=== PATIENT | female | born 1945 | race African-American/Black ===

== ENCOUNTER 2016-10-24 19:51 | Emergency (ER) | payer MEDICARE, OTHER ==
[~2016-10-24] VITALS: Ht 162.6 cm; Wt 79.8 kg
[~2016-10-24 19:51] MED LIST: ACET325T9 PO; ASCO500T2 PO; ASPI-482 PO; CELE200C PO; CHOL100016 PO; CLOP75TA57 PO; DICL100G18 TP; DIVA250T PO; DOCU240C30 PO; DONE10TA7 PO; DULO30CA2 PO; HYDR-2758 PO; INSU100I17 SQ; IPRA3AMP IH; LOSA100T6 PO; MAGN400O7 PO; MAGN400T3 PO; MULT-470 PO; MULT1TAB52 PO; NYST15PO9 TP; OMEP20CA9 PO; ONDA4TAB10 PO; OXYC-328 PO; OXYC10TA PO; OXYC5CAP PO; POLY17PO29 PO; POTA20PA21 PO; SENN1TAB7 PO; SENN8.6T6 PO; SIMV20TA3 PO; TRAZ50TA15 PO
--- NOTE | 2016-10-24 20:43 | PHYS DOC ---
Past Medical History Past Medical History: Anxiety, Asthma, Constipation, CVA, Dementia, Depression , Diabetes-Type II, GERD, High Cholesterol, Stroke, Other Additional Past Medical Histor: ALZHEIMERS, PVD, INSOMNIA, GASTROPARESIS, DYSPHAGIA, hemiplegia, MOOD D/O Past Surgical History: Hysterectomy Alcohol Use: None Drug Use: None Adult General Chief Complaint Chief Complaint: MECHANICAL FALL HPI HPI Patient is a 71 year old female who presents by EMS from nursing facility for sliding out of her wheelchair and then appearing that she was in pain. She is mostly nonverbal at baseline due to advanced dementia; she answers yes and no questions while here. Her son states she appears at her mental baseline at this time. Patient states she is in pain, but does not say specifically where it is. Patient does only say yes to pain when left elbow is palpated. She denies headache, vision changes, dizziness, chest pain, back pain, dyspnea, abdominal pain. Review of Systems Review of Systems Constitutional: Denies fever or chills [] Eyes: Denies change in visual acuity, redness, or eye pain [] HENT: Denies nasal congestion or sore throat [] Respiratory: Denies cough or shortness of breath [] Cardiovascular: No additional information not addressed in HPI [] GI: Denies abdominal pain, nausea, vomiting, bloody stools or diarrhea [] : Denies dysuria or hematuria [] Musculoskeletal: Denies back pain [] Integument: Denies rash or skin lesions [] Neurologic: Denies headache, focal weakness or sensory changes [] Endocrine: Denies polyuria or polydipsia [] Allergies Allergies Allergies Coded Allergies Type Severity Reaction Last Updated Verified Penicillins Allergy Intermediate 02/12/14 Yes Physical Exam Physical Exam Constitutional: Well developed, well nourished, no acute distress, non-toxic appearance. [] HENT: Normocephalic, atraumatic, bilateral external ears normal, oropharynx moist, no oral exudates, nose normal. [] Eyes: PERRLA, EOMI, conjunctiva normal, no discharge. [] Neck: Normal range of motion, no tenderness, supple. [] Cardiovascular:Heart rate regular rhythm [] Lungs & Thorax: Bilateral breath sounds clear to auscultation [] Abdomen: Bowel sounds normal, soft, no tenderness. [] Skin: Warm, dry, no erythema, no rash. [] Back: No tenderness, no CVA tenderness. [] Extremities: No tenderness and no obvious deformity to RUE, RLE, or LLE. LUE with no obvious deformity or discoloration; Has mild tenderness of olecranon with no visual or palpable abnormality; otherwise nontender; Full ROM with shoulder/elbow/wrist/hand; Can pronate/supinate; Can make fist/thumb up/ finger spread; Can flex/ex wrist; Good radial pulse and brisk cap refill equal bilaterally; sensation intact to light touch m/u/r/ax nerves [] Neurologic: Alert, minimally verbal, chronic right hemiplegia. [] Psychologic: Affect normal, mood normal. [] Current Patient Data Vital Signs Vital Signs Date Time Temp Pulse Resp B/P (MAP) Pulse Ox O2 Delivery O2 Flow Rate FiO2 10/24/16 20:00 98.0 89 18 155/94 (114) 97 Room Air 98.0 Course & Med Decision Making Course & Med Decision Making Pertinent Labs and Imaging studies reviewed. (See chart for details) Laboratory evaluation is unremarkable. Discussed with family that imaging does not appear indicated at this time based upon exam. They feel comfortable returning to the nursing facility. Return precautions given. Family understands and agrees with plan. Dragon Disclaimer Dragon Disclaimer This electronic medical record was generated, in whole or in part, using a voice recognition dictation system. Departure Departure Impression: Primary Impression: Left elbow pain Disposition: 01 HOME, SELF-CARE Condition: STABLE Referrals: TEENA DAHL MD (PCP) Patient Instructions: Musculoskeletal Pain Additional Instructions: Follow-up with your primary care doctor. Return for any concerns. Polo GEE MD October 24, 2016 20:43
[2016-10-24 20:44] LABS: POTASSIUM ISTAT 3.7 mmol/L (3.5-5.0)
[2016-10-24 21:20] VITALS: BP 180/80
== END 2016-10-24 22:03 | disposition home or self-care (01) ==
LOC: ER 20:39
DX: M25.522 Pain in left elbow (principal); G81.91 Hemiplegia, unspecified affecting right dominant side; F41.9 Anxiety disorder, unspecified; F32.9 Major depressive disorder, single episode, unspecified; E11.43 Type 2 diabetes mellitus with diabetic autonomic (poly)neuropathy; K31.84 Gastroparesis; K21.9 Gastro-esophageal reflux disease without esophagitis; E78.00 Pure hypercholesterolemia, unspecified; I73.9 Peripheral vascular disease, unspecified; G47.00 Insomnia, unspecified; J45.909 Unspecified asthma, uncomplicated; G30.9 Alzheimer's disease, unspecified; F02.80 Dementia in other diseases classified elsewhere, unspecified severity, without behavioral disturbance, psychotic disturbance, mood disturbance, and anxiety; Z88.0 Allergy status to penicillin; Z86.73 Personal history of transient ischemic attack (TIA), and cerebral infarction without residual deficits
CPT/HCPCS: 36415; 80047; 99284

== ENCOUNTER 2016-12-15 07:08 | Emergency (ER) | payer MEDICARE, OTHER ==
[~2016-12-15] VITALS: Ht 170.2 cm; Wt 79.8 kg
--- NOTE | 2016-12-15 07:48 | PHYS DOC ---
Past Medical History Past Medical History: Anxiety, Asthma, Constipation, CVA, Dementia, Depression , Diabetes-Type II, GERD, High Cholesterol, Stroke, Other Additional Past Medical Histor: ALZHEIMERS, PVD, INSOMNIA, GASTROPARESIS, DYSPHAGIA, hemiplegia, MOOD D/O Past Surgical History: Hysterectomy Alcohol Use: None Drug Use: None Adult General Chief Complaint Chief Complaint: MECHANICAL FALL HPI HPI Patient is a 71 year old female who presents with a fall from the assisted. According to her son she was put in a wheelchair and when staff returned she fell from words out of the wheelchair. Patient has a hematoma above her right eye. She has a history of dementia and believes her son is her . She does not complain of any pain at this time. Review of Systems Review of Systems Caveat: Review of systems limited by patient's dementia Constitutional: Denies fever or chills [] Eyes: Denies change in visual acuity, redness, or eye pain [] HENT: Denies nasal congestion or sore throat [] Respiratory: Denies cough or shortness of breath [] Cardiovascular: No additional information not addressed in HPI [] GI: Denies abdominal pain, nausea, vomiting, bloody stools or diarrhea [] : Denies dysuria or hematuria [] Musculoskeletal: Denies back pain or joint pain [] Integument: Denies rash or skin lesions [] Neurologic: Denies headache, focal weakness or sensory changes [] Endocrine: Denies polyuria or polydipsia [] Allergies Allergies Allergies Coded Allergies Type Severity Reaction Last Updated Verified Penicillins Allergy Intermediate 02/12/14 Yes Physical Exam Physical Exam Constitutional: Well developed, well nourished, no acute distress, non-toxic appearance. [] HENT: Normocephalic, bilateral external ears normal, oropharynx moist, no oral exudates, nose normal. 3 x 4 cm hematoma above right eye with ecchymosis above and below right eye, swelling around the orbit of the right eye. Eyes: PERRLA, EOMI, conjunctiva normal, no discharge. [] Neck: Normal range of motion, no tenderness, supple, no stridor. [] Cardiovascular:Heart rate regular rhythm, no murmur [] Lungs & Thorax: Bilateral breath sounds clear to auscultation [] Abdomen: Bowel sounds normal, soft, no tenderness, no masses, no pulsatile masses. [] Skin: Warm, dry, no erythema, no rash. [] Back: No tenderness, no CVA tenderness. [] Extremities: No tenderness, no cyanosis, no clubbing, ROM intact, no edema. [] Neurologic: Alert and pleasantly interactive, contracture of the right upper extremity foot drop noted in the right lower extremity. Psych: Affect normal, judgement normal, mood normal. [] Current Patient Data Vital Signs Vital Signs Date Time Temp Pulse Resp B/P (MAP) Pulse Ox O2 Delivery O2 Flow Rate FiO2 12/15/16 11:30 92 18 141/98 (112 98 Room Air 12/15/16 07:11 97.4 97.4 EKG EKG [] Radiology/Procedures Radiology/Procedures [facility] [address] [place], [place] [id number] IMAGING REPORT Signed PATIENT: KELSEY VARELA ACCOUNT: [id number] : 1945 LOCATION: ER AGE: 71 SEX: F EXAM STATUS: REG ER ORD. PHYSICIAN: CARI STEWART MD REASON: fall PROCEDURE: CT CERVICAL SPINE WO CONTRAST CT cervical spine without contrast 12/26/2016 at 0841 hours Indication: Fall Comparison: 05/08/2012 CT cervical spine Technique: Multiple noncontrast axial CT images of the cervical spine were acquired. Coronal and sagittal reformats are provided. Findings: There is straightening of the normal cervical lordosis. No acute fracture is identified. Mild degenerative changes are identified at the left atlantodens articulation. A small left retrocerebellar cyst is present. Otherwise, the posterior fossa is normal. Skull base is normal. Vascular calcifications are identified involving the cavernous segments of the internal carotid arteries. Sphenoid sinus is well aerated. Mastoid air cells are well aerated. Soft tissues of the neck are normal as visualized. Visualized upper lung delcid are normal. Small posterior disc ossify complexes are identified at C3-C4, C4-C5 and to lesser extent C5-C6. No significant spinal canal stenosis. No significant uncovertebral joint arthropathy. Mild to moderate facet arthropathy is noted at C4-C5, C5-C6 and C6-C7. Impression: No acute fracture or malalignment. Mild degenerative changes of the cervical spine are present. PQRS Compliance Statement: One or more of the following individualized dose reduction techniques were utilized for this examination: 1. Automated exposure control 2. Adjustment of the mA and/or kV according to patient size 3. Use of iterative reconstruction technique DICTATED and SIGNED BY: LUIS TILLMAN MD DATE: 12/15/16 0900 CC: CARI STEWART MD; TEENA DAHL MD ~ [facility] [address] [place], [place] [id number] IMAGING REPORT Signed PATIENT: KELSEY VARELA ACCOUNT: [id number] : 1945 LOCATION: ER AGE: 71 SEX: F EXAM STATUS: REG ER ORD. PHYSICIAN: CARI STEWART MD REASON: fall PROCEDURE: CT HEAD AND MAXILLOFACIAL WO CT head and maxillofacial without contrast 12/15/2016 at 0817 hours Indication: Fall and bump above right eye. Comparison: Head CT 01/11/2015 Technique: Multiple noncontrast axial CT images of the head and maxilla facial structures were performed. Findings: Ventricles, sulci and basal cisterns are mildly prominent compatible with generalized cerebral volume loss. There is low attenuation in the periventricular white matter compatible with chronic small vessel ischemic changes. Bilateral lacunar infarcts are identified in the left basal ganglia and left insula. There is hyperostosis frontalis interna. No acute intracranial hemorrhage is identified. There is a right frontal subcutaneous hematoma measuring approximately 13 mm intact and 54 mm in width. No underlying calvarial fracture is identified. Globes are intact. No evidence for lens dislocation. Optic nerves and extraocular muscles are normal in appearance. Paranasal sinuses are well aerated. Lamina papyracea is intact. Maxilla and mandible are intact. Mild degenerative changes are noted in the visualized cervical spine. Mastoid air cells are well aerated. Skull base is normal. Aerated petrous apex is present without evidence of trapped fluid. Impression: 1. Right supraorbital superficial hematoma without underlying fracture or intracranial hemorrhage. The right orbit is intact. 2. Remote ischemic changes identified in the left insula and left basal ganglia. Chronic small vessel ischemic changes are present with mild to moderate generalized cerebral atrophy.. Findings are not significantly changed dating back to 01/11/2015. PQRS Compliance Statement: One or more of the following individualized dose reduction techniques were utilized for this examination: 1. Automated exposure control 2. Adjustment of the mA and/or kV according to patient size 3. Use of iterative reconstruction technique DICTATED and SIGNED BY: LUIS TILLMAN MD DATE: 12/15/16 0907 CC: CARI STEWART MD; TEENA DAHL MD ~ Impressions: Facial contusion Course & Med Decision Making Course & Med Decision Making Pertinent Labs and Imaging studies reviewed. (See chart for details) Patient has ecchymosis and swelling above and below the right eye extraocular muscles intact, does not appear that her vision is affected, there is no redness or erythema around her sclera. She does have dementia and does not complain of any discomfort. Her son is present during the exam and states she's been falling more and more recently. She does not ambulate she is wheelchair bound and they transferred her at the nursing facility. She does have worse previous strokes and is contracture of the right upper extremity and foot drop of the right lower extremity. CT scan neck head and face does not show any fractures. She does have ecchymosis and swelling around the right eye but her right eye is intact at this time. She's being discharged back to the assisted. Return precautions given. Her sons agreeable to plan. She is in stable condition this time. Dragon Disclaimer Dragon Disclaimer This electronic medical record was generated, in whole or in part, using a voice recognition dictation system. Departure Departure Impression: Primary Impression: Facial contusion Disposition: 01 HOME, SELF-CARE Condition: STABLE Referrals: TEENA DAHL MD (PCP) Patient Instructions: Facial or Scalp Contusion Additional Instructions: The CAT scan of her head and neck did not show anything broken. She will have swelling around her eye. She's being discharged back to her assisted. They will need to watch for additional swelling, pain or other concerns. Problem Qualifiers Primary Impression: Facial contusion Encounter type: initial encounter Qualified Codes: S00.83XA - Contusion of other part of head, initial encounter CARI STEWART MD Dec 15, 2016 07:48
--- NOTE | 2016-12-15 09:09 | RAD ---
CT cervical spine without contrast 12/26/2016 at 0841 hours Indication: Fall Comparison: 05/08/2012 CT cervical spine Technique: Multiple noncontrast axial CT images of the cervical spine were acquired. Coronal and sagittal reformats are provided. Findings: There is straightening of the normal cervical lordosis. No acute fracture is identified. Mild degenerative changes are identified at the left atlantodens articulation. A small left retrocerebellar cyst is present. Otherwise, the posterior fossa is normal. Skull base is normal. Vascular calcifications are identified involving the cavernous segments of the internal carotid arteries. Sphenoid sinus is well aerated. Mastoid air cells are well aerated. Soft tissues of the neck are normal as visualized. Visualized upper lung delcid are normal. Small posterior disc ossify complexes are identified at C3-C4, C4-C5 and to lesser extent C5-C6. No significant spinal canal stenosis. No significant uncovertebral joint arthropathy. Mild to moderate facet arthropathy is noted at C4-C5, C5-C6 and C6-C7. Impression: No acute fracture or malalignment. Mild degenerative changes of the cervical spine are present. PQRS Compliance Statement: One or more of the following individualized dose reduction techniques were utilized for this examination: 1. Automated exposure control 2. Adjustment of the mA and/or kV according to patient size 3. Use of iterative reconstruction technique
--- NOTE | 2016-12-15 09:17 | RAD ---
CT head and maxillofacial without contrast 12/15/2016 at 0817 hours Indication: Fall and bump above right eye. Comparison: Head CT 01/11/2015 Technique: Multiple noncontrast axial CT images of the head and maxilla facial structures were performed. Findings: Ventricles, sulci and basal cisterns are mildly prominent compatible with generalized cerebral volume loss. There is low attenuation in the periventricular white matter compatible with chronic small vessel ischemic changes. Bilateral lacunar infarcts are identified in the left basal ganglia and left insula. There is hyperostosis frontalis interna. No acute intracranial hemorrhage is identified. There is a right frontal subcutaneous hematoma measuring approximately 13 mm intact and 54 mm in width. No underlying calvarial fracture is identified. Globes are intact. No evidence for lens dislocation. Optic nerves and extraocular muscles are normal in appearance. Paranasal sinuses are well aerated. Lamina papyracea is intact. Maxilla and mandible are intact. Mild degenerative changes are noted in the visualized cervical spine. Mastoid air cells are well aerated. Skull base is normal. Aerated petrous apex is present without evidence of trapped fluid. Impression: 1. Right supraorbital superficial hematoma without underlying fracture or intracranial hemorrhage. The right orbit is intact. 2. Remote ischemic changes identified in the left insula and left basal ganglia. Chronic small vessel ischemic changes are present with mild to moderate generalized cerebral atrophy.. Findings are not significantly changed dating back to 01/11/2015. PQRS Compliance Statement: One or more of the following individualized dose reduction techniques were utilized for this examination: 1. Automated exposure control 2. Adjustment of the mA and/or kV according to patient size 3. Use of iterative reconstruction technique
[2016-12-15 11:30] VITALS: BP 141/98
--- NOTE | 2016-12-15 13:06 | EKG ---
[facility] [address] [place] [phone] Test Date: 2016-12-15 Test Time: 07:20:36 Pat Name: KELSEY VARELA Department: Room: Gender: F Admin Assistant: : 1945 Requested By: CARI STEWART Order Number: [id number] Reading MD: Wendy Lee Measurements Intervals [place] Rate: 89 P: -11 TN: 122 QRS: -8 QRSD: 68 T: 13 QT: 358 QTc: 437 Interpretive Statements SINUS RHYTHM LEFTWARD AXIS OTHERWISE NORMAL ECG Electronically Signed On 12-19-2016 15:16:30 CDT by Wendy Lee
== END 2016-12-15 12:34 | disposition home or self-care (01) ==
LOC: ER 07:08
DX: S00.83XA Contusion of other part of head, initial encounter (principal); I73.9 Peripheral vascular disease, unspecified; F02.80 Dementia in other diseases classified elsewhere, unspecified severity, without behavioral disturbance, psychotic disturbance, mood disturbance, and anxiety; G30.9 Alzheimer's disease, unspecified; J45.909 Unspecified asthma, uncomplicated; K21.9 Gastro-esophageal reflux disease without esophagitis; E78.00 Pure hypercholesterolemia, unspecified; E11.43 Type 2 diabetes mellitus with diabetic autonomic (poly)neuropathy; K31.84 Gastroparesis; Z86.73 Personal history of transient ischemic attack (TIA), and cerebral infarction without residual deficits; F32.9 Major depressive disorder, single episode, unspecified; F41.9 Anxiety disorder, unspecified; Z90.710 Acquired absence of both cervix and uterus; Z88.0 Allergy status to penicillin; W05.0XXA Fall from non-moving wheelchair, initial encounter; Y93.89 Activity, other specified; Y99.8 Other external cause status; Y92.89 Other specified places as the place of occurrence of the external cause
CPT/HCPCS: 70450; 70486; 72125; 93005; 99284-25

== ENCOUNTER 2017-03-05 11:08 | Inpatient (IN) | payer MEDICARE, OTHER ==
[2017-03-05] VITALS (9 sets, daily range): BP systolic 96–127; BP diastolic 50–97
[~2017-03-05] VITALS: Ht 157.5 cm; Wt 79.8 kg
[~2017-03-05 11:08] MED LIST changes: +SENN-87 PO; -SENN8.6T6 PO
[2017-03-05] MEDS ORDERED: IV NORMAL SALINE 1000ML BAG 1,000 ML IV SCH (11:38)
[2017-03-05] MEDS ORDERED: 0.9 % SODIUM CHLORIDE 10 ML DISP.SYRIN. IV PRN (11:45)
--- NOTE | 2017-03-05 11:49 | PHYS DOC ---
Past Medical History Past Medical History: Anxiety, Asthma, Constipation, CVA, Dementia, Depression , Diabetes-Type II, GERD, High Cholesterol, Stroke, Other Additional Past Medical Histor: ALZHEIMERS, PVD, INSOMNIA, GASTROPARESIS, DYSPHAGIA, hemiplegia, MOOD D/O Past Surgical History: Hysterectomy Alcohol Use: None Drug Use: None Adult General Chief Complaint Chief Complaint: reported respiratory difficulty and hypoxia altered mental status HPI HPI Patient is a pleasant 72-year-old -[place] female with a history of prior CVA and significant loss of strength in the right upper and right lower extremity. She presents today coming from [facility] with a prior history of esophageal reflux disease, anxiety, hyperlipidemia, peripheral vascular disease, type 2 diabetes, hypertension, dementia, chronic kidney disease, prior CVA with significant muscle weakness, abnormal posture, dysphagia , hyperosmolality, hypernatremia, dysphagia, who presents with increasing hypoxia as reported by the nursing staff yesterday and earlier this morning. Patient has had no productive cough, no fevers or chills documented on the chart , no changes in medications, no sick contacts, no apparent change in bowel habits eating habits. Patient's only reported issue from the [facility] was increased moaning and decreased mental status. He is not able answer any questions as she is aphasic history is provided by the [facility] notes and one of the sons at the bedside. Review of Systems Review of Systems Unobtainable secondary to medical condition Current Medications Current Medications Current Medications Medications (Trade) Dose Ordered Sig/Nena Start Time Stop Time Status Last Admin Dose Admin Lorazepam (Ativan) 1 mg 1X ONCE 03/05/17 13:00 03/05/17 13:01 DC 03/05/17 13:00 1 MG Ondansetron HCl (Zofran) 4 mg PRN Q8HRS PRN 03/05/17 13:00 03/06/17 12:59 Sodium Chloride 1,000 ml @ 1,000 mls/hr 1X ONCE 03/05/17 13:00 03/05/17 13:59 DC 03/05/17 13:50 1,000 MLS/HR Sodium Chloride (Normal Saline Flush) 10 ml QSHIFT PRN 03/05/17 11:45 03/05/17 12:07 10 ML Allergies Allergies Allergies Coded Allergies Type Severity Reaction Last Updated Verified Penicillins Allergy Intermediate 02/12/14 Yes Physical Exam Physical Exam Vital signs recorded on the chart by nursing staff actually temperature is 90.8 sats 100% respiratory rate of 24 blood pressure 108/89 patient heart rate is 100. Constitutional: Patient is mildly obese with significant dry mucous membranes moving her left upper and left lower extremity spontaneously patient is well- nourished although dehydrated in appearance HENT: Normocephalic, atraumatic, bilateral external ears normal, very dry mucous membranes, nose normal. [] Eyes: PERRLA, EOMI, conjunctiva normal, no discharge. No jaundice Neck: Normal range of motion, no tenderness, supple, no stridor. No bruits noted Cardiovascular:Heart rate regular rhythm, no murmur [] Lungs & Thorax: She has decreased breath sounds left lower lung. Abdomen: Bowel sounds normal, soft, no tenderness, no masses, no pulsatile masses. No apparent guarding rebound or organomegaly Skin: Patient's skin is dry with no erythema no obvious signs of trauma. Extremities: She has significant contracture of the right upper extremity with muscle wasting and weakness. Patient has a same finding in the right right lower leg. Neurologic: Patient moans upon manipulation she moves her left upper and left lower extremity spontaneously which according to the son at bedside as her baseline. Psychologic: Not assessable. Current Patient Data Vital Signs Vital Signs Date Time Temp Pulse Resp B/P (MAP) Pulse Ox O2 Delivery O2 Flow Rate FiO2 03/05/17 11:59 100 18 115/85 (95) Room Air 03/05/17 11:08 98.0 99 98.0 Lab Values Laboratory Tests Test 03/05/17 11:40 White Blood Count 7.2 x10^3/uL (4.0-11.0) Red Blood Count 4.59 x10^6/uL (3.50-5.40) Hemoglobin 14.5 g/dL (12.0-15.5) Hematocrit 45.2 % (36.0-47.0) Mean Corpuscular Volume 99 fL (79-100) Mean Corpuscular Hemoglobin 32 pg (25-35) Mean Corpuscular Hemoglobin Concent 32 g/dL (31-37) Red Cell Distribution Width 15.8 % (11.5-14.5) H Platelet Count 121 x10^3/uL (140-400) L Neutrophils (%) (Auto) 50 % (31-73) Lymphocytes (%) (Auto) 43 % (24-48) Monocytes (%) (Auto) 5 % (0-9) Eosinophils (%) (Auto) 2 % (0-3) Basophils (%) (Auto) 0 % (0-3) Neutrophils # (Auto) 3.6 x10^3uL (1.8-7.7) Lymphocytes # (Auto) 3.1 x10^3/uL (1.0-4.8) Monocytes # (Auto) 0.4 x10^3/uL (0.0-1.1) Eosinophils # (Auto) 0.2 x10^3/uL (0.0-0.7) Basophils # (Auto) 0.0 x10^3/uL (0.0-0.2) Sodium Level 180 mmol/L (136-145) *H Potassium Level 3.9 mmol/L (3.5-5.1) Chloride Level 139 mmol/L (98-107) H Carbon Dioxide Level 31 mmol/L (21-32) Anion Gap 10 (6-14) Blood Urea Nitrogen 45 mg/dL (7-20) H Creatinine 2.3 mg/dL (0.6-1.0) H Estimated GFR (Cockcroft-Gault) 25.2 BUN/Creatinine Ratio 20 (6-20) Glucose Level 161 mg/dL (70-99) H Calcium Level 9.5 mg/dL (8.5-10.1) Magnesium Level 2.8 mg/dL (1.8-2.4) H Total Bilirubin 0.6 mg/dL (0.2-1.0) Aspartate Amino Transferase (AST) 65 U/L (15-37) H Alanine Aminotransferase (ALT) 76 U/L (14-59) H Alkaline Phosphatase 104 U/L (46-116) Ammonia 13 mcmol/L (11-34) Creatine Kinase 859 U/L (26-192) H Creatine Kinase MB (Mass) 1.8 ng/mL (0.0-3.6) Creatine Kinase MB Relative Index 0.2 % (0-4) Troponin I Quantitative < 0.017 ng/mL (0.000-0.055) HT-Hjk-M-Type Natriuretic Peptide 27 pg/mL (0-124) Total Protein 8.2 g/dL (6.4-8.2) Albumin 3.3 g/dL (3.4-5.0) L Albumin/Globulin Ratio 0.7 (1.0-1.7) L Lipase 148 U/L (73-393) Thyroid Stimulating Hormone (TSH) 1.398 uIU/mL (0.358-3.74) Laboratory Tests 03/05/17 11:40 Laboratory Tests 03/05/17 11:40 EKG EKG []Patient's EKG read by me 11:15 AM 03/05/2017 demonstrates heart rate of 103 with a pediatric QRS sinus tachycardia with left axis deviation. Patient has no ST segment or T-wave changes consistent with acute chronic ischemia. She has T- wave flattening in the lateral leads from V4 to lead 1 she has a normal [place] interval of 98, normal QRS interval of 66 QTC of 476 which is within normal limits. Radiology/Procedures Radiology/Procedures [] [address] [place] [address] IMAGING REPORT Signed PATIENT: KELSEY VARELA ACCOUNT: [id number] : 1945 LOCATION: ER AGE: 72 SEX: F EXAM STATUS: PRE ER ORD. PHYSICIAN: VIVI RATLIFF MD REASON: altered mental status PROCEDURE: PORTABLE CHEST 1V Portable AP chest. History: Altered mental status AP view was taken of the chest. Lungs are clear. Heart is normal in size without heart failure. There is no effusion. Impression: 1. No acute chest disease. DICTATED and SIGNED BY: FELICIANO LUTZ MD DATE: 03/05/171216 CC: VIVI RATLIFF MD; TI PIPER MD ~ [facility] [address] [place] [address] IMAGING REPORT Signed PATIENT: KELSEY VARELA ACCOUNT: [id number] : 1945 LOCATION: [address] [place] [address] AGE: 72 SEX: F EXAM STATUS: ADM IN ORD. PHYSICIAN: VIVI RATLIFF MD REASON: altered mental status PROCEDURE: CT HEAD WO CONTRAST CT brain without contrast. History: Altered mental status. CT scan of the brain was done without contrast. Study is limited due to motion artifact. The patient was uncooperative and unable to hold still. There is an old left white matter CVA without change compared to the study from December. There is no acute intracranial hemorrhage. Sinuses are clear. There is marked hyperostosis of the frontal bones. Impression: 1. Limited study, motion artifact. 2. No intracranial hemorrhage noted. 3. Old left CVA. One or more of the following individualized dose reduction techniques were utilized for this examination: 1. Automated exposure control 2. Adjustment of the mA and/or kV according to patient size 3. Use of iterative reconstruction technique Course & Med Decision Making Course & Med Decision Making Pertinent Labs and Imaging studies reviewed. (See chart for details) Differential diagnosis: Acute myocardial ischemia, heart failure, cardiac tamponade, bronchospasm, pulmonary embolism, pneumothorax, pulmonary infection i.e. bronchitis or pneumonia, upper airway obstruction, anaphylaxis, aspiration , psychogenic, pulmonary contusion, toxidrome, pneumomediastinum, noncardiogenic pulmonary edema or ARDS, COPD, tuberculosis, cystic fibrosis, asthma, high altitude pulmonary edema, valvular dysfunction, cardiac dysrhythmia , stroke, neuromuscular diseases like myasthenia gravis gravis, ALS, Guillain- Zepeda syndrome, metabolic acidosis to include diabetic ketoacidosis, sepsis, and obstructive disorders like massive obesity was considered upon arrival given the patient's respiratory compromise reported by the [facility]. Patient 's satting 100% on room air not apparently and he can rest her stressed but I will still look for other signs of stressors i.e. dehydration, focal infection or recurrent stroke that are causing her symptoms. [] Patient's chest x-ray from 1211 PM 03/05/2017 read by me demonstrates no acute injury, no fracture, no acute pulmonary infiltrate, or pleural effusion. Patient 's exam is not widened Patient's laboratory work as been reviewed by me although she is nonverbal she seemed to be resting more comfortably with normal vital signs. Patient's white blood cell count is normal at 7.2 H&H is 14 and 45 platelet count is 121 which is mildly low. Patient does have an elevated sodium of 180 which is likely cause of her symptoms secondary to volume depletion and insensible losses and inappropriate replacement of free water. At this point she is being given a bolus of fluids and will still repeat head CT at this time after getting some IV Ativan to treat her agitation Laboratory Tests Test 03/05/17 11:40 White Blood Count 7.2 x10^3/uL (4.0-11.0) Red Blood Count 4.59 x10^6/uL (3.50-5.40) Hemoglobin 14.5 g/dL (12.0-15.5) Hematocrit 45.2 % (36.0-47.0) Mean Corpuscular Volume 99 fL (79-100) Mean Corpuscular Hemoglobin 32 pg (25-35) Mean Corpuscular Hemoglobin Concent 32 g/dL (31-37) Red Cell Distribution Width 15.8 % (11.5-14.5) Platelet Count 121 x10^3/uL (140-400) Neutrophils (%) (Auto) 50 % (31-73) Lymphocytes (%) (Auto) 43 % (24-48) Monocytes (%) (Auto) 5 % (0-9) Eosinophils (%) (Auto) 2 % (0-3) Basophils (%) (Auto) 0 % (0-3) Neutrophils # (Auto) 3.6 x10^3uL (1.8-7.7) Lymphocytes # (Auto) 3.1 x10^3/uL (1.0-4.8) Monocytes # (Auto) 0.4 x10^3/uL (0.0-1.1) Eosinophils # (Auto) 0.2 x10^3/uL (0.0-0.7) Basophils # (Auto) 0.0 x10^3/uL (0.0-0.2) Sodium Level 180 mmol/L (136-145) Chloride Level 139 mmol/L (98-107) Carbon Dioxide Level 31 mmol/L (21-32) Anion Gap 10 (6-14) Blood Urea Nitrogen 45 mg/dL (7-20) Estimated GFR (Cockcroft-Gault) 25.2 BUN/Creatinine Ratio 20 (6-20) Glucose Level 161 mg/dL (70-99) Calcium Level 9.5 mg/dL (8.5-10.1) Total Bilirubin 0.6 mg/dL (0.2-1.0) Aspartate Amino Transf (AST/SGOT) 65 U/L (15-37) Alkaline Phosphatase 104 U/L (46-116) Ammonia 13 mcmol/L (11-34) Creatine Kinase 859 U/L (26-192) Creatine Kinase MB (Mass) 1.8 ng/mL (0.0-3.6) Creatine Kinase MB Relative Index 0.2 % (0-4) Troponin I Quantitative < 0.017 ng/mL (0.000-0.055) Total Protein 8.2 g/dL (6.4-8.2) Albumin 3.3 g/dL (3.4-5.0) Albumin/Globulin Ratio 0.7 (1.0-1.7) Lipase 148 U/L (73-393) Auto Winder note: Dr. Piper Auto Winder called at of the service 12:56 pm Consult called back at Dr. Salmeron called back to 1:05 PM Discussed the case I presented and they agreed with admission. Time of acceptance 105 PM asked me to call nephrology. Spoke at length with the family about my concern about her dehydrated state. Although she has history of chronic renal disease stage III patient has an acute change in her BUN/creatinine today. This is likely secondary to prerenal azotemia and dehydration secondary to lack of oral intake. We talked about provided hydration status now completing the CAT scan of the head although there is no obvious signs of new neurologic insult patient may benefit from a thorough evaluation to include completed urinalysis which is not done at this time. Patient's CT scan shows no occult injury, bleeding, new stroke. Patient's urinalysis is still pending when I was not holding admission at this point. Laboratory Tests Test 03/05/17 11:40 White Blood Count 7.2 x10^3/uL (4.0-11.0) Red Blood Count 4.59 x10^6/uL (3.50-5.40) Hemoglobin 14.5 g/dL (12.0-15.5) Hematocrit 45.2 % (36.0-47.0) Mean Corpuscular Volume 99 fL (79-100) Mean Corpuscular Hemoglobin 32 pg (25-35) Mean Corpuscular Hemoglobin Concent 32 g/dL (31-37) Red Cell Distribution Width 15.8 % (11.5-14.5) Platelet Count 121 x10^3/uL (140-400) Neutrophils (%) (Auto) 50 % (31-73) Lymphocytes (%) (Auto) 43 % (24-48) Monocytes (%) (Auto) 5 % (0-9) Eosinophils (%) (Auto) 2 % (0-3) Basophils (%) (Auto) 0 % (0-3) Neutrophils # (Auto) 3.6 x10^3uL (1.8-7.7) Lymphocytes # (Auto) 3.1 x10^3/uL (1.0-4.8) Monocytes # (Auto) 0.4 x10^3/uL (0.0-1.1) Eosinophils # (Auto) 0.2 x10^3/uL (0.0-0.7) Basophils # (Auto) 0.0 x10^3/uL (0.0-0.2) Sodium Level 180 mmol/L (136-145) Chloride Level 139 mmol/L (98-107) Carbon Dioxide Level 31 mmol/L (21-32) Anion Gap 10 (6-14) Blood Urea Nitrogen 45 mg/dL (7-20) Estimated GFR (Cockcroft-Gault) 25.2 BUN/Creatinine Ratio 20 (6-20) Glucose Level 161 mg/dL (70-99) Calcium Level 9.5 mg/dL (8.5-10.1) Total Bilirubin 0.6 mg/dL (0.2-1.0) Aspartate Amino Transf (AST/SGOT) 65 U/L (15-37) Alkaline Phosphatase 104 U/L (46-116) Ammonia 13 mcmol/L (11-34) Creatine Kinase 859 U/L (26-192) Creatine Kinase MB (Mass) 1.8 ng/mL (0.0-3.6) Creatine Kinase MB Relative Index 0.2 % (0-4) Troponin I Quantitative < 0.017 ng/mL (0.000-0.055) Total Protein 8.2 g/dL (6.4-8.2) Albumin 3.3 g/dL (3.4-5.0) Albumin/Globulin Ratio 0.7 (1.0-1.7) Lipase 148 U/L (73-393) Dragon Disclaimer Dragon Disclaimer This electronic medical record was generated, in whole or in part, using a voice recognition dictation system. Departure Departure Impression: Primary Impression: Altered mental status Additional Impressions: Hypertensive chronic kidney disease Hypernatremia Disposition: ADMITTED INPATIENT Admitting Physician: Ti Piper Condition: GUARDED Referrals: TI PIPER MD (PCP) Problem Qualifiers VIVI RATLIFF MD Mar 05, 2017 11:49
[2017-03-05 11:58] LABS: BASO % 0 % (0-3); EOS % 2 % (0-3); HEMATOCRIT 45.2 % (36.0-47.0); HEMOGLOBIN 14.5 g/dL (12.0-15.5); LYMPH # 3.1 x10^3/uL (1.0-4.8); LYMPH % 43 % (24-48); MEAN CORPUSCULAR HEMOGLOBIN 32 pg (25-35); MEAN CORPUSCULAR HGB CONC 32 g/dL (31-37); MEAN CORPUSCULAR VOLUME 99 fL (79-100); MONO % 5 % (0-9); NEUT % 50 % (31-73); PLATELET COUNT 121 x10^3/uL (140-400); RED BLOOD COUNT 4.59 x10^6/uL (3.50-5.40); RED CELL DISTRIBUTION WIDTH 15.8 % (11.5-14.5); WHITE BLOOD COUNT 7.2 x10^3/uL (4.0-11.0)
[2017-03-05 12:12] LABS: ALBUMIN 3.3 g/dL (3.4-5.0); ALBUMIN/GLOBULIN RATIO 0.7 (1.0-1.7); CALCIUM 9.5 mg/dL (8.5-10.1); CREATININE 2.3 mg/dL (0.6-1.0); GFR 25.2; MAGNESIUM 2.8 mg/dL (1.8-2.4); POTASSIUM 3.9 mmol/L (3.5-5.1); TOTAL BILIRUBIN 0.6 mg/dL (0.2-1.0); TOTAL PROTEIN 8.2 g/dL (6.4-8.2)
[2017-03-05 12:19] LABS: CKMB MASS 1.8 ng/mL (0.0-3.6)
--- NOTE | 2017-03-05 12:20 | RAD ---
Portable AP chest. History: Altered mental status AP view was taken of the chest. Lungs are clear. Heart is normal in size without heart failure. There is no effusion. Impression: 1. No acute chest disease.
--- NOTE | 2017-03-05 12:54 | EKG ---
[facility] [address] [place] [address] Test Date: 2017-03-05 Test Time: 11:15:33 Pat Name: KELSEY VARELA Department: Room: Gender: F Lead Person: : 1945 Requested By: VIVI RATLIFF Order Number: [id number] Reading MD: Measurements Intervals [place] Rate: 103 P: -18 [place]: 98 QRS: -5 QRSD: 66 T: 75 QT: 362 QTc: 476 Interpretive Statements SINUS TACHYCARDIA LEFTWARD AXIS R-S TRANSITION ZONE IN V LEADS DISPLACED TO THE RIGHT RI6.01 Unconfirmed report No previous ECG available for comparison
[2017-03-05] MEDS ORDERED: ONDANSETRON PF 4 MG/2 ML VIAL. IV PRN (13:00)
[2017-03-05] MEDS ORDERED: IV NORMAL SALINE 1000ML BAG 1,000 ML IV ONE (13:00)
--- NOTE | 2017-03-05 13:44 | RAD ---
CT brain without contrast. History: Altered mental status. CT scan of the brain was done without contrast. Study is limited due to motion artifact. The patient was uncooperative and unable to hold still. There is an old left white matter CVA without change compared to the study from December. There is no acute intracranial hemorrhage. Sinuses are clear. There is marked hyperostosis of the frontal bones. Impression: 1. Limited study, motion artifact. 2. No intracranial hemorrhage noted. 3. Old left CVA. One or more of the following individualized dose reduction techniques were utilized for this examination: 1. Automated exposure control 2. Adjustment of the mA and/or kV according to patient size 3. Use of iterative reconstruction technique
[2017-03-05 14:04] LABS: BILIRUBIN,URINE NEGATIVE (NEG); GLUCOSE,URINE NEGATIVE (NEG); NITRITE,URINE POSITIVE (NEG); PH,URINE 5.5; PROTEIN,URINE 30 mg/dL (NEG-TRACE); UROBILINOGEN,URINE 0.2 mg/dL (0.2 mg/dL)
[2017-03-05 14:24] LABS: BACTERIA,URINE MANY /HPF (0-FEW); RBC,URINE TNTC /HPF (0-2); SQUAMOUS EPITHELIAL CELL,UR FEW /LPF
[2017-03-05] MEDS ORDERED: FLU VACC QS2017-18 (36MOS+)/PF 0.5 ML SYRINGE. VAX IM ONE (16:15)
[2017-03-05] MEDS ORDERED: INFLUENZA VAX SCREEN BY RX. MC ONE (16:15)
[2017-03-05] MEDS ORDERED: FAMO-63 PO (18:05)
[2017-03-05] MEDS ORDERED: INSU100I17 SQ (18:47)
[2017-03-05] MEDS ORDERED: IPRA3AMP NEB (18:47)
[2017-03-05] MEDS ORDERED: STERILE WATER IV SCH (19:30)
[2017-03-05] MEDS ORDERED: SODIUM CHLORIDE IV SCH (19:30)
[2017-03-05] MEDS ORDERED: AMINO AC 3%/ELECTROLYTE/GLYCER 1,000 ML IV SCH (22:30)
[2017-03-05] MEDS: CIPROFLOXACIN 200MG PREMIX 100 ML IV SCH (23:22)
[2017-03-06] VITALS (24 sets, daily range): BP systolic 87–142; BP diastolic 49–82
[2017-03-06 06:25] LABS: CALCIUM 8.6 mg/dL (8.5-10.1); GFR 29.6; POTASSIUM 3.6 mmol/L (3.5-5.1)
[2017-03-06] MEDS: STERILE WATER IV SCH (10:01)
[2017-03-06] MEDS: SODIUM CHLORIDE IV SCH (10:01)
--- NOTE | 2017-03-06 11:37 | PDOC ---
Provider Note Provider Note P seen in ICU .H&P dictated. #[id number]. spoke with renal. KATI RIVAS MD Mar 06, 2017 11:37
[2017-03-06] MEDS ORDERED: DEXTROSE 50% 25 GM / 50ML DISP.SYRIN. IV PRN (11:45)
--- NOTE | 2017-03-06 11:47 | PDOC2 ---
CONSULT Date of Consult Date of Consult DATE: 03/06/17 TIME: 11:42 Reason for Consult Reason for Consult: RENAL FAILURE Referring Physician Referring Physician: EVELYN Identification/Chief Complaint Chief Complaint CONFUSION AND ABNORMAL LABS Problems: Source Source: Chart review History of Present Illness Reason for Visit: THIS IS A 72 YR OLD ADMITTED WITH ABNORMAL LABS AND INCREASING CONFUSION. ON ADMIT LABS SHOWED A CR OF 2.3 AND A NA OF 180. NO CKD NOTED. SHE HAS HAD SEVERAL ADMISSIONS FOR DEHYDRATION. HER UA IS POS FOR UTI ON ADMIT. SHE CANNOT GIVE ANY HX DUE TO DEMENTIA AND ACUTE ENCEPHALOPATHY Past Medical History Cardiovascular: HTN, Hyperlipidemia, Other CENTRAL NERVOUS SYSTEM: CVA, Dementia GI: Constipation, GERD, Other Psych: Anxiety, Depression, Other Musculoskeletal: Other Renal/: Chronic renal insuff, Urinary Incontinence Endocrine: Diabetes, Other Past Surgical History Past Surgical History: Hysterectomy Family History Family History: Other Social History ALCOHOL: none Lives: Care Home Domestic Violence: Neg Current Problem List Problem List Problems Medical Problems: (1) Altered mental status Status: Acute (2) Hypernatremia Status: Acute (3) Hypertensive chronic kidney disease Status: Acute Current Medications Current Medications Current Medications Sodium Chloride 1,000 ml @ 1,000 mls/hr Q1H IV Last administered on 03/05/17 12:07; Start 03/05/17 at 11:38; Stop 03/05/17 at 12:37; Status DC Sodium Chloride (Normal Saline Flush) 10 ml QSHIFT PRN IV AFTER MEDS AND BLOOD DRAWS Last administered on 03/05/17 12:07; Start 03/05/17 at 11:45 Lorazepam (Ativan) 1 mg 1X ONCE IV Last administered on 03/05/17 13:00; Start 03/05/17 at 13:00; Stop 03/05/17 at 13:01; Status DC Sodium Chloride 1,000 ml @ 1,000 mls/hr 1X ONCE IV Last administered on 13:50; Start 03/05/17 at 13:00; Stop 03/05/17 at 13:59; Status DC Ondansetron HCl (Zofran) 4 mg PRN Q8HRS PRN IV NAUSEA/VOMITING; Start 03/05/17 at 13:00; Stop 03/06/17 at 12:59 Info (Do NOT chart on this placeholder) 1X ONCE MC ; Start 03/05/17 at 16:15; Stop 03/05/17 at 16:16; Status UNV Influenza Virus Vaccine Quadrival (Fluarix Quad [id number] Syringe) 0.5 ml ONCE ONCE VAX IM ; Start 03/05/17 at 16:15; Stop 03/05/17 at 16:16; Status DC Sodium Chloride 38.75 meq/Sterile Water 1,009.6875 ml @ 75 mls/hr [id number] IV Last administered on 03/05/17 19:36; Start 03/05/17 at 19:30; Stop 03/06/17 at 08:55; Status DC Amino Acids/ Glycerin/ Electrolytes 1,000 ml @ 80 mls/hr [id number] IV ; Start at 22:30; Stop 03/05/17 at 22:30; Status DC Ciprofloxacin/ Dextrose 100 ml @ 100 mls/hr QHS IV Last administered on 23:22; Start 03/05/17 at 23:00 Sodium Chloride 38.75 meq/Sterile Water 1,009.6875 ml @ 100 mls/hr Q10H6M IV Last administered on 03/06/17 10:01; Start 03/06/17 at 09:30 Ceftriaxone Sodium 1 gm/ Sodium Chloride 50 ml @ 100 mls/hr Q24H IV ; Start at 12:00 Insulin Aspart (NovoLOG) 0-7 UNITS TIDWMEALS SQ ; Start 03/06/17 at 12:00 Dextrose (Dextrose 50%-Water Syringe) 12.5 gm PRN Q15MIN PRN IV SEE COMMENTS; Start 03/06/17 at 11:45 Heparin Sodium (Porcine) (Heparin Sq) 5,000 unit Q12HR SQ ; Start 03/06/17 at 12 :30 Active Scripts Active Reported Novolog Flexpen (Insulin Aspart) 100 Unit/1 Ml Insuln.pen 1 Unit SQ Duoneb 0.5-3(2.5) Mg/3 Ml (Albuterol/Ipratropium) 3 Ml Ampul.neb 3 Ml NEB QID Pepcid (Famotidine) 20 Mg Tablet 20 Mg PO HS Oxycodone Hcl 10 Mg Tablet 1 Tab PO Q6HRS PRN Voltaren (Diclofenac Sodium) 100 Gm Gel..gram. 1 Gm TP QID to R knee Oxycodone Hcl 5 Mg Capsule 5 Mg PO Q6HRS PRN Multivitamins (Multivitamin) 1 Each Tablet 1 Tab PO DAILY Senna-Docusate Sodium Tablet (Sennosides/Docusate Sodium) 1 Each Tablet 2 Each PO DAILY Nystatin 15 Gm Powder 1 Gaby TP BID Vitamin D3 (Cholecalciferol (Vitamin D3)) 1,000 Unit Tab.chew 1,000 Unit PO DAILY Simvastatin 20 Mg Tablet 20 Mg PO HS Plavix (Clopidogrel Bisulfate) 75 Mg Tablet 75 Mg PO DAILY Miralax (Polyethylene Glycol 3350) 17 Gm Powd.pack 17 Gm PO DAILY Donepezil Hcl 10 Mg Tablet 10 Mg PO HS Aspir 81 (Aspirin) 81 Mg Tablet.dr 81 Mg PO DAILY Tylenol (Acetaminophen) 325 Mg Tablet 650 Mg PO Q6HRS PRN Zofran Odt (Ondansetron) 4 Mg Tab.rapdis 4 Mg PO Q6HRS PRN Milk Of Magnesia (Magnesium Hydroxide) 400 Mg/5 Ml Oral.susp 30 Ml PO Q12HR PRN Magnesium Oxide 400 Mg Tablet 400 Mg PO BID Allergies Allergies: Coded Allergies: Penicillins (Verified Allergy, Intermediate, 02/12/14) ROS Review of System UNABLE TO OBTAIN Physical Exam General: Cooperative, No acute distress HEENT: Atraumatic, PERRLA, Other (DRY MUCOSA) Lungs: Clear to auscultation Heart: Regular rate Abdomen: Normal bowel sounds, Soft, No tenderness Extremities: No clubbing, No cyanosis Skin: No rashes, No significant lesion Neuro: Other (CONFUSED) Psych/Mental Status: Other (CONFUSED) MUSCULOSKELETAL: No deformity, No swelling Vitals VITALS Vital Signs Date Time Temp Pulse Resp B/P (MAP) Pulse Ox O2 Delivery O2 Flow Rate FiO2 03/06/17 08:00 98.6 100 16 118/77 (91) 100 Room Air 98.6 Labs Labs Laboratory Tests Test 03/05/17 11:40 03/05/17 13:34 03/06/17 05:40 White Blood Count 7.2 x10^3/uL (4.0-11.0) Red Blood Count 4.59 x10^6/uL (3.50-5.40) Hemoglobin 14.5 g/dL (12.0-15.5) Hematocrit 45.2 % (36.0-47.0) Mean Corpuscular Volume 99 fL (79-100) Mean Corpuscular Hemoglobin 32 pg (25-35) Mean Corpuscular Hemoglobin Concent 32 g/dL (31-37) Red Cell Distribution Width 15.8 % (11.5-14.5) Platelet Count 121 x10^3/uL (140-400) Neutrophils (%) (Auto) 50 % (31-73) Lymphocytes (%) (Auto) 43 % (24-48) Monocytes (%) (Auto) 5 % (0-9) Eosinophils (%) (Auto) 2 % (0-3) Basophils (%) (Auto) 0 % (0-3) Neutrophils # (Auto) 3.6 x10^3uL (1.8-7.7) Lymphocytes # (Auto) 3.1 x10^3/uL (1.0-4.8) Monocytes # (Auto) 0.4 x10^3/uL (0.0-1.1) Eosinophils # (Auto) 0.2 x10^3/uL (0.0-0.7) Basophils # (Auto) 0.0 x10^3/uL (0.0-0.2) Sodium Level 180 mmol/L (136-145) 177 mmol/L (136-145) Potassium Level 3.9 mmol/L (3.5-5.1) 3.6 mmol/L (3.5-5.1) Chloride Level 139 mmol/L (98-107) 141 mmol/L (98-107) Carbon Dioxide Level 31 mmol/L (21-32) 26 mmol/L (21-32) Anion Gap 10 (6-14) 10 (6-14) Blood Urea Nitrogen 45 mg/dL (7-20) 40 mg/dL (7-20) Creatinine 2.3 mg/dL (0.6-1.0) 2.0 mg/dL (0.6-1.0) Estimated GFR (Cockcroft-Gault) 25.2 29.6 BUN/Creatinine Ratio 20 (6-20) Glucose Level 161 mg/dL (70-99) 129 mg/dL (70-99) Calcium Level 9.5 mg/dL (8.5-10.1) 8.6 mg/dL (8.5-10.1) Magnesium Level 2.8 mg/dL (1.8-2.4) Total Bilirubin 0.6 mg/dL (0.2-1.0) Aspartate Amino Transf (AST/SGOT) 65 U/L (15-37) Alanine Aminotransferase (ALT/SGPT) 76 U/L (14-59) Alkaline Phosphatase 104 U/L (46-116) Ammonia 13 mcmol/L (11-34) Creatine Kinase 859 U/L (26-192) Creatine Kinase MB (Mass) 1.8 ng/mL (0.0-3.6) Creatine Kinase MB Relative Index 0.2 % (0-4) Troponin I Quantitative < 0.017 ng/mL (0.000-0.055) XD-Bbd-S-Type Natriuretic Peptide 27 pg/mL (0-124) Total Protein 8.2 g/dL (6.4-8.2) Albumin 3.3 g/dL (3.4-5.0) Albumin/Globulin Ratio 0.7 (1.0-1.7) Lipase 148 U/L (73-393) Thyroid Stimulating Hormone (TSH) 1.398 uIU/mL (0.358-3.74) Urine Collection Type Unknown Urine Color Yellow Urine Clarity Cloudy Urine pH 5.5 Urine Specific [place] 1.015 Urine Protein 30 mg/dL (NEG-TRACE) Urine Glucose (UA) Negative mg/dL (NEG) Urine Ketones (Stick) Negative mg/dL (NEG) Urine Blood Large (NEG) Urine Nitrite Positive (NEG) Urine Bilirubin Negative (NEG) Urine Urobilinogen Dipstick 0.2 mg/dL (0.2 mg/dL) Urine Leukocyte Esterase Moderate (NEG) Urine RBC Tntc /HPF (0-2) Urine WBC 11-20 /HPF (0-4) Urine Squamous Epithelial Cells Few /LPF Urine Bacteria Many /HPF (0-FEW) Urine Hyaline Casts Few /HPF Urine Mucus Slight /LPF Laboratory Tests Test 03/05/17 13:34 03/06/17 05:40 Urine Collection Type Unknown Urine Color Yellow Urine Clarity Cloudy Urine pH 5.5 Urine Specific [place] 1.015 Urine Protein 30 mg/dL (NEG-TRACE) Urine Glucose (UA) Negative mg/dL (NEG) Urine Ketones (Stick) Negative mg/dL (NEG) Urine Blood Large (NEG) Urine Nitrite Positive (NEG) Urine Bilirubin Negative (NEG) Urine Urobilinogen Dipstick 0.2 mg/dL (0.2 mg/dL) Urine Leukocyte Esterase Moderate (NEG) Urine RBC Tntc /HPF (0-2) Urine WBC 11-20 /HPF (0-4) Urine Squamous Epithelial Cells Few /LPF Urine Bacteria Many /HPF (0-FEW) Urine Hyaline Casts Few /HPF Urine Mucus Slight /LPF Sodium Level 177 mmol/L (136-145) Potassium Level 3.6 mmol/L (3.5-5.1) Chloride Level 141 mmol/L (98-107) Carbon Dioxide Level 26 mmol/L (21-32) Anion Gap 10 (6-14) Blood Urea Nitrogen 40 mg/dL (7-20) Creatinine 2.0 mg/dL (0.6-1.0) Estimated GFR (Cockcroft-Gault) 29.6 Glucose Level 129 mg/dL (70-99) Calcium Level 8.6 mg/dL (8.5-10.1) Assessment/Plan Assessment/Plan IMP CONY DEHYDRATION URINARY TRACT INFECTION HYPERNATREMIA PLAN ANTIBIOTICS HYPOTONIC SALINE PROCALAMINE CONSIDER PEG DUE TO RECURRENT EPISODES OF DEHYDRATION LABS IN AM ANDREEA MUELLER MD Mar 06, 2017 11:47
[2017-03-06] MEDS: INSULIN ASPART 300 UNITS/3 ML INSULN.PEN SQ SCH ×2 (12:00→16:01)
[2017-03-06] MEDS: AMINO AC 3%/ELECTROLYTE/GLYCER 1,000 ML IV SCH (12:15)
[2017-03-06] MEDS: HEPARIN PF for SUB-Q USE 5,000 UNIT/0.5 ML VIAL. SQ SCH ×2 (14:09→21:28)
[2017-03-06] MEDS: CIPROFLOXACIN 200MG PREMIX 100 ML IV SCH (21:28)
--- NOTE | 2017-03-06 21:53 | HP ---
ADMIT DATE: 03/05/2017 PATIENT LOCATION: [facility] ATTENDING PHYSICIAN: Dr. Ti Piper HISTORY OF PRESENT ILLNESS: The patient is a 72-year-old female patient from [facility] and she was sent to the Emergency Room because of change in mental status and sodium was high. She has a history of previous CVA with right-sided weakness. She also has history of reflux disease, anxiety, hyperlipidemia, peripheral vascular disease, diabetes, hypertension, dementia, chronic kidney disease, history of hypernatremia in the past. She also has chronic Moore catheter, history of UTIs in the past. The patient came to the Emergency Room, had a workup. CT scan showed old CVA. Chest x-ray was negative. Urine showed some nitrites positive. Sodium was high at 180. Creatinine was 2.5. The patient was admitted to the ICU, was started on broad spectrum antibiotics and seen by Renal and electrolytes were managed. PAST MEDICAL HISTORY: History of as mentioned above anxiety, CVA, dementia, depression, diabetes, hypernatremia and reflux disease. SURGICAL HISTORY: Hysterectomy. ALLERGIES: PENICILLIN, but she can take cephalosporins. FAMILY HISTORY: Not available. SOCIAL HISTORY: Lives at residential [facility]. The patient is on dysphagia diet. MEDICATIONS: At the facility, the patient is on Tylenol, aspirin 81 mg daily, Plavix 75 mg daily, MVI daily, Aricept 10 mg daily, Pepcid 20 mg at bedtime, insulin sliding scale, DuoNeb 4 times daily, magnesium liquid, nystatin powder, Zofran for nausea, MiraLax 17 grams daily, senna daily, simvastatin 20 mg daily, vitamin D3 daily, vitamin daily and oxycodone for pain 5 mg q. 6 hours. REVIEW OF SYMPTOMS: The patient is very lethargic, moans and she is sleeping most of the time, hard to awake her. PHYSICAL EXAMINATION: VITAL SIGNS: At the time of admission shows a temperature 98, pulse 100, respirations 24, blood pressure 108/89 and 99% on room air. HEENT: Head is atraumatic. Pupils reactive. Oral cavity, no teeth. NECK: Supple. CHEST: Symmetrical. CARDIOVASCULAR: S1 and S2. LUNGS: Diminished breath sounds. ABDOMEN: Soft. Scar in the right upper abdomen. Possible gallbladder surgery. Has chronic Moore catheter. RECTAL: Deferred. EXTREMITIES: No edema. NEUROLOGIC: The patient is arousable to deep pain, but moves spontaneously upper extremities. Hard to evaluate neurological status. LABORATORY DATA: White count 7, hemoglobin 14 and platelets 122. Electrolytes show sodium 180, potassium 3.9, chloride 139 and bicarb 31. BUN 45 and creatinine 2.3. Glucose 161. Magnesium 2.8. LFTs were normal, slightly elevated. TSH 1.3. Troponin was negative. CPK 859. Chest x-ray: No acute disease. CT scan of the brain without contrast shows old left CVA. FINAL IMPRESSION: 1. Hypernatremia severe Na 180. 2. Possible urinary tract infection.ch moore POA 3. Old cerebrovascular accident. 4. Diabetes, hypertension, reflux, depression and dementia. PLAN AT THIS TIME: The patient was given IV fluid bolus and one fourth normal saline. Renal was consulted. Monitor electrolytes periodically and slowly coming down. Also probably need nutrition issues resolved at this point. May need a long-term PEG tube placement. In the short term, may use Dobhoff or NG tube for nutrition. Also has UTI, urine culture, start on Cipro and Rocephin until further cultures available. KATI RIVAS MD DR: ALLIE/nai JOB#: [id number] / [id number] KATI Menjivar MD, PRATIP MD MTDD
[2017-03-07] VITALS (24 sets, daily range): BP systolic 11–136; BP diastolic 46–78
[2017-03-07] MEDS: AMINO AC 3%/ELECTROLYTE/GLYCER 1,000 ML IV SCH ×2 (00:19→12:08)
[2017-03-07] MEDS: SODIUM CHLORIDE IV SCH ×2 (00:20→18:49)
[2017-03-07] MEDS: STERILE WATER IV SCH ×2 (00:20→18:49)
[2017-03-07 06:19] LABS: CALCIUM 8.6 mg/dL (8.5-10.1); CREATININE 1.8 mg/dL (0.6-1.0); GFR 33.5; POTASSIUM 3.5 mmol/L (3.5-5.1)
[2017-03-07 06:52] LABS: BASO % 0 % (0-3); EOS % 2 % (0-3); HEMATOCRIT 37.3 % (36.0-47.0); HEMOGLOBIN 12.3 g/dL (12.0-15.5); LYMPH # 2.8 x10^3/uL (1.0-4.8); LYMPH % 43 % (24-48); MEAN CORPUSCULAR HEMOGLOBIN 32 pg (25-35); MEAN CORPUSCULAR HGB CONC 33 g/dL (31-37); MEAN CORPUSCULAR VOLUME 96 fL (79-100); MONO % 4 % (0-9); NEUT % 50 % (31-73); PLATELET COUNT 87 x10^3/uL (140-400); RED BLOOD COUNT 3.88 x10^6/uL (3.50-5.40); RED CELL DISTRIBUTION WIDTH 15.3 % (11.5-14.5); WHITE BLOOD COUNT 6.5 x10^3/uL (4.0-11.0)
[2017-03-07] MEDS: INSULIN ASPART 300 UNITS/3 ML INSULN.PEN SQ SCH ×3 (08:00→17:00)
--- NOTE | 2017-03-07 08:10 | PDOC ---
MARILEE GARCIA HOGSHEAD LINER 03/07/17 0810: IM PROGRESS NOTES- Subjective Subjective opens eyes to name, attempts to talk, Objective Objective alert no distress Vitals Vital Signs Date Time Temp Pulse Resp B/P (MAP) Pulse Ox O2 Delivery O2 Flow Rate FiO2 03/07/17 06:00 87 17 108/57 (74) 100 Room Air 03/07/17 04:11 98.7 98.7 Physical Exam Physical Exam General appearance - alert, chronically ill appearing, and in no distress Mental Status - alert, oriented to person, affect appropriate to mood Head - normal Chest - clear to auscultation, no wheezes, rales or rhonchi, symmetric air entry Heart - S1 and S2 normal Abdomen - soft, nontender, nondistended, obese, BS + Neurological - old CVA R hemiparesis with R hand contracture, R foot drop. Musculoskeletal - negative. Extremities - no pedal edema Skin - warm and dry Labs Laboratory Tests Test 03/05/17 11:40 03/05/17 13:34 03/05/17 14:30 03/06/17 05:40 White Blood Count 7.2 x10^3/uL (4.0-11.0) Red Blood Count 4.59 x10^6/uL (3.50-5.40) Hemoglobin 14.5 g/dL (12.0-15.5) Hematocrit 45.2 % (36.0-47.0) Mean Corpuscular Volume 99 fL (79-100) Mean Corpuscular Hemoglobin 32 pg (25-35) Mean Corpuscular Hemoglobin Concent 32 g/dL (31-37) Red Cell Distribution Width 15.8 % (11.5-14.5) Platelet Count 121 x10^3/uL (140-400) Neutrophils (%) (Auto) 50 % (31-73) Lymphocytes (%) (Auto) 43 % (24-48) Monocytes (%) (Auto) 5 % (0-9) Eosinophils (%) (Auto) 2 % (0-3) Basophils (%) (Auto) 0 % (0-3) Neutrophils # (Auto) 3.6 x10^3uL (1.8-7.7) Lymphocytes # (Auto) 3.1 x10^3/uL (1.0-4.8) Monocytes # (Auto) 0.4 x10^3/uL (0.0-1.1) Eosinophils # (Auto) 0.2 x10^3/uL (0.0-0.7) Basophils # (Auto) 0.0 x10^3/uL (0.0-0.2) Sodium Level 180 mmol/L (136-145) 177 mmol/L (136-145) Potassium Level 3.9 mmol/L (3.5-5.1) 3.6 mmol/L (3.5-5.1) Chloride Level 139 mmol/L (98-107) 141 mmol/L (98-107) Carbon Dioxide Level 31 mmol/L (21-32) 26 mmol/L (21-32) Anion Gap 10 (6-14) 10 (6-14) Blood Urea Nitrogen 45 mg/dL (7-20) 40 mg/dL (7-20) Creatinine 2.3 mg/dL (0.6-1.0) 2.0 mg/dL (0.6-1.0) Estimated GFR (Cockcroft-Gault) 25.2 29.6 BUN/Creatinine Ratio 20 (6-20) Glucose Level 161 mg/dL (70-99) 129 mg/dL (70-99) Calcium Level 9.5 mg/dL (8.5-10.1) 8.6 mg/dL (8.5-10.1) Magnesium Level 2.8 mg/dL (1.8-2.4) Total Bilirubin 0.6 mg/dL (0.2-1.0) Aspartate Amino Transf (AST/SGOT) 65 U/L (15-37) Alanine Aminotransferase (ALT/SGPT) 76 U/L (14-59) Alkaline Phosphatase 104 U/L (46-116) Ammonia 13 mcmol/L (11-34) Creatine Kinase 859 U/L (26-192) Creatine Kinase MB (Mass) 1.8 ng/mL (0.0-3.6) Creatine Kinase MB Relative Index 0.2 % (0-4) Troponin I Quantitative < 0.017 ng/mL (0.000-0.055) TJ-Bnu-W-Type Natriuretic Peptide 27 pg/mL (0-124) Total Protein 8.2 g/dL (6.4-8.2) Albumin 3.3 g/dL (3.4-5.0) Albumin/Globulin Ratio 0.7 (1.0-1.7) Lipase 148 U/L (73-393) Thyroid Stimulating Hormone (TSH) 1.398 uIU/mL (0.358-3.74) Urine Collection Type Unknown Urine Color Yellow Urine Clarity Cloudy Urine pH 5.5 Urine Specific [place] 1.015 Urine Protein 30 mg/dL (NEG-TRACE) Urine Glucose (UA) Negative mg/dL (NEG) Urine Ketones (Stick) Negative mg/dL (NEG) Urine Blood Large (NEG) Urine Nitrite Positive (NEG) Urine Bilirubin Negative (NEG) Urine Urobilinogen Dipstick 0.2 mg/dL (0.2 mg/dL) Urine Leukocyte Esterase Moderate (NEG) Urine RBC Tntc /HPF (0-2) Urine WBC 11-20 /HPF (0-4) Urine Squamous Epithelial Cells Few /LPF Urine Bacteria Many /HPF (0-FEW) Urine Hyaline Casts Few /HPF Urine Mucus Slight /LPF Nasal Screen MRSA (PCR) Negative (Negative) Test 03/06/17 12:03 03/06/17 16:00 03/06/17 21:31 03/07/17 05:00 Glucose (Fingerstick) 114 mg/dL (70-99) 124 mg/dL (70-99) 118 mg/dL (70-99) White Blood Count 6.5 x10^3/uL (4.0-11.0) Red Blood Count 3.88 x10^6/uL (3.50-5.40) Hemoglobin 12.3 g/dL (12.0-15.5) Hematocrit 37.3 % (36.0-47.0) Mean Corpuscular Volume 96 fL (79-100) Mean Corpuscular Hemoglobin 32 pg (25-35) Mean Corpuscular Hemoglobin Concent 33 g/dL (31-37) Red Cell Distribution Width 15.3 % (11.5-14.5) Platelet Count 87 x10^3/uL (140-400) Neutrophils (%) (Auto) 50 % (31-73) Lymphocytes (%) (Auto) 43 % (24-48) Monocytes (%) (Auto) 4 % (0-9) Eosinophils (%) (Auto) 2 % (0-3) Basophils (%) (Auto) 0 % (0-3) Neutrophils # (Auto) 3.2 x10^3uL (1.8-7.7) Lymphocytes # (Auto) 2.8 x10^3/uL (1.0-4.8) Monocytes # (Auto) 0.3 x10^3/uL (0.0-1.1) Eosinophils # (Auto) 0.1 x10^3/uL (0.0-0.7) Basophils # (Auto) 0.0 x10^3/uL (0.0-0.2) Sodium Level 167 mmol/L (136-145) Potassium Level 3.5 mmol/L (3.5-5.1) Chloride Level 132 mmol/L (98-107) Carbon Dioxide Level 25 mmol/L (21-32) Anion Gap 10 (6-14) Blood Urea Nitrogen 33 mg/dL (7-20) Creatinine 1.8 mg/dL (0.6-1.0) Estimated GFR (Cockcroft-Gault) 33.5 Glucose Level 141 mg/dL (70-99) Calcium Level 8.6 mg/dL (8.5-10.1) Laboratory Tests Test 03/06/17 12:03 03/06/17 16:00 03/06/17 21:31 03/07/17 05:00 Glucose (Fingerstick) 114 mg/dL (70-99) 124 mg/dL (70-99) 118 mg/dL (70-99) White Blood Count 6.5 x10^3/uL (4.0-11.0) Red Blood Count 3.88 x10^6/uL (3.50-5.40) Hemoglobin 12.3 g/dL (12.0-15.5) Hematocrit 37.3 % (36.0-47.0) Mean Corpuscular Volume 96 fL (79-100) Mean Corpuscular Hemoglobin 32 pg (25-35) Mean Corpuscular Hemoglobin Concent 33 g/dL (31-37) Red Cell Distribution Width 15.3 % (11.5-14.5) Platelet Count 87 x10^3/uL (140-400) Neutrophils (%) (Auto) 50 % (31-73) Lymphocytes (%) (Auto) 43 % (24-48) Monocytes (%) (Auto) 4 % (0-9) Eosinophils (%) (Auto) 2 % (0-3) Basophils (%) (Auto) 0 % (0-3) Neutrophils # (Auto) 3.2 x10^3uL (1.8-7.7) Lymphocytes # (Auto) 2.8 x10^3/uL (1.0-4.8) Monocytes # (Auto) 0.3 x10^3/uL (0.0-1.1) Eosinophils # (Auto) 0.1 x10^3/uL (0.0-0.7) Basophils # (Auto) 0.0 x10^3/uL (0.0-0.2) Sodium Level 167 mmol/L (136-145) Potassium Level 3.5 mmol/L (3.5-5.1) Chloride Level 132 mmol/L (98-107) Carbon Dioxide Level 25 mmol/L (21-32) Anion Gap 10 (6-14) Blood Urea Nitrogen 33 mg/dL (7-20) Creatinine 1.8 mg/dL (0.6-1.0) Estimated GFR (Cockcroft-Gault) 33.5 Glucose Level 141 mg/dL (70-99) Calcium Level 8.6 mg/dL (8.5-10.1) Meds Current Medications Amino Acids/ Glycerin/ Electrolytes 1,000 ml @ 80 mls/hr [id number] IV Last administered on 03/07/17 00:19; Start 03/06/17 at 12:30 Ceftriaxone Sodium 1 gm/ Sodium Chloride 50 ml @ 100 mls/hr Q24H IV Last administered on 03/06/17 12:14; Start 03/06/17 at 12:00 Dextrose (Dextrose 50%-Water Syringe) 12.5 gm PRN Q15MIN PRN IV SEE COMMENTS; Start 03/06/17 at 11:45 Heparin Sodium (Porcine) (Heparin Sq) 5,000 unit Q12HR SQ Last administered on 03/06/17 21:28; Start 03/06/17 at 12:30 Insulin Aspart (NovoLOG) 0-7 UNITS TIDWMEALS SQ ; Start 03/06/17 at 12:00 Sodium Chloride 38.75 meq/Sterile Water 1,009.6875 ml @ 60 mls/hr [id number] IV Last administered on 03/07/17t 00:20; Start 03/06/17 at 09:30 Assessment Assessment 1. hypernatremia acute secondary to dehydration 2. UTI POA no sepsis 3. ARF with CONY (dehydration) underlying CKD III baseline Cr 1.1-1.4 4. 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 vascular dementia with unspecified mood disorder/behavioral disturbance 6. anxiety/depression 7. hyperlipidemia 8. GERD w/o esophagitis 9. DM II with CKD III 10. PVD 11. chronic pain unspecified with pain management at [place] 12. chronic constipation 13. chronic moderate PCL malnutrition 14. chronic dysphagia with pureed diet, honey thickened liquids. 15. thrombocytopenia 16. chronic moore urine retention 17. HTN PLAN: 03/07/17 acute hypernatremia - Admit Na 180-- PPN, sterile water with Na 60cc/hr -- today Na 167 metabolic encephalopathy - improving ARK with CONY - Admit B/Cr 40/2.0--decreased to 33/ 1.8 - renal consulted UTI no sepsis - Rocephin since admit -- Cipro IV --Urine CS pending dysphagia -- pureed diet, honey thick liquids severe PCL malnutrition -start po, more awake HTN - resume meds thrombocytopenia ADmit 127-- today 87--stop heparin DVT/GI prophylaxis --SCD/GEOVANY, Pepcid Plan Plan For more details regarding further plans, please refer to the orders. TEENA DAHL MD 03/07/17 0917: IM PROGRESS NOTES- Assessment Assessment The patient was seen and examined by me. Chart reviewed and plan of care formulated. Discussed with, reviewed and agree with AWNING SPREADER's notes, plan of care and orders with modifications as necessary. For more details regarding further plans, please refer to the orders. MARILEE GARCIA APRN Mar 07, 2017 08:10 TEENA DAHL MD Mar 07, 2017 09:17
[2017-03-07] MEDS ORDERED: MAGNESIUM HYDROXIDE 2,400 MG/30 ML ORAL.SUSP. PO PRN (08:15)
[2017-03-07] MEDS ORDERED: ONDANSETRON ODT 4 MG TAB.RAPDIS. PO PRN (08:15)
[2017-03-07] MEDS: POLYETHYLENE GLYCOL 3350 17 GM PACKET. PO SCH (09:00)
[2017-03-07] MEDS ORDERED: POTASSIUM CHLORIDE 20MEQ 50 ML IV SCH (09:30)
[2017-03-07] MEDS: POTASSIUM CHLORIDE 10MEQ 100 ML IV SCH ×4 (10:23→12:45)
--- NOTE | 2017-03-07 10:40 | PDOC ---
Renal-Progress Notes Subjective Notes Notes CONFUSED History of Present Illness Hx of present illness STABLE Vitals Vitals Vital Signs Date Time Temp Pulse Resp B/P (MAP) Pulse Ox O2 Delivery O2 Flow Rate FiO2 03/07/17 09:00 88 16 99/77 (84) 100 Room Air 03/07/17 07:00 98.5 98.5 Weight Weight [ ] I.O. Intake and Output Intake and Output 03/08/17 07:00 Intake Total 0 ml Output Total 250 ml Balance -250 ml Intake Oral 0 ml Output Urine Total 250 ml Labs Labs Laboratory Tests Test 03/06/17 12:03 03/06/17 16:00 03/06/17 21:31 03/07/17 05:00 Glucose (Fingerstick) 114 mg/dL (70-99) 124 mg/dL (70-99) 118 mg/dL (70-99) White Blood Count 6.5 x10^3/uL (4.0-11.0) Red Blood Count 3.88 x10^6/uL (3.50-5.40) Hemoglobin 12.3 g/dL (12.0-15.5) Hematocrit 37.3 % (36.0-47.0) Mean Corpuscular Volume 96 fL (79-100) Mean Corpuscular Hemoglobin 32 pg (25-35) Mean Corpuscular Hemoglobin Concent 33 g/dL (31-37) Red Cell Distribution Width 15.3 % (11.5-14.5) Platelet Count 87 x10^3/uL (140-400) Neutrophils (%) (Auto) 50 % (31-73) Lymphocytes (%) (Auto) 43 % (24-48) Monocytes (%) (Auto) 4 % (0-9) Eosinophils (%) (Auto) 2 % (0-3) Basophils (%) (Auto) 0 % (0-3) Neutrophils # (Auto) 3.2 x10^3uL (1.8-7.7) Lymphocytes # (Auto) 2.8 x10^3/uL (1.0-4.8) Monocytes # (Auto) 0.3 x10^3/uL (0.0-1.1) Eosinophils # (Auto) 0.1 x10^3/uL (0.0-0.7) Basophils # (Auto) 0.0 x10^3/uL (0.0-0.2) Sodium Level 167 mmol/L (136-145) Potassium Level 3.5 mmol/L (3.5-5.1) Chloride Level 132 mmol/L (98-107) Carbon Dioxide Level 25 mmol/L (21-32) Anion Gap 10 (6-14) Blood Urea Nitrogen 33 mg/dL (7-20) Creatinine 1.8 mg/dL (0.6-1.0) Estimated GFR (Cockcroft-Gault) 33.5 Glucose Level 141 mg/dL (70-99) Calcium Level 8.6 mg/dL (8.5-10.1) Micro Micro Microbiology 03/05/17 Blood Culture - Preliminary, Resulted NO GROWTH AFTER 1 DAY Review of Systems Constitutional: yes: unresponsive, other (UNABLE TO OBTAIN) Physical Exam General Appearance: no apparent distress Skin: warm Respiratory: bilateral CTA Heart: S1S2, RRR Abdomen: soft, bowel sounds present Genitourinary: bladder flat Extremities: pulses present Neurology: alert, oriented Musculoskeletal: Other Assessment Assessment IMP CONY-RESOLVED HYPERNATREMIA DEMENTIA HYPOKALEMIA LEUCOCYTOSIS PLAN CONT NS CONT PPN ANDREEA MOYA MD Mar 07, 2017 10:40
[2017-03-07] MEDS: IPRATRPIUM/ALBUTEROL 0.5/2.5MG 3 ML NEBU. NEB SCH ×3 (11:38→20:15)
[2017-03-07] MEDS: NYSTATIN TOPICAL POWDER 15GM BOTTLE. TP SCH ×2 (11:40→22:02)
[2017-03-07] MEDS: SENNOSIDES/DOCUSATE 8.6/50MG TABLET. PO SCH (12:08)
[2017-03-07] MEDS: ASPIRIN ENTERIC COATED 81 MG TABLET.DR. PO SCH (12:08)
[2017-03-07] MEDS: CHOLECALCIFEROL (VITAMIN D3) 1,000 UNIT TABLET PO SCH (12:08)
[2017-03-07] MEDS: CLOPIDOGREL BISULFATE 75 MG TABLET PO SCH (12:08)
[2017-03-07] MEDS: MULTIVITAMIN with MINERAL TABLET. PO SCH (12:09)
[2017-03-07] MEDS: DICLOFENAC SODIUM 1% TOPICAL GEL 100GM TUBE. TP SCH ×4 (12:15→22:02)
[2017-03-07] MEDS: FAMOTIDINE 20 MG TABLET. PO SCH (21:00)
[2017-03-07] MEDS: SIMVASTATIN 20 MG TABLET PO SCH (21:00)
[2017-03-07] MEDS: DONEPEZIL HCL 10 MG TABLET. PO SCH (21:00)
[2017-03-07] MEDS: CIPROFLOXACIN 200MG PREMIX 100 ML IV SCH (21:59)
[2017-03-08] VITALS (25 sets, daily range): BP systolic 80–132; BP diastolic 48–98
[2017-03-08] MEDS: AMINO AC 3%/ELECTROLYTE/GLYCER 1,000 ML IV SCH ×2 (00:51→14:38)
[2017-03-08 07:00] LABS: BASO % 0 % (0-3); EOS % 1 % (0-3); HEMATOCRIT 40.8 % (36.0-47.0); HEMOGLOBIN 13.5 g/dL (12.0-15.5); LYMPH % 32 % (24-48); MEAN CORPUSCULAR HEMOGLOBIN 32 pg (25-35); MEAN CORPUSCULAR HGB CONC 33 g/dL (31-37); MEAN CORPUSCULAR VOLUME 96 fL (79-100); MONO % 4 % (0-9); NEUT % 62 % (31-73); PLATELET COUNT 87 x10^3/uL (140-400); RED BLOOD COUNT 4.25 x10^6/uL (3.50-5.40); RED CELL DISTRIBUTION WIDTH 14.7 % (11.5-14.5); WHITE BLOOD COUNT 6.3 x10^3/uL (4.0-11.0)
[2017-03-08 07:44] LABS: CALCIUM 8.9 mg/dL (8.5-10.1); CREATININE 1.6 mg/dL (0.6-1.0); GFR 38.3; MAGNESIUM 2.4 mg/dL (1.8-2.4); POTASSIUM 3.6 mmol/L (3.5-5.1)
[2017-03-08] MEDS: INSULIN ASPART 300 UNITS/3 ML INSULN.PEN SQ SCH ×3 (08:00→17:00)
--- NOTE | 2017-03-08 08:16 | PDOC ---
DEEPTHIMary JaneMARILEE WILSON FRONT OFFICE ASSISTANT 03/08/17 0816: IM PROGRESS NOTES- Subjective Subjective opens eyes to name, sleepy Objective Objective sleepy no distress Vitals Vital Signs Date Time Temp Pulse Resp B/P (MAP) Pulse Ox O2 Delivery O2 Flow Rate FiO2 03/08/17 07:00 78 16 84/98 (93) 100 Room Air 03/08/17 04:00 99.2 99.2 Physical Exam Physical Exam General appearance - sleepy, chronically ill appearing, and in no distress Mental Status - sleepy, oriented to person, affect appropriate to mood Head - normal Chest - clear to auscultation, no wheezes, rales or rhonchi, symmetric air entry Heart - S1 and S2 normal Abdomen - soft, nontender, nondistended, obese, BS + Neurological - old CVA R hemiparesis with R hand contracture, R foot drop. Musculoskeletal - negative. Extremities - no pedal edema Skin - warm and dry Labs Laboratory Tests Test 03/06/17 12:03 03/06/17 16:00 03/06/17 21:31 03/07/17 05:00 Glucose (Fingerstick) 114 mg/dL (70-99) 124 mg/dL (70-99) 118 mg/dL (70-99) White Blood Count 6.5 x10^3/uL (4.0-11.0) Red Blood Count 3.88 x10^6/uL (3.50-5.40) Hemoglobin 12.3 g/dL (12.0-15.5) Hematocrit 37.3 % (36.0-47.0) Mean Corpuscular Volume 96 fL (79-100) Mean Corpuscular Hemoglobin 32 pg (25-35) Mean Corpuscular Hemoglobin Concent 33 g/dL (31-37) Red Cell Distribution Width 15.3 % (11.5-14.5) Platelet Count 87 x10^3/uL (140-400) Neutrophils (%) (Auto) 50 % (31-73) Lymphocytes (%) (Auto) 43 % (24-48) Monocytes (%) (Auto) 4 % (0-9) Eosinophils (%) (Auto) 2 % (0-3) Basophils (%) (Auto) 0 % (0-3) Neutrophils # (Auto) 3.2 x10^3uL (1.8-7.7) Lymphocytes # (Auto) 2.8 x10^3/uL (1.0-4.8) Monocytes # (Auto) 0.3 x10^3/uL (0.0-1.1) Eosinophils # (Auto) 0.1 x10^3/uL (0.0-0.7) Basophils # (Auto) 0.0 x10^3/uL (0.0-0.2) Sodium Level 167 mmol/L (136-145) Potassium Level 3.5 mmol/L (3.5-5.1) Chloride Level 132 mmol/L (98-107) Carbon Dioxide Level 25 mmol/L (21-32) Anion Gap 10 (6-14) Blood Urea Nitrogen 33 mg/dL (7-20) Creatinine 1.8 mg/dL (0.6-1.0) Estimated GFR (Cockcroft-Gault) 33.5 Glucose Level 141 mg/dL (70-99) Calcium Level 8.6 mg/dL (8.5-10.1) Test 03/07/17 12:21 03/07/17 18:08 03/08/17 06:19 Glucose (Fingerstick) 101 mg/dL (70-99) 91 mg/dL (70-99) White Blood Count 6.3 x10^3/uL (4.0-11.0) Red Blood Count 4.25 x10^6/uL (3.50-5.40) Hemoglobin 13.5 g/dL (12.0-15.5) Hematocrit 40.8 % (36.0-47.0) Mean Corpuscular Volume 96 fL (79-100) Mean Corpuscular Hemoglobin 32 pg (25-35) Mean Corpuscular Hemoglobin Concent 33 g/dL (31-37) Red Cell Distribution Width 14.7 % (11.5-14.5) Platelet Count 87 x10^3/uL (140-400) Neutrophils (%) (Auto) 62 % (31-73) Lymphocytes (%) (Auto) 32 % (24-48) Monocytes (%) (Auto) 4 % (0-9) Eosinophils (%) (Auto) 1 % (0-3) Basophils (%) (Auto) 0 % (0-3) Neutrophils # (Auto) 3.9 x10^3uL (1.8-7.7) Lymphocytes # (Auto) 2.0 x10^3/uL (1.0-4.8) Monocytes # (Auto) 0.2 x10^3/uL (0.0-1.1) Eosinophils # (Auto) 0.1 x10^3/uL (0.0-0.7) Basophils # (Auto) 0.0 x10^3/uL (0.0-0.2) Sodium Level 156 mmol/L (136-145) Potassium Level 3.6 mmol/L (3.5-5.1) Chloride Level 122 mmol/L (98-107) Carbon Dioxide Level 24 mmol/L (21-32) Anion Gap 10 (6-14) Blood Urea Nitrogen 26 mg/dL (7-20) Creatinine 1.6 mg/dL (0.6-1.0) Estimated GFR (Cockcroft-Gault) 38.3 Glucose Level 138 mg/dL (70-99) Calcium Level 8.9 mg/dL (8.5-10.1) Magnesium Level 2.4 mg/dL (1.8-2.4) Laboratory Tests Test 03/07/17 12:21 03/07/17 18:08 03/08/17 06:19 Glucose (Fingerstick) 101 mg/dL (70-99) 91 mg/dL (70-99) White Blood Count 6.3 x10^3/uL (4.0-11.0) Red Blood Count 4.25 x10^6/uL (3.50-5.40) Hemoglobin 13.5 g/dL (12.0-15.5) Hematocrit 40.8 % (36.0-47.0) Mean Corpuscular Volume 96 fL (79-100) Mean Corpuscular Hemoglobin 32 pg (25-35) Mean Corpuscular Hemoglobin Concent 33 g/dL (31-37) Red Cell Distribution Width 14.7 % (11.5-14.5) Platelet Count 87 x10^3/uL (140-400) Neutrophils (%) (Auto) 62 % (31-73) Lymphocytes (%) (Auto) 32 % (24-48) Monocytes (%) (Auto) 4 % (0-9) Eosinophils (%) (Auto) 1 % (0-3) Basophils (%) (Auto) 0 % (0-3) Neutrophils # (Auto) 3.9 x10^3uL (1.8-7.7) Lymphocytes # (Auto) 2.0 x10^3/uL (1.0-4.8) Monocytes # (Auto) 0.2 x10^3/uL (0.0-1.1) Eosinophils # (Auto) 0.1 x10^3/uL (0.0-0.7) Basophils # (Auto) 0.0 x10^3/uL (0.0-0.2) Sodium Level 156 mmol/L (136-145) Potassium Level 3.6 mmol/L (3.5-5.1) Chloride Level 122 mmol/L (98-107) Carbon Dioxide Level 24 mmol/L (21-32) Anion Gap 10 (6-14) Blood Urea Nitrogen 26 mg/dL (7-20) Creatinine 1.6 mg/dL (0.6-1.0) Estimated GFR (Cockcroft-Gault) 38.3 Glucose Level 138 mg/dL (70-99) Calcium Level 8.9 mg/dL (8.5-10.1) Magnesium Level 2.4 mg/dL (1.8-2.4) Meds Current Medications Acetaminophen (Tylenol) 650 mg Q6HRS PRN PO MILD PAIN / TEMP; Start 03/07/17 at 08:15 Albuterol/ Ipratropium (Duoneb) 3 ml RTQID NEB Last administered on 03/07/17 20:15; Start 03/07/17 at 09:00 Aspirin (Ecotrin) 81 mg DAILYWBKFT PO Last administered on 03/07/17 12:08; Start 03/07/17 at 09:00 Clopidogrel Bisulfate (Plavix) 75 mg DAILYWBKFT PO Last administered on 12:08; Start 03/07/17 at 09:00 Diclofenac Sodium (Voltaren) 1 trisha QID TP Last administered on 03/07/17 22:02 ; Start 03/07/17 at 09:00 Donepezil HCl (Aricept) 10 mg HS PO ; Start 03/07/17 at 21:00 Famotidine (Pepcid) 20 mg HS PO ; Start 03/07/17 at 21:00 Magnesium Hydroxide (Milk Of Magnesia) 2,400 mg Q12HR PRN PO CONSTIPATION; Start 03/07/17 at 08:15 Multivitamins (Thera M Plus) 1 tab DAILY PO Last administered on 03/07/17 12: 09; Start 03/07/17 at 09:00 Nystatin (Nystop) 1 trisha BID TP Last administered on 03/07/17 22:02; Start 03/07/17 at 09:00 Ondansetron HCl (Zofran Odt) 4 mg Q6HRS PRN PO NAUSEA/VOMITING; Start 03/07/17 at 08:15 Polyethylene Glycol (miraLAX PACKET) 17 gm DAILY PO ; Start 03/07/17 at 09:00 Potassium Chloride 50 ml @ 50 mls/hr Q1H IV ; Start 03/07/17 at 09:30; Stop 03/07/17 at 11:29; Status UNV Potassium Chloride 100 ml @ 100 mls/hr Q1H IV Last administered on 03/07/17 12:19; Start 03/07/17 at 09:45; Stop 03/07/17 at 13:44; Status DC Senna/Docusate Sodium (Senna Plus) 2 tab DAILY PO Last administered on 12:08; Start 03/07/17 at 09:00 Simvastatin (Zocor) 20 mg HS PO ; Start 03/07/17 at 21:00 Vitamin D (Vitamin D3) 1,000 unit DAILY PO Last administered on 03/07/17 12:08 ; Start 03/07/17 at 09:00 Assessment Assessment 1. hypernatremia acute secondary to dehydration 2. UTI POA no sepsis 3. ARF with CONY (dehydration) underlying CKD III baseline Cr 1.1-1.4 4. 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 vascular dementia with unspecified mood disorder/behavioral disturbance 6. anxiety/depression 7. hyperlipidemia 8. GERD w/o esophagitis 9. DM II with CKD III 10. PVD 11. chronic pain unspecified with pain management at [place] 12. chronic constipation 13. chronic moderate PCL malnutrition 14. chronic dysphagia with pureed diet, honey thickened liquids. 15. thrombocytopenia 16. chronic moore urine retention 17. HTN PLAN: 03/08/17 hypernatremia - Na 156 improving -D/w son at bedside -would like to visit PEG insertion for fluids -GI consulted met [facility] - sleepy this morning ARF with CONY - BUN 26 Cr 1.6 improving 06/09 NS 60cc/hr UTI -culture negative, stop antibiotics malnutrition, dysphagia - restart diet, continue PPN, If peg insert- supplement HTN -meds not stopped - low BP - bolus 06/09 NS 160cc/hr x 5 hr thrombocytopenia - platelet 87 03/07/17 acute hypernatremia - Admit Na 180-- PPN, sterile water with Na 60cc/hr -- today Na 167 metabolic encephalopathy - improving ARF with CONY - Admit B/Cr 40/2.0--decreased to 33/ 1.8 - renal consulted UTI no sepsis - Rocephin since admit -- Cipro IV --Urine CS pending dysphagia -- pureed diet, honey thick liquids severe PCL malnutrition -start po, more awake HTN - resume meds thrombocytopenia ADmit 127-- today 87--stop heparin DVT/GI prophylaxis --SCD/GEOVANY, Pepcid For more details regarding further plans, please refer to the orders. Plan Plan For more details regarding further plans, please refer to the orders. TEENA DAHL MD 03/08/17 0935: IM PROGRESS NOTES- Assessment Assessment D/w son extensively - condition,Rx,options.He wants to proceed with PEG tube placement. D/w .Platelets 87k.Also on ASA,Plavix- will hold both for few days. The patient was seen and examined by me. Chart reviewed and plan of care formulated. Discussed with, reviewed and agree with [facility]'s notes, plan of care and orders with modifications as necessary. For more details regarding further plans, please refer to the orders. Hypotension- IV bolus. D/w . Keep in ICU. MARILEE GARCIA APRN Mar 08, 2017 08:16 TEENA DAHL MD Mar 08, 2017 09:35
[2017-03-08] MEDS: CLOPIDOGREL BISULFATE 75 MG TABLET PO SCH (08:50)
[2017-03-08] MEDS: MULTIVITAMIN with MINERAL TABLET. PO SCH (08:50)
[2017-03-08] MEDS: CHOLECALCIFEROL (VITAMIN D3) 1,000 UNIT TABLET PO SCH (08:50)
[2017-03-08] MEDS: ASPIRIN ENTERIC COATED 81 MG TABLET.DR. PO SCH (08:50)
[2017-03-08] MEDS: POLYETHYLENE GLYCOL 3350 17 GM PACKET. PO SCH (08:50)
[2017-03-08] MEDS: NYSTATIN TOPICAL POWDER 15GM BOTTLE. TP SCH ×2 (08:51→20:57)
[2017-03-08] MEDS: SENNOSIDES/DOCUSATE 8.6/50MG TABLET. PO SCH (08:51)
[2017-03-08] MEDS: DICLOFENAC SODIUM 1% TOPICAL GEL 100GM TUBE. TP SCH ×4 (08:51→20:57)
[2017-03-08] MEDS: IPRATRPIUM/ALBUTEROL 0.5/2.5MG 3 ML NEBU. NEB SCH ×4 (09:44→19:19)
--- NOTE | 2017-03-08 10:03 | PDOC2 ---
GI CONSULT Reason For Consult: PEG HPI: HPI: 72 y/o female admitted w/ AMS and recurrent hypernatremia. H/o CVAs (on ASA and Plavix), dysphagia, and dementia. Per son, dysphagia more problematic after dental extractions for dentures. Requires help w/ eating and drinking ( pureed diet) at care facility. Family has discussed PEG tube placement for nourishment/hydration and would like to proceed. Did have previous EGD in 2013 w/ Dr. Piper which showed reflux esophagitis, hiatal hernia, and antral erosions. PMH: PMH: HTN, HLD, PVD, CVA w/ right hemiparesis/contracture, dementia, constipation, GERD, dysphagia, anxiety/depression/mood disorder, chronic pain, CKD, urinary incontinence, DM, vit D deficiency, hysterectomy FH: Family History: No pertinent hx Social History: Smoke: No ALCOHOL: none Drugs: None ROS: Unable to obtain. Vitals: Vitals: Vital Signs Date Time Temp Pulse Resp B/P (MAP) Pulse Ox O2 Delivery O2 Flow Rate FiO2 03/08/17 09:00 96 17 80/51 (61) 100 Room Air 03/08/17 08:00 98.4 98.4 Labs: Labs: Laboratory Tests Test 03/07/17 12:21 03/07/17 18:08 03/08/17 06:19 03/08/17 08:52 Glucose (Fingerstick) 101 mg/dL (70-99) 91 mg/dL (70-99) 144 mg/dL (70-99) White Blood Count 6.3 x10^3/uL (4.0-11.0) Red Blood Count 4.25 x10^6/uL (3.50-5.40) Hemoglobin 13.5 g/dL (12.0-15.5) Hematocrit 40.8 % (36.0-47.0) Mean Corpuscular Volume 96 fL (79-100) Mean Corpuscular Hemoglobin 32 pg (25-35) Mean Corpuscular Hemoglobin Concent 33 g/dL (31-37) Red Cell Distribution Width 14.7 % (11.5-14.5) Platelet Count 87 x10^3/uL (140-400) Neutrophils (%) (Auto) 62 % (31-73) Lymphocytes (%) (Auto) 32 % (24-48) Monocytes (%) (Auto) 4 % (0-9) Eosinophils (%) (Auto) 1 % (0-3) Basophils (%) (Auto) 0 % (0-3) Neutrophils # (Auto) 3.9 x10^3uL (1.8-7.7) Lymphocytes # (Auto) 2.0 x10^3/uL (1.0-4.8) Monocytes # (Auto) 0.2 x10^3/uL (0.0-1.1) Eosinophils # (Auto) 0.1 x10^3/uL (0.0-0.7) Basophils # (Auto) 0.0 x10^3/uL (0.0-0.2) Sodium Level 156 mmol/L (136-145) Potassium Level 3.6 mmol/L (3.5-5.1) Chloride Level 122 mmol/L (98-107) Carbon Dioxide Level 24 mmol/L (21-32) Anion Gap 10 (6-14) Blood Urea Nitrogen 26 mg/dL (7-20) Creatinine 1.6 mg/dL (0.6-1.0) Estimated GFR (Cockcroft-Gault) 38.3 Glucose Level 138 mg/dL (70-99) Calcium Level 8.9 mg/dL (8.5-10.1) Magnesium Level 2.4 mg/dL (1.8-2.4) Allergies: Coded Allergies: Penicillins (Verified Allergy, Intermediate, 02/12/14) Medications: Please see EMR. Imaging: Imaging: Head CT Impression: 1. Limited study, motion artifact. 2. No intracranial hemorrhage noted. 3. Old left CVA. CXR Impression: 1. No acute chest disease. PE: GEN: NAD HEENT: Atraumatic, PERRL LUNGS: clear anteriorly HEART: tachycardic ABD: NABS, S/ND/NT EXTREMITY: No edema, RUE contracture SKIN: No rashes, no jaundice NEURO/PSYCH: awake/alert, confused A/P: A/P: Dysphagia -history of this on pureed diet ---> h/o CVAs on Plavix and ASA -NPO on PPN Hypernatremia, CONY/CKD Thrombocytopenia -- Discussed PEG procedure/risks w/ son. Other per Dr. Hook. KAMI HASTINGS Mar 08, 2017 10:03
--- NOTE | 2017-03-08 11:53 | PDOC ---
Renal-Progress Notes Subjective Notes Notes NO COMPLAINTS History of Present Illness Hx of present illness STABLE Vitals Vitals Vital Signs Date Time Temp Pulse Resp B/P (MAP) Pulse Ox O2 Delivery O2 Flow Rate FiO2 03/08/17 11:00 92 18 92/52 (65) 100 Room Air 03/08/17 08:00 98.4 98.4 Weight Weight [ ] I.O. Intake and Output Intake and Output 03/09/17 07:00 Intake Total 40 ml Output Total 375 ml Balance -335 ml Intake Oral 40 ml Output Urine Total 375 ml Labs Labs Laboratory Tests Test 03/07/17 12:21 03/07/17 18:08 03/08/17 06:19 03/08/17 08:52 Glucose (Fingerstick) 101 mg/dL (70-99) 91 mg/dL (70-99) 144 mg/dL (70-99) White Blood Count 6.3 x10^3/uL (4.0-11.0) Red Blood Count 4.25 x10^6/uL (3.50-5.40) Hemoglobin 13.5 g/dL (12.0-15.5) Hematocrit 40.8 % (36.0-47.0) Mean Corpuscular Volume 96 fL (79-100) Mean Corpuscular Hemoglobin 32 pg (25-35) Mean Corpuscular Hemoglobin Concent 33 g/dL (31-37) Red Cell Distribution Width 14.7 % (11.5-14.5) Platelet Count 87 x10^3/uL (140-400) Neutrophils (%) (Auto) 62 % (31-73) Lymphocytes (%) (Auto) 32 % (24-48) Monocytes (%) (Auto) 4 % (0-9) Eosinophils (%) (Auto) 1 % (0-3) Basophils (%) (Auto) 0 % (0-3) Neutrophils # (Auto) 3.9 x10^3uL (1.8-7.7) Lymphocytes # (Auto) 2.0 x10^3/uL (1.0-4.8) Monocytes # (Auto) 0.2 x10^3/uL (0.0-1.1) Eosinophils # (Auto) 0.1 x10^3/uL (0.0-0.7) Basophils # (Auto) 0.0 x10^3/uL (0.0-0.2) Sodium Level 156 mmol/L (136-145) Potassium Level 3.6 mmol/L (3.5-5.1) Chloride Level 122 mmol/L (98-107) Carbon Dioxide Level 24 mmol/L (21-32) Anion Gap 10 (6-14) Blood Urea Nitrogen 26 mg/dL (7-20) Creatinine 1.6 mg/dL (0.6-1.0) Estimated GFR (Cockcroft-Gault) 38.3 Glucose Level 138 mg/dL (70-99) Calcium Level 8.9 mg/dL (8.5-10.1) Magnesium Level 2.4 mg/dL (1.8-2.4) Micro Micro Microbiology 03/05/17 Blood Culture - Preliminary, Resulted NO GROWTH AFTER 2 DAYS 03/05/17 Urine Culture - Final, Complete 03/05/17 Urine Culture Result 1 (LINDSAY) - Final, Complete Review of Systems Constitutional: yes: unresponsive, other (UNABLE TO OBTAIN) Physical Exam General Appearance: no apparent distress Skin: warm Respiratory: bilateral CTA Heart: S1S2, RRR Abdomen: soft, bowel sounds present Genitourinary: bladder flat Extremities: pulses present Neurology: alert, oriented Musculoskeletal: Other Assessment Assessment IMP CONY-CR 1.6 NOW HYPERNATREMIA DEMENTIA HYPOKALEMIA-BETTER LEUCOCYTOSIS HYPOTENSION - BETTER AFTER BOLUS PLAN CONT NS CONT PPN REPLACE K NEEDED PEG PENDING ANDREEA MUELLER MD Mar 08, 2017 11:53
[2017-03-08] MEDS: SODIUM CHLORIDE IV SCH (12:15)
[2017-03-08] MEDS: STERILE WATER IV SCH (12:15)
[2017-03-08] MEDS ORDERED: IV NORMAL SALINE 500ML BAG 500 ML IV ONE (19:45)
[2017-03-08] MEDS: DONEPEZIL HCL 10 MG TABLET. PO SCH (20:56)
[2017-03-08] MEDS: FAMOTIDINE 20 MG TABLET. PO SCH (20:56)
[2017-03-08] MEDS: SIMVASTATIN 20 MG TABLET PO SCH (20:56)
[2017-03-09] VITALS (21 sets, daily range): BP systolic 84–125; BP diastolic 44–77
[2017-03-09] MEDS: STERILE WATER IV SCH (00:58)
[2017-03-09] MEDS: SODIUM CHLORIDE IV SCH (00:58)
--- NOTE | 2017-03-09 05:14 | PDOC ---
MARILEE GARCIA ASPHALT MACHINE OPERATOR 03/09/17 0514: IM PROGRESS NOTES- Subjective Subjective awake, smiling Objective Objective alert no distress Vitals Vital Signs Date Time Temp Pulse Resp B/P (MAP) Pulse Ox O2 Delivery O2 Flow Rate FiO2 03/09/17 04:00 Nasal Cannula 03/09/17 03:00 24 91/51 (64) 100 03/08/17 23:59 100.2 100.2 03/08/17 23:59 2.0 03/08/17 18:00 94 Physical Exam Physical Exam General appearance - awake, chronically ill appearing, and in no distress Mental Status - alert, oriented to person, affect appropriate to mood Head - normal Chest - clear to auscultation, no wheezes, rales or rhonchi, symmetric air entry Heart - S1 and S2 normal Abdomen - soft, nontender, nondistended, obese, BS + Neurological - old CVA R hemiparesis with R hand contracture, R foot drop. Musculoskeletal - negative. Extremities - no pedal edema Skin - warm and dry Labs Laboratory Tests Test 03/07/17 05:00 03/07/17 12:21 03/07/17 18:08 03/08/17 06:19 White Blood Count 6.5 x10^3/uL (4.0-11.0) 6.3 x10^3/uL (4.0-11.0) Red Blood Count 3.88 x10^6/uL (3.50-5.40) 4.25 x10^6/uL (3.50-5.40) Hemoglobin 12.3 g/dL (12.0-15.5) 13.5 g/dL (12.0-15.5) Hematocrit 37.3 % (36.0-47.0) 40.8 % (36.0-47.0) Mean Corpuscular Volume 96 fL (79-100) 96 fL (79-100) Mean Corpuscular Hemoglobin 32 pg (25-35) 32 pg (25-35) Mean Corpuscular Hemoglobin Concent 33 g/dL (31-37) 33 g/dL (31-37) Red Cell Distribution Width 15.3 % (11.5-14.5) 14.7 % (11.5-14.5) Platelet Count 87 x10^3/uL (140-400) 87 x10^3/uL (140-400) Neutrophils (%) (Auto) 50 % (31-73) 62 % (31-73) Lymphocytes (%) (Auto) 43 % (24-48) 32 % (24-48) Monocytes (%) (Auto) 4 % (0-9) 4 % (0-9) Eosinophils (%) (Auto) 2 % (0-3) 1 % (0-3) Basophils (%) (Auto) 0 % (0-3) 0 % (0-3) Neutrophils # (Auto) 3.2 x10^3uL (1.8-7.7) 3.9 x10^3uL (1.8-7.7) Lymphocytes # (Auto) 2.8 x10^3/uL (1.0-4.8) 2.0 x10^3/uL (1.0-4.8) Monocytes # (Auto) 0.3 x10^3/uL (0.0-1.1) 0.2 x10^3/uL (0.0-1.1) Eosinophils # (Auto) 0.1 x10^3/uL (0.0-0.7) 0.1 x10^3/uL (0.0-0.7) Basophils # (Auto) 0.0 x10^3/uL (0.0-0.2) 0.0 x10^3/uL (0.0-0.2) Sodium Level 167 mmol/L (136-145) 156 mmol/L (136-145) Potassium Level 3.5 mmol/L (3.5-5.1) 3.6 mmol/L (3.5-5.1) Chloride Level 132 mmol/L (98-107) 122 mmol/L (98-107) Carbon Dioxide Level 25 mmol/L (21-32) 24 mmol/L (21-32) Anion Gap 10 (6-14) 10 (6-14) Blood Urea Nitrogen 33 mg/dL (7-20) 26 mg/dL (7-20) Creatinine 1.8 mg/dL (0.6-1.0) 1.6 mg/dL (0.6-1.0) Estimated GFR (Cockcroft-Gault) 33.5 38.3 Glucose Level 141 mg/dL (70-99) 138 mg/dL (70-99) Calcium Level 8.6 mg/dL (8.5-10.1) 8.9 mg/dL (8.5-10.1) Glucose (Fingerstick) 101 mg/dL (70-99) 91 mg/dL (70-99) Magnesium Level 2.4 mg/dL (1.8-2.4) Test 03/08/17 08:52 03/08/17 12:14 03/08/17 17:29 03/08/17 22:15 Glucose (Fingerstick) 144 mg/dL (70-99) 170 mg/dL (70-99) 108 mg/dL (70-99) 153 mg/dL (70-99) Laboratory Tests Test 03/08/17 06:19 03/08/17 08:52 03/08/17 12:14 03/08/17 17:29 White Blood Count 6.3 x10^3/uL (4.0-11.0) Red Blood Count 4.25 x10^6/uL (3.50-5.40) Hemoglobin 13.5 g/dL (12.0-15.5) Hematocrit 40.8 % (36.0-47.0) Mean Corpuscular Volume 96 fL (79-100) Mean Corpuscular Hemoglobin 32 pg (25-35) Mean Corpuscular Hemoglobin Concent 33 g/dL (31-37) Red Cell Distribution Width 14.7 % (11.5-14.5) Platelet Count 87 x10^3/uL (140-400) Neutrophils (%) (Auto) 62 % (31-73) Lymphocytes (%) (Auto) 32 % (24-48) Monocytes (%) (Auto) 4 % (0-9) Eosinophils (%) (Auto) 1 % (0-3) Basophils (%) (Auto) 0 % (0-3) Neutrophils # (Auto) 3.9 x10^3uL (1.8-7.7) Lymphocytes # (Auto) 2.0 x10^3/uL (1.0-4.8) Monocytes # (Auto) 0.2 x10^3/uL (0.0-1.1) Eosinophils # (Auto) 0.1 x10^3/uL (0.0-0.7) Basophils # (Auto) 0.0 x10^3/uL (0.0-0.2) Sodium Level 156 mmol/L (136-145) Potassium Level 3.6 mmol/L (3.5-5.1) Chloride Level 122 mmol/L (98-107) Carbon Dioxide Level 24 mmol/L (21-32) Anion Gap 10 (6-14) Blood Urea Nitrogen 26 mg/dL (7-20) Creatinine 1.6 mg/dL (0.6-1.0) Estimated GFR (Cockcroft-Gault) 38.3 Glucose Level 138 mg/dL (70-99) Calcium Level 8.9 mg/dL (8.5-10.1) Magnesium Level 2.4 mg/dL (1.8-2.4) Glucose (Fingerstick) 144 mg/dL (70-99) 170 mg/dL (70-99) 108 mg/dL (70-99) Test 03/08/17 22:15 Glucose (Fingerstick) 153 mg/dL (70-99) Meds Current Medications Sodium Chloride 500 ml @ 500 mls/hr 1X ONCE IV Last administered on t 09:00; Start 03/08/17 at 19:45; Stop 03/08/17 at 20:44; Status DC Assessment Assessment Assessment 1. hypernatremia acute secondary to dehydration 2. UTI POA no sepsis 3. ARF with CONY (dehydration) underlying CKD III baseline Cr 1.1-1.4 4. 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 vascular dementia with unspecified mood disorder/behavioral disturbance 6. anxiety/depression 7. hyperlipidemia 8. GERD w/o esophagitis 9. DM II with CKD III 10. PVD 11. chronic pain unspecified with pain management at [place] 12. chronic constipation 13. chronic moderate PCL malnutrition 14. chronic dysphagia with pureed diet, honey thickened liquids. 15. thrombocytopenia 16. chronic moore urine retention 17. HTN PLAN: 03/09/17 fever -started 8pm = T00F -- 2300 =100.2F -- 0400 100.2F-- BC x2, UA and reflex C/S, CXR, ID consult -Rocephin cipro stopped 03/08-urine c/s negative. hypernatremia - IVF 1/4NS 60cc/hr improving ARF with CONY -improving malnutrition - staff reports trouble swallowing, will order speech BS swallow eval -GI consult for PEG placement HTN - BP responded to bolus, 120-130 systolic, trending down again, bolus 160cc/ hr 1/4 NS - for 5 hrs then resume 60cc/hr thrombocytopenia -- Lab pending 05:00 03/08/17 hypernatremia - Na 156 improving -D/w son at bedside -would like to visit PEG insertion for fluids -GI consulted met [facility] - sleepy this morning ARF with CONY - BUN 26 Cr 1.6 improving 1/4 NS 60cc/hr UTI -culture negative, stop antibiotics malnutrition, dysphagia - restart diet, continue PPN, If peg insert- supplement HTN -meds not stopped - low BP - bolus 1/4 NS 160cc/hr x 5 hr thrombocytopenia - platelet 87 03/07/17 acute hypernatremia - Admit Na 180-- PPN, sterile water with Na 60cc/hr -- today Na 167 metabolic encephalopathy - improving ARF with CONY - Admit B/Cr 40/2.0--decreased to 33/ 1.8 - renal consulted UTI no sepsis - Rocephin since admit -- Cipro IV --Urine CS pending dysphagia -- pureed diet, honey thick liquids severe PCL malnutrition -start po, more awake HTN - resume meds thrombocytopenia ADmit 127-- today 87--stop heparin DVT/GI prophylaxis --SCD/GEOVANY, Pepcid For more details regarding further plans, please refer to the orders. Plan Plan For more details regarding further plans, please refer to the orders. TEENA DAHL MD 03/09/17 1007: IM PROGRESS NOTES- Assessment Assessment Hypotension- Give IV N saline bolus.Prognosis is poor. The patient was seen and examined by me. Chart reviewed and plan of care formulated. Discussed with, reviewed and agree with TELEPHONE LINEWORKER's notes, plan of care and orders with modifications as necessary. For more details regarding further plans, please refer to the orders. MARILEE GARCIA APRN Mar 09, 2017 05:14 TEENA DAHL MD Mar 09, 2017 10:07
[2017-03-09] MEDS: AMINO AC 3%/ELECTROLYTE/GLYCER 1,000 ML IV SCH ×2 (05:29→19:55)
[2017-03-09] MEDS ORDERED: SODIUM CHLORIDE IV SCH ×2 (05:30→10:30)
[2017-03-09] MEDS ORDERED: STERILE WATER IV SCH ×2 (05:30→10:30)
[2017-03-09 06:05] LABS: BASO % 0 % (0-3); EOS % 1 % (0-3); HEMATOCRIT 35.8 % (36.0-47.0); HEMOGLOBIN 12.1 g/dL (12.0-15.5); LYMPH # 1.6 x10^3/uL (1.0-4.8); LYMPH % 22 % (24-48); MEAN CORPUSCULAR HEMOGLOBIN 32 pg (25-35); MEAN CORPUSCULAR HGB CONC 34 g/dL (31-37); MEAN CORPUSCULAR VOLUME 95 fL (79-100); MONO % 5 % (0-9); NEUT % 72 % (31-73); PLATELET COUNT 88 x10^3/uL (140-400); RED BLOOD COUNT 3.79 x10^6/uL (3.50-5.40); RED CELL DISTRIBUTION WIDTH 15.3 % (11.5-14.5); WHITE BLOOD COUNT 7.1 x10^3/uL (4.0-11.0)
[2017-03-09 06:15] LABS: CALCIUM 8.5 mg/dL (8.5-10.1); CREATININE 1.6 mg/dL (0.6-1.0); GFR 38.3; POTASSIUM 3.8 mmol/L (3.5-5.1)
--- NOTE | 2017-03-09 07:32 | PDOC ---
Infectious Disease Note Vital Sign Vital Signs Vital Signs Date Time Temp Pulse Resp B/P (MAP) Pulse Ox O2 Delivery O2 Flow Rate FiO2 03/09/17 06:00 110 26 98/44 (62) 100 Room Air 03/09/17 04:00 100.2 100.2 03/08/17 23:59 2.0 Labs Lab Laboratory Tests Test 03/08/17 08:52 03/08/17 12:14 03/08/17 17:29 03/08/17 22:15 Glucose (Fingerstick) 144 mg/dL (70-99) 170 mg/dL (70-99) 108 mg/dL (70-99) 153 mg/dL (70-99) Test 03/09/17 05:10 03/09/17 05:40 Sodium Level 149 mmol/L (136-145) Potassium Level 3.8 mmol/L (3.5-5.1) Chloride Level 116 mmol/L (98-107) Carbon Dioxide Level 24 mmol/L (21-32) Anion Gap 9 (6-14) Blood Urea Nitrogen 26 mg/dL (7-20) Creatinine 1.6 mg/dL (0.6-1.0) Estimated GFR (Cockcroft-Gault) 38.3 Glucose Level 163 mg/dL (70-99) Calcium Level 8.5 mg/dL (8.5-10.1) White Blood Count 7.1 x10^3/uL (4.0-11.0) Red Blood Count 3.79 x10^6/uL (3.50-5.40) Hemoglobin 12.1 g/dL (12.0-15.5) Hematocrit 35.8 % (36.0-47.0) Mean Corpuscular Volume 95 fL (79-100) Mean Corpuscular Hemoglobin 32 pg (25-35) Mean Corpuscular Hemoglobin Concent 34 g/dL (31-37) Red Cell Distribution Width 15.3 % (11.5-14.5) Platelet Count 88 x10^3/uL (140-400) Neutrophils (%) (Auto) 72 % (31-73) Lymphocytes (%) (Auto) 22 % (24-48) Monocytes (%) (Auto) 5 % (0-9) Eosinophils (%) (Auto) 1 % (0-3) Basophils (%) (Auto) 0 % (0-3) Neutrophils # (Auto) 5.1 x10^3uL (1.8-7.7) Lymphocytes # (Auto) 1.6 x10^3/uL (1.0-4.8) Monocytes # (Auto) 0.4 x10^3/uL (0.0-1.1) Eosinophils # (Auto) 0.1 x10^3/uL (0.0-0.7) Basophils # (Auto) 0.0 x10^3/uL (0.0-0.2) Objective Assessment ? sepsis - fever/hypotension Fever PCN allergy - tolerated Rocephin CONY - dehydration - improving H/o Proteus UTI - Res to Quinolones Thrombocytopenia ? med ? Pepcid -stable Plan Plan of Care Add Procalcitonin/Lactic acid/LFTs F/u labs/cults Add Zyvox (avoid Vanc with renal issues)/Cefepime q 8/Flagyl Chart reviewed 35 mins Thank you # [id number] SHOAIB CORDERO MD Mar 09, 2017 07:32
[2017-03-09 08:03] LABS: ALBUMIN 2.7 g/dL (3.4-5.0); DIRECT BILIRUBIN 0.2 mg/dL (0.0-0.2); TOTAL BILIRUBIN 0.8 mg/dL (0.2-1.0); TOTAL PROTEIN 6.5 g/dL (6.4-8.2)
[2017-03-09] MEDS: CEFEPIME HCL 1 GM in IV NORMAL SALINE 50ML 50 ML IV SCH ×3 (08:18→20:39)
[2017-03-09] MEDS: POLYETHYLENE GLYCOL 3350 17 GM PACKET. PO SCH (09:00)
--- NOTE | 2017-03-09 09:00 | RAD ---
Portable chest, 03/09/2017: History: Fever Comparison is made to a study from 03/05/2017. The patient positioning is kyphotic and rotated. The heart appears to be within normal limits in size. There is minimal linear atelectasis in the lung bases. No consolidating infiltrate is seen. There is no evidence of pleural fluid. IMPRESSION: Minimal basilar linear atelectasis.
[2017-03-09] MEDS: IPRATRPIUM/ALBUTEROL 0.5/2.5MG 3 ML NEBU. NEB SCH ×4 (09:12→19:33)
--- NOTE | 2017-03-09 09:26 | PDOC ---
Objective: Objective: Fever and some hypotension overnight - back on antibiotics. Vital Signs: Vital Signs Date Time Temp Pulse Resp B/P (MAP) Pulse Ox O2 Delivery O2 Flow Rate FiO2 03/09/17 09:13 99 Room Air 03/09/17 06:00 110 26 98/44 (62) 03/09/17 04:00 100.2 100.2 03/08/17 23:59 2.0 Labs: Laboratory Tests Test 03/08/17 12:14 03/08/17 17:29 03/08/17 22:15 03/09/17 05:10 Glucose (Fingerstick) 170 mg/dL 108 mg/dL 153 mg/dL Sodium Level 149 mmol/L Potassium Level 3.8 mmol/L Chloride Level 116 mmol/L Carbon Dioxide Level 24 mmol/L Anion Gap 9 Blood Urea Nitrogen 26 mg/dL Creatinine 1.6 mg/dL Estimated GFR (Cockcroft-Gault) 38.3 Glucose Level 163 mg/dL Calcium Level 8.5 mg/dL Total Bilirubin 0.8 mg/dL Direct Bilirubin 0.2 mg/dL Aspartate Amino Transf (AST/SGOT) 96 U/L Alanine Aminotransferase (ALT/SGPT) 74 U/L Alkaline Phosphatase 95 U/L Total Protein 6.5 g/dL Albumin 2.7 g/dL Procalcitonin 1.06 ng/mL Test 03/09/17 05:40 03/09/17 07:45 White Blood Count 7.1 x10^3/uL Red Blood Count 3.79 x10^6/uL Hemoglobin 12.1 g/dL Hematocrit 35.8 % Mean Corpuscular Volume 95 fL Mean Corpuscular Hemoglobin 32 pg Mean Corpuscular Hemoglobin Concent 34 g/dL Red Cell Distribution Width 15.3 % Platelet Count 88 x10^3/uL Neutrophils (%) (Auto) 72 % Lymphocytes (%) (Auto) 22 % Monocytes (%) (Auto) 5 % Eosinophils (%) (Auto) 1 % Basophils (%) (Auto) 0 % Neutrophils # (Auto) 5.1 x10^3uL Lymphocytes # (Auto) 1.6 x10^3/uL Monocytes # (Auto) 0.4 x10^3/uL Eosinophils # (Auto) 0.1 x10^3/uL Basophils # (Auto) 0.0 x10^3/uL Platelet Estimate Pending Lactic Acid Level 1.1 mmol/L PE: GEN: NAD LUNGS: clear HEART: tachycardic ABD: S/ND/NT NEURO/PSYCH: awake A/P: Dysphagia Thrombocytopenia -now off Plavix and ASA -- PEG on hold w/ thrombocytopenia. KAMI HASTINGS Mar 09, 2017 09:26
--- NOTE | 2017-03-09 09:35 | CONS ---
DATE OF CONSULTATION: 03/09/2017 PATIENT'S ROOM: ICU 6. REQUESTING PHYSICIAN: Dr. Fatemeh Piper. REASON FOR CONSULTATION: Fever. 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 She also has dementia as well as dysphagia. She has a history of previous hypernatremia and urinary tract infections in the past. She was brought to [facility] on the 03/05 secondary to change in mental status. On arrival, she had a white blood cell count of 7.2, platelets were 121. However, her sodium was elevated at 180, and her creatinine was 2.3. There was concern for potential urinary tract infection where she received ciprofloxacin and Rocephin. Cultures from her urine and blood were negative. Antibiotics were subsequently discontinued on 03/08. However, last evening, she began to have a consistent temperature of 100 degrees, it did peak at 100.2. Additionally, her blood pressure dropped down to 86/44 range. Hence, I have been consulted. This patient is arousable, but she is unable to provide any past medical history, history of present illness or review of systems. 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 Also hypertension, hyperlipidemia, peripheral vascular disease, CVA, dementia, constipation, gastroesophageal reflux disease, dysphagia, anxiety, depression, chronic pain, chronic kidney disease stage 3, urinary incontinence and diabetes. PAST SURGICAL HISTORY: Questionable type of abdominal surgery, she does have a scar. History of hysterectomy in the past. REVIEW OF SYSTEMS: Unobtainable. ALLERGIES: LISTED PENICILLIN, but she has tolerated Rocephin. SOCIAL HISTORY: She is a senior care resident. Recent tobacco. FAMILY HISTORY: Noncontributory to her situation. CURRENT MEDICATIONS: Again, she did receive Rocephin and ciprofloxacin, they were discontinued. She is on aspirin, Plavix, Aricept, Pepcid, nystatin, Zocor. PHYSICAL EXAMINATION: VITAL SIGNS: Current temperature 100.2, pulse 100, respirations 26, blood pressure 98/44, satting 100% on room air. CONSTITUTIONAL: She is alert. She looks weak, but she tries to attempt some words. HEENT: Pupils are equal and reactive. Normal conjunctivae. Oral cavity, pharynx is dry. NECK: Without JVD and no tenderness. LUNGS: Clear to auscultation, decreased in the bases. HEART: S1, S2. ABDOMEN: Obese, soft, nontender, nondistended with decreased but positive bowel sounds, no guarding, no rebound. She has a Bell in place. EXTREMITIES: Without clubbing or cyanosis. No gross edema. SKIN: Warm to touch without generalized rash. NEUROLOGIC: Again, she was somewhat alert, but again she does have a history of dementia and CVA. PSYCHIATRIC: Affect was flat. LABORATORY DATA: Today, white count 7.1, hemoglobin 12.1, platelets of 88, neutrophils 72, lymphs were 22. Sodium today 149, creatinine 1.6, glucose 163, AST 65, ALT 76 on arrival. Lipase 148. Urinalysis from this morning is pending. MRSA screens were negative. Chest x-ray this morning, by my eye, poor inspiratory effort, but no gross findings. IMPRESSION: 1. Questionable sepsis with fever, hypotension. 2. Fever. 3. Penicillin allergy, has tolerated Rocephin. 4. Acute kidney injury, dehydration, improving. 5. History of Proteus urinary tract infection resistant to quinolones in the past. 6. Thrombocytopenia, questionable mag, questionable Pepcid, now it is stable. RECOMMENDATIONS: We will add procalcitonin, lactic acid, LFTs. Labs obtained this morning. Follow up labs and cultures. We will add Zyvox, avoiding vancomycin with her renal issues. We will add cefepime q.8 hours to cover potential Pseudomonas and also add Flagyl. Chart was reviewed. Thirty-five minutes critical care time. Thank you for allowing me to participate in the patient's care. If you have any questions, please do not hesitate to contact me. SHOAIB CORDERO MD DR: VENTURA/nai JOB#: [id number] / [id number]
[2017-03-09] MEDS: INSULIN ASPART 300 UNITS/3 ML INSULN.PEN SQ SCH ×3 (09:48→17:00)
[2017-03-09] MEDS: MULTIVITAMIN with MINERAL TABLET. PO SCH (09:49)
[2017-03-09] MEDS: DICLOFENAC SODIUM 1% TOPICAL GEL 100GM TUBE. TP SCH ×4 (09:49→23:05)
[2017-03-09] MEDS: CHOLECALCIFEROL (VITAMIN D3) 1,000 UNIT TABLET PO SCH (09:49)
[2017-03-09] MEDS: SENNOSIDES/DOCUSATE 8.6/50MG TABLET. PO SCH (09:49)
[2017-03-09] MEDS: NYSTATIN TOPICAL POWDER 15GM BOTTLE. TP SCH ×2 (09:49→23:05)
[2017-03-09 10:11] LABS: PLT ESTIMATE DECREASED (ADEQUATE)
[2017-03-09 10:12] LABS: ANISOCYTOSIS PRESENT
[2017-03-09 11:21] LABS: BILIRUBIN,URINE NEGATIVE (NEG); GLUCOSE,URINE NEGATIVE (NEG); NITRITE,URINE NEGATIVE (NEG); PH,URINE 5.5; PROTEIN,URINE NEGATIVE (NEG-TRACE); UROBILINOGEN,URINE 0.2 mg/dL (0.2 mg/dL)
[2017-03-09 11:34] LABS: BACTERIA,URINE 0 /HPF (0-FEW); RBC,URINE 0 /HPF (0-2); SQUAMOUS EPITHELIAL CELL,UR FEW /LPF; YEAST,URINE PRESENT /HPF
--- NOTE | 2017-03-09 11:46 | PDOC ---
Renal-Progress Notes Subjective Notes Notes NONE History of Present Illness Hx of present illness STABLE Vitals Vitals Vital Signs Date Time Temp Pulse Resp B/P (MAP) Pulse Ox O2 Delivery O2 Flow Rate FiO2 03/09/17 09:13 99 Room Air 03/09/17 06:00 110 26 98/44 (62) 03/09/17 04:00 100.2 100.2 03/08/17 23:59 2.0 Weight Weight [ ] Labs Labs Laboratory Tests Test 03/08/17 12:14 03/08/17 17:29 03/08/17 22:15 03/09/17 05:10 Glucose (Fingerstick) 170 mg/dL (70-99) 108 mg/dL (70-99) 153 mg/dL (70-99) Sodium Level 149 mmol/L (136-145) Potassium Level 3.8 mmol/L (3.5-5.1) Chloride Level 116 mmol/L (98-107) Carbon Dioxide Level 24 mmol/L (21-32) Anion Gap 9 (6-14) Blood Urea Nitrogen 26 mg/dL (7-20) Creatinine 1.6 mg/dL (0.6-1.0) Estimated GFR (Cockcroft-Gault) 38.3 Glucose Level 163 mg/dL (70-99) Calcium Level 8.5 mg/dL (8.5-10.1) Total Bilirubin 0.8 mg/dL (0.2-1.0) Direct Bilirubin 0.2 mg/dL (0.0-0.2) Aspartate Amino Transf (AST/SGOT) 96 U/L (15-37) Alanine Aminotransferase (ALT/SGPT) 74 U/L (14-59) Alkaline Phosphatase 95 U/L (46-116) Total Protein 6.5 g/dL (6.4-8.2) Albumin 2.7 g/dL (3.4-5.0) Procalcitonin 1.06 ng/mL (0.00-0.10) Test 03/09/17 05:40 03/09/17 07:45 03/09/17 09:35 White Blood Count 7.1 x10^3/uL (4.0-11.0) Red Blood Count 3.79 x10^6/uL (3.50-5.40) Hemoglobin 12.1 g/dL (12.0-15.5) Hematocrit 35.8 % (36.0-47.0) Mean Corpuscular Volume 95 fL (79-100) Mean Corpuscular Hemoglobin 32 pg (25-35) Mean Corpuscular Hemoglobin Concent 34 g/dL (31-37) Red Cell Distribution Width 15.3 % (11.5-14.5) Platelet Count 88 x10^3/uL (140-400) Neutrophils (%) (Auto) 72 % (31-73) Lymphocytes (%) (Auto) 22 % (24-48) Monocytes (%) (Auto) 5 % (0-9) Eosinophils (%) (Auto) 1 % (0-3) Basophils (%) (Auto) 0 % (0-3) Neutrophils # (Auto) 5.1 x10^3uL (1.8-7.7) Lymphocytes # (Auto) 1.6 x10^3/uL (1.0-4.8) Monocytes # (Auto) 0.4 x10^3/uL (0.0-1.1) Eosinophils # (Auto) 0.1 x10^3/uL (0.0-0.7) Basophils # (Auto) 0.0 x10^3/uL (0.0-0.2) Platelet Estimate Decreased (ADEQUATE) Large Platelets Occ Anisocytosis Present Lactic Acid Level 1.1 mmol/L (0.4-2.0) Urine Collection Type U cath Urine Color Yellow Urine Clarity Clear Urine pH 5.5 Urine Specific [place] 1.010 Urine Protein Negative mg/dL (NEG-TRACE) Urine Glucose (UA) Negative mg/dL (NEG) Urine Ketones (Stick) Negative mg/dL (NEG) Urine Blood Small (NEG) Urine Nitrite Negative (NEG) Urine Bilirubin Negative (NEG) Urine Urobilinogen Dipstick 0.2 mg/dL (0.2 mg/dL) Urine Leukocyte Esterase Small (NEG) Urine RBC 0 /HPF (0-2) Urine WBC 5-10 /HPF (0-4) Urine Squamous Epithelial Cells Few /LPF Urine Bacteria 0 /HPF (0-FEW) Urine Yeast Present /HPF Micro Micro Microbiology 03/05/17 Blood Culture - Preliminary, Resulted NO GROWTH AFTER 3 DAYS 03/05/17 Urine Culture - Final, Complete 03/05/17 Urine Culture Result 1 (LINDSAY) - Final, Complete Review of Systems Constitutional: yes: unresponsive, other (UNABLE TO OBTAIN) Physical Exam General Appearance: no apparent distress Skin: warm Respiratory: bilateral CTA Heart: S1S2, RRR Abdomen: soft, bowel sounds present Genitourinary: bladder flat Extremities: pulses present Neurology: alert, oriented Musculoskeletal: Other Assessment Assessment IMP CONY-CR 1.6 NOW HYPERNATREMIA-BETTER DEMENTIA HYPOKALEMIA-BETTER LEUCOCYTOSIS HYPOTENSION - BETTER AFTER BOLUS PLAN CONT PPN REPLACE K NEEDED PEG PENDING ANDREEA MUELLER MD Mar 09, 2017 11:46
[2017-03-09] MEDS ORDERED: BARIUM SULFATE 40% (APPLE) 148 GM PWD. PO ONE (12:30)
--- NOTE | 2017-03-09 15:28 | RAD ---
Mediastinal study Indication: Dysphagia Technique: Video swallow study. 0.9 minutes of fluoroscopy time. The study was performed by speech pathologist with radiologist present Comparison: None Findings: Delayed transit time. Otherwise, no aspiration or penetration. Impression: As above. Please see notes by speech pathology in patient's chart for detailed information.
[2017-03-09] MEDS: FAMOTIDINE 20 MG TABLET. PO SCH (21:00)
[2017-03-09] MEDS: DONEPEZIL HCL 10 MG TABLET. PO SCH (21:00)
[2017-03-09] MEDS: SIMVASTATIN 20 MG TABLET PO SCH (21:00)
[2017-03-10] VITALS (20 sets, daily range): BP systolic 74–140; BP diastolic 39–80
[2017-03-10 05:11] LABS: BASO % 0 % (0-3); EOS % 2 % (0-3); HEMATOCRIT 32.2 % (36.0-47.0); HEMOGLOBIN 10.6 g/dL (12.0-15.5); LYMPH # 2.1 x10^3/uL (1.0-4.8); LYMPH % 30 % (24-48); MEAN CORPUSCULAR HEMOGLOBIN 32 pg (25-35); MEAN CORPUSCULAR HGB CONC 33 g/dL (31-37); MEAN CORPUSCULAR VOLUME 96 fL (79-100); MONO % 5 % (0-9); NEUT % 63 % (31-73); PLATELET COUNT 74 x10^3/uL (140-400); RED BLOOD COUNT 3.34 x10^6/uL (3.50-5.40); WHITE BLOOD COUNT 6.8 x10^3/uL (4.0-11.0)
[2017-03-10] MEDS: CEFEPIME HCL 1 GM in IV NORMAL SALINE 50ML 50 ML IV SCH ×3 (05:30→22:26)
[2017-03-10 05:42] LABS: CALCIUM 8.2 mg/dL (8.5-10.1); CREATININE 1.6 mg/dL (0.6-1.0); GFR 38.3; POTASSIUM 3.6 mmol/L (3.5-5.1)
--- NOTE | 2017-03-10 07:23 | PDOC ---
Infectious Disease Note Subjective Subjective More alert today ROS ROS Unobtainable Vital Sign Vital Signs Vital Signs Date Time Temp Pulse Resp B/P (MAP) Pulse Ox O2 Delivery O2 Flow Rate FiO2 03/10/17 06:00 96 16 96/49 (65) 100 Room Air 03/10/17 04:00 98.6 98.6 Physical Exam PHYSICAL EXAM GENERAL: NAD, Alert, Looks comfortable HEENT: PERRL, OC/OP- dry NECK: Supple, no JVD, no LN LUNGS: Clear HEART: S1S2, no gallop, no murmur ABD: Soft, NT, Obese, no rebound Bell EXT: No edema, no cyanosis, contracture [employer]ER: Alert, SKIN: No rash IV: ok Labs Lab Laboratory Tests Test 03/09/17 07:45 03/09/17 09:35 03/09/17 16:00 03/10/17 04:40 Lactic Acid Level 1.1 mmol/L (0.4-2.0) Urine Collection Type U cath Urine Color Yellow Urine Clarity Clear Urine pH 5.5 Urine Specific [place] 1.010 Urine Protein Negative mg/dL (NEG-TRACE) Urine Glucose (UA) Negative mg/dL (NEG) Urine Ketones (Stick) Negative mg/dL (NEG) Urine Blood Small (NEG) Urine Nitrite Negative (NEG) Urine Bilirubin Negative (NEG) Urine Urobilinogen Dipstick 0.2 mg/dL (0.2 mg/dL) Urine Leukocyte Esterase Small (NEG) Urine RBC 0 /HPF (0-2) Urine WBC 5-10 /HPF (0-4) Urine Squamous Epithelial Cells Few /LPF Urine Bacteria 0 /HPF (0-FEW) Urine Yeast Present /HPF Glucose (Fingerstick) 154 mg/dL (70-99) White Blood Count 6.8 x10^3/uL (4.0-11.0) Red Blood Count 3.34 x10^6/uL (3.50-5.40) Hemoglobin 10.6 g/dL (12.0-15.5) Hematocrit 32.2 % (36.0-47.0) Mean Corpuscular Volume 96 fL (79-100) Mean Corpuscular Hemoglobin 32 pg (25-35) Mean Corpuscular Hemoglobin Concent 33 g/dL (31-37) Red Cell Distribution Width 15.0 % (11.5-14.5) Platelet Count 74 x10^3/uL (140-400) Neutrophils (%) (Auto) 63 % (31-73) Lymphocytes (%) (Auto) 30 % (24-48) Monocytes (%) (Auto) 5 % (0-9) Eosinophils (%) (Auto) 2 % (0-3) Basophils (%) (Auto) 0 % (0-3) Neutrophils # (Auto) 4.3 x10^3uL (1.8-7.7) Lymphocytes # (Auto) 2.1 x10^3/uL (1.0-4.8) Monocytes # (Auto) 0.4 x10^3/uL (0.0-1.1) Eosinophils # (Auto) 0.1 x10^3/uL (0.0-0.7) Basophils # (Auto) 0.0 x10^3/uL (0.0-0.2) Sodium Level 150 mmol/L (136-145) Potassium Level 3.6 mmol/L (3.5-5.1) Chloride Level 118 mmol/L (98-107) Carbon Dioxide Level 23 mmol/L (21-32) Anion Gap 9 (6-14) Blood Urea Nitrogen 22 mg/dL (7-20) Creatinine 1.6 mg/dL (0.6-1.0) Estimated GFR (Cockcroft-Gault) 38.3 Glucose Level 129 mg/dL (70-99) Calcium Level 8.2 mg/dL (8.5-10.1) Objective Assessment ? sepsis - fever/hypotension. CXR clear/Urine clear. Abd non tender. No BM for several days but initially had a lot of stool. Swallow without a lot of aspiration Fever -some better Mild transaminitis mild increase yesterday PCN allergy - tolerated Rocephin CONY - dehydration - improving H/o Proteus UTI - Res to Quinolones Thrombocytopenia ? med ? Pepcid - dropping Plan Plan of Care Add LFTs/lipase today if still elevated - consider abd U/S F/u labs/cults Cont Zyvox (avoid Vanc with renal issues)/Cefepime q 8/Flagyl SHOAIB CORDERO MD Mar 10, 2017 07:23
[2017-03-10 07:45] LABS: ALBUMIN 2.3 g/dL (3.4-5.0); DIRECT BILIRUBIN 0.1 mg/dL (0.0-0.2); TOTAL BILIRUBIN 0.5 mg/dL (0.2-1.0); TOTAL PROTEIN 6.4 g/dL (6.4-8.2)
[2017-03-10] MEDS: IPRATRPIUM/ALBUTEROL 0.5/2.5MG 3 ML NEBU. NEB SCH ×4 (07:49→19:26)
--- NOTE | 2017-03-10 07:53 | PDOC ---
MARILEE GARCIA DEHYDRATOR TENDER 03/10/17 0753: IM PROGRESS NOTES- Subjective Subjective awake, smiling Objective Objective alert no distress Vitals Vital Signs Date Time Temp Pulse Resp B/P (MAP) Pulse Ox O2 Delivery O2 Flow Rate FiO2 03/10/17 06:00 96 16 96/49 (65) 100 Room Air 03/10/17 04:00 98.6 98.6 Physical Exam Physical Exam General appearance - awake, chronically ill appearing, and in no distress Mental Status - alert, oriented to person, affect appropriate to mood Head - normal Chest - clear to auscultation, no wheezes, rales or rhonchi, symmetric air entry Heart - S1 and S2 normal Abdomen - soft, nontender, nondistended, obese, BS + Neurological - old CVA R hemiparesis with R hand contracture, R foot drop. Musculoskeletal - negative. Extremities - no pedal edema Skin - warm and dry Labs Laboratory Tests Test 03/08/17 08:52 03/08/17 12:14 03/08/17 17:29 03/08/17 22:15 Glucose (Fingerstick) 144 mg/dL (70-99) 170 mg/dL (70-99) 108 mg/dL (70-99) 153 mg/dL (70-99) Test 03/09/17 05:10 03/09/17 05:40 03/09/17 07:45 03/09/17 09:35 Sodium Level 149 mmol/L (136-145) Potassium Level 3.8 mmol/L (3.5-5.1) Chloride Level 116 mmol/L (98-107) Carbon Dioxide Level 24 mmol/L (21-32) Anion Gap 9 (6-14) Blood Urea Nitrogen 26 mg/dL (7-20) Creatinine 1.6 mg/dL (0.6-1.0) Estimated GFR (Cockcroft-Gault) 38.3 Glucose Level 163 mg/dL (70-99) Calcium Level 8.5 mg/dL (8.5-10.1) Total Bilirubin 0.8 mg/dL (0.2-1.0) Direct Bilirubin 0.2 mg/dL (0.0-0.2) Aspartate Amino Transf (AST/SGOT) 96 U/L (15-37) Alanine Aminotransferase (ALT/SGPT) 74 U/L (14-59) Alkaline Phosphatase 95 U/L (46-116) Total Protein 6.5 g/dL (6.4-8.2) Albumin 2.7 g/dL (3.4-5.0) Procalcitonin 1.06 ng/mL (0.00-0.10) White Blood Count 7.1 x10^3/uL (4.0-11.0) Red Blood Count 3.79 x10^6/uL (3.50-5.40) Hemoglobin 12.1 g/dL (12.0-15.5) Hematocrit 35.8 % (36.0-47.0) Mean Corpuscular Volume 95 fL (79-100) Mean Corpuscular Hemoglobin 32 pg (25-35) Mean Corpuscular Hemoglobin Concent 34 g/dL (31-37) Red Cell Distribution Width 15.3 % (11.5-14.5) Platelet Count 88 x10^3/uL (140-400) Neutrophils (%) (Auto) 72 % (31-73) Lymphocytes (%) (Auto) 22 % (24-48) Monocytes (%) (Auto) 5 % (0-9) Eosinophils (%) (Auto) 1 % (0-3) Basophils (%) (Auto) 0 % (0-3) Neutrophils # (Auto) 5.1 x10^3uL (1.8-7.7) Lymphocytes # (Auto) 1.6 x10^3/uL (1.0-4.8) Monocytes # (Auto) 0.4 x10^3/uL (0.0-1.1) Eosinophils # (Auto) 0.1 x10^3/uL (0.0-0.7) Basophils # (Auto) 0.0 x10^3/uL (0.0-0.2) Platelet Estimate Decreased (ADEQUATE) Large Platelets Occ Anisocytosis Present Lactic Acid Level 1.1 mmol/L (0.4-2.0) Urine Collection Type U cath Urine Color Yellow Urine Clarity Clear Urine pH 5.5 Urine Specific [place] 1.010 Urine Protein Negative mg/dL (NEG-TRACE) Urine Glucose (UA) Negative mg/dL (NEG) Urine Ketones (Stick) Negative mg/dL (NEG) Urine Blood Small (NEG) Urine Nitrite Negative (NEG) Urine Bilirubin Negative (NEG) Urine Urobilinogen Dipstick 0.2 mg/dL (0.2 mg/dL) Urine Leukocyte Esterase Small (NEG) Urine RBC 0 /HPF (0-2) Urine WBC 5-10 /HPF (0-4) Urine Squamous Epithelial Cells Few /LPF Urine Bacteria 0 /HPF (0-FEW) Urine Yeast Present /HPF Test 03/09/17 16:00 03/10/17 04:40 Glucose (Fingerstick) 154 mg/dL (70-99) White Blood Count 6.8 x10^3/uL (4.0-11.0) Red Blood Count 3.34 x10^6/uL (3.50-5.40) Hemoglobin 10.6 g/dL (12.0-15.5) Hematocrit 32.2 % (36.0-47.0) Mean Corpuscular Volume 96 fL (79-100) Mean Corpuscular Hemoglobin 32 pg (25-35) Mean Corpuscular Hemoglobin Concent 33 g/dL (31-37) Red Cell Distribution Width 15.0 % (11.5-14.5) Platelet Count 74 x10^3/uL (140-400) Neutrophils (%) (Auto) 63 % (31-73) Lymphocytes (%) (Auto) 30 % (24-48) Monocytes (%) (Auto) 5 % (0-9) Eosinophils (%) (Auto) 2 % (0-3) Basophils (%) (Auto) 0 % (0-3) Neutrophils # (Auto) 4.3 x10^3uL (1.8-7.7) Lymphocytes # (Auto) 2.1 x10^3/uL (1.0-4.8) Monocytes # (Auto) 0.4 x10^3/uL (0.0-1.1) Eosinophils # (Auto) 0.1 x10^3/uL (0.0-0.7) Basophils # (Auto) 0.0 x10^3/uL (0.0-0.2) Sodium Level 150 mmol/L (136-145) Potassium Level 3.6 mmol/L (3.5-5.1) Chloride Level 118 mmol/L (98-107) Carbon Dioxide Level 23 mmol/L (21-32) Anion Gap 9 (6-14) Blood Urea Nitrogen 22 mg/dL (7-20) Creatinine 1.6 mg/dL (0.6-1.0) Estimated GFR (Cockcroft-Gault) 38.3 Glucose Level 129 mg/dL (70-99) Calcium Level 8.2 mg/dL (8.5-10.1) Laboratory Tests Test 03/09/17 07:45 03/09/17 09:35 03/09/17 16:00 03/10/17 04:40 Lactic Acid Level 1.1 mmol/L (0.4-2.0) Urine Collection Type U cath Urine Color Yellow Urine Clarity Clear Urine pH 5.5 Urine Specific [place] 1.010 Urine Protein Negative mg/dL (NEG-TRACE) Urine Glucose (UA) Negative mg/dL (NEG) Urine Ketones (Stick) Negative mg/dL (NEG) Urine Blood Small (NEG) Urine Nitrite Negative (NEG) Urine Bilirubin Negative (NEG) Urine Urobilinogen Dipstick 0.2 mg/dL (0.2 mg/dL) Urine Leukocyte Esterase Small (NEG) Urine RBC 0 /HPF (0-2) Urine WBC 5-10 /HPF (0-4) Urine Squamous Epithelial Cells Few /LPF Urine Bacteria 0 /HPF (0-FEW) Urine Yeast Present /HPF Glucose (Fingerstick) 154 mg/dL (70-99) White Blood Count 6.8 x10^3/uL (4.0-11.0) Red Blood Count 3.34 x10^6/uL (3.50-5.40) Hemoglobin 10.6 g/dL (12.0-15.5) Hematocrit 32.2 % (36.0-47.0) Mean Corpuscular Volume 96 fL (79-100) Mean Corpuscular Hemoglobin 32 pg (25-35) Mean Corpuscular Hemoglobin Concent 33 g/dL (31-37) Red Cell Distribution Width 15.0 % (11.5-14.5) Platelet Count 74 x10^3/uL (140-400) Neutrophils (%) (Auto) 63 % (31-73) Lymphocytes (%) (Auto) 30 % (24-48) Monocytes (%) (Auto) 5 % (0-9) Eosinophils (%) (Auto) 2 % (0-3) Basophils (%) (Auto) 0 % (0-3) Neutrophils # (Auto) 4.3 x10^3uL (1.8-7.7) Lymphocytes # (Auto) 2.1 x10^3/uL (1.0-4.8) Monocytes # (Auto) 0.4 x10^3/uL (0.0-1.1) Eosinophils # (Auto) 0.1 x10^3/uL (0.0-0.7) Basophils # (Auto) 0.0 x10^3/uL (0.0-0.2) Sodium Level 150 mmol/L (136-145) Potassium Level 3.6 mmol/L (3.5-5.1) Chloride Level 118 mmol/L (98-107) Carbon Dioxide Level 23 mmol/L (21-32) Anion Gap 9 (6-14) Blood Urea Nitrogen 22 mg/dL (7-20) Creatinine 1.6 mg/dL (0.6-1.0) Estimated GFR (Cockcroft-Gault) 38.3 Glucose Level 129 mg/dL (70-99) Calcium Level 8.2 mg/dL (8.5-10.1) Meds Current Medications Barium Sulfate (Varibar Thin Liquid Apple) 148 gm 1X ONCE PO Last administered on 03/09/17 14:45; Start 03/09/17 at 12:30; Stop 03/09/17 at 12:31 ; Status DC Linezolid 300 ml @ 300 mls/hr Q12HR IV Last administered on 03/09/17 22:08; Start 03/09/17 at 09:00 Metronidazole 100 ml @ 100 mls/hr Q8HRS IV Last administered on 03/10/17 06: 06; Start 03/09/17 at 08:00 Sodium Chloride 38.75 meq/Sterile Water 1,009.6875 ml @ 60 mls/hr [id number] IV ; Start 03/09/17 at 10:30; Stop 03/09/17 at 16:38; Status DC Assessment Assessment 1. hypernatremia acute secondary to dehydration 2. sepsis source undetermined 3. ARF with CONY (dehydration) underlying CKD III baseline Cr 1.1-1.4 4. 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 vascular dementia with unspecified mood disorder/behavioral disturbance 6. anxiety/depression 7. hyperlipidemia 8. GERD w/o esophagitis 9. DM II with CKD III 10. PVD 11. chronic pain unspecified with pain management at [facility] 12. chronic constipation 13. chronic moderate PCL malnutrition 14. chronic dysphagia with pureed diet, honey thickened liquids. 15. thrombocytopenia 16. chronic moore urine retention 17. HTN 18. UTI POA no sepsis PLAN: 03/10 sepsis - fever improved -resolved -- Hypotension improved -- ID Cefepime and Zyvox 03/09/17 BC prelim neg. CXR neg. UA neg. ARF --improving BUN 22 Cr 1.6 hypernatremia - improving Na 150 improved. IVF 06/09NS continues malnutrition - PEG planned for Tuesday -- swallow eval = continue pureed/honey thick liquids thrombocytopenia -- platelets 74 -- monitor. transaminitis POA - Admit AST 65 -- today 96 Admit -- ALT 76 Today 74 -- Ammonia 03/05 13 --Admit lipase 148 -- Lipase pending and LFTs ordered for tomorrow Review of lab CPK 856 on admission 03/09/17 fever -started 8pm = T00F -- 2300 =100.2F -- 0400 100.2F-- BC x2, UA and reflex C/S, CXR, ID consult -Rocephin cipro stopped 03/08-urine c/s negative. hypernatremia - IVF 06/09NS 60cc/hr improving ARF with CONY -improving malnutrition - staff reports trouble swallowing, will order speech BS swallow eval -GI consult for PEG placement HTN - BP responded to bolus, 120-130 systolic, trending down again, bolus 160cc/ hr 1/4 NS - for 5 hrs then resume 60cc/hr thrombocytopenia -- Lab pending 05:00 03/08/17 hypernatremia - Na 156 improving -D/w son at bedside -would like to visit PEG insertion for fluids -GI consulted met enceph - sleepy this morning ARF with CONY - BUN 26 Cr 1.6 improving 1/4 NS 60cc/hr UTI -culture negative, stop antibiotics malnutrition, dysphagia - restart diet, continue PPN, If peg insert- supplement HTN -meds not stopped - low BP - bolus 1/4 NS 160cc/hr x 5 hr thrombocytopenia - platelet 87 03/07/17 acute hypernatremia - Admit Na 180-- PPN, sterile water with Na 60cc/hr -- today Na 167 metabolic encephalopathy - improving ARF with CONY - Admit B/Cr 40/2.0--decreased to 33/ 1.8 - renal consulted UTI no sepsis - Rocephin since admit -- Cipro IV --Urine CS pending dysphagia -- pureed diet, honey thick liquids severe PCL malnutrition -start po, more awake HTN - resume meds thrombocytopenia ADmit 127-- today 87--stop heparin DVT/GI prophylaxis --SCD/GEOVANY, Pepcid For more details regarding further plans, please refer to the orders. Plan Plan For more details regarding further plans, please refer to the orders. TEENA DAHL MD 03/10/17 0937: IM PROGRESS NOTES- Assessment Assessment Slowly improving.Much more alert. Hypotension better. The patient was seen and examined by me. Chart reviewed and plan of care formulated. Discussed with, reviewed and agree with PAN DUMPER's notes, plan of care and orders with modifications as necessary. For more details regarding further plans, please refer to the orders. MARILEE GARCIA APRN Mar 10, 2017 07:53 TEENA DAHL MD Mar 10, 2017 09:37
[2017-03-10] MEDS: INSULIN ASPART 300 UNITS/3 ML INSULN.PEN SQ SCH ×3 (08:00→17:00)
[2017-03-10] MEDS: CHOLECALCIFEROL (VITAMIN D3) 1,000 UNIT TABLET PO SCH (09:00)
[2017-03-10] MEDS: AMINO AC 3%/ELECTROLYTE/GLYCER 1,000 ML IV SCH ×2 (09:00→19:23)
[2017-03-10] MEDS: MULTIVITAMIN with MINERAL TABLET. PO SCH (09:01)
[2017-03-10] MEDS: POLYETHYLENE GLYCOL 3350 17 GM PACKET. PO SCH ×2 (09:01→09:10)
[2017-03-10] MEDS: NYSTATIN TOPICAL POWDER 15GM BOTTLE. TP SCH ×2 (09:02→21:17)
[2017-03-10] MEDS: DICLOFENAC SODIUM 1% TOPICAL GEL 100GM TUBE. TP SCH ×4 (09:04→21:17)
[2017-03-10] MEDS: SENNOSIDES/DOCUSATE 8.6/50MG TABLET. PO SCH ×2 (09:09→09:10)
--- NOTE | 2017-03-10 10:22 | PDOC ---
Objective: Objective: Reviewed other notes. Vital Signs: Vital Signs Date Time Temp Pulse Resp B/P (MAP) Pulse Ox O2 Delivery O2 Flow Rate FiO2 03/10/17 07:50 100 Room Air 03/10/17 06:00 96 16 96/49 (65) 03/10/17 04:00 98.6 98.6 Labs: Laboratory Tests Test 03/09/17 16:00 03/10/17 04:40 03/10/17 09:13 Glucose (Fingerstick) 154 mg/dL 128 mg/dL White Blood Count 6.8 x10^3/uL Red Blood Count 3.34 x10^6/uL Hemoglobin 10.6 g/dL Hematocrit 32.2 % Mean Corpuscular Volume 96 fL Mean Corpuscular Hemoglobin 32 pg Mean Corpuscular Hemoglobin Concent 33 g/dL Red Cell Distribution Width 15.0 % Platelet Count 74 x10^3/uL Neutrophils (%) (Auto) 63 % Lymphocytes (%) (Auto) 30 % Monocytes (%) (Auto) 5 % Eosinophils (%) (Auto) 2 % Basophils (%) (Auto) 0 % Neutrophils # (Auto) 4.3 x10^3uL Lymphocytes # (Auto) 2.1 x10^3/uL Monocytes # (Auto) 0.4 x10^3/uL Eosinophils # (Auto) 0.1 x10^3/uL Basophils # (Auto) 0.0 x10^3/uL Sodium Level 150 mmol/L Potassium Level 3.6 mmol/L Chloride Level 118 mmol/L Carbon Dioxide Level 23 mmol/L Anion Gap 9 Blood Urea Nitrogen 22 mg/dL Creatinine 1.6 mg/dL Estimated GFR (Cockcroft-Gault) 38.3 Glucose Level 129 mg/dL Calcium Level 8.2 mg/dL Total Bilirubin 0.5 mg/dL Direct Bilirubin 0.1 mg/dL Aspartate Amino Transf (AST/SGOT) 72 U/L Alanine Aminotransferase (ALT/SGPT) 67 U/L Alkaline Phosphatase 73 U/L Total Protein 6.4 g/dL Albumin 2.3 g/dL Lipase 185 U/L Imaging: [facility] Bedside Swallow Eval Bedside swallow eval completed. Pt w/limited ability to participate in eval measures. Subtle wet breathing and low intensity, wet throat clearing noted inconsistently p.puree and honey thick via cup. Limited trials completed d/t subtle s/s and lmtd pt participation. IMPRESSIONS: Observations suspicious for aspiration. Pt on lowest level diet at this time--puree w/honey thick. Given limited pt ability to participate, would consider videoswallow to more fully outline swallow function. RECOMMENDATIONS: NPO; Videoswallow rec'd d/t pt inability to fully participate w/eval measures. SURYA Adams to contact MD for orders and enter when obtained. Videoswallow Findings: Delayed transit time. Otherwise, no aspiration or penetration. PE: GEN: NAD LUNGS: clear HEART: RRR ABD: S/ND/NT NEURO/PSYCH: awake, confused A/P: Dysphagia Thrombocytopenia - worse -- PEG on hold w/ thrombocytopenia. KAMI HASTINGS Mar 10, 2017 10:22
--- NOTE | 2017-03-10 11:36 | PDOC ---
Renal-Progress Notes Subjective Notes Notes NO NEW COMPLAINTS History of Present Illness Hx of present illness STABLE Vitals Vitals Vital Signs Date Time Temp Pulse Resp B/P (MAP) Pulse Ox O2 Delivery O2 Flow Rate FiO2 03/10/17 11:27 100 Room Air 03/10/17 10:00 94 17 137/75 (95) 03/10/17 04:00 98.6 98.6 Weight Weight [ ] I.O. Intake and Output Intake and Output 03/11/17 07:00 Intake Total 240 ml Output Total 400 ml Balance -160 ml Intake Oral 240 ml Output Urine Total 400 ml Labs Labs Laboratory Tests Test 03/09/17 16:00 03/10/17 04:40 03/10/17 09:13 Glucose (Fingerstick) 154 mg/dL (70-99) 128 mg/dL (70-99) White Blood Count 6.8 x10^3/uL (4.0-11.0) Red Blood Count 3.34 x10^6/uL (3.50-5.40) Hemoglobin 10.6 g/dL (12.0-15.5) Hematocrit 32.2 % (36.0-47.0) Mean Corpuscular Volume 96 fL (79-100) Mean Corpuscular Hemoglobin 32 pg (25-35) Mean Corpuscular Hemoglobin Concent 33 g/dL (31-37) Red Cell Distribution Width 15.0 % (11.5-14.5) Platelet Count 74 x10^3/uL (140-400) Neutrophils (%) (Auto) 63 % (31-73) Lymphocytes (%) (Auto) 30 % (24-48) Monocytes (%) (Auto) 5 % (0-9) Eosinophils (%) (Auto) 2 % (0-3) Basophils (%) (Auto) 0 % (0-3) Neutrophils # (Auto) 4.3 x10^3uL (1.8-7.7) Lymphocytes # (Auto) 2.1 x10^3/uL (1.0-4.8) Monocytes # (Auto) 0.4 x10^3/uL (0.0-1.1) Eosinophils # (Auto) 0.1 x10^3/uL (0.0-0.7) Basophils # (Auto) 0.0 x10^3/uL (0.0-0.2) Sodium Level 150 mmol/L (136-145) Potassium Level 3.6 mmol/L (3.5-5.1) Chloride Level 118 mmol/L (98-107) Carbon Dioxide Level 23 mmol/L (21-32) Anion Gap 9 (6-14) Blood Urea Nitrogen 22 mg/dL (7-20) Creatinine 1.6 mg/dL (0.6-1.0) Estimated GFR (Cockcroft-Gault) 38.3 Glucose Level 129 mg/dL (70-99) Calcium Level 8.2 mg/dL (8.5-10.1) Total Bilirubin 0.5 mg/dL (0.2-1.0) Direct Bilirubin 0.1 mg/dL (0.0-0.2) Aspartate Amino Transf (AST/SGOT) 72 U/L (15-37) Alanine Aminotransferase (ALT/SGPT) 67 U/L (14-59) Alkaline Phosphatase 73 U/L (46-116) Total Protein 6.4 g/dL (6.4-8.2) Albumin 2.3 g/dL (3.4-5.0) Lipase 185 U/L (73-393) Micro Micro Microbiology 03/09/17 Blood Culture - Preliminary, Resulted NO GROWTH AFTER 1 DAY 03/05/17 Urine Culture - Final, Complete 03/05/17 Urine Culture Result 1 (LINDSAY) - Final, Complete Review of Systems Constitutional: yes: unresponsive, other (UNABLE TO OBTAIN) Physical Exam General Appearance: no apparent distress Skin: warm Respiratory: bilateral CTA Heart: S1S2, RRR Abdomen: soft, bowel sounds present Genitourinary: bladder flat Extremities: pulses present Neurology: alert, oriented Musculoskeletal: Other Assessment Assessment IMP CONY-CR 1.6 NOW HYPERNATREMIA DEMENTIA HYPOKALEMIA-BETTER LEUCOCYTOSIS HYPOTENSION - BETTER AFTER BOLUS PLAN CONT PPN REPLACE K NEEDED PEG PENDING ANDREEA MUELLER MD Mar 10, 2017 11:36
[2017-03-10] MEDS: DONEPEZIL HCL 10 MG TABLET. PO SCH (21:17)
[2017-03-10] MEDS: SIMVASTATIN 20 MG TABLET PO SCH (21:17)
[2017-03-10] MEDS: FAMOTIDINE 20 MG TABLET. PO SCH (21:17)
[2017-03-11] MEDS: AMINO AC 3%/ELECTROLYTE/GLYCER 1,000 ML IV SCH ×2 (05:13→14:12)
[2017-03-11 05:50] LABS: BASO % 0 % (0-3); EOS % 2 % (0-3); HEMATOCRIT 29.6 % (36.0-47.0); LYMPH % 34 % (24-48); MEAN CORPUSCULAR HEMOGLOBIN 32 pg (25-35); MEAN CORPUSCULAR HGB CONC 34 g/dL (31-37); MEAN CORPUSCULAR VOLUME 95 fL (79-100); MONO % 7 % (0-9); NEUT % 56 % (31-73); RED BLOOD COUNT 3.12 x10^6/uL (3.50-5.40); RED CELL DISTRIBUTION WIDTH 14.3 % (11.5-14.5); WHITE BLOOD COUNT 5.9 x10^3/uL (4.0-11.0)
[2017-03-11] MEDS: CEFEPIME HCL 1 GM in IV NORMAL SALINE 50ML 50 ML IV SCH ×3 (06:10→22:57)
[2017-03-11 06:13] LABS: PHOSPHORUS 2.2 mg/dL (2.6-4.7)
[2017-03-11 06:15] LABS: CREATININE 1.3 mg/dL (0.6-1.0); GFR 48.7; POTASSIUM 3.9 mmol/L (3.5-5.1)
--- NOTE | 2017-03-11 06:59 | PDOC ---
Infectious Disease Note Subjective Subjective Alert and looks well ROS ROS Unobtainable sec to previous CVA Vital Sign Vital Signs Vital Signs Date Time Temp Pulse Resp B/P (MAP) Pulse Ox O2 Delivery O2 Flow Rate FiO2 03/10/17 19:56 Room Air 03/10/17 19:00 99.4 99 17 102/55 (71) 100 99.4 Physical Exam PHYSICAL EXAM GENERAL: NAD, Alert, Looks comfortable HEENT: PERRL, OC/OP- dry NECK: Supple, no JVD, no LN LUNGS: Clear HEART: S1S2, no gallop, no murmur ABD: Soft, NT, Obese, no rebound Bell EXT: No edema, no cyanosis, contracture CUSTOM VAN CONVERTER: Alert, SKIN: No rash IV: ok Labs Lab Laboratory Tests Test 03/10/17 09:13 03/10/17 14:22 03/10/17 17:34 03/10/17 21:27 Glucose (Fingerstick) 128 mg/dL (70-99) 146 mg/dL (70-99) 120 mg/dL (70-99) 133 mg/dL (70-99) Test 03/11/17 05:00 Sodium Level 146 mmol/L (136-145) Potassium Level 3.9 mmol/L (3.5-5.1) Chloride Level 114 mmol/L (98-107) Carbon Dioxide Level 23 mmol/L (21-32) Anion Gap 9 (6-14) Blood Urea Nitrogen 18 mg/dL (7-20) Creatinine 1.3 mg/dL (0.6-1.0) Estimated GFR (Cockcroft-Gault) 48.7 Glucose Level 129 mg/dL (70-99) Calcium Level 8.0 mg/dL (8.5-10.1) Phosphorus Level 2.2 mg/dL (2.6-4.7) Magnesium Level 2.0 mg/dL (1.8-2.4) Objective Assessment ? sepsis - fever/hypotension. CXR clear/Urine clear. Abd non tender. No BM for several days but initially had a lot of stool. Swallow without a lot of aspiration. Flu vaccine 03/05 Fever -better/WBC normal Mild transaminitis mild increase yesterday - better PCN allergy - tolerated Rocephin CONY - dehydration - improving H/o Proteus UTI - Res to Quinolones Thrombocytopenia ? med - better Plan Plan of Care F/u labs/cults Discont Zyvox Cont Cefepime q 8/Flagyl for today - wean soon SHOAIB CORDERO MD Mar 11, 2017 06:59
[2017-03-11 07:26] LABS: PLT ESTIMATE ADEQUATE (ADEQUATE)
[2017-03-11 07:27] LABS: PLATELET COUNT 85 x10^3/uL (140-400)
[2017-03-11 08:00] VITALS: BP 125/61
[2017-03-11] MEDS: INSULIN ASPART 300 UNITS/3 ML INSULN.PEN SQ SCH ×3 (08:00→16:47)
[2017-03-11] MEDS: IPRATRPIUM/ALBUTEROL 0.5/2.5MG 3 ML NEBU. NEB SCH ×4 (08:02→19:33)
--- NOTE | 2017-03-11 08:22 | PDOC ---
MARILEE GARCIA [employer] 03/11/17 0822: IM PROGRESS NOTES- Subjective Subjective awake Objective Objective alert no distress Vitals Vital Signs Date Time Temp Pulse Resp B/P (MAP) Pulse Ox O2 Delivery O2 Flow Rate FiO2 03/11/17 08:04 97 Room Air 03/10/17 19:00 99.4 99 17 102/55 (71) 99.4 Physical Exam Physical Exam General appearance - awake, chronically ill appearing, and in no distress Mental Status - alert, oriented to person, affect appropriate to mood Head - normal Chest - clear to auscultation, no wheezes, rales or rhonchi, symmetric air entry Heart - S1 and S2 normal Abdomen - soft, nontender, nondistended, obese, BS + Neurological - old CVA R hemiparesis with R hand contracture, R foot drop. Musculoskeletal - negative. Extremities - no pedal edema Skin - warm and dry Labs Laboratory Tests Test 03/09/17 09:35 03/09/17 16:00 03/10/17 04:40 03/10/17 09:13 Urine Collection Type U cath Urine Color Yellow Urine Clarity Clear Urine pH 5.5 Urine Specific [place] 1.010 Urine Protein Negative mg/dL (NEG-TRACE) Urine Glucose (UA) Negative mg/dL (NEG) Urine Ketones (Stick) Negative mg/dL (NEG) Urine Blood Small (NEG) Urine Nitrite Negative (NEG) Urine Bilirubin Negative (NEG) Urine Urobilinogen Dipstick 0.2 mg/dL (0.2 mg/dL) Urine Leukocyte Esterase Small (NEG) Urine RBC 0 /HPF (0-2) Urine WBC 5-10 /HPF (0-4) Urine Squamous Epithelial Cells Few /LPF Urine Bacteria 0 /HPF (0-FEW) Urine Yeast Present /HPF Glucose (Fingerstick) 154 mg/dL (70-99) 128 mg/dL (70-99) White Blood Count 6.8 x10^3/uL (4.0-11.0) Red Blood Count 3.34 x10^6/uL (3.50-5.40) Hemoglobin 10.6 g/dL (12.0-15.5) Hematocrit 32.2 % (36.0-47.0) Mean Corpuscular Volume 96 fL (79-100) Mean Corpuscular Hemoglobin 32 pg (25-35) Mean Corpuscular Hemoglobin Concent 33 g/dL (31-37) Red Cell Distribution Width 15.0 % (11.5-14.5) Platelet Count 74 x10^3/uL (140-400) Neutrophils (%) (Auto) 63 % (31-73) Lymphocytes (%) (Auto) 30 % (24-48) Monocytes (%) (Auto) 5 % (0-9) Eosinophils (%) (Auto) 2 % (0-3) Basophils (%) (Auto) 0 % (0-3) Neutrophils # (Auto) 4.3 x10^3uL (1.8-7.7) Lymphocytes # (Auto) 2.1 x10^3/uL (1.0-4.8) Monocytes # (Auto) 0.4 x10^3/uL (0.0-1.1) Eosinophils # (Auto) 0.1 x10^3/uL (0.0-0.7) Basophils # (Auto) 0.0 x10^3/uL (0.0-0.2) Sodium Level 150 mmol/L (136-145) Potassium Level 3.6 mmol/L (3.5-5.1) Chloride Level 118 mmol/L (98-107) Carbon Dioxide Level 23 mmol/L (21-32) Anion Gap 9 (6-14) Blood Urea Nitrogen 22 mg/dL (7-20) Creatinine 1.6 mg/dL (0.6-1.0) Estimated GFR (Cockcroft-Gault) 38.3 Glucose Level 129 mg/dL (70-99) Calcium Level 8.2 mg/dL (8.5-10.1) Total Bilirubin 0.5 mg/dL (0.2-1.0) Direct Bilirubin 0.1 mg/dL (0.0-0.2) Aspartate Amino Transf (AST/SGOT) 72 U/L (15-37) Alanine Aminotransferase (ALT/SGPT) 67 U/L (14-59) Alkaline Phosphatase 73 U/L (46-116) Total Protein 6.4 g/dL (6.4-8.2) Albumin 2.3 g/dL (3.4-5.0) Lipase 185 U/L (73-393) Test 10/5/17 14:22 03/10/17 17:34 03/10/17 21:27 03/11/17 05:00 Glucose (Fingerstick) 146 mg/dL (70-99) 120 mg/dL (70-99) 133 mg/dL (70-99) White Blood Count 5.9 x10^3/uL (4.0-11.0) Red Blood Count 3.12 x10^6/uL (3.50-5.40) Hemoglobin 10.0 g/dL (12.0-15.5) Hematocrit 29.6 % (36.0-47.0) Mean Corpuscular Volume 95 fL (79-100) Mean Corpuscular Hemoglobin 32 pg (25-35) Mean Corpuscular Hemoglobin Concent 34 g/dL (31-37) Red Cell Distribution Width 14.3 % (11.5-14.5) Platelet Count 85 x10^3/uL (140-400) Neutrophils (%) (Auto) 56 % (31-73) Lymphocytes (%) (Auto) 34 % (24-48) Monocytes (%) (Auto) 7 % (0-9) Eosinophils (%) (Auto) 2 % (0-3) Basophils (%) (Auto) 0 % (0-3) Neutrophils # (Auto) 3.3 x10^3uL (1.8-7.7) Lymphocytes # (Auto) 2.0 x10^3/uL (1.0-4.8) Monocytes # (Auto) 0.4 x10^3/uL (0.0-1.1) Eosinophils # (Auto) 0.1 x10^3/uL (0.0-0.7) Basophils # (Auto) 0.0 x10^3/uL (0.0-0.2) Platelet Estimate Adequate (ADEQUATE) Large Platelets Present Giant Platelets Present Sodium Level 146 mmol/L (136-145) Potassium Level 3.9 mmol/L (3.5-5.1) Chloride Level 114 mmol/L (98-107) Carbon Dioxide Level 23 mmol/L (21-32) Anion Gap 9 (6-14) Blood Urea Nitrogen 18 mg/dL (7-20) Creatinine 1.3 mg/dL (0.6-1.0) Estimated GFR (Cockcroft-Gault) 48.7 Glucose Level 129 mg/dL (70-99) Calcium Level 8.0 mg/dL (8.5-10.1) Phosphorus Level 2.2 mg/dL (2.6-4.7) Magnesium Level 2.0 mg/dL (1.8-2.4) Laboratory Tests Test 03/10/17 09:13 03/10/17 14:22 03/10/17 17:34 03/10/17 21:27 Glucose (Fingerstick) 128 mg/dL (70-99) 146 mg/dL (70-99) 120 mg/dL (70-99) 133 mg/dL (70-99) Test 03/11/17 05:00 White Blood Count 5.9 x10^3/uL (4.0-11.0) Red Blood Count 3.12 x10^6/uL (3.50-5.40) Hemoglobin 10.0 g/dL (12.0-15.5) Hematocrit 29.6 % (36.0-47.0) Mean Corpuscular Volume 95 fL (79-100) Mean Corpuscular Hemoglobin 32 pg (25-35) Mean Corpuscular Hemoglobin Concent 34 g/dL (31-37) Red Cell Distribution Width 14.3 % (11.5-14.5) Platelet Count 85 x10^3/uL (140-400) Neutrophils (%) (Auto) 56 % (31-73) Lymphocytes (%) (Auto) 34 % (24-48) Monocytes (%) (Auto) 7 % (0-9) Eosinophils (%) (Auto) 2 % (0-3) Basophils (%) (Auto) 0 % (0-3) Neutrophils # (Auto) 3.3 x10^3uL (1.8-7.7) Lymphocytes # (Auto) 2.0 x10^3/uL (1.0-4.8) Monocytes # (Auto) 0.4 x10^3/uL (0.0-1.1) Eosinophils # (Auto) 0.1 x10^3/uL (0.0-0.7) Basophils # (Auto) 0.0 x10^3/uL (0.0-0.2) Platelet Estimate Adequate (ADEQUATE) Large Platelets Present Giant Platelets Present Sodium Level 146 mmol/L (136-145) Potassium Level 3.9 mmol/L (3.5-5.1) Chloride Level 114 mmol/L (98-107) Carbon Dioxide Level 23 mmol/L (21-32) Anion Gap 9 (6-14) Blood Urea Nitrogen 18 mg/dL (7-20) Creatinine 1.3 mg/dL (0.6-1.0) Estimated GFR (Cockcroft-Gault) 48.7 Glucose Level 129 mg/dL (70-99) Calcium Level 8.0 mg/dL (8.5-10.1) Phosphorus Level 2.2 mg/dL (2.6-4.7) Magnesium Level 2.0 mg/dL (1.8-2.4) Assessment Assessment Assessment 1. hypernatremia acute secondary to dehydration 2. sepsis source undetermined 3. ARF with CONY (dehydration) underlying CKD III baseline Cr 1.1-1.4 4. 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 vascular dementia with unspecified mood disorder/behavioral disturbance 6. anxiety/depression 7. hyperlipidemia 8. GERD w/o esophagitis 9. DM II with CKD III 10. PVD 11. chronic pain unspecified with pain management at [facility] 12. chronic constipation 13. chronic moderate PCL malnutrition 14. chronic dysphagia with pureed diet, honey thickened liquids. 15. thrombocytopenia 16. chronic moore urine retention 17. HTN 18. UTI POA no sepsis PLAN: 03/11 sepsis -improving. Zyvox DC continue flagyl, cefepime. leukocytosis resolved - fever resolved - hypotension improved. CKD III ARF resolved - BUN 18 Cr 1.3 Mg 2.0 Po4 2.0-treatment per renal hypernatremia - NA 146 resolved thrombocytopenia - medication/sepsis source -Platelets 85 increasing severe malnutrition -VS recommender per speech - NPO -meds adjusted to IV where applicable - PPN 100cc/hr continue --PEG on hold transaminitis - AST 72 ALT 67 Lipase 185 03/10 sepsis - fever improved -resolved -- Hypotension improved -- ID Cefepime and Zyvox 03/09/17 BC prelim neg. CXR neg. UA neg. ARF --improving BUN 22 Cr 1.6 hypernatremia - improving Na 150 improved. IVF 1/4NS continues malnutrition - PEG planned for Tuesday -- swallow eval = continue pureed/honey thick liquids thrombocytopenia -- platelets 74 -- monitor. transaminitis POA - Admit AST 65 -- today 96 Admit -- ALT 76 Today 74 -- Ammonia 03/05 13 --Admit lipase 148 -- Lipase pending and LFTs ordered for tomorrow Review of lab CPK 856 on admission ? LTAC ? Dobhoff until peg placed 03/09/17 fever -started 8pm = T00F -- 2300 =100.2F -- 0400 100.2F-- BC x2, UA and reflex C/S, CXR, ID consult -Rocephin cipro stopped 03/08-urine c/s negative. hypernatremia - IVF 1/4NS 60cc/hr improving ARF with CONY -improving malnutrition - staff reports trouble swallowing, will order speech BS swallow eval -GI consult for PEG placement HTN - BP responded to bolus, 120-130 systolic, trending down again, bolus 160cc/ hr 1/4 NS - for 5 hrs then resume 60cc/hr thrombocytopenia -- Lab pending 05:00 03/08/17 hypernatremia - Na 156 improving -D/w son at bedside -would like to visit PEG insertion for fluids -GI consulted met enceph - sleepy this morning ARF with CONY - BUN 26 Cr 1.6 improving 1/4 NS 60cc/hr UTI -culture negative, stop antibiotics malnutrition, dysphagia - restart diet, continue PPN, If peg insert- supplement HTN -meds not stopped - low BP - bolus 1/4 NS 160cc/hr x 5 hr thrombocytopenia - platelet 87 03/07/17 acute hypernatremia - Admit Na 180-- PPN, sterile water with Na 60cc/hr -- today Na 167 metabolic encephalopathy - improving ARF with CONY - Admit B/Cr 40/2.0--decreased to 33/ 1.8 - renal consulted UTI no sepsis - Rocephin since admit -- Cipro IV --Urine CS pending dysphagia -- pureed diet, honey thick liquids severe PCL malnutrition -start po, more awake HTN - resume meds thrombocytopenia ADmit 127-- today 87--stop heparin DVT/GI prophylaxis --SCD/GEOVANY, Pepcid For more details regarding further plans, please refer to the orders. Plan Plan For more details regarding further plans, please refer to the orders. TEENA DAHL MD 03/11/17 0927: IM PROGRESS NOTES- Assessment Assessment The patient was seen and examined by me. Chart reviewed and plan of care formulated. Discussed with, reviewed and agree with HOME HEALTH SCHEDULER's notes, plan of care and orders with modifications as necessary. For more details regarding further plans, please refer to the orders. MARILEE GARCIA APRN Mar 11, 2017 08:22 TEENA DAHL MD Mar 11, 2017 09:27
[2017-03-11] MEDS ORDERED: BISACODYL 10 MG SUPP.RECT. PR PRN (08:30)
[2017-03-11] MEDS ORDERED: ONDANSETRON PF 4 MG/2 ML VIAL. IV PRN (08:30)
[2017-03-11] MEDS ORDERED: SODIUM PHOSPHATES 19/7GM 133 ML ENEMA. PR PRN (08:30)
[2017-03-11] MEDS ORDERED: ACETAMINOPHEN 650 MG SUPP.RECT. PR PRN (08:30)
[2017-03-11] MEDS: CHOLECALCIFEROL (VITAMIN D3) 1,000 UNIT TABLET PO SCH (08:42)
[2017-03-11] MEDS: NYSTATIN TOPICAL POWDER 15GM BOTTLE. TP SCH (08:42)
[2017-03-11] MEDS: MULTIVITAMIN with MINERAL TABLET. PO SCH (08:42)
--- NOTE | 2017-03-11 11:43 | PDOC ---
Renal-Progress Notes Subjective Notes Notes CONFUSED History of Present Illness Hx of present illness STABLE Vitals Vitals Vital Signs Date Time Temp Pulse Resp B/P (MAP) Pulse Ox O2 Delivery O2 Flow Rate FiO2 03/11/17 08:04 97 Room Air 03/11/17 08:00 2.0 03/11/17 08:00 98.6 83 13 125/61 (82) 98.6 Weight Weight [ ] I.O. Intake and Output Intake and Output 03/12/17 07:00 Intake Total 0 ml Output Total 575 ml Balance -575 ml Intake Oral 0 ml Output Urine Total 575 ml Labs Labs Laboratory Tests Test 03/10/17 14:22 03/10/17 17:34 03/10/17 21:27 03/11/17 05:00 Glucose (Fingerstick) 146 mg/dL (70-99) 120 mg/dL (70-99) 133 mg/dL (70-99) White Blood Count 5.9 x10^3/uL (4.0-11.0) Red Blood Count 3.12 x10^6/uL (3.50-5.40) Hemoglobin 10.0 g/dL (12.0-15.5) Hematocrit 29.6 % (36.0-47.0) Mean Corpuscular Volume 95 fL (79-100) Mean Corpuscular Hemoglobin 32 pg (25-35) Mean Corpuscular Hemoglobin Concent 34 g/dL (31-37) Red Cell Distribution Width 14.3 % (11.5-14.5) Platelet Count 85 x10^3/uL (140-400) Neutrophils (%) (Auto) 56 % (31-73) Lymphocytes (%) (Auto) 34 % (24-48) Monocytes (%) (Auto) 7 % (0-9) Eosinophils (%) (Auto) 2 % (0-3) Basophils (%) (Auto) 0 % (0-3) Neutrophils # (Auto) 3.3 x10^3uL (1.8-7.7) Lymphocytes # (Auto) 2.0 x10^3/uL (1.0-4.8) Monocytes # (Auto) 0.4 x10^3/uL (0.0-1.1) Eosinophils # (Auto) 0.1 x10^3/uL (0.0-0.7) Basophils # (Auto) 0.0 x10^3/uL (0.0-0.2) Platelet Estimate Adequate (ADEQUATE) Large Platelets Present Giant Platelets Present Sodium Level 146 mmol/L (136-145) Potassium Level 3.9 mmol/L (3.5-5.1) Chloride Level 114 mmol/L (98-107) Carbon Dioxide Level 23 mmol/L (21-32) Anion Gap 9 (6-14) Blood Urea Nitrogen 18 mg/dL (7-20) Creatinine 1.3 mg/dL (0.6-1.0) Estimated GFR (Cockcroft-Gault) 48.7 Glucose Level 129 mg/dL (70-99) Calcium Level 8.0 mg/dL (8.5-10.1) Phosphorus Level 2.2 mg/dL (2.6-4.7) Magnesium Level 2.0 mg/dL (1.8-2.4) Test 03/11/17 08:40 03/11/17 11:21 Glucose (Fingerstick) 122 mg/dL (70-99) 127 mg/dL (70-99) Micro Micro Microbiology 03/09/17 Blood Culture - Preliminary, Resulted NO GROWTH AFTER 2 DAYS 03/05/17 Urine Culture - Final, Complete 03/05/17 Urine Culture Result 1 (LINDSAY) - Final, Complete Review of Systems Constitutional: yes: unresponsive, other (UNABLE TO OBTAIN) Physical Exam General Appearance: no apparent distress Skin: warm Respiratory: bilateral CTA Heart: S1S2, RRR Abdomen: soft, bowel sounds present Genitourinary: bladder flat Extremities: pulses present Neurology: alert, oriented Musculoskeletal: Other Assessment Assessment IMP CONY-CR 1.3 NOW - PROB BASELINE HYPERNATREMIA DEMENTIA HYPOKALEMIA-BETTER LEUCOCYTOSIS HYPOTENSION - BETTER AFTER BOLUS PLAN CONT PPN REPLACE K NEEDED PEG PENDING UPDATED DAUGHTER ANDREEA MUELLER MD Mar 11, 2017 11:43
--- NOTE | 2017-03-11 13:33 | PDOC ---
Objective: Objective: 2 stools charted. RN called earlier - wondered if PEG was on for today. Vital Signs: Vital Signs Date Time Temp Pulse Resp B/P (MAP) Pulse Ox O2 Delivery O2 Flow Rate FiO2 03/11/17 11:56 97 Room Air 03/11/17 08:00 2.0 03/11/17 08:00 98.6 83 13 125/61 (82) 98.6 Labs: Laboratory Tests Test 03/10/17 14:22 03/10/17 17:34 03/10/17 21:27 03/11/17 05:00 Glucose (Fingerstick) 146 mg/dL 120 mg/dL 133 mg/dL White Blood Count 5.9 x10^3/uL Red Blood Count 3.12 x10^6/uL Hemoglobin 10.0 g/dL Hematocrit 29.6 % Mean Corpuscular Volume 95 fL Mean Corpuscular Hemoglobin 32 pg Mean Corpuscular Hemoglobin Concent 34 g/dL Red Cell Distribution Width 14.3 % Platelet Count 85 x10^3/uL Neutrophils (%) (Auto) 56 % Lymphocytes (%) (Auto) 34 % Monocytes (%) (Auto) 7 % Eosinophils (%) (Auto) 2 % Basophils (%) (Auto) 0 % Neutrophils # (Auto) 3.3 x10^3uL Lymphocytes # (Auto) 2.0 x10^3/uL Monocytes # (Auto) 0.4 x10^3/uL Eosinophils # (Auto) 0.1 x10^3/uL Basophils # (Auto) 0.0 x10^3/uL Platelet Estimate Adequate Large Platelets Present Giant Platelets Present Sodium Level 146 mmol/L Potassium Level 3.9 mmol/L Chloride Level 114 mmol/L Carbon Dioxide Level 23 mmol/L Anion Gap 9 Blood Urea Nitrogen 18 mg/dL Creatinine 1.3 mg/dL Estimated GFR (Cockcroft-Gault) 48.7 Glucose Level 129 mg/dL Calcium Level 8.0 mg/dL Phosphorus Level 2.2 mg/dL Magnesium Level 2.0 mg/dL Test 03/11/17 08:40 03/11/17 11:21 Glucose (Fingerstick) 122 mg/dL 127 mg/dL PE: GEN: NAD, family helping to eat LUNGS: clear HEART: tachycardic ABD: S/ND/NT NEURO/PSYCH: awake/alert A/P: Hypernatremia Dysphagia - tolerates PO w/ help and also has PPN, family desires PEG placement Thrombocytopenia - off ASA and Plavix since 03/08 Mild transaminitis - improved Anemia - no overt bleeding, on IV H2 julieta CONY/CKD -- Plt count improved from yesterday, still low. PEG on hold. KAMI HASTINGS Mar 11, 2017 13:33
[2017-03-11 20:31] VITALS: BP_SYST 114; BP_SYST 214; BP_DIAS 71; BP_DIAS 88
[2017-03-11] MEDS: FAMOTIDINE 20 MG/2 ML VIAL IVP SCH (22:58)
[2017-03-11] MEDS: SIMVASTATIN 20 MG TABLET PO SCH (22:58)
[2017-03-11] MEDS: DONEPEZIL HCL 10 MG TABLET. PO SCH (22:58)
[2017-03-11 23:29] VITALS: BP 118/66
[2017-03-12] MEDS: NYSTATIN TOPICAL POWDER 15GM BOTTLE. TP SCH ×3 (01:30→20:47)
[2017-03-12] MEDS: AMINO AC 3%/ELECTROLYTE/GLYCER 1,000 ML IV SCH ×3 (01:39→16:59)
[2017-03-12 03:35] VITALS: BP 125/67
[2017-03-12] MEDS: CEFEPIME HCL 1 GM in IV NORMAL SALINE 50ML 50 ML IV SCH ×3 (06:24→20:46)
[2017-03-12 07:15] VITALS: BP 113/55
[2017-03-12] MEDS: IPRATRPIUM/ALBUTEROL 0.5/2.5MG 3 ML NEBU. NEB SCH ×4 (07:31→20:04)
[2017-03-12] MEDS: INSULIN ASPART 300 UNITS/3 ML INSULN.PEN SQ SCH ×3 (08:00→16:59)
[2017-03-12 08:24] LABS: BASO % 0 % (0-3); EOS % 2 % (0-3); HEMATOCRIT 31.4 % (36.0-47.0); HEMOGLOBIN 10.7 g/dL (12.0-15.5); LYMPH # 1.7 x10^3/uL (1.0-4.8); LYMPH % 27 % (24-48); MEAN CORPUSCULAR HEMOGLOBIN 32 pg (25-35); MEAN CORPUSCULAR HGB CONC 34 g/dL (31-37); MEAN CORPUSCULAR VOLUME 94 fL (79-100); MONO % 7 % (0-9); NEUT % 63 % (31-73); PLATELET COUNT 109 x10^3/uL (140-400); RED BLOOD COUNT 3.33 x10^6/uL (3.50-5.40); RED CELL DISTRIBUTION WIDTH 14.6 % (11.5-14.5); WHITE BLOOD COUNT 6.2 x10^3/uL (4.0-11.0)
[2017-03-12] MEDS: CHOLECALCIFEROL (VITAMIN D3) 1,000 UNIT TABLET PO SCH (08:33)
[2017-03-12] MEDS: MULTIVITAMIN with MINERAL TABLET. PO SCH (08:33)
[2017-03-12] MEDS: SENNOSIDES/DOCUSATE 8.6/50MG TABLET. PO SCH (08:35)
[2017-03-12] MEDS: POLYETHYLENE GLYCOL 3350 17 GM PACKET. PO SCH (08:35)
[2017-03-12 08:36] LABS: INR 1.2 (0.8-1.1)
[2017-03-12 08:48] LABS: ALBUMIN 2.3 g/dL (3.4-5.0); ALBUMIN/GLOBULIN RATIO 0.6 (1.0-1.7); CALCIUM 8.6 mg/dL (8.5-10.1); CREATININE 1.2 mg/dL (0.6-1.0); GFR 53.4; POTASSIUM 4.2 mmol/L (3.5-5.1); TOTAL BILIRUBIN 0.2 mg/dL (0.2-1.0); TOTAL PROTEIN 6.3 g/dL (6.4-8.2)
--- NOTE | 2017-03-12 10:47 | PDOC ---
Infectious Disease Note Subjective Subjective Nonverbal No fever last 48 hours BM x 2 last 24 hours Vital Sign Vital Signs Vital Signs Date Time Temp Pulse Resp B/P (MAP) Pulse Ox O2 Delivery O2 Flow Rate FiO2 03/12/17 08:00 Room Air 03/12/17 07:31 98 03/12/17 07:15 97.1 99 18 113/55 (74) 97.1 03/11/17 08:00 2.0 Physical Exam PHYSICAL EXAM GENERAL: Propped up in bed, NAD LUNGS: Clear HEART: S1 and S2 ABD: Soft, NT : Bell EXT: No edema, no cyanosis GRINDER AND PLATER: Alert, no follow commands SKIN: No rash Labs Lab Laboratory Tests Test 03/11/17 11:21 03/11/17 16:40 03/11/17 21:11 03/12/17 07:23 Glucose (Fingerstick) 127 mg/dL (70-99) 105 mg/dL (70-99) 137 mg/dL (70-99) White Blood Count 6.2 x10^3/uL (4.0-11.0) Red Blood Count 3.33 x10^6/uL (3.50-5.40) Hemoglobin 10.7 g/dL (12.0-15.5) Hematocrit 31.4 % (36.0-47.0) Mean Corpuscular Volume 94 fL (79-100) Mean Corpuscular Hemoglobin 32 pg (25-35) Mean Corpuscular Hemoglobin Concent 34 g/dL (31-37) Red Cell Distribution Width 14.6 % (11.5-14.5) Platelet Count 109 x10^3/uL (140-400) Neutrophils (%) (Auto) 63 % (31-73) Lymphocytes (%) (Auto) 27 % (24-48) Monocytes (%) (Auto) 7 % (0-9) Eosinophils (%) (Auto) 2 % (0-3) Basophils (%) (Auto) 0 % (0-3) Neutrophils # (Auto) 3.9 x10^3uL (1.8-7.7) Lymphocytes # (Auto) 1.7 x10^3/uL (1.0-4.8) Monocytes # (Auto) 0.4 x10^3/uL (0.0-1.1) Eosinophils # (Auto) 0.1 x10^3/uL (0.0-0.7) Basophils # (Auto) 0.0 x10^3/uL (0.0-0.2) Prothrombin Time 14.0 SEC (11.7-14.0) Prothromb Time International Ratio 1.2 (0.8-1.1) Sodium Level 145 mmol/L (136-145) Potassium Level 4.2 mmol/L (3.5-5.1) Chloride Level 113 mmol/L (98-107) Carbon Dioxide Level 23 mmol/L (21-32) Anion Gap 9 (6-14) Blood Urea Nitrogen 22 mg/dL (7-20) Creatinine 1.2 mg/dL (0.6-1.0) Estimated GFR (Cockcroft-Gault) 53.4 BUN/Creatinine Ratio 18 (6-20) Glucose Level 158 mg/dL (70-99) Calcium Level 8.6 mg/dL (8.5-10.1) Total Bilirubin 0.2 mg/dL (0.2-1.0) Aspartate Amino Transf (AST/SGOT) 39 U/L (15-37) Alanine Aminotransferase (ALT/SGPT) 48 U/L (14-59) Alkaline Phosphatase 74 U/L (46-116) Total Protein 6.3 g/dL (6.4-8.2) Albumin 2.3 g/dL (3.4-5.0) Albumin/Globulin Ratio 0.6 (1.0-1.7) Test 03/12/17 07:43 Glucose (Fingerstick) 145 mg/dL (70-99) Micro BLOOD CULTURE Preliminary NO GROWTH AFTER 3 DAYS Objective Assessment ? sepsis - fever/hypotension. CXR clear/Urine clear. Abd non tender. No BM for several days but initially had a lot of stool. Swallow without a lot of aspiration. Flu vaccine 03/05 Fever -better/WBC normal Mild transaminitis mild increase yesterday - better PCN allergy - tolerated Rocephin CONY - dehydration - improving H/o Proteus UTI - Res to Quinolones Thrombocytopenia ? med - better CALB in urine, 03/09 Plan Plan of Care Cefepime and Flagyl wean soon Change Bell, if not already done PEG on Tuesday Attending Co-Sign The patient was seen and interviewed as well as examined at the bedside. The chart was reviewed. The case was discussed. Agree with the plan of care. KELLY JOYNER APRN Mar 12, 2017 10:47 OLEG SILVA MD Mar 12, 2017 13:02
[2017-03-12 11:23] VITALS: BP 122/74
--- NOTE | 2017-03-12 11:51 | PDOC ---
IM PROGRESS NOTES- Subjective Subjective sleeping Objective Objective alert no distress Vitals Vital Signs Date Time Temp Pulse Resp B/P (MAP) Pulse Ox O2 Delivery O2 Flow Rate FiO2 03/12/17 11:26 99 Room Air 03/12/17 11:23 98.8 98 18 122/74 (90) 98.8 03/11/17 08:00 2.0 Input & Output Intake and Output 03/13/17 06:59 Intake Total 120 ml Output Total 1350 ml Balance -1230 ml Intake Oral 120 ml Output Urine Total 1350 ml Physical Exam Physical Exam General appearance - sleeping, chronically ill appearing, and in no distress Mental Status - alert, oriented to person, affect appropriate to mood Head - normal Chest - decreased air entry Heart - S1 and S2 normal Abdomen - soft, nontender, nondistended, obese, BS + Neurological - old CVA R hemiparesis with R hand contracture, R foot drop. Musculoskeletal - negative. Extremities - trace pedal edema Skin - warm and dry Labs Laboratory Tests Test 03/10/17 14:22 03/10/17 17:34 03/10/17 21:27 03/11/17 05:00 Glucose (Fingerstick) 146 mg/dL (70-99) 120 mg/dL (70-99) 133 mg/dL (70-99) White Blood Count 5.9 x10^3/uL (4.0-11.0) Red Blood Count 3.12 x10^6/uL (3.50-5.40) Hemoglobin 10.0 g/dL (12.0-15.5) Hematocrit 29.6 % (36.0-47.0) Mean Corpuscular Volume 95 fL (79-100) Mean Corpuscular Hemoglobin 32 pg (25-35) Mean Corpuscular Hemoglobin Concent 34 g/dL (31-37) Red Cell Distribution Width 14.3 % (11.5-14.5) Platelet Count 85 x10^3/uL (140-400) Neutrophils (%) (Auto) 56 % (31-73) Lymphocytes (%) (Auto) 34 % (24-48) Monocytes (%) (Auto) 7 % (0-9) Eosinophils (%) (Auto) 2 % (0-3) Basophils (%) (Auto) 0 % (0-3) Neutrophils # (Auto) 3.3 x10^3uL (1.8-7.7) Lymphocytes # (Auto) 2.0 x10^3/uL (1.0-4.8) Monocytes # (Auto) 0.4 x10^3/uL (0.0-1.1) Eosinophils # (Auto) 0.1 x10^3/uL (0.0-0.7) Basophils # (Auto) 0.0 x10^3/uL (0.0-0.2) Platelet Estimate Adequate (ADEQUATE) Large Platelets Present Giant Platelets Present Sodium Level 146 mmol/L (136-145) Potassium Level 3.9 mmol/L (3.5-5.1) Chloride Level 114 mmol/L (98-107) Carbon Dioxide Level 23 mmol/L (21-32) Anion Gap 9 (6-14) Blood Urea Nitrogen 18 mg/dL (7-20) Creatinine 1.3 mg/dL (0.6-1.0) Estimated GFR (Cockcroft-Gault) 48.7 Glucose Level 129 mg/dL (70-99) Calcium Level 8.0 mg/dL (8.5-10.1) Phosphorus Level 2.2 mg/dL (2.6-4.7) Magnesium Level 2.0 mg/dL (1.8-2.4) Test 03/11/17 08:40 03/11/17 11:21 03/11/17 16:40 03/11/17 21:11 Glucose (Fingerstick) 122 mg/dL (70-99) 127 mg/dL (70-99) 105 mg/dL (70-99) 137 mg/dL (70-99) Test 03/12/17 07:23 03/12/17 07:43 White Blood Count 6.2 x10^3/uL (4.0-11.0) Red Blood Count 3.33 x10^6/uL (3.50-5.40) Hemoglobin 10.7 g/dL (12.0-15.5) Hematocrit 31.4 % (36.0-47.0) Mean Corpuscular Volume 94 fL (79-100) Mean Corpuscular Hemoglobin 32 pg (25-35) Mean Corpuscular Hemoglobin Concent 34 g/dL (31-37) Red Cell Distribution Width 14.6 % (11.5-14.5) Platelet Count 109 x10^3/uL (140-400) Neutrophils (%) (Auto) 63 % (31-73) Lymphocytes (%) (Auto) 27 % (24-48) Monocytes (%) (Auto) 7 % (0-9) Eosinophils (%) (Auto) 2 % (0-3) Basophils (%) (Auto) 0 % (0-3) Neutrophils # (Auto) 3.9 x10^3uL (1.8-7.7) Lymphocytes # (Auto) 1.7 x10^3/uL (1.0-4.8) Monocytes # (Auto) 0.4 x10^3/uL (0.0-1.1) Eosinophils # (Auto) 0.1 x10^3/uL (0.0-0.7) Basophils # (Auto) 0.0 x10^3/uL (0.0-0.2) Prothrombin Time 14.0 SEC (11.7-14.0) Prothromb Time International Ratio 1.2 (0.8-1.1) Sodium Level 145 mmol/L (136-145) Potassium Level 4.2 mmol/L (3.5-5.1) Chloride Level 113 mmol/L (98-107) Carbon Dioxide Level 23 mmol/L (21-32) Anion Gap 9 (6-14) Blood Urea Nitrogen 22 mg/dL (7-20) Creatinine 1.2 mg/dL (0.6-1.0) Estimated GFR (Cockcroft-Gault) 53.4 BUN/Creatinine Ratio 18 (6-20) Glucose Level 158 mg/dL (70-99) Calcium Level 8.6 mg/dL (8.5-10.1) Total Bilirubin 0.2 mg/dL (0.2-1.0) Aspartate Amino Transf (AST/SGOT) 39 U/L (15-37) Alanine Aminotransferase (ALT/SGPT) 48 U/L (14-59) Alkaline Phosphatase 74 U/L (46-116) Total Protein 6.3 g/dL (6.4-8.2) Albumin 2.3 g/dL (3.4-5.0) Albumin/Globulin Ratio 0.6 (1.0-1.7) Glucose (Fingerstick) 145 mg/dL (70-99) Laboratory Tests Test 03/11/17 16:40 03/11/17 21:11 03/12/17 07:23 03/12/17 07:43 Glucose (Fingerstick) 105 mg/dL (70-99) 137 mg/dL (70-99) 145 mg/dL (70-99) White Blood Count 6.2 x10^3/uL (4.0-11.0) Red Blood Count 3.33 x10^6/uL (3.50-5.40) Hemoglobin 10.7 g/dL (12.0-15.5) Hematocrit 31.4 % (36.0-47.0) Mean Corpuscular Volume 94 fL (79-100) Mean Corpuscular Hemoglobin 32 pg (25-35) Mean Corpuscular Hemoglobin Concent 34 g/dL (31-37) Red Cell Distribution Width 14.6 % (11.5-14.5) Platelet Count 109 x10^3/uL (140-400) Neutrophils (%) (Auto) 63 % (31-73) Lymphocytes (%) (Auto) 27 % (24-48) Monocytes (%) (Auto) 7 % (0-9) Eosinophils (%) (Auto) 2 % (0-3) Basophils (%) (Auto) 0 % (0-3) Neutrophils # (Auto) 3.9 x10^3uL (1.8-7.7) Lymphocytes # (Auto) 1.7 x10^3/uL (1.0-4.8) Monocytes # (Auto) 0.4 x10^3/uL (0.0-1.1) Eosinophils # (Auto) 0.1 x10^3/uL (0.0-0.7) Basophils # (Auto) 0.0 x10^3/uL (0.0-0.2) Prothrombin Time 14.0 SEC (11.7-14.0) Prothromb Time International Ratio 1.2 (0.8-1.1) Sodium Level 145 mmol/L (136-145) Potassium Level 4.2 mmol/L (3.5-5.1) Chloride Level 113 mmol/L (98-107) Carbon Dioxide Level 23 mmol/L (21-32) Anion Gap 9 (6-14) Blood Urea Nitrogen 22 mg/dL (7-20) Creatinine 1.2 mg/dL (0.6-1.0) Estimated GFR (Cockcroft-Gault) 53.4 BUN/Creatinine Ratio 18 (6-20) Glucose Level 158 mg/dL (70-99) Calcium Level 8.6 mg/dL (8.5-10.1) Total Bilirubin 0.2 mg/dL (0.2-1.0) Aspartate Amino Transf (AST/SGOT) 39 U/L (15-37) Alanine Aminotransferase (ALT/SGPT) 48 U/L (14-59) Alkaline Phosphatase 74 U/L (46-116) Total Protein 6.3 g/dL (6.4-8.2) Albumin 2.3 g/dL (3.4-5.0) Albumin/Globulin Ratio 0.6 (1.0-1.7) Meds Current Medications Famotidine (Pepcid) 20 mg QHS IVP Last administered on 03/11/17t 22:58; Start 03/11/17 at 21:00 Assessment Assessment 1. hypernatremia acute secondary to dehydration 2. sepsis source undetermined 3. ARF with CONY (dehydration) underlying CKD III baseline Cr 1.1-1.4 4. 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 vascular dementia with unspecified mood disorder/behavioral disturbance 6. anxiety/depression 7. hyperlipidemia 8. GERD w/o esophagitis 9. DM II with CKD III 10. PVD 11. chronic pain unspecified with pain management at SD 12. chronic constipation 13. chronic moderate PCL malnutrition 14. chronic dysphagia with pureed diet, honey thickened liquids. 15. thrombocytopenia 16. chronic moore urine retention 17. HTN 18. UTI POA no sepsis PLAN: 03/12 Na 145.Slowly improving. PEG Tuesday. continue Cefepime,Flagyl.Change Moore. 03/11 sepsis -improving. Zyvox DC continue flagyl, cefepime. leukocytosis resolved - fever resolved - hypotension improved. CKD III ARF resolved - BUN 18 Cr 1.3 Mg 2.0 Po4 2.0-treatment per renal hypernatremia - NA 146 resolved thrombocytopenia - medication/sepsis source -Platelets 85 increasing severe malnutrition -VS recommender per speech - NPO -meds adjusted to IV where applicable - PPN 100cc/hr continue --PEG on hold transaminitis - AST 72 ALT 67 Lipase 185 03/10 sepsis - fever improved -resolved -- Hypotension improved -- ID Cefepime and Zyvox 03/09/17 BC prelim neg. CXR neg. UA neg. ARF --improving BUN 22 Cr 1.6 hypernatremia - improving Na 150 improved. IVF 1NS continues malnutrition - PEG planned for Tuesday -- swallow eval = continue pureed/honey thick liquids thrombocytopenia -- platelets 74 -- monitor. transaminitis POA - Admit AST 65 -- today 96 Admit -- ALT 76 Today 74 -- Ammonia 03/05 13 --Admit lipase 148 -- Lipase pending and LFTs ordered for tomorrow Review of lab CPK [id number] on admission ? LTAC ? Dobhoff until peg placed 03/09/17 fever -started 8pm = T00F -- 2300 =100.2F -- 0400 100.2F-- BC x2, UA and reflex C/S, CXR, ID consult -Rocephin cipro stopped 03/08-urine c/s negative. hypernatremia - IVF 06/09NS 60cc/hr improving ARF with CONY -improving malnutrition - staff reports trouble swallowing, will order speech BS swallow eval -GI consult for PEG placement HTN - BP responded to bolus, 120-130 systolic, trending down again, bolus 160cc/ hr 1/4 NS - for 5 hrs then resume 60cc/hr thrombocytopenia -- Lab pending 05:00 03/08/17 hypernatremia - Na 156 improving -D/w son at bedside -would like to visit PEG insertion for fluids -GI consulted met carson - margie this morning ARF with CONY - BUN 26 Cr 1.6 improving 1/4 NS 60cc/hr UTI -culture negative, stop antibiotics malnutrition, dysphagia - restart diet, continue PPN, If peg insert- supplement HTN -meds not stopped - low BP - bolus 1/4 NS 160cc/hr x 5 hr thrombocytopenia - platelet 87 03/07/17 acute hypernatremia - Admit Na 180-- PPN, sterile water with Na 60cc/hr -- today Na 167 metabolic encephalopathy - improving ARF with CONY - Admit B/Cr 40/2.0--decreased to 33/ 1.8 - renal consulted UTI no sepsis - Rocephin since admit -- Cipro IV --Urine CS pending dysphagia -- pureed diet, honey thick liquids severe PCL malnutrition -start po, more awake HTN - resume meds thrombocytopenia Admit 127-- today 87--stop heparin DVT/GI prophylaxis --SCD/GEOVANY, Pepcid For more details regarding further plans, please refer to the orders. Plan Plan For more details regarding further plans, please refer to the orders. Plan Plan For more details regarding further plans, please refer to the orders. TEENA DAHL MD Mar 12, 2017 11:51
--- NOTE | 2017-03-12 13:19 | PDOC ---
PROGRESS NOTES Subjective Subjective Doin OK Objective Objective Vital Signs Date Time Temp Pulse Resp B/P (MAP) Pulse Ox O2 Delivery O2 Flow Rate FiO2 03/12/17 11:26 99 Room Air 03/12/17 11:23 98.8 98 18 122/74 (90) 98.8 03/11/17 08:00 2.0 Intake and Output 03/13/17 06:59 Intake Total 120 ml Output Total 1350 ml Balance -1230 ml Intake Oral 120 ml Output Urine Total 1350 ml Physical Exam Physical Exam General Appearance: no apparent distress Skin: warm Respiratory: bilateral CTA Heart: S1S2, RRR Abdomen: soft, bowel sounds present Genitourinary: bladder flat Extremities: pulses present Neurology: alert, oriented Musculoskeletal: Other Assessment Assessment IMP ? CKDIII - ? BASELINE HYPERNATREMIA - resolved DEMENTIA HYPOKALEMIA-BETTER Nutrition - ct PPN until PEG placed Will be avaiable prn Assessment Assessment Problems Medical Problems: (1) Altered mental status Status: Acute (2) Hypernatremia Status: Acute (3) Hypertensive chronic kidney disease Status: Acute Comment Review of Relevant I have reviewed the following items linda (where applicable) has been applied. Labs Laboratory Tests Test 03/10/17 14:22 03/10/17 17:34 03/10/17 21:27 03/11/17 05:00 Glucose (Fingerstick) 146 mg/dL (70-99) 120 mg/dL (70-99) 133 mg/dL (70-99) White Blood Count 5.9 x10^3/uL (4.0-11.0) Red Blood Count 3.12 x10^6/uL (3.50-5.40) Hemoglobin 10.0 g/dL (12.0-15.5) Hematocrit 29.6 % (36.0-47.0) Mean Corpuscular Volume 95 fL (79-100) Mean Corpuscular Hemoglobin 32 pg (25-35) Mean Corpuscular Hemoglobin Concent 34 g/dL (31-37) Red Cell Distribution Width 14.3 % (11.5-14.5) Platelet Count 85 x10^3/uL (140-400) Neutrophils (%) (Auto) 56 % (31-73) Lymphocytes (%) (Auto) 34 % (24-48) Monocytes (%) (Auto) 7 % (0-9) Eosinophils (%) (Auto) 2 % (0-3) Basophils (%) (Auto) 0 % (0-3) Neutrophils # (Auto) 3.3 x10^3uL (1.8-7.7) Lymphocytes # (Auto) 2.0 x10^3/uL (1.0-4.8) Monocytes # (Auto) 0.4 x10^3/uL (0.0-1.1) Eosinophils # (Auto) 0.1 x10^3/uL (0.0-0.7) Basophils # (Auto) 0.0 x10^3/uL (0.0-0.2) Platelet Estimate Adequate (ADEQUATE) Large Platelets Present Giant Platelets Present Sodium Level 146 mmol/L (136-145) Potassium Level 3.9 mmol/L (3.5-5.1) Chloride Level 114 mmol/L (98-107) Carbon Dioxide Level 23 mmol/L (21-32) Anion Gap 9 (6-14) Blood Urea Nitrogen 18 mg/dL (7-20) Creatinine 1.3 mg/dL (0.6-1.0) Estimated GFR (Cockcroft-Gault) 48.7 Glucose Level 129 mg/dL (70-99) Calcium Level 8.0 mg/dL (8.5-10.1) Phosphorus Level 2.2 mg/dL (2.6-4.7) Magnesium Level 2.0 mg/dL (1.8-2.4) Test 03/11/17 08:40 03/11/17 11:21 03/11/17 16:40 03/11/17 21:11 Glucose (Fingerstick) 122 mg/dL (70-99) 127 mg/dL (70-99) 105 mg/dL (70-99) 137 mg/dL (70-99) Test 03/12/17 07:23 03/12/17 07:43 03/12/17 11:44 White Blood Count 6.2 x10^3/uL (4.0-11.0) Red Blood Count 3.33 x10^6/uL (3.50-5.40) Hemoglobin 10.7 g/dL (12.0-15.5) Hematocrit 31.4 % (36.0-47.0) Mean Corpuscular Volume 94 fL (79-100) Mean Corpuscular Hemoglobin 32 pg (25-35) Mean Corpuscular Hemoglobin Concent 34 g/dL (31-37) Red Cell Distribution Width 14.6 % (11.5-14.5) Platelet Count 109 x10^3/uL (140-400) Neutrophils (%) (Auto) 63 % (31-73) Lymphocytes (%) (Auto) 27 % (24-48) Monocytes (%) (Auto) 7 % (0-9) Eosinophils (%) (Auto) 2 % (0-3) Basophils (%) (Auto) 0 % (0-3) Neutrophils # (Auto) 3.9 x10^3uL (1.8-7.7) Lymphocytes # (Auto) 1.7 x10^3/uL (1.0-4.8) Monocytes # (Auto) 0.4 x10^3/uL (0.0-1.1) Eosinophils # (Auto) 0.1 x10^3/uL (0.0-0.7) Basophils # (Auto) 0.0 x10^3/uL (0.0-0.2) Prothrombin Time 14.0 SEC (11.7-14.0) Prothromb Time International Ratio 1.2 (0.8-1.1) Sodium Level 145 mmol/L (136-145) Potassium Level 4.2 mmol/L (3.5-5.1) Chloride Level 113 mmol/L (98-107) Carbon Dioxide Level 23 mmol/L (21-32) Anion Gap 9 (6-14) Blood Urea Nitrogen 22 mg/dL (7-20) Creatinine 1.2 mg/dL (0.6-1.0) Estimated GFR (Cockcroft-Gault) 53.4 BUN/Creatinine Ratio 18 (6-20) Glucose Level 158 mg/dL (70-99) Calcium Level 8.6 mg/dL (8.5-10.1) Total Bilirubin 0.2 mg/dL (0.2-1.0) Aspartate Amino Transf (AST/SGOT) 39 U/L (15-37) Alanine Aminotransferase (ALT/SGPT) 48 U/L (14-59) Alkaline Phosphatase 74 U/L (46-116) Total Protein 6.3 g/dL (6.4-8.2) Albumin 2.3 g/dL (3.4-5.0) Albumin/Globulin Ratio 0.6 (1.0-1.7) Glucose (Fingerstick) 145 mg/dL (70-99) 119 mg/dL (70-99) Laboratory Tests Test 03/11/17 16:40 03/11/17 21:11 03/12/17 07:23 03/12/17 07:43 Glucose (Fingerstick) 105 mg/dL (70-99) 137 mg/dL (70-99) 145 mg/dL (70-99) White Blood Count 6.2 x10^3/uL (4.0-11.0) Red Blood Count 3.33 x10^6/uL (3.50-5.40) Hemoglobin 10.7 g/dL (12.0-15.5) Hematocrit 31.4 % (36.0-47.0) Mean Corpuscular Volume 94 fL (79-100) Mean Corpuscular Hemoglobin 32 pg (25-35) Mean Corpuscular Hemoglobin Concent 34 g/dL (31-37) Red Cell Distribution Width 14.6 % (11.5-14.5) Platelet Count 109 x10^3/uL (140-400) Neutrophils (%) (Auto) 63 % (31-73) Lymphocytes (%) (Auto) 27 % (24-48) Monocytes (%) (Auto) 7 % (0-9) Eosinophils (%) (Auto) 2 % (0-3) Basophils (%) (Auto) 0 % (0-3) Neutrophils # (Auto) 3.9 x10^3uL (1.8-7.7) Lymphocytes # (Auto) 1.7 x10^3/uL (1.0-4.8) Monocytes # (Auto) 0.4 x10^3/uL (0.0-1.1) Eosinophils # (Auto) 0.1 x10^3/uL (0.0-0.7) Basophils # (Auto) 0.0 x10^3/uL (0.0-0.2) Prothrombin Time 14.0 SEC (11.7-14.0) Prothromb Time International Ratio 1.2 (0.8-1.1) Sodium Level 145 mmol/L (136-145) Potassium Level 4.2 mmol/L (3.5-5.1) Chloride Level 113 mmol/L (98-107) Carbon Dioxide Level 23 mmol/L (21-32) Anion Gap 9 (6-14) Blood Urea Nitrogen 22 mg/dL (7-20) Creatinine 1.2 mg/dL (0.6-1.0) Estimated GFR (Cockcroft-Gault) 53.4 BUN/Creatinine Ratio 18 (6-20) Glucose Level 158 mg/dL (70-99) Calcium Level 8.6 mg/dL (8.5-10.1) Total Bilirubin 0.2 mg/dL (0.2-1.0) Aspartate Amino Transf (AST/SGOT) 39 U/L (15-37) Alanine Aminotransferase (ALT/SGPT) 48 U/L (14-59) Alkaline Phosphatase 74 U/L (46-116) Total Protein 6.3 g/dL (6.4-8.2) Albumin 2.3 g/dL (3.4-5.0) Albumin/Globulin Ratio 0.6 (1.0-1.7) Test 03/12/17 11:44 Glucose (Fingerstick) 119 mg/dL (70-99) Microbiology 03/09/17 Blood Culture - Preliminary, Resulted NO GROWTH AFTER 3 DAYS 03/09/17 Urine Culture - Final, Complete 03/09/17 Urine Culture Result 1 (LINDSAY) - Final, Complete Medications Current Medications Sodium Chloride 1,000 ml @ 1,000 mls/hr Q1H IV Last administered on 03/05/17 12:07; Start 03/05/17 at 11:38; Stop 03/05/17 at 12:37; Status DC Sodium Chloride (Normal Saline Flush) 10 ml QSHIFT PRN IV AFTER MEDS AND BLOOD DRAWS Last administered on 03/05/17 12:07; Start 03/05/17 at 11:45 Lorazepam (Ativan) 1 mg 1X ONCE IV Last administered on 03/05/17 13:00; Start 03/05/17 at 13:00; Stop 03/05/17 at 13:01; Status DC Sodium Chloride 1,000 ml @ 1,000 mls/hr 1X ONCE IV Last administered on 13:50; Start 03/05/17 at 13:00; Stop 03/05/17 at 13:59; Status DC Ondansetron HCl (Zofran) 4 mg PRN Q8HRS PRN IV NAUSEA/VOMITING; Start 03/05/17 at 13:00; Stop 03/06/17 at 12:59; Status DC Info (Do NOT chart on this placeholder) 1X ONCE MC ; Start 03/05/17 at 16:15; Stop 03/05/17 at 16:16; Status UNV Influenza Virus Vaccine Quadrival (Fluarix Quad [id number] Syringe) 0.5 ml ONCE ONCE VAX IM Last administered on 03/06/17 14:02; Start 03/05/17 at 16:15; Stop 03/05/17 at 16:16; Status DC Sodium Chloride 38.75 meq/Sterile Water 1,009.6875 ml @ 75 mls/hr [id number] IV Last administered on 03/05/17 19:36; Start 03/05/17 at 19:30; Stop 03/06/17 at 08:55; Status DC Amino Acids/ Glycerin/ Electrolytes 1,000 ml @ 80 mls/hr [id number] IV ; Start at 22:30; Stop 03/05/17 at 22:30; Status DC Ciprofloxacin/ Dextrose 100 ml @ 100 mls/hr QHS IV Last administered on 21:59; Start 03/05/17 at 23:00; Stop 03/08/17 at 08:08; Status DC Sodium Chloride 38.75 meq/Sterile Water 1,009.6875 ml @ 60 mls/hr [id number] IV Last administered on 03/09/17 00:58; Start 03/06/17 at 09:30; Stop 03/09/17 at 05:12; Status DC Ceftriaxone Sodium 1 gm/ Sodium Chloride 50 ml @ 100 mls/hr Q24H IV Last administered on 03/07/17 11:26; Start 03/06/17 at 12:00; Stop 03/08/17 at 08:08 ; Status DC Insulin Aspart (NovoLOG) 0-7 UNITS TIDWMEALS SQ Last administered on 03/09/17 09:48; Start 03/06/17 at 12:00 Dextrose (Dextrose 50%-Water Syringe) 12.5 gm PRN Q15MIN PRN IV SEE COMMENTS; Start 03/06/17 at 11:45 Heparin Sodium (Porcine) (Heparin Sq) 5,000 unit Q12HR SQ Last administered on 03/06/17 21:28; Start 03/06/17 at 12:30; Stop 03/07/17 at 08:17; Status DC Amino Acids/ Glycerin/ Electrolytes 1,000 ml @ 100 mls/hr Q10H IV Last administered on 03/12/17 08:34; Start 03/06/17 at 12:30 Albuterol/ Ipratropium (Duoneb) 3 ml RTQID NEB Last administered on 03/12/17 11:25; Start 03/07/17 at 09:00 Acetaminophen (Tylenol) 650 mg Q6HRS PRN PO MILD PAIN / TEMP; Start 03/07/17 at 08:15 Aspirin (Ecotrin) 81 mg [id number] PO Last administered on 03/08/17 08:50; Start 03/07/17 at 09:00; Stop 03/08/17 at 09:31; Status DC Clopidogrel Bisulfate (Plavix) 75 mg DAILYWBKFT PO Last administered on 08:50; Start 03/07/17 at 09:00; Stop 03/08/17 at 09:31; Status DC Diclofenac Sodium (Voltaren) 1 gaby QID TP Last administered on 03/10/17 21:17 ; Start 03/07/17 at 09:00; Stop 03/11/17 at 08:13; Status DC Donepezil HCl (Aricept) 10 mg HS PO Last administered on 03/11/17 22:58; Start 03/07/17 at 21:00 Famotidine (Pepcid) 20 mg HS PO Last administered on 03/10/17 21:17; Start at 21:00; Stop 03/11/17 at 08:25; Status DC Magnesium Hydroxide (Milk Of Magnesia) 2,400 mg Q12HR PRN PO CONSTIPATION Last administered on 03/10/17 09:09; Start 03/07/17 at 08:15 Nystatin (Nystop) 1 gaby BID TP Last administered on 03/12/17 08:34; Start 03/07/17 at 09:00 Ondansetron HCl (Zofran Odt) 4 mg Q6HRS PRN PO NAUSEA/VOMITING; Start 03/07/17 at 08:15; Stop 03/11/17 at 08:25; Status DC Polyethylene Glycol (miraLAX PACKET) 17 gm DAILY PO Last administered on 09:10; Start 03/07/17 at 09:00 Senna/Docusate Sodium (Senna Plus) 2 tab DAILY PO Last administered on 09:10; Start 03/07/17 at 09:00 Simvastatin (Zocor) 20 mg HS PO Last administered on 03/11/17 22:58; Start at 21:00 Vitamin D (Vitamin D3) 1,000 unit DAILY PO Last administered on 03/12/17 08:33 ; Start 03/07/17 at 09:00 Multivitamins (Thera M Plus) 1 tab DAILY PO Last administered on 03/12/17 08: 33; Start 03/07/17 at 09:00 Potassium Chloride 50 ml @ 50 mls/hr Q1H IV ; Start 03/07/17 at 09:30; Stop 03/07/17 at 11:29; Status UNV Potassium Chloride 100 ml @ 100 mls/hr Q1H IV Last administered on 03/07/17 12:19; Start 03/07/17 at 09:45; Stop 03/07/17 at 13:44; Status DC Sodium Chloride 500 ml @ 500 mls/hr 1X ONCE IV Last administered on 09:00; Start 03/08/17 at 19:45; Stop 03/08/17 at 20:44; Status DC Sodium Chloride 38.75 meq/Sterile Water 1,009.6875 ml @ 60 mls/hr [id number] IV ; Start 03/09/17 at 10:30; Stop 03/09/17 at 16:38; Status DC Sodium Chloride 38.75 meq/Sterile Water 1,009.6875 ml @ 160 mls/hr Q6H19M IV Last administered on 03/09/17 05:30; Start 03/09/17 at 05:30; Stop 03/09/17 at 10:30; Status DC Cefepime HCl 1 gm/ Sodium Chloride 50 ml @ 100 mls/hr Q8HRS IV Last administered on 03/12/17 06:24; Start 03/09/17 at 07:30 Linezolid 300 ml @ 300 mls/hr Q12HR IV Last administered on 03/10/17 21:15; Start 03/09/17 at 09:00; Stop 03/11/17 at 06:58; Status DC Metronidazole 100 ml @ 100 mls/hr Q8HRS IV Last administered on 03/12/17 13: 05; Start 03/09/17 at 08:00 Barium Sulfate (Varibar Thin Liquid Apple) 148 gm 1X ONCE PO Last administered on 03/09/17 14:45; Start 03/09/17 at 12:30; Stop 03/09/17 at 12:31 ; Status DC Acetaminophen (Acetaminophen Supp) 650 mg PRN Q4HRS PRN IA MILD PAIN / TEMP; Start 03/11/17 at 08:30 Famotidine (Pepcid) 20 mg QHS IVP Last administered on 03/11/17 22:58; Start 03/11/17 at 21:00 Ondansetron HCl (Zofran) 4 mg PRN Q6HRS PRN IV NAUSEA/VOMITING; Start 03/11/17 at 08:30 Sodium Monofluorophosphate (Fleet Adult) 133 ml DAILY PRN [place] CONSTIPATION; Start 03/11/17 at 08:30 Bisacodyl (Dulcolax Supp) 10 mg PRN DAILY PRN [place] CONSTIPATION; Start 03/11/17 at 08:30 Active Scripts Active Reported Novolog Flexpen (Insulin Aspart) 100 Unit/1 Ml Insuln.pen 1 Unit SQ Duoneb 0.5-3(2.5) Mg/3 Ml (Albuterol/Ipratropium) 3 Ml Ampul.neb 3 Ml NEB QID Pepcid (Famotidine) 20 Mg Tablet 20 Mg PO HS Oxycodone Hcl 10 Mg Tablet 1 Tab PO Q6HRS PRN Voltaren (Diclofenac Sodium) 100 Gm Gel..gram. 1 Gm TP QID to R knee Oxycodone Hcl 5 Mg Capsule 5 Mg PO Q6HRS PRN Multivitamins (Multivitamin) 1 Each Tablet 1 Tab PO DAILY Senna-Docusate Sodium Tablet (Sennosides/Docusate Sodium) 1 Each Tablet 2 Each PO DAILY Nystatin 15 Gm Powder 1 Gaby TP BID Vitamin D3 (Cholecalciferol (Vitamin D3)) 1,000 Unit Tab.chew 1,000 Unit PO DAILY Simvastatin 20 Mg Tablet 20 Mg PO HS Plavix (Clopidogrel Bisulfate) 75 Mg Tablet 75 Mg PO DAILY Miralax (Polyethylene Glycol 3350) 17 Gm Powd.pack 17 Gm PO DAILY Donepezil Hcl 10 Mg Tablet 10 Mg PO HS Aspir 81 (Aspirin) 81 Mg Tablet.dr 81 Mg PO DAILY Tylenol (Acetaminophen) 325 Mg Tablet 650 Mg PO Q6HRS PRN Zofran Odt (Ondansetron) 4 Mg Tab.rapdis 4 Mg PO Q6HRS PRN Milk Of Magnesia (Magnesium Hydroxide) 400 Mg/5 Ml Oral.susp 30 Ml PO Q12HR PRN Magnesium Oxide 400 Mg Tablet 400 Mg PO BID Vitals/I & O Vital Sign - Last 24 Hours 03/11/17 03/11/17 03/11/17 03/11/17 15:40 19:20 20:00 20:31 Temp 99.4 99.4 Pulse 107 Resp 18 B/P (MAP) 114/71 (85) Pulse Ox 100 100 99 O2 Delivery Room Air Room Air Room Air Room Air 03/11/17 03/12/17 03/12/17 03/12/17 23:29 03:35 07:15 07:31 Temp 98.7 98.5 97.1 98.7 98.5 97.1 Pulse 104 100 99 Resp 18 18 18 B/P (MAP) 118/66 (83) 125/67 (86) 113/55 (74) Pulse Ox 97 97 96 98 O2 Delivery Room Air Room Air Room Air Room Air 03/12/17 03/12/17 03/12/17 08:00 11:23 11:26 Temp 98.8 98.8 Pulse 98 Resp 18 B/P (MAP) 122/74 (90) Pulse Ox 95 99 O2 Delivery Room Air Room Air Room Air Intake and Output 03/12/17 03/12/17 03/13/17 14:59 22:59 06:59 Intake Total 120 ml Output Total 1350 ml Balance -1230 ml TY SILVA MD Mar 12, 2017 13:19
[2017-03-12 15:18] VITALS: BP 105/58
[2017-03-12] MEDS: FAMOTIDINE 20 MG/2 ML VIAL IVP SCH (20:46)
[2017-03-12] MEDS: SIMVASTATIN 20 MG TABLET PO SCH (20:47)
[2017-03-12] MEDS: DONEPEZIL HCL 10 MG TABLET. PO SCH (20:47)
[2017-03-12] MEDS: ACETAMINOPHEN 325 MG TABLET. PO PRN (22:32)
[2017-03-12 23:00] VITALS: BP 140/82
[2017-03-13] MEDS: AMINO AC 3%/ELECTROLYTE/GLYCER 1,000 ML IV SCH ×2 (01:39→13:49)
[2017-03-13 03:00] VITALS: BP 143/75
[2017-03-13] MEDS: CEFEPIME HCL 1 GM in IV NORMAL SALINE 50ML 50 ML IV SCH ×3 (05:17→20:18)
[2017-03-13 06:13] LABS: BASO % 1 % (0-3); EOS % 2 % (0-3); HEMATOCRIT 31.2 % (36.0-47.0); HEMOGLOBIN 10.7 g/dL (12.0-15.5); LYMPH # 1.9 x10^3/uL (1.0-4.8); LYMPH % 34 % (24-48); MEAN CORPUSCULAR HEMOGLOBIN 33 pg (25-35); MEAN CORPUSCULAR HGB CONC 34 g/dL (31-37); MEAN CORPUSCULAR VOLUME 95 fL (79-100); MONO % 6 % (0-9); NEUT % 57 % (31-73); PLATELET COUNT 124 x10^3/uL (140-400); RED BLOOD COUNT 3.29 x10^6/uL (3.50-5.40); RED CELL DISTRIBUTION WIDTH 14.4 % (11.5-14.5); WHITE BLOOD COUNT 5.6 x10^3/uL (4.0-11.0)
[2017-03-13 06:50] LABS: ALBUMIN 2.2 g/dL (3.4-5.0); ALBUMIN/GLOBULIN RATIO 0.6 (1.0-1.7); CALCIUM 8.4 mg/dL (8.5-10.1); CREATININE 1.2 mg/dL (0.6-1.0); GFR 53.4; POTASSIUM 3.8 mmol/L (3.5-5.1); TOTAL BILIRUBIN 0.4 mg/dL (0.2-1.0); TOTAL PROTEIN 6.2 g/dL (6.4-8.2)
[2017-03-13 07:20] VITALS: BP 130/59
[2017-03-13] MEDS: INSULIN ASPART 300 UNITS/3 ML INSULN.PEN SQ SCH ×3 (08:00→17:00)
[2017-03-13] MEDS: POLYETHYLENE GLYCOL 3350 17 GM PACKET. PO SCH (08:13)
[2017-03-13] MEDS: MULTIVITAMIN with MINERAL TABLET. PO SCH (08:14)
[2017-03-13] MEDS: NYSTATIN TOPICAL POWDER 15GM BOTTLE. TP SCH ×2 (08:14→20:16)
[2017-03-13] MEDS: CHOLECALCIFEROL (VITAMIN D3) 1,000 UNIT TABLET PO SCH (08:14)
[2017-03-13] MEDS: SENNOSIDES/DOCUSATE 8.6/50MG TABLET. PO SCH (08:14)
[2017-03-13] MEDS: IPRATRPIUM/ALBUTEROL 0.5/2.5MG 3 ML NEBU. NEB SCH ×4 (08:17→19:30)
--- NOTE | 2017-03-13 09:17 | PDOC ---
Infectious Disease Note Subjective Subjective Sleeping, appears comfortable, did not awaken No fever PPN Vital Sign Vital Signs Vital Signs Date Time Temp Pulse Resp B/P (MAP) Pulse Ox O2 Delivery O2 Flow Rate FiO2 03/13/17 08:17 98 Room Air 03/13/17 07:20 98.4 66 20 130/59 (82) 98.4 Physical Exam PHYSICAL EXAM GENERAL: Resting, appears comfortable LUNGS: Clear HEART: S1 and S2 ABD: Soft : Bell EXT: No edema, no cyanosis SKIN: No rash IV: ok Labs Lab Laboratory Tests Test 03/12/17 11:44 03/12/17 16:45 03/13/17 05:41 03/13/17 07:38 Glucose (Fingerstick) 119 mg/dL (70-99) 107 mg/dL (70-99) 105 mg/dL (70-99) White Blood Count 5.6 x10^3/uL (4.0-11.0) Red Blood Count 3.29 x10^6/uL (3.50-5.40) Hemoglobin 10.7 g/dL (12.0-15.5) Hematocrit 31.2 % (36.0-47.0) Mean Corpuscular Volume 95 fL (79-100) Mean Corpuscular Hemoglobin 33 pg (25-35) Mean Corpuscular Hemoglobin Concent 34 g/dL (31-37) Red Cell Distribution Width 14.4 % (11.5-14.5) Platelet Count 124 x10^3/uL (140-400) Neutrophils (%) (Auto) 57 % (31-73) Lymphocytes (%) (Auto) 34 % (24-48) Monocytes (%) (Auto) 6 % (0-9) Eosinophils (%) (Auto) 2 % (0-3) Basophils (%) (Auto) 1 % (0-3) Neutrophils # (Auto) 3.2 x10^3uL (1.8-7.7) Lymphocytes # (Auto) 1.9 x10^3/uL (1.0-4.8) Monocytes # (Auto) 0.4 x10^3/uL (0.0-1.1) Eosinophils # (Auto) 0.1 x10^3/uL (0.0-0.7) Basophils # (Auto) 0.0 x10^3/uL (0.0-0.2) Sodium Level 144 mmol/L (136-145) Potassium Level 3.8 mmol/L (3.5-5.1) Chloride Level 113 mmol/L (98-107) Carbon Dioxide Level 23 mmol/L (21-32) Anion Gap 8 (6-14) Blood Urea Nitrogen 20 mg/dL (7-20) Creatinine 1.2 mg/dL (0.6-1.0) Estimated GFR (Cockcroft-Gault) 53.4 BUN/Creatinine Ratio 17 (6-20) Glucose Level 125 mg/dL (70-99) Calcium Level 8.4 mg/dL (8.5-10.1) Total Bilirubin 0.4 mg/dL (0.2-1.0) Aspartate Amino Transf (AST/SGOT) 61 U/L (15-37) Alanine Aminotransferase (ALT/SGPT) 54 U/L (14-59) Alkaline Phosphatase 65 U/L (46-116) Total Protein 6.2 g/dL (6.4-8.2) Albumin 2.2 g/dL (3.4-5.0) Albumin/Globulin Ratio 0.6 (1.0-1.7) Micro BLOOD CULTURE Preliminary NO GROWTH AFTER 4 DAYS Objective Assessment ? sepsis - fever/hypotension. CXR clear/Urine clear. Abd non tender. Swallow without a lot of aspiration. Flu vaccine 03/05 Fever -better/WBC normal Mild transaminitis mild increase yesterday - better PCN allergy - tolerated Rocephin CONY - dehydration - improving H/o Proteus UTI - Res to Quinolones Thrombocytopenia ? med - better CALB in urine, 03/09 Plan Plan of Care Cefepime and Flagyl wean soon Change megan Bell/w RN PEG on Tuesday Attending Co-Sign The patient was seen and interviewed as well as examined at the bedside. The chart was reviewed. The case was discussed. Agree with the plan of care. KELLY JOYNER APRN Mar 13, 2017 09:17 OLEG SILVA MD Mar 13, 2017 13:08
--- NOTE | 2017-03-13 11:03 | PDOC ---
IM PROGRESS NOTES- Subjective Subjective sleeping Objective Objective alert no distress Vitals Vital Signs Date Time Temp Pulse Resp B/P (MAP) Pulse Ox O2 Delivery O2 Flow Rate FiO2 03/13/17 08:17 98 Room Air 03/13/17 07:20 98.4 66 20 130/59 (82) 98.4 Input & Output Intake and Output 03/14/17 07:00 Intake Total 120 ml Balance 120 ml Intake Oral 120 ml Physical Exam Physical Exam General appearance - sleeping, chronically ill appearing, and in no distress Mental Status - alert, oriented to person, affect appropriate to mood Head - normal Chest - decreased air entry Heart - S1 and S2 normal Abdomen - soft, nontender, nondistended, obese, BS + Neurological - old CVA R hemiparesis with R hand contracture, R foot drop. Musculoskeletal - negative. Extremities - trace pedal edema Skin - warm and dry Labs Laboratory Tests Test 03/11/17 11:21 03/11/17 16:40 03/11/17 21:11 03/12/17 07:23 Glucose (Fingerstick) 127 mg/dL (70-99) 105 mg/dL (70-99) 137 mg/dL (70-99) White Blood Count 6.2 x10^3/uL (4.0-11.0) Red Blood Count 3.33 x10^6/uL (3.50-5.40) Hemoglobin 10.7 g/dL (12.0-15.5) Hematocrit 31.4 % (36.0-47.0) Mean Corpuscular Volume 94 fL (79-100) Mean Corpuscular Hemoglobin 32 pg (25-35) Mean Corpuscular Hemoglobin Concent 34 g/dL (31-37) Red Cell Distribution Width 14.6 % (11.5-14.5) Platelet Count 109 x10^3/uL (140-400) Neutrophils (%) (Auto) 63 % (31-73) Lymphocytes (%) (Auto) 27 % (24-48) Monocytes (%) (Auto) 7 % (0-9) Eosinophils (%) (Auto) 2 % (0-3) Basophils (%) (Auto) 0 % (0-3) Neutrophils # (Auto) 3.9 x10^3uL (1.8-7.7) Lymphocytes # (Auto) 1.7 x10^3/uL (1.0-4.8) Monocytes # (Auto) 0.4 x10^3/uL (0.0-1.1) Eosinophils # (Auto) 0.1 x10^3/uL (0.0-0.7) Basophils # (Auto) 0.0 x10^3/uL (0.0-0.2) Prothrombin Time 14.0 SEC (11.7-14.0) Prothromb Time International Ratio 1.2 (0.8-1.1) Sodium Level 145 mmol/L (136-145) Potassium Level 4.2 mmol/L (3.5-5.1) Chloride Level 113 mmol/L (98-107) Carbon Dioxide Level 23 mmol/L (21-32) Anion Gap 9 (6-14) Blood Urea Nitrogen 22 mg/dL (7-20) Creatinine 1.2 mg/dL (0.6-1.0) Estimated GFR (Cockcroft-Gault) 53.4 BUN/Creatinine Ratio 18 (6-20) Glucose Level 158 mg/dL (70-99) Calcium Level 8.6 mg/dL (8.5-10.1) Total Bilirubin 0.2 mg/dL (0.2-1.0) Aspartate Amino Transf (AST/SGOT) 39 U/L (15-37) Alanine Aminotransferase (ALT/SGPT) 48 U/L (14-59) Alkaline Phosphatase 74 U/L (46-116) Total Protein 6.3 g/dL (6.4-8.2) Albumin 2.3 g/dL (3.4-5.0) Albumin/Globulin Ratio 0.6 (1.0-1.7) Test 03/12/17 07:43 03/12/17 11:44 03/12/17 16:45 03/13/17 05:41 Glucose (Fingerstick) 145 mg/dL (70-99) 119 mg/dL (70-99) 107 mg/dL (70-99) White Blood Count 5.6 x10^3/uL (4.0-11.0) Red Blood Count 3.29 x10^6/uL (3.50-5.40) Hemoglobin 10.7 g/dL (12.0-15.5) Hematocrit 31.2 % (36.0-47.0) Mean Corpuscular Volume 95 fL (79-100) Mean Corpuscular Hemoglobin 33 pg (25-35) Mean Corpuscular Hemoglobin Concent 34 g/dL (31-37) Red Cell Distribution Width 14.4 % (11.5-14.5) Platelet Count 124 x10^3/uL (140-400) Neutrophils (%) (Auto) 57 % (31-73) Lymphocytes (%) (Auto) 34 % (24-48) Monocytes (%) (Auto) 6 % (0-9) Eosinophils (%) (Auto) 2 % (0-3) Basophils (%) (Auto) 1 % (0-3) Neutrophils # (Auto) 3.2 x10^3uL (1.8-7.7) Lymphocytes # (Auto) 1.9 x10^3/uL (1.0-4.8) Monocytes # (Auto) 0.4 x10^3/uL (0.0-1.1) Eosinophils # (Auto) 0.1 x10^3/uL (0.0-0.7) Basophils # (Auto) 0.0 x10^3/uL (0.0-0.2) Sodium Level 144 mmol/L (136-145) Potassium Level 3.8 mmol/L (3.5-5.1) Chloride Level 113 mmol/L (98-107) Carbon Dioxide Level 23 mmol/L (21-32) Anion Gap 8 (6-14) Blood Urea Nitrogen 20 mg/dL (7-20) Creatinine 1.2 mg/dL (0.6-1.0) Estimated GFR (Cockcroft-Gault) 53.4 BUN/Creatinine Ratio 17 (6-20) Glucose Level 125 mg/dL (70-99) Calcium Level 8.4 mg/dL (8.5-10.1) Total Bilirubin 0.4 mg/dL (0.2-1.0) Aspartate Amino Transf (AST/SGOT) 61 U/L (15-37) Alanine Aminotransferase (ALT/SGPT) 54 U/L (14-59) Alkaline Phosphatase 65 U/L (46-116) Total Protein 6.2 g/dL (6.4-8.2) Albumin 2.2 g/dL (3.4-5.0) Albumin/Globulin Ratio 0.6 (1.0-1.7) Test 03/13/17 07:38 Glucose (Fingerstick) 105 mg/dL (70-99) Laboratory Tests Test 03/12/17 11:44 03/12/17 16:45 03/13/17 05:41 03/13/17 07:38 Glucose (Fingerstick) 119 mg/dL (70-99) 107 mg/dL (70-99) 105 mg/dL (70-99) White Blood Count 5.6 x10^3/uL (4.0-11.0) Red Blood Count 3.29 x10^6/uL (3.50-5.40) Hemoglobin 10.7 g/dL (12.0-15.5) Hematocrit 31.2 % (36.0-47.0) Mean Corpuscular Volume 95 fL (79-100) Mean Corpuscular Hemoglobin 33 pg (25-35) Mean Corpuscular Hemoglobin Concent 34 g/dL (31-37) Red Cell Distribution Width 14.4 % (11.5-14.5) Platelet Count 124 x10^3/uL (140-400) Neutrophils (%) (Auto) 57 % (31-73) Lymphocytes (%) (Auto) 34 % (24-48) Monocytes (%) (Auto) 6 % (0-9) Eosinophils (%) (Auto) 2 % (0-3) Basophils (%) (Auto) 1 % (0-3) Neutrophils # (Auto) 3.2 x10^3uL (1.8-7.7) Lymphocytes # (Auto) 1.9 x10^3/uL (1.0-4.8) Monocytes # (Auto) 0.4 x10^3/uL (0.0-1.1) Eosinophils # (Auto) 0.1 x10^3/uL (0.0-0.7) Basophils # (Auto) 0.0 x10^3/uL (0.0-0.2) Sodium Level 144 mmol/L (136-145) Potassium Level 3.8 mmol/L (3.5-5.1) Chloride Level 113 mmol/L (98-107) Carbon Dioxide Level 23 mmol/L (21-32) Anion Gap 8 (6-14) Blood Urea Nitrogen 20 mg/dL (7-20) Creatinine 1.2 mg/dL (0.6-1.0) Estimated GFR (Cockcroft-Gault) 53.4 BUN/Creatinine Ratio 17 (6-20) Glucose Level 125 mg/dL (70-99) Calcium Level 8.4 mg/dL (8.5-10.1) Total Bilirubin 0.4 mg/dL (0.2-1.0) Aspartate Amino Transf (AST/SGOT) 61 U/L (15-37) Alanine Aminotransferase (ALT/SGPT) 54 U/L (14-59) Alkaline Phosphatase 65 U/L (46-116) Total Protein 6.2 g/dL (6.4-8.2) Albumin 2.2 g/dL (3.4-5.0) Albumin/Globulin Ratio 0.6 (1.0-1.7) Assessment Assessment 1. hypernatremia acute secondary to dehydration 2. sepsis source undetermined 3. ARF with CONY (dehydration) underlying CKD III baseline Cr 1.1-1.4 4. 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 vascular dementia with unspecified mood disorder/behavioral disturbance 6. anxiety/depression 7. hyperlipidemia 8. GERD w/o esophagitis 9. DM II with CKD III 10. PVD 11. chronic pain unspecified with pain management at [place] 12. chronic constipation 13. chronic moderate PCL malnutrition 14. chronic dysphagia with pureed diet, honey thickened liquids. 15. thrombocytopenia 16. chronic moore urine retention 17. HTN 18. UTI POA no sepsis PLAN: 03/13 D/w staff,ID.change Moore. PEG in AM. Hyponatremia better. Prognosis poor. 03/12 Na 145.Slowly improving. PEG Tuesday. continue Cefepime,Flagyl.Change Moore. 03/11 sepsis -improving. Zyvox DC continue flagyl, cefepime. leukocytosis resolved - fever resolved - hypotension improved. CKD III ARF resolved - BUN 18 Cr 1.3 Mg 2.0 Po4 2.0-treatment per renal hypernatremia - NA 146 resolved thrombocytopenia - medication/sepsis source -Platelets 85 increasing severe malnutrition -VS recommender per speech - NPO -meds adjusted to IV where applicable - PPN 100cc/hr continue --PEG on hold transaminitis - AST 72 ALT 67 Lipase 185 03/10 sepsis - fever improved -resolved -- Hypotension improved -- ID Cefepime and Zyvox 03/09/17 BC prelim neg. CXR neg. UA neg. ARF --improving BUN 22 Cr 1.6 hypernatremia - improving Na 150 improved. IVF 1/NS continues malnutrition - PEG planned for Tuesday -- swallow eval = continue pureed/honey thick liquids thrombocytopenia -- platelets 74 -- monitor. transaminitis POA - Admit AST 65 -- today 96 Admit -- ALT 76 Today 74 -- Ammonia 03/05 13 --Admit lipase 148 -- Lipase pending and LFTs ordered for tomorrow Review of lab CPK 856 on admission ? LTAC ? [facility] until peg placed 03/09/17 fever -started 8pm = T00F -- 2300 =100.2F -- 0400 100.2F-- BC x2, UA and reflex C/S, CXR, ID consult -Rocephin cipro stopped 03/08-urine c/s negative. hypernatremia - IVF 06/09NS 60cc/hr improving ARF with CONY -improving malnutrition - staff reports trouble swallowing, will order speech BS swallow eval -GI consult for PEG placement HTN - BP responded to bolus, 120-130 systolic, trending down again, bolus 160cc/ hr 1/4 NS - for 5 hrs then resume 60cc/hr thrombocytopenia -- Lab pending 05:00 03/08/17 hypernatremia - Na 156 improving -D/w son at bedside -would like to visit PEG insertion for fluids -GI consulted met enceph - sleepy this morning ARF with CONY - BUN 26 Cr 1.6 improving 1/4 NS 60cc/hr UTI -culture negative, stop antibiotics malnutrition, dysphagia - restart diet, continue PPN, If peg insert- supplement HTN -meds not stopped - low BP - bolus 1/4 NS 160cc/hr x 5 hr thrombocytopenia - platelet 87 03/07/17 acute hypernatremia - Admit Na 180-- PPN, sterile water with Na 60cc/hr -- today Na 167 metabolic encephalopathy - improving ARF with CONY - Admit B/Cr 40/2.0--decreased to 33/ 1.8 - renal consulted UTI no sepsis - Rocephin since admit -- Cipro IV --Urine CS pending dysphagia -- pureed diet, honey thick liquids severe PCL malnutrition -start po, more awake HTN - resume meds thrombocytopenia Admit 127-- today 87--stop heparin DVT/GI prophylaxis --SCD/GEOVANY, Pepcid For more details regarding further plans, please refer to the orders. Plan Plan For more details regarding further plans, please refer to the orders. Plan Plan For more details regarding further plans, please refer to the orders. TEENA DAHL MD Mar 13, 2017 11:03
[2017-03-13 11:41] VITALS: BP 154/100
[2017-03-13 15:00] VITALS: BP 145/98
[2017-03-13 19:58] VITALS: BP 127/89
[2017-03-13] MEDS: DONEPEZIL HCL 10 MG TABLET. PO SCH (20:14)
[2017-03-13] MEDS: FAMOTIDINE 20 MG/2 ML VIAL IVP SCH (20:14)
[2017-03-13] MEDS: SIMVASTATIN 20 MG TABLET PO SCH (20:14)
[2017-03-13] MEDS: ACETAMINOPHEN 325 MG TABLET. PO PRN (20:14)
[2017-03-13 23:42] VITALS: BP 116/59
[2017-03-14] MEDS: AMINO AC 3%/ELECTROLYTE/GLYCER 1,000 ML IV SCH ×3 (01:58→20:46)
[2017-03-14 03:56] VITALS: BP 115/75
[2017-03-14 04:35] LABS: BASO % 1 % (0-3); EOS % 2 % (0-3); HEMOGLOBIN 11.7 g/dL (12.0-15.5); LYMPH # 1.8 x10^3/uL (1.0-4.8); LYMPH % 25 % (24-48); MEAN CORPUSCULAR HEMOGLOBIN 31 pg (25-35); MEAN CORPUSCULAR HGB CONC 34 g/dL (31-37); MEAN CORPUSCULAR VOLUME 94 fL (79-100); MONO % 6 % (0-9); NEUT % 67 % (31-73); PLATELET COUNT 150 x10^3/uL (140-400); RED BLOOD COUNT 3.74 x10^6/uL (3.50-5.40); RED CELL DISTRIBUTION WIDTH 14.8 % (11.5-14.5); WHITE BLOOD COUNT 7.3 x10^3/uL (4.0-11.0)
[2017-03-14 05:06] LABS: ALBUMIN 2.4 g/dL (3.4-5.0); ALBUMIN/GLOBULIN RATIO 0.5 (1.0-1.7); CALCIUM 8.6 mg/dL (8.5-10.1); CREATININE 1.2 mg/dL (0.6-1.0); GFR 53.4; POTASSIUM 3.8 mmol/L (3.5-5.1); TOTAL BILIRUBIN 0.4 mg/dL (0.2-1.0); TOTAL PROTEIN 6.8 g/dL (6.4-8.2)
[2017-03-14] MEDS: CEFEPIME HCL 1 GM in IV NORMAL SALINE 50ML 50 ML IV SCH (05:37)
[2017-03-14 07:07] VITALS: BP 113/64
[2017-03-14] MEDS: INSULIN ASPART 300 UNITS/3 ML INSULN.PEN SQ SCH ×3 (08:00→17:00)
--- NOTE | 2017-03-14 08:44 | PDOC ---
DEEPTHIMary JaneMARILEE WILSON ELECTRONIC ORGAN MECHANIC 03/14/17 0844: IM PROGRESS NOTES- Subjective Subjective awake, attempt to smile Objective Objective alert no distress Vitals Vital Signs Date Time Temp Pulse Resp B/P (MAP) Pulse Ox O2 Delivery O2 Flow Rate FiO2 03/14/17 07:07 98.6 77 20 113/64 (80) 98 Room Air 98.6 Physical Exam Physical Exam General appearance - alert, chronically ill appearing, and in no distress Mental Status - alert, oriented to person, affect appropriate to mood Head - normal Chest - decreased air entry Heart - S1 and S2 normal Abdomen - soft, nontender, nondistended, obese, BS + Neurological - old CVA R hemiparesis with R hand contracture, R foot drop. Musculoskeletal - negative. Extremities - trace pedal edema Skin - warm and dry Labs Laboratory Tests Test 03/12/17 11:44 03/12/17 16:45 03/13/17 05:41 03/13/17 07:38 Glucose (Fingerstick) 119 mg/dL (70-99) 107 mg/dL (70-99) 105 mg/dL (70-99) White Blood Count 5.6 x10^3/uL (4.0-11.0) Red Blood Count 3.29 x10^6/uL (3.50-5.40) Hemoglobin 10.7 g/dL (12.0-15.5) Hematocrit 31.2 % (36.0-47.0) Mean Corpuscular Volume 95 fL (79-100) Mean Corpuscular Hemoglobin 33 pg (25-35) Mean Corpuscular Hemoglobin Concent 34 g/dL (31-37) Red Cell Distribution Width 14.4 % (11.5-14.5) Platelet Count 124 x10^3/uL (140-400) Neutrophils (%) (Auto) 57 % (31-73) Lymphocytes (%) (Auto) 34 % (24-48) Monocytes (%) (Auto) 6 % (0-9) Eosinophils (%) (Auto) 2 % (0-3) Basophils (%) (Auto) 1 % (0-3) Neutrophils # (Auto) 3.2 x10^3uL (1.8-7.7) Lymphocytes # (Auto) 1.9 x10^3/uL (1.0-4.8) Monocytes # (Auto) 0.4 x10^3/uL (0.0-1.1) Eosinophils # (Auto) 0.1 x10^3/uL (0.0-0.7) Basophils # (Auto) 0.0 x10^3/uL (0.0-0.2) Sodium Level 144 mmol/L (136-145) Potassium Level 3.8 mmol/L (3.5-5.1) Chloride Level 113 mmol/L (98-107) Carbon Dioxide Level 23 mmol/L (21-32) Anion Gap 8 (6-14) Blood Urea Nitrogen 20 mg/dL (7-20) Creatinine 1.2 mg/dL (0.6-1.0) Estimated GFR (Cockcroft-Gault) 53.4 BUN/Creatinine Ratio 17 (6-20) Glucose Level 125 mg/dL (70-99) Calcium Level 8.4 mg/dL (8.5-10.1) Total Bilirubin 0.4 mg/dL (0.2-1.0) Aspartate Amino Transf (AST/SGOT) 61 U/L (15-37) Alanine Aminotransferase (ALT/SGPT) 54 U/L (14-59) Alkaline Phosphatase 65 U/L (46-116) Total Protein 6.2 g/dL (6.4-8.2) Albumin 2.2 g/dL (3.4-5.0) Albumin/Globulin Ratio 0.6 (1.0-1.7) Test 03/13/17 17:08 03/13/17 20:58 03/14/17 03:50 03/14/17 07:12 Glucose (Fingerstick) 91 mg/dL (70-99) 104 mg/dL (70-99) 138 mg/dL (70-99) White Blood Count 7.3 x10^3/uL (4.0-11.0) Red Blood Count 3.74 x10^6/uL (3.50-5.40) Hemoglobin 11.7 g/dL (12.0-15.5) Hematocrit 35.0 % (36.0-47.0) Mean Corpuscular Volume 94 fL (79-100) Mean Corpuscular Hemoglobin 31 pg (25-35) Mean Corpuscular Hemoglobin Concent 34 g/dL (31-37) Red Cell Distribution Width 14.8 % (11.5-14.5) Platelet Count 150 x10^3/uL (140-400) Neutrophils (%) (Auto) 67 % (31-73) Lymphocytes (%) (Auto) 25 % (24-48) Monocytes (%) (Auto) 6 % (0-9) Eosinophils (%) (Auto) 2 % (0-3) Basophils (%) (Auto) 1 % (0-3) Neutrophils # (Auto) 4.9 x10^3uL (1.8-7.7) Lymphocytes # (Auto) 1.8 x10^3/uL (1.0-4.8) Monocytes # (Auto) 0.4 x10^3/uL (0.0-1.1) Eosinophils # (Auto) 0.1 x10^3/uL (0.0-0.7) Basophils # (Auto) 0.0 x10^3/uL (0.0-0.2) Sodium Level 141 mmol/L (136-145) Potassium Level 3.8 mmol/L (3.5-5.1) Chloride Level 109 mmol/L (98-107) Carbon Dioxide Level 22 mmol/L (21-32) Anion Gap 10 (6-14) Blood Urea Nitrogen 19 mg/dL (7-20) Creatinine 1.2 mg/dL (0.6-1.0) Estimated GFR (Cockcroft-Gault) 53.4 BUN/Creatinine Ratio 16 (6-20) Glucose Level 122 mg/dL (70-99) Calcium Level 8.6 mg/dL (8.5-10.1) Total Bilirubin 0.4 mg/dL (0.2-1.0) Aspartate Amino Transf (AST/SGOT) 85 U/L (15-37) Alanine Aminotransferase (ALT/SGPT) 73 U/L (14-59) Alkaline Phosphatase 75 U/L (46-116) Total Protein 6.8 g/dL (6.4-8.2) Albumin 2.4 g/dL (3.4-5.0) Albumin/Globulin Ratio 0.5 (1.0-1.7) Laboratory Tests Test 03/13/17 17:08 03/13/17 20:58 03/14/17 03:50 03/14/17 07:12 Glucose (Fingerstick) 91 mg/dL (70-99) 104 mg/dL (70-99) 138 mg/dL (70-99) White Blood Count 7.3 x10^3/uL (4.0-11.0) Red Blood Count 3.74 x10^6/uL (3.50-5.40) Hemoglobin 11.7 g/dL (12.0-15.5) Hematocrit 35.0 % (36.0-47.0) Mean Corpuscular Volume 94 fL (79-100) Mean Corpuscular Hemoglobin 31 pg (25-35) Mean Corpuscular Hemoglobin Concent 34 g/dL (31-37) Red Cell Distribution Width 14.8 % (11.5-14.5) Platelet Count 150 x10^3/uL (140-400) Neutrophils (%) (Auto) 67 % (31-73) Lymphocytes (%) (Auto) 25 % (24-48) Monocytes (%) (Auto) 6 % (0-9) Eosinophils (%) (Auto) 2 % (0-3) Basophils (%) (Auto) 1 % (0-3) Neutrophils # (Auto) 4.9 x10^3uL (1.8-7.7) Lymphocytes # (Auto) 1.8 x10^3/uL (1.0-4.8) Monocytes # (Auto) 0.4 x10^3/uL (0.0-1.1) Eosinophils # (Auto) 0.1 x10^3/uL (0.0-0.7) Basophils # (Auto) 0.0 x10^3/uL (0.0-0.2) Sodium Level 141 mmol/L (136-145) Potassium Level 3.8 mmol/L (3.5-5.1) Chloride Level 109 mmol/L (98-107) Carbon Dioxide Level 22 mmol/L (21-32) Anion Gap 10 (6-14) Blood Urea Nitrogen 19 mg/dL (7-20) Creatinine 1.2 mg/dL (0.6-1.0) Estimated GFR (Cockcroft-Gault) 53.4 BUN/Creatinine Ratio 16 (6-20) Glucose Level 122 mg/dL (70-99) Calcium Level 8.6 mg/dL (8.5-10.1) Total Bilirubin 0.4 mg/dL (0.2-1.0) Aspartate Amino Transf (AST/SGOT) 85 U/L (15-37) Alanine Aminotransferase (ALT/SGPT) 73 U/L (14-59) Alkaline Phosphatase 75 U/L (46-116) Total Protein 6.8 g/dL (6.4-8.2) Albumin 2.4 g/dL (3.4-5.0) Albumin/Globulin Ratio 0.5 (1.0-1.7) Assessment Assessment 1. hypernatremia acute secondary to dehydration 2. sepsis source undetermined 3. ARF with CONY (dehydration) underlying CKD III baseline Cr 1.1-1.4 4. 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 vascular dementia with unspecified mood disorder/behavioral disturbance 6. anxiety/depression 7. hyperlipidemia 8. GERD w/o esophagitis 9. DM II with CKD III 10. PVD 11. chronic pain unspecified with pain management at [place] 12. chronic constipation 13. chronic moderate PCL malnutrition 14. chronic dysphagia with pureed diet, honey thickened liquids. 15. thrombocytopenia 16. chronic moore urine retention 17. HTN 18. UTI POA no sepsis PLAN: 03/14/17 sepsis - cefepime - flagyl Urine culture - yeast -moore changed 03/13/17 - treatment plan per ID malnutrtition - PPN - negative aspiration with VS - continue current pureed diet with honey thickened liquids - PEG today, start ETF and H2O when ok with GI thrombocytopenia - platelet 150 ARF - BUN 19 Cr 1.2 - resolved DM - BS 91-130 continue SSI transaminitis - AST 85 ALT 73 DC orders initiated [employer]keman order for ETF rate and water boluses. 03/13 D/w staff,ID.change Moore. PEG in AM. Hyponatremia better. Prognosis poor. 03/12 Na 145.Slowly improving. PEG Tuesday. continue Cefepime,Flagyl.Change Moore. 03/11 sepsis -improving. Zyvox DC continue flagyl, cefepime. leukocytosis resolved - fever resolved - hypotension improved. CKD III ARF resolved - BUN 18 Cr 1.3 Mg 2.0 Po4 2.0-treatment per renal hypernatremia - NA 146 resolved thrombocytopenia - medication/sepsis source -Platelets 85 increasing severe malnutrition -VS recommender per speech - NPO -meds adjusted to IV where applicable - PPN 100cc/hr continue --PEG on hold transaminitis - AST 72 ALT 67 Lipase 185 03/10 sepsis - fever improved -resolved -- Hypotension improved -- ID Cefepime and Zyvox 03/09/17 BC prelim neg. CXR neg. UA neg. ARF --improving BUN 22 Cr 1.6 hypernatremia - improving Na 150 improved. IVF /NS continues malnutrition - PEG planned for Tuesday -- swallow eval = continue pureed/honey thick liquids thrombocytopenia -- platelets 74 -- monitor. transaminitis POA - Admit AST 65 -- today 96 Admit -- ALT 76 Today 74 -- Ammonia 03/05 13 --Admit lipase 148 -- Lipase pending and LFTs ordered for tomorrow Review of lab CPK 856 on admission ? LTAC ? [facility] until peg placed 03/09/17 fever -started 8pm = T00F -- 2300 =100.2F -- 0400 100.2F-- BC x2, UA and reflex C/S, CXR, ID consult -Rocephin cipro stopped 03/08-urine c/s negative. hypernatremia - IVF 1/4NS 60cc/hr improving ARF with CONY -improving malnutrition - staff reports trouble swallowing, will order speech BS swallow eval -GI consult for PEG placement HTN - BP responded to bolus, 120-130 systolic, trending down again, bolus 160cc/ hr 1/4 NS - for 5 hrs then resume 60cc/hr thrombocytopenia -- Lab pending 05:00 03/08/17 hypernatremia - Na 156 improving -D/w son at bedside -would like to visit PEG insertion for fluids -GI consulted met enceph - sleepy this morning ARF with CONY - BUN 26 Cr 1.6 improving 1/4 NS 60cc/hr UTI -culture negative, stop antibiotics malnutrition, dysphagia - restart diet, continue PPN, If peg insert- supplement HTN -meds not stopped - low BP - bolus 1/4 NS 160cc/hr x 5 hr thrombocytopenia - platelet 87 03/07/17 acute hypernatremia - Admit Na 180-- PPN, sterile water with Na 60cc/hr -- today Na 167 metabolic encephalopathy - improving ARF with CONY - Admit B/Cr 40/2.0--decreased to 33/ 1.8 - renal consulted UTI no sepsis - Rocephin since admit -- Cipro IV --Urine CS pending dysphagia -- pureed diet, honey thick liquids severe PCL malnutrition -start po, more awake HTN - resume meds thrombocytopenia Admit 127-- today 87--stop heparin DVT/GI prophylaxis --SCD/GEOVANY, Pepcid For more details regarding further plans, please refer to the orders. Plan Plan For more details regarding further plans, please refer to the orders. TEENA DAHL MD 03/14/17 0910: IM PROGRESS NOTES- Assessment Assessment Stop Cefepime,Flagyl.Remains weak. PEG today. The patient was seen and examined by me. Chart reviewed and plan of care formulated. Discussed with, reviewed and agree with COMPOSITION WEATHERBOARD INSTALLER's notes, plan of care and orders with modifications as necessary. For more details regarding further plans, please refer to the orders. MARILEE GARCIA APRN Mar 14, 2017 08:44 TEENA DAHL MD Mar 14, 2017 09:10
--- NOTE | 2017-03-14 08:49 | DISCH ---
DISCHARGE FINAL DIAGNOSIS Problems Medical Problems: (1) Altered mental status Status: Acute (2) Hypernatremia Status: Acute (3) Hypertensive chronic kidney disease Status: Acute CONDITION ON DISCHARGE: Stable SNF STAY <30 DAYS: Yes (PTOT eval and treat) POST DISCHARGE ORDERS ACTIVITY ORDERS: Activity as tolerated WEIGHT BEARING STATUS: As tolerated DIET AFTER DISCHARGE: Cardiac (pureed diet, honey thickened liquids : See Speech Therapy orders ) CHECKS AFTER DISCHARGE CHECKS AFTER DISCHARGE: Check blood sugar, ac/hs COMMENTS: VS per routine FOLLOW-UP PHYSICIAN FOLLOW-UP: Admit to facility MD LAB ORDERS FOR FOLLOW-UP: CBC with diff, CMP, pre albumin, Mg in AM TREATMENT/EQUIPMENT ORDERS ADAPTIVE EQUIPMENT NEEDED: Wheelchair RESPIRATORY EQUIPMENT NEEDED: Oxygen (2L PRN shortness of breath and or to maintain SAT >90%), Nebulizer (TID ) MARILEE GARCIA APRN Mar 14, 2017 08:49
[2017-03-14] MEDS ORDERED: INSU100I17 SQ (08:56)
[2017-03-14] MEDS ORDERED: ACET160S PO (08:56)
--- NOTE | 2017-03-14 08:56 | PDOC ---
Infectious Disease Note Subjective Subjective Sleeping, appears comfortable, did not awaken No fever ROS ROS unable to do Vital Sign Vital Signs Vital Signs Date Time Temp Pulse Resp B/P (MAP) Pulse Ox O2 Delivery O2 Flow Rate FiO2 03/14/17 07:07 98.6 77 20 113/64 (80) 98 Room Air 98.6 Physical Exam PHYSICAL EXAM GENERAL: NAD, HEENT: PERRL, OC/OP NECK: Supple, no JVD, no LN LUNGS: Clear HEART: S1S2, no gallop, no murmur ABD: Soft, NT, no organomegaly, no rebound EXT: No edema, no cyanosis SPORTS PHOTOGRAPHER: awake, non verbal SKIN: No rash IV: ok Labs Lab Laboratory Tests Test 03/13/17 17:08 03/13/17 20:58 03/14/17 03:50 03/14/17 07:12 Glucose (Fingerstick) 91 mg/dL (70-99) 104 mg/dL (70-99) 138 mg/dL (70-99) White Blood Count 7.3 x10^3/uL (4.0-11.0) Red Blood Count 3.74 x10^6/uL (3.50-5.40) Hemoglobin 11.7 g/dL (12.0-15.5) Hematocrit 35.0 % (36.0-47.0) Mean Corpuscular Volume 94 fL (79-100) Mean Corpuscular Hemoglobin 31 pg (25-35) Mean Corpuscular Hemoglobin Concent 34 g/dL (31-37) Red Cell Distribution Width 14.8 % (11.5-14.5) Platelet Count 150 x10^3/uL (140-400) Neutrophils (%) (Auto) 67 % (31-73) Lymphocytes (%) (Auto) 25 % (24-48) Monocytes (%) (Auto) 6 % (0-9) Eosinophils (%) (Auto) 2 % (0-3) Basophils (%) (Auto) 1 % (0-3) Neutrophils # (Auto) 4.9 x10^3uL (1.8-7.7) Lymphocytes # (Auto) 1.8 x10^3/uL (1.0-4.8) Monocytes # (Auto) 0.4 x10^3/uL (0.0-1.1) Eosinophils # (Auto) 0.1 x10^3/uL (0.0-0.7) Basophils # (Auto) 0.0 x10^3/uL (0.0-0.2) Sodium Level 141 mmol/L (136-145) Potassium Level 3.8 mmol/L (3.5-5.1) Chloride Level 109 mmol/L (98-107) Carbon Dioxide Level 22 mmol/L (21-32) Anion Gap 10 (6-14) Blood Urea Nitrogen 19 mg/dL (7-20) Creatinine 1.2 mg/dL (0.6-1.0) Estimated GFR (Cockcroft-Gault) 53.4 BUN/Creatinine Ratio 16 (6-20) Glucose Level 122 mg/dL (70-99) Calcium Level 8.6 mg/dL (8.5-10.1) Total Bilirubin 0.4 mg/dL (0.2-1.0) Aspartate Amino Transf (AST/SGOT) 85 U/L (15-37) Alanine Aminotransferase (ALT/SGPT) 73 U/L (14-59) Alkaline Phosphatase 75 U/L (46-116) Total Protein 6.8 g/dL (6.4-8.2) Albumin 2.4 g/dL (3.4-5.0) Albumin/Globulin Ratio 0.5 (1.0-1.7) Objective Assessment ? sepsis - fever/hypotension. CXR clear/Urine clear. Abd non tender. Swallow without a lot of aspiration. Flu vaccine 03/05 Fever -better/WBC normal Mild transaminitis mild increase yesterday - better PCN allergy - tolerated Rocephin CONY - dehydration - improving H/o Proteus UTI - Res to Quinolones Thrombocytopenia ? med - better CALB in urine, 03/09 Plan Plan of Care d/c Cefepime and Flagyl Change megan Bell/w RN PEG on Tuesday OLEG SILVA MD Mar 14, 2017 08:56
[2017-03-14] MEDS: POLYETHYLENE GLYCOL 3350 17 GM PACKET. PO SCH (09:00)
[2017-03-14] MEDS: MULTIVITAMIN with MINERAL TABLET. PO SCH (09:00)
[2017-03-14] MEDS: SENNOSIDES/DOCUSATE 8.6/50MG TABLET. PO SCH (09:00)
[2017-03-14] MEDS: NYSTATIN TOPICAL POWDER 15GM BOTTLE. TP SCH ×2 (09:00→20:49)
[2017-03-14] MEDS: CHOLECALCIFEROL (VITAMIN D3) 1,000 UNIT TABLET PO SCH (09:00)
[2017-03-14] MEDS: IPRATRPIUM/ALBUTEROL 0.5/2.5MG 3 ML NEBU. NEB SCH ×4 (09:35→19:21)
[2017-03-14 11:08] VITALS: BP 110/60
--- NOTE | 2017-03-14 11:59 | PDOC ---
Renal-Progress Notes Subjective Notes Notes NONE History of Present Illness Hx of present illness NO CHANGE Vitals Vitals Vital Signs Date Time Temp Pulse Resp B/P (MAP) Pulse Ox O2 Delivery O2 Flow Rate FiO2 03/14/17 11:08 97.9 70 16 110/60 (77) 98 Room Air 97.9 Weight Weight [ ] Labs Labs Laboratory Tests Test 03/13/17 17:08 03/13/17 20:58 03/14/17 03:50 03/14/17 07:12 Glucose (Fingerstick) 91 mg/dL (70-99) 104 mg/dL (70-99) 138 mg/dL (70-99) White Blood Count 7.3 x10^3/uL (4.0-11.0) Red Blood Count 3.74 x10^6/uL (3.50-5.40) Hemoglobin 11.7 g/dL (12.0-15.5) Hematocrit 35.0 % (36.0-47.0) Mean Corpuscular Volume 94 fL (79-100) Mean Corpuscular Hemoglobin 31 pg (25-35) Mean Corpuscular Hemoglobin Concent 34 g/dL (31-37) Red Cell Distribution Width 14.8 % (11.5-14.5) Platelet Count 150 x10^3/uL (140-400) Neutrophils (%) (Auto) 67 % (31-73) Lymphocytes (%) (Auto) 25 % (24-48) Monocytes (%) (Auto) 6 % (0-9) Eosinophils (%) (Auto) 2 % (0-3) Basophils (%) (Auto) 1 % (0-3) Neutrophils # (Auto) 4.9 x10^3uL (1.8-7.7) Lymphocytes # (Auto) 1.8 x10^3/uL (1.0-4.8) Monocytes # (Auto) 0.4 x10^3/uL (0.0-1.1) Eosinophils # (Auto) 0.1 x10^3/uL (0.0-0.7) Basophils # (Auto) 0.0 x10^3/uL (0.0-0.2) Sodium Level 141 mmol/L (136-145) Potassium Level 3.8 mmol/L (3.5-5.1) Chloride Level 109 mmol/L (98-107) Carbon Dioxide Level 22 mmol/L (21-32) Anion Gap 10 (6-14) Blood Urea Nitrogen 19 mg/dL (7-20) Creatinine 1.2 mg/dL (0.6-1.0) Estimated GFR (Cockcroft-Gault) 53.4 BUN/Creatinine Ratio 16 (6-20) Glucose Level 122 mg/dL (70-99) Calcium Level 8.6 mg/dL (8.5-10.1) Total Bilirubin 0.4 mg/dL (0.2-1.0) Aspartate Amino Transf (AST/SGOT) 85 U/L (15-37) Alanine Aminotransferase (ALT/SGPT) 73 U/L (14-59) Alkaline Phosphatase 75 U/L (46-116) Total Protein 6.8 g/dL (6.4-8.2) Albumin 2.4 g/dL (3.4-5.0) Albumin/Globulin Ratio 0.5 (1.0-1.7) Test 03/14/17 11:21 Glucose (Fingerstick) 130 mg/dL (70-99) Micro Micro Microbiology 03/09/17 Blood Culture - Final, Complete NO GROWTH AFTER 5 DAYS 03/09/17 Urine Culture - Final, Complete 03/09/17 Urine Culture Result 1 (LINDSAY) - Final, Complete Review of Systems Constitutional: yes: unresponsive, other (UNABLE TO OBTAIN) Physical Exam General Appearance: no apparent distress Skin: warm Respiratory: bilateral CTA Heart: S1S2, RRR Abdomen: soft, bowel sounds present Genitourinary: bladder flat Extremities: pulses present Neurology: alert, oriented Musculoskeletal: Other Assessment Assessment IMP CONY-CR 1.2 NOW - PROB BASELINE HYPERNATREMIA DEMENTIA HYPOKALEMIA-BETTER LEUCOCYTOSIS HYPOTENSION - BETTER AFTER BOLUS PLAN CONT PPN REPLACE K NEEDED PEG PENDING ANDREEA MUELLER MD Mar 14, 2017 11:59
[2017-03-14] MEDS: IV NORMAL SALINE 1000ML BAG 1,000 ML IV SCH (12:57)
[2017-03-14] MEDS ORDERED: LIDOCAINE 2% PF Vial for OR 5 ML VIAL. ONE (13:38)
[2017-03-14] MEDS ORDERED: PROPOFOL 20 ML IV ONE (13:38)
--- NOTE | 2017-03-14 14:09 | PDOC4 ---
PROCEDURE Procedure EGD/PEG Indication: Dementia/hypernatremia/inadequate po intake. Meds: per anesthesia. Findings: E--Normal. GEJ at 39cm. G--Normal D--Normal to second. --20F PEG tube placed uneventfully. Brief re-scope confirms good placement. Singh. well. IMP: successful PEG. REC: Water and meds per tube today. Binder at all times. If no problems, start TF in AM. Thanks. JAYNE MORENO MD Mar 14, 2017 14:09
[2017-03-14 15:16] VITALS: BP 138/74
[2017-03-14 19:40] VITALS: BP 124/62
[2017-03-14] MEDS: SIMVASTATIN 20 MG TABLET PO SCH (20:49)
[2017-03-14] MEDS: DONEPEZIL HCL 10 MG TABLET. PO SCH (20:49)
[2017-03-14] MEDS: FAMOTIDINE 20 MG/2 ML VIAL IVP SCH (20:49)
[2017-03-14] MEDS: ACETAMINOPHEN 325 MG TABLET. PO PRN (20:52)
[2017-03-14 23:55] VITALS: BP 144/88
[2017-03-15] MEDS: IV NORMAL SALINE 1000ML BAG 1,000 ML IV SCH ×2 (02:20→15:22)
[2017-03-15 03:19] VITALS: BP 144/75
[2017-03-15 05:10] LABS: BASO % 0 % (0-3); EOS % 1 % (0-3); HEMATOCRIT 33.4 % (36.0-47.0); HEMOGLOBIN 11.4 g/dL (12.0-15.5); LYMPH % 27 % (24-48); MEAN CORPUSCULAR HEMOGLOBIN 32 pg (25-35); MEAN CORPUSCULAR HGB CONC 34 g/dL (31-37); MEAN CORPUSCULAR VOLUME 93 fL (79-100); MONO % 5 % (0-9); NEUT % 66 % (31-73); PLATELET COUNT 178 x10^3/uL (140-400); RED BLOOD COUNT 3.58 x10^6/uL (3.50-5.40); RED CELL DISTRIBUTION WIDTH 15.1 % (11.5-14.5); WHITE BLOOD COUNT 7.5 x10^3/uL (4.0-11.0)
[2017-03-15 06:19] LABS: ALBUMIN 2.2 g/dL (3.4-5.0); ALBUMIN/GLOBULIN RATIO 0.5 (1.0-1.7); CALCIUM 8.4 mg/dL (8.5-10.1); CREATININE 1.2 mg/dL (0.6-1.0); GFR 53.4; POTASSIUM 3.8 mmol/L (3.5-5.1); TOTAL BILIRUBIN 0.4 mg/dL (0.2-1.0); TOTAL PROTEIN 6.4 g/dL (6.4-8.2)
[2017-03-15 07:01] VITALS: BP 118/73
[2017-03-15] MEDS: INSULIN ASPART 300 UNITS/3 ML INSULN.PEN SQ SCH ×3 (08:00→17:00)
[2017-03-15] MEDS: IPRATRPIUM/ALBUTEROL 0.5/2.5MG 3 ML NEBU. NEB SCH ×4 (08:32→19:14)
--- NOTE | 2017-03-15 08:52 | PDOC3 ---
MARILEE GARCIA BAG INSPECTOR 03/15/17 0852: IM DISCHARGE & PROGRESS NOTES Date of Admission Date of Admission Date of Admission: Mar 05, 2017 at 13:03 Date of Discharge Date of Discharge 03/15/17 Primary Diagnosis Primary Diagnosis 1. hypernatremia acute secondary to dehydration 2. sepsis source undetermined 3. ARF with CONY (dehydration) underlying CKD III baseline Cr 1.1-1.4 4. 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 vascular dementia with unspecified mood disorder/behavioral disturbance 6. anxiety/depression 7. hyperlipidemia 8. GERD w/o esophagitis 9. DM II with CKD III 10. PVD 11. chronic pain unspecified with pain management at ID 12. chronic constipation 13. severe PCL malnutrition with underlying chronic moderate PCL malnutrition s/ p PEG 03/14/17 14. chronic dysphagia with pureed diet, honey thickened liquids. 15. thrombocytopenia 16. chronic moore urine retention 17. HTN 18. UTI POA no sepsis Consults Consults Augustus Saldana MD, Dr., Dr. Procedures Procedures Procedure EGD/PEG Indication: Dementia/hypernatremia/inadequate po intake. Meds: per anesthesia. Findings: E--Normal. GEJ at 39cm. G--Normal D--Normal to second. --20F PEG tube placed uneventfully. Brief re-scope confirms good placement. Singh. well. IMP: successful PEG. REC: Water and meds per tube today. Binder at all times. If no problems, start TF in AM. Thanks. JAYNE MORENO MD Labs Labs Laboratory Tests Test 03/12/17 11:44 03/12/17 16:45 03/13/17 05:41 03/13/17 07:38 Glucose (Fingerstick) 119 mg/dL (70-99) 107 mg/dL (70-99) 105 mg/dL (70-99) White Blood Count 5.6 x10^3/uL (4.0-11.0) Red Blood Count 3.29 x10^6/uL (3.50-5.40) Hemoglobin 10.7 g/dL (12.0-15.5) Hematocrit 31.2 % (36.0-47.0) Mean Corpuscular Volume 95 fL (79-100) Mean Corpuscular Hemoglobin 33 pg (25-35) Mean Corpuscular Hemoglobin Concent 34 g/dL (31-37) Red Cell Distribution Width 14.4 % (11.5-14.5) Platelet Count 124 x10^3/uL (140-400) Neutrophils (%) (Auto) 57 % (31-73) Lymphocytes (%) (Auto) 34 % (24-48) Monocytes (%) (Auto) 6 % (0-9) Eosinophils (%) (Auto) 2 % (0-3) Basophils (%) (Auto) 1 % (0-3) Neutrophils # (Auto) 3.2 x10^3uL (1.8-7.7) Lymphocytes # (Auto) 1.9 x10^3/uL (1.0-4.8) Monocytes # (Auto) 0.4 x10^3/uL (0.0-1.1) Eosinophils # (Auto) 0.1 x10^3/uL (0.0-0.7) Basophils # (Auto) 0.0 x10^3/uL (0.0-0.2) Sodium Level 144 mmol/L (136-145) Potassium Level 3.8 mmol/L (3.5-5.1) Chloride Level 113 mmol/L (98-107) Carbon Dioxide Level 23 mmol/L (21-32) Anion Gap 8 (6-14) Blood Urea Nitrogen 20 mg/dL (7-20) Creatinine 1.2 mg/dL (0.6-1.0) Estimated GFR (Cockcroft-Gault) 53.4 BUN/Creatinine Ratio 17 (6-20) Glucose Level 125 mg/dL (70-99) Calcium Level 8.4 mg/dL (8.5-10.1) Total Bilirubin 0.4 mg/dL (0.2-1.0) Aspartate Amino Transf (AST/SGOT) 61 U/L (15-37) Alanine Aminotransferase (ALT/SGPT) 54 U/L (14-59) Alkaline Phosphatase 65 U/L (46-116) Total Protein 6.2 g/dL (6.4-8.2) Albumin 2.2 g/dL (3.4-5.0) Albumin/Globulin Ratio 0.6 (1.0-1.7) Test 03/13/17 17:08 03/13/17 20:58 03/14/17 03:50 03/14/17 07:12 Glucose (Fingerstick) 91 mg/dL (70-99) 104 mg/dL (70-99) 138 mg/dL (70-99) White Blood Count 7.3 x10^3/uL (4.0-11.0) Red Blood Count 3.74 x10^6/uL (3.50-5.40) Hemoglobin 11.7 g/dL (12.0-15.5) Hematocrit 35.0 % (36.0-47.0) Mean Corpuscular Volume 94 fL (79-100) Mean Corpuscular Hemoglobin 31 pg (25-35) Mean Corpuscular Hemoglobin Concent 34 g/dL (31-37) Red Cell Distribution Width 14.8 % (11.5-14.5) Platelet Count 150 x10^3/uL (140-400) Neutrophils (%) (Auto) 67 % (31-73) Lymphocytes (%) (Auto) 25 % (24-48) Monocytes (%) (Auto) 6 % (0-9) Eosinophils (%) (Auto) 2 % (0-3) Basophils (%) (Auto) 1 % (0-3) Neutrophils # (Auto) 4.9 x10^3uL (1.8-7.7) Lymphocytes # (Auto) 1.8 x10^3/uL (1.0-4.8) Monocytes # (Auto) 0.4 x10^3/uL (0.0-1.1) Eosinophils # (Auto) 0.1 x10^3/uL (0.0-0.7) Basophils # (Auto) 0.0 x10^3/uL (0.0-0.2) Sodium Level 141 mmol/L (136-145) Potassium Level 3.8 mmol/L (3.5-5.1) Chloride Level 109 mmol/L (98-107) Carbon Dioxide Level 22 mmol/L (21-32) Anion Gap 10 (6-14) Blood Urea Nitrogen 19 mg/dL (7-20) Creatinine 1.2 mg/dL (0.6-1.0) Estimated GFR (Cockcroft-Gault) 53.4 BUN/Creatinine Ratio 16 (6-20) Glucose Level 122 mg/dL (70-99) Calcium Level 8.6 mg/dL (8.5-10.1) Total Bilirubin 0.4 mg/dL (0.2-1.0) Aspartate Amino Transf (AST/SGOT) 85 U/L (15-37) Alanine Aminotransferase (ALT/SGPT) 73 U/L (14-59) Alkaline Phosphatase 75 U/L (46-116) Total Protein 6.8 g/dL (6.4-8.2) Albumin 2.4 g/dL (3.4-5.0) Albumin/Globulin Ratio 0.5 (1.0-1.7) Test 03/14/17 11:21 03/14/17 17:13 03/15/17 04:50 03/15/17 07:01 Glucose (Fingerstick) 130 mg/dL (70-99) 104 mg/dL (70-99) 138 mg/dL (70-99) White Blood Count 7.5 x10^3/uL (4.0-11.0) Red Blood Count 3.58 x10^6/uL (3.50-5.40) Hemoglobin 11.4 g/dL (12.0-15.5) Hematocrit 33.4 % (36.0-47.0) Mean Corpuscular Volume 93 fL (79-100) Mean Corpuscular Hemoglobin 32 pg (25-35) Mean Corpuscular Hemoglobin Concent 34 g/dL (31-37) Red Cell Distribution Width 15.1 % (11.5-14.5) Platelet Count 178 x10^3/uL (140-400) Neutrophils (%) (Auto) 66 % (31-73) Lymphocytes (%) (Auto) 27 % (24-48) Monocytes (%) (Auto) 5 % (0-9) Eosinophils (%) (Auto) 1 % (0-3) Basophils (%) (Auto) 0 % (0-3) Neutrophils # (Auto) 5.0 x10^3uL (1.8-7.7) Lymphocytes # (Auto) 2.0 x10^3/uL (1.0-4.8) Monocytes # (Auto) 0.4 x10^3/uL (0.0-1.1) Eosinophils # (Auto) 0.1 x10^3/uL (0.0-0.7) Basophils # (Auto) 0.0 x10^3/uL (0.0-0.2) Sodium Level 141 mmol/L (136-145) Potassium Level 3.8 mmol/L (3.5-5.1) Chloride Level 110 mmol/L (98-107) Carbon Dioxide Level 23 mmol/L (21-32) Anion Gap 8 (6-14) Blood Urea Nitrogen 17 mg/dL (7-20) Creatinine 1.2 mg/dL (0.6-1.0) Estimated GFR (Cockcroft-Gault) 53.4 BUN/Creatinine Ratio 14 (6-20) Glucose Level 127 mg/dL (70-99) Calcium Level 8.4 mg/dL (8.5-10.1) Total Bilirubin 0.4 mg/dL (0.2-1.0) Aspartate Amino Transf (AST/SGOT) 47 U/L (15-37) Alanine Aminotransferase (ALT/SGPT) 61 U/L (14-59) Alkaline Phosphatase 68 U/L (46-116) Total Protein 6.4 g/dL (6.4-8.2) Albumin 2.2 g/dL (3.4-5.0) Albumin/Globulin Ratio 0.5 (1.0-1.7) Medications Medications Medications reviewed and reconciled for discharge. Brief hospital course Brief hospital course This 72 year old female who presented with hypernatremia was admitted. The following is a summary of her treatment: PLAN: 03/15/17 sepsis - site not determined - Flagyl and cefepime DC 03/14/17 yeast UTI - moore changed 03/13/17 malnutrition - DC PPN, Diabeta source 20cchr goal 40cc/hr 100cc H20 every 6 hours -resume pureed diet honey thick liquids -transition to nocturnal feed SNU DM BS 104-138 transaminitis AST 47 ALT 61 monitor CKD BUN 17 Cr 1.2 thrombocytopenia -sepsis - resolved Platelet 178 03/14/17 sepsis - cefepime - flagyl Urine culture - yeast -moore changed 03/13/17 - treatment plan per ID malnutrtition - PPN - negative aspiration with VS - continue current pureed diet with honey thickened liquids - PEG today, start ETF and H2O when ok with GI thrombocytopenia - platelet 150 ARF - BUN 19 Cr 1.2 - resolved DM - BS 91-130 continue SSI transaminitis - AST 85 ALT 73 DC orders initiated Cryptologic Technician Technical order for ETF rate and water boluses. 03/13 D/w staff,ID.change Moore. PEG in AM. Hyponatremia better. Prognosis poor. 03/12 Na 145.Slowly improving. PEG Tuesday. continue Cefepime,Flagyl.Change Moore. 03/11 sepsis -improving. Zyvox DC continue flagyl, cefepime. leukocytosis resolved - fever resolved - hypotension improved. CKD III ARF resolved - BUN 18 Cr 1.3 Mg 2.0 Po4 2.0-treatment per renal hypernatremia - NA 146 resolved thrombocytopenia - medication/sepsis source -Platelets 85 increasing severe malnutrition -VS recommender per speech - NPO -meds adjusted to IV where applicable - PPN 100cc/hr continue --PEG on hold transaminitis - AST 72 ALT 67 Lipase 185 03/10 sepsis - fever improved -resolved -- Hypotension improved -- ID Cefepime and Zyvox 03/09/17 BC prelim neg. CXR neg. UA neg. ARF --improving BUN 22 Cr 1.6 hypernatremia - improving Na 150 improved. IVF continues malnutrition - PEG planned for Tuesday -- swallow eval = continue pureed/honey thick liquids thrombocytopenia -- platelets 74 -- monitor. transaminitis POA - Admit AST 65 -- today 96 Admit -- ALT 76 Today 74 -- Ammonia 03/05 13 --Admit lipase 148 -- Lipase pending and LFTs ordered for tomorrow Review of lab CPK 856 on admission ? LTAC ? Dobhoff until peg placed 03/09/17 fever -started 8pm = T00F -- 2300 =100.2F -- 0400 100.2F-- BC x2, UA and reflex C/S, CXR, ID consult -Mita rodriguezro stopped 03/08-urine c/s negative. hypernatremia - IVF 06/09NS 60cc/hr improving ARF with CONY -improving malnutrition - staff reports trouble swallowing, will order speech BS swallow eval -GI consult for PEG placement HTN - BP responded to bolus, 120-130 systolic, trending down again, bolus 160cc/ hr 1/4 NS - for 5 hrs then resume 60cc/hr thrombocytopenia -- Lab pending 05:00 03/08/17 hypernatremia - Na 156 improving -D/w son at bedside -would like to visit PEG insertion for fluids -GI consulted met enceph - sleepy this morning ARF with CONY - BUN 26 Cr 1.6 improving 06/09 NS 60cc/hr UTI -culture negative, stop antibiotics malnutrition, dysphagia - restart diet, continue PPN, If peg insert- supplement HTN -meds not stopped - low BP - bolus 06/09 NS 160cc/hr x 5 hr thrombocytopenia - platelet 87 03/07/17 acute hypernatremia - Admit Na 180-- PPN, sterile water with Na 60cc/hr -- today Na 167 metabolic encephalopathy - improving ARF with CONY - Admit B/Cr 40/2.0--decreased to 33/ 1.8 - renal consulted UTI no sepsis - Rocephin since admit -- Cipro IV --Urine CS pending dysphagia -- pureed diet, honey thick liquids severe PCL malnutrition -start po, more awake HTN - resume meds thrombocytopenia Admit 127-- today 87--stop heparin DVT/GI prophylaxis --SCD/GEOVANY, Pepcid For more details regarding the past history, family history, social history, surgical history and other details, please refer to History and Physical. Subjective awake, attempt to smile Objective alert no distress Vitals Vital Signs Date Time Temp Pulse Resp B/P (MAP) Pulse Ox O2 Delivery O2 Flow Rate FiO2 03/15/17 08:33 94 Room Air 03/15/17 07:01 98.5 93 19 118/73 (88) 98.5 03/14/17 14:23 5 Physical Exam General appearance - alert, chronically ill appearing, and in no distress Mental Status - alert, oriented to person, affect appropriate to mood Head - normal Chest - decreased air entry Heart - S1 and S2 normal Abdomen - soft, nontender, nondistended, obese, BS + Neurological - old CVA R hemiparesis with R hand contracture, R foot drop. Musculoskeletal - negative. Extremities - trace pedal edema Skin - warm and dry Medications Medications reviewed. Allergy Allergies Coded Allergies Type Severity Reaction Last Updated Verified Penicillins Allergy Intermediate 03/14/17 Yes Follow up Admit to facility MD Disposition: Nursing Home facility Comments Discharge Management - 35 minutes. For other details please refer to discharge instructions TEENA DAHL MD 03/15/17 0942: IM DISCHARGE & PROGRESS NOTES Brief hospital course Brief hospital course Tube feeding not started yet.Will increase 10 cc/hour every 8 hours.Will be on goal rate early tomorrow Am Discharge tomorrow if she tolerates tube feeding. The patient was seen and examined by me. Chart reviewed and plan of care formulated. Discussed with, reviewed and agree with CARGO SERVICE AGENT's notes, plan of care and orders with modifications as necessary. For more details regarding further plans, please refer to the orders. MARILEE GARCIA APRN Mar 15, 2017 08:52 TEENA DAHL MD Mar 15, 2017 09:42
[2017-03-15] MEDS: POLYETHYLENE GLYCOL 3350 17 GM PACKET. PO SCH (09:19)
[2017-03-15] MEDS: MULTIVITAMIN with MINERAL TABLET. PO SCH (09:19)
[2017-03-15] MEDS: SENNOSIDES/DOCUSATE 8.6/50MG TABLET. PO SCH (09:19)
[2017-03-15] MEDS: CHOLECALCIFEROL (VITAMIN D3) 1,000 UNIT TABLET PO SCH (09:19)
--- NOTE | 2017-03-15 09:31 | PDOC ---
G I PROGRESS NOTE Subjective Awake, alert. Non-verbal today. Physical Exam Lungs clear. RRR Abdomen soft, not distended. Some grimacing with manipulation of G-tube. PEG site dry w/o erythema or drainage. Removed gauze under bolster. Review of Relevant I have reviewed the following items linda (where applicable) has been applied. Labs Laboratory Tests Test 03/13/17 17:08 03/13/17 20:58 03/14/17 03:50 03/14/17 07:12 Glucose (Fingerstick) 91 mg/dL (70-99) 104 mg/dL (70-99) 138 mg/dL (70-99) White Blood Count 7.3 x10^3/uL (4.0-11.0) Red Blood Count 3.74 x10^6/uL (3.50-5.40) Hemoglobin 11.7 g/dL (12.0-15.5) Hematocrit 35.0 % (36.0-47.0) Mean Corpuscular Volume 94 fL (79-100) Mean Corpuscular Hemoglobin 31 pg (25-35) Mean Corpuscular Hemoglobin Concent 34 g/dL (31-37) Red Cell Distribution Width 14.8 % (11.5-14.5) Platelet Count 150 x10^3/uL (140-400) Neutrophils (%) (Auto) 67 % (31-73) Lymphocytes (%) (Auto) 25 % (24-48) Monocytes (%) (Auto) 6 % (0-9) Eosinophils (%) (Auto) 2 % (0-3) Basophils (%) (Auto) 1 % (0-3) Neutrophils # (Auto) 4.9 x10^3uL (1.8-7.7) Lymphocytes # (Auto) 1.8 x10^3/uL (1.0-4.8) Monocytes # (Auto) 0.4 x10^3/uL (0.0-1.1) Eosinophils # (Auto) 0.1 x10^3/uL (0.0-0.7) Basophils # (Auto) 0.0 x10^3/uL (0.0-0.2) Sodium Level 141 mmol/L (136-145) Potassium Level 3.8 mmol/L (3.5-5.1) Chloride Level 109 mmol/L (98-107) Carbon Dioxide Level 22 mmol/L (21-32) Anion Gap 10 (6-14) Blood Urea Nitrogen 19 mg/dL (7-20) Creatinine 1.2 mg/dL (0.6-1.0) Estimated GFR (Cockcroft-Gault) 53.4 BUN/Creatinine Ratio 16 (6-20) Glucose Level 122 mg/dL (70-99) Calcium Level 8.6 mg/dL (8.5-10.1) Total Bilirubin 0.4 mg/dL (0.2-1.0) Aspartate Amino Transf (AST/SGOT) 85 U/L (15-37) Alanine Aminotransferase (ALT/SGPT) 73 U/L (14-59) Alkaline Phosphatase 75 U/L (46-116) Total Protein 6.8 g/dL (6.4-8.2) Albumin 2.4 g/dL (3.4-5.0) Albumin/Globulin Ratio 0.5 (1.0-1.7) Test 03/14/17 11:21 03/14/17 17:13 03/15/17 04:50 03/15/17 07:01 Glucose (Fingerstick) 130 mg/dL (70-99) 104 mg/dL (70-99) 138 mg/dL (70-99) White Blood Count 7.5 x10^3/uL (4.0-11.0) Red Blood Count 3.58 x10^6/uL (3.50-5.40) Hemoglobin 11.4 g/dL (12.0-15.5) Hematocrit 33.4 % (36.0-47.0) Mean Corpuscular Volume 93 fL (79-100) Mean Corpuscular Hemoglobin 32 pg (25-35) Mean Corpuscular Hemoglobin Concent 34 g/dL (31-37) Red Cell Distribution Width 15.1 % (11.5-14.5) Platelet Count 178 x10^3/uL (140-400) Neutrophils (%) (Auto) 66 % (31-73) Lymphocytes (%) (Auto) 27 % (24-48) Monocytes (%) (Auto) 5 % (0-9) Eosinophils (%) (Auto) 1 % (0-3) Basophils (%) (Auto) 0 % (0-3) Neutrophils # (Auto) 5.0 x10^3uL (1.8-7.7) Lymphocytes # (Auto) 2.0 x10^3/uL (1.0-4.8) Monocytes # (Auto) 0.4 x10^3/uL (0.0-1.1) Eosinophils # (Auto) 0.1 x10^3/uL (0.0-0.7) Basophils # (Auto) 0.0 x10^3/uL (0.0-0.2) Sodium Level 141 mmol/L (136-145) Potassium Level 3.8 mmol/L (3.5-5.1) Chloride Level 110 mmol/L (98-107) Carbon Dioxide Level 23 mmol/L (21-32) Anion Gap 8 (6-14) Blood Urea Nitrogen 17 mg/dL (7-20) Creatinine 1.2 mg/dL (0.6-1.0) Estimated GFR (Cockcroft-Gault) 53.4 BUN/Creatinine Ratio 14 (6-20) Glucose Level 127 mg/dL (70-99) Calcium Level 8.4 mg/dL (8.5-10.1) Total Bilirubin 0.4 mg/dL (0.2-1.0) Aspartate Amino Transf (AST/SGOT) 47 U/L (15-37) Alanine Aminotransferase (ALT/SGPT) 61 U/L (14-59) Alkaline Phosphatase 68 U/L (46-116) Total Protein 6.4 g/dL (6.4-8.2) Albumin 2.2 g/dL (3.4-5.0) Albumin/Globulin Ratio 0.5 (1.0-1.7) Laboratory Tests Test 03/14/17 11:21 03/14/17 17:13 03/15/17 04:50 03/15/17 07:01 Glucose (Fingerstick) 130 mg/dL (70-99) 104 mg/dL (70-99) 138 mg/dL (70-99) White Blood Count 7.5 x10^3/uL (4.0-11.0) Red Blood Count 3.58 x10^6/uL (3.50-5.40) Hemoglobin 11.4 g/dL (12.0-15.5) Hematocrit 33.4 % (36.0-47.0) Mean Corpuscular Volume 93 fL (79-100) Mean Corpuscular Hemoglobin 32 pg (25-35) Mean Corpuscular Hemoglobin Concent 34 g/dL (31-37) Red Cell Distribution Width 15.1 % (11.5-14.5) Platelet Count 178 x10^3/uL (140-400) Neutrophils (%) (Auto) 66 % (31-73) Lymphocytes (%) (Auto) 27 % (24-48) Monocytes (%) (Auto) 5 % (0-9) Eosinophils (%) (Auto) 1 % (0-3) Basophils (%) (Auto) 0 % (0-3) Neutrophils # (Auto) 5.0 x10^3uL (1.8-7.7) Lymphocytes # (Auto) 2.0 x10^3/uL (1.0-4.8) Monocytes # (Auto) 0.4 x10^3/uL (0.0-1.1) Eosinophils # (Auto) 0.1 x10^3/uL (0.0-0.7) Basophils # (Auto) 0.0 x10^3/uL (0.0-0.2) Sodium Level 141 mmol/L (136-145) Potassium Level 3.8 mmol/L (3.5-5.1) Chloride Level 110 mmol/L (98-107) Carbon Dioxide Level 23 mmol/L (21-32) Anion Gap 8 (6-14) Blood Urea Nitrogen 17 mg/dL (7-20) Creatinine 1.2 mg/dL (0.6-1.0) Estimated GFR (Cockcroft-Gault) 53.4 BUN/Creatinine Ratio 14 (6-20) Glucose Level 127 mg/dL (70-99) Calcium Level 8.4 mg/dL (8.5-10.1) Total Bilirubin 0.4 mg/dL (0.2-1.0) Aspartate Amino Transf (AST/SGOT) 47 U/L (15-37) Alanine Aminotransferase (ALT/SGPT) 61 U/L (14-59) Alkaline Phosphatase 68 U/L (46-116) Total Protein 6.4 g/dL (6.4-8.2) Albumin 2.2 g/dL (3.4-5.0) Albumin/Globulin Ratio 0.5 (1.0-1.7) Microbiology 03/09/17 Blood Culture - Final, Complete NO GROWTH AFTER 5 DAYS 03/09/17 Urine Culture - Final, Complete 03/09/17 Urine Culture Result 1 (LINDSAY) - Final, Complete Medications Current Medications Sodium Chloride 1,000 ml @ 1,000 mls/hr Q1H IV Last administered on 03/05/17 12:07; Start 03/05/17 at 11:38; Stop 03/05/17 at 12:37; Status DC Sodium Chloride (Normal Saline Flush) 10 ml QSHIFT PRN IV AFTER MEDS AND BLOOD DRAWS Last administered on 03/05/17 12:07; Start 03/05/17 at 11:45 Lorazepam (Ativan) 1 mg 1X ONCE IV Last administered on 03/05/17 13:00; Start 03/05/17 at 13:00; Stop 03/05/17 at 13:01; Status DC Sodium Chloride 1,000 ml @ 1,000 mls/hr 1X ONCE IV Last administered on 13:50; Start 03/05/17 at 13:00; Stop 03/05/17 at 13:59; Status DC Ondansetron HCl (Zofran) 4 mg PRN Q8HRS PRN IV NAUSEA/VOMITING; Start 03/05/17 at 13:00; Stop 03/06/17 at 12:59; Status DC Info (Do NOT chart on this placeholder) 1X ONCE MC ; Start 03/05/17 at 16:15; Stop 03/05/17 at 16:16; Status UNV Influenza Virus Vaccine Quadrival (Fluarix Quad [id number] Syringe) 0.5 ml ONCE ONCE VAX IM Last administered on 03/06/17 14:02; Start 03/05/17 at 16:15; Stop 03/05/17 at 16:16; Status DC Sodium Chloride 38.75 meq/Sterile Water 1,009.6875 ml @ 75 mls/hr [id number] IV Last administered on 03/05/17 19:36; Start 03/05/17 at 19:30; Stop 03/06/17 at 08:55; Status DC Amino Acids/ Glycerin/ Electrolytes 1,000 ml @ 80 mls/hr [id number] IV ; Start at 22:30; Stop 03/05/17 at 22:30; Status DC Ciprofloxacin/ Dextrose 100 ml @ 100 mls/hr QHS IV Last administered on 21:59; Start 03/05/17 at 23:00; Stop 03/08/17 at 08:08; Status DC Sodium Chloride 38.75 meq/Sterile Water 1,009.6875 ml @ 60 mls/hr [id number] IV Last administered on 03/09/17 00:58; Start 03/06/17 at 09:30; Stop 03/09/17 at 05:12; Status DC Ceftriaxone Sodium 1 gm/ Sodium Chloride 50 ml @ 100 mls/hr Q24H IV Last administered on 03/07/17 11:26; Start 03/06/17 at 12:00; Stop 03/08/17 at 08:08 ; Status DC Insulin Aspart (NovoLOG) 0-7 UNITS TIDWMEALS SQ Last administered on 03/09/17 09:48; Start 03/06/17 at 12:00 Dextrose (Dextrose 50%-Water Syringe) 12.5 gm PRN Q15MIN PRN IV SEE COMMENTS; Start 03/06/17 at 11:45 Heparin Sodium (Porcine) (Heparin Sq) 5,000 unit Q12HR SQ Last administered on 03/06/17 21:28; Start 03/06/17 at 12:30; Stop 03/07/17 at 08:17; Status DC Amino Acids/ Glycerin/ Electrolytes 1,000 ml @ 100 mls/hr Q10H IV Last administered on 03/14/17 20:46; Start 03/06/17 at 12:30 Albuterol/ Ipratropium (Duoneb) 3 ml RTQID NEB Last administered on 03/15/17 08:32; Start 03/07/17 at 09:00 Acetaminophen (Tylenol) 650 mg Q6HRS PRN PO MILD PAIN / TEMP Last administered on 03/14/17 20:52; Start 03/07/17 at 08:15 Aspirin (Ecotrin) 81 mg [id number] PO Last administered on 03/08/17 08:50; Start 03/07/17 at 09:00; Stop 03/08/17 at 09:31; Status DC Clopidogrel Bisulfate (Plavix) 75 mg [id number] PO Last administered on 08:50; Start 03/07/17 at 09:00; Stop 03/08/17 at 09:31; Status DC Diclofenac Sodium (Voltaren) 1 gaby QID TP Last administered on 03/10/17 21:17 ; Start 03/07/17 at 09:00; Stop 03/11/17 at 08:13; Status DC Donepezil HCl (Aricept) 10 mg HS PO Last administered on 03/14/17 20:49; Start 03/07/17 at 21:00 Famotidine (Pepcid) 20 mg HS PO Last administered on 03/10/17 21:17; Start at 21:00; Stop 03/11/17 at 08:25; Status DC Magnesium Hydroxide (Milk Of Magnesia) 2,400 mg Q12HR PRN PO CONSTIPATION Last administered on 03/10/17 09:09; Start 03/07/17 at 08:15 Nystatin (Nystop) 1 gaby BID TP Last administered on 03/14/17 20:49; Start 03/07/17 at 09:00 Ondansetron HCl (Zofran Odt) 4 mg Q6HRS PRN PO NAUSEA/VOMITING; Start 03/07/17 at 08:15; Stop 03/11/17 at 08:25; Status DC Polyethylene Glycol (miraLAX PACKET) 17 gm DAILY PO Last administered on 09:19; Start 03/07/17 at 09:00 Senna/Docusate Sodium (Senna Plus) 2 tab DAILY PO Last administered on 09:19; Start 03/07/17 at 09:00 Simvastatin (Zocor) 20 mg HS PO Last administered on 03/14/17 20:49; Start at 21:00 Vitamin D (Vitamin D3) 1,000 unit DAILY PO Last administered on 03/15/17 09: 19; Start 03/07/17 at 09:00 Multivitamins (Thera M Plus) 1 tab DAILY PO Last administered on 03/15/17 09: 19; Start 03/07/17 at 09:00 Potassium Chloride 50 ml @ 50 mls/hr Q1H IV ; Start 03/07/17 at 09:30; Stop 03/07/17 at 11:29; Status UNV Potassium Chloride 100 ml @ 100 mls/hr Q1H IV Last administered on 03/07/17 12:19; Start 03/07/17 at 09:45; Stop 03/07/17 at 13:44; Status DC Sodium Chloride 500 ml @ 500 mls/hr 1X ONCE IV Last administered on 09:00; Start 03/08/17 at 19:45; Stop 03/08/17 at 20:44; Status DC Sodium Chloride 38.75 meq/Sterile Water 1,009.6875 ml @ 60 mls/hr [id number] IV ; Start 03/09/17 at 10:30; Stop 03/09/17 at 16:38; Status DC Sodium Chloride 38.75 meq/Sterile Water 1,009.6875 ml @ 160 mls/hr Q6H19M IV Last administered on 03/09/17 05:30; Start 03/09/17 at 05:30; Stop 03/09/17 at 10:30; Status DC Cefepime HCl 1 gm/ Sodium Chloride 50 ml @ 100 mls/hr Q8HRS IV Last administered on 03/14/17 05:37; Start 03/09/17 at 07:30; Stop 03/14/17 at 08:56 ; Status DC Linezolid 300 ml @ 300 mls/hr Q12HR IV Last administered on 03/10/17 21:15; Start 03/09/17 at 09:00; Stop 03/11/17 at 06:58; Status DC Metronidazole 100 ml @ 100 mls/hr Q8HRS IV Last administered on 03/14/17 06: 17; Start 03/09/17 at 08:00; Stop 03/14/17 at 08:56; Status DC Barium Sulfate (Varibar Thin Liquid Apple) 148 gm 1X ONCE PO Last administered on 03/09/17 14:45; Start 03/09/17 at 12:30; Stop 03/09/17 at 12:31 ; Status DC Acetaminophen (Acetaminophen Supp) 650 mg PRN Q4HRS PRN [place] MILD PAIN / TEMP; Start 03/11/17 at 08:30 Famotidine (Pepcid) 20 mg QHS IVP Last administered on 03/14/17 20:49; Start 03/11/17 at 21:00 Ondansetron HCl (Zofran) 4 mg PRN Q6HRS PRN IV NAUSEA/VOMITING; Start 03/11/17 at 08:30 Sodium Monofluorophosphate (Fleet Adult) 133 ml DAILY PRN [place] CONSTIPATION; Start 03/11/17 at 08:30 Bisacodyl (Dulcolax Supp) 10 mg PRN DAILY PRN [place] CONSTIPATION; Start 03/11/17 at 08:30 Sodium Chloride 1,000 ml @ 75 mls/hr [id number] IV Last administered on 02:20; Start 03/14/17 at 13:00 Propofol 20 ml @ As Directed STK-MED ONCE IV ; Start 03/14/17 at 13:38; Stop at 13:39; Status DC Lidocaine HCl (Lidocaine Pf 2% Vial) 5 ml STK-MED ONCE .ROUTE ; Start 03/14/17 at 13:38; Stop 03/14/17 at 13:39; Status DC Active Scripts Active Acetaminophen 160 Mg/5 Ml Solution 2.5 Ml PO Q4HRS PRN Novolog Flexpen (Insulin Aspart) 100 Unit/1 Ml Insuln.pen 1 Unit SQ TIDAC BS <150=0 151-200-2 unit 201-250=3 unit 251-300= 4unit 301-350= 6 unit 351-400 = 8 unit >401 call MD Reported Duoneb 0.5-3(2.5) Mg/3 Ml (Albuterol/Ipratropium) 3 Ml Ampul.neb 3 Ml NEB QID Pepcid (Famotidine) 20 Mg Tablet 20 Mg PO HS Oxycodone Hcl 10 Mg Tablet 1 Tab PO Q6HRS PRN Voltaren (Diclofenac Sodium) 100 Gm Gel..gram. 1 Gm TP QID to R knee Oxycodone Hcl 5 Mg Capsule 5 Mg PO Q6HRS PRN Multivitamins (Multivitamin) 1 Each Tablet 1 Tab PO DAILY Senna-Docusate Sodium Tablet (Sennosides/Docusate Sodium) 1 Each Tablet 2 Each PO DAILY Nystatin 15 Gm Powder 1 Gaby TP BID Vitamin D3 (Cholecalciferol (Vitamin D3)) 1,000 Unit Tab.chew 1,000 Unit PO DAILY Simvastatin 20 Mg Tablet 20 Mg PO HS Plavix (Clopidogrel Bisulfate) 75 Mg Tablet 75 Mg PO DAILY Miralax (Polyethylene Glycol 3350) 17 Gm Powd.pack 17 Gm PO DAILY Donepezil Hcl 10 Mg Tablet 10 Mg PO HS Aspir 81 (Aspirin) 81 Mg Tablet.dr 81 Mg PO DAILY Zofran Odt (Ondansetron) 4 Mg Tab.rapdis 4 Mg PO Q6HRS PRN Milk Of Magnesia (Magnesium Hydroxide) 400 Mg/5 Ml Oral.susp 30 Ml PO Q12HR PRN Magnesium Oxide 400 Mg Tablet 400 Mg PO BID Vitals/I & O Vital Sign - Last 24 Hours 03/14/17 03/14/17 03/14/17 03/14/17 09:41 11:08 12:53 12:53 Temp 97.9 98 97.9 98.0 Pulse 70 90 Resp 16 18 B/P (MAP) 110/60 (77) Pulse Ox 97 98 99 O2 Delivery Room Air Room Air Room Air O2 Flow Rate 2.0 03/14/17 03/14/17 03/14/17 03/14/17 14:07 14:23 15:16 16:34 Temp 98.0 98.0 Pulse 99 89 68 Resp 18 18 16 B/P (MAP) 141/83 147/69 138/74 (95) Pulse Ox 100 100 98 O2 Delivery Simple Mask Room Air Room Air O2 Flow Rate 5 5 03/14/17 03/14/17 03/14/17 03/14/17 19:21 19:40 20:00 23:55 Temp 98.7 98.7 Pulse 105 105 Resp 18 20 B/P (MAP) 124/62 (82) 144/88 (106) Pulse Ox 98 96 98 O2 Delivery Room Air Room Air Room Air Room Air 03/15/17 03/15/17 03/15/17 03:19 07:01 08:33 Temp 98.2 98.5 98.2 98.5 Pulse 99 93 Resp 18 19 B/P (MAP) 144/75 (98) 118/73 (88) Pulse Ox 96 96 94 O2 Delivery Room Air Room Air Room Air Problem List Problems Medical Problems: (1) Altered mental status Status: Acute (2) Hypernatremia Status: Acute (3) Hypertensive chronic kidney disease Status: Acute Assessment Stable post-PEG. OK to use. Plan of Care: Continue current Tx, Mgmt Plan of Care Note Tube feedings to start per staff. JAYNE MORENO MD Mar 15, 2017 09:31
--- NOTE | 2017-03-15 10:23 | PDOC ---
Infectious Disease Note Subjective Subjective Sleeping, appears comfortable, did not awaken No fever ROS ROS unable to do Vital Sign Vital Signs Vital Signs Date Time Temp Pulse Resp B/P (MAP) Pulse Ox O2 Delivery O2 Flow Rate FiO2 03/15/17 08:33 94 Room Air 03/15/17 07:01 98.5 93 19 118/73 (88) 98.5 03/14/17 14:23 5 Physical Exam PHYSICAL EXAM GENERAL: NAD, open eyes HEENT: PERRL, OC/OP NECK: Supple, no JVD, no LN LUNGS: Clear HEART: S1S2, no gallop, no murmur ABD: Soft, NT, no organomegaly, no rebound EXT: No edema, no cyanosis [employer]IST: unresponsive SKIN: No rash IV: ok Labs Lab Laboratory Tests Test 03/14/17 11:21 03/14/17 17:13 03/15/17 04:50 03/15/17 07:01 Glucose (Fingerstick) 130 mg/dL (70-99) 104 mg/dL (70-99) 138 mg/dL (70-99) White Blood Count 7.5 x10^3/uL (4.0-11.0) Red Blood Count 3.58 x10^6/uL (3.50-5.40) Hemoglobin 11.4 g/dL (12.0-15.5) Hematocrit 33.4 % (36.0-47.0) Mean Corpuscular Volume 93 fL (79-100) Mean Corpuscular Hemoglobin 32 pg (25-35) Mean Corpuscular Hemoglobin Concent 34 g/dL (31-37) Red Cell Distribution Width 15.1 % (11.5-14.5) Platelet Count 178 x10^3/uL (140-400) Neutrophils (%) (Auto) 66 % (31-73) Lymphocytes (%) (Auto) 27 % (24-48) Monocytes (%) (Auto) 5 % (0-9) Eosinophils (%) (Auto) 1 % (0-3) Basophils (%) (Auto) 0 % (0-3) Neutrophils # (Auto) 5.0 x10^3uL (1.8-7.7) Lymphocytes # (Auto) 2.0 x10^3/uL (1.0-4.8) Monocytes # (Auto) 0.4 x10^3/uL (0.0-1.1) Eosinophils # (Auto) 0.1 x10^3/uL (0.0-0.7) Basophils # (Auto) 0.0 x10^3/uL (0.0-0.2) Sodium Level 141 mmol/L (136-145) Potassium Level 3.8 mmol/L (3.5-5.1) Chloride Level 110 mmol/L (98-107) Carbon Dioxide Level 23 mmol/L (21-32) Anion Gap 8 (6-14) Blood Urea Nitrogen 17 mg/dL (7-20) Creatinine 1.2 mg/dL (0.6-1.0) Estimated GFR (Cockcroft-Gault) 53.4 BUN/Creatinine Ratio 14 (6-20) Glucose Level 127 mg/dL (70-99) Calcium Level 8.4 mg/dL (8.5-10.1) Total Bilirubin 0.4 mg/dL (0.2-1.0) Aspartate Amino Transf (AST/SGOT) 47 U/L (15-37) Alanine Aminotransferase (ALT/SGPT) 61 U/L (14-59) Alkaline Phosphatase 68 U/L (46-116) Total Protein 6.4 g/dL (6.4-8.2) Albumin 2.2 g/dL (3.4-5.0) Albumin/Globulin Ratio 0.5 (1.0-1.7) Objective Assessment ? sepsis - fever/hypotension. CXR clear/Urine clear. Abd non tender. Swallow without a lot of aspiration. Flu vaccine 03/05 Fever -better/WBC normal Mild transaminitis mild increase yesterday - better PCN allergy - tolerated Rocephin CONY - dehydration - improving H/o Proteus UTI - Res to Quinolones Thrombocytopenia ? med - better CALB in urine, 03/09 Plan Plan of Care off antibiotics ok to d/c to [facility] G[facility] MD Mar 15, 2017 10:23
[2017-03-15 11:08] VITALS: BP 116/62
--- NOTE | 2017-03-15 11:50 | PDOC ---
Renal-Progress Notes Subjective Notes Notes NONE History of Present Illness Hx of present illness NO CHANGE Vitals Vitals Vital Signs Date Time Temp Pulse Resp B/P (MAP) Pulse Ox O2 Delivery O2 Flow Rate FiO2 03/15/17 11:08 98.7 101 20 116/62 (80) 97 Room Air 98.7 03/14/17 14:23 5 Weight Weight [ ] I.O. Intake and Output Intake and Output 03/16/17 07:00 Output Total 0 ml Balance 0 ml Stool Total 0 ml # Bowel Movements 1 Labs Labs Laboratory Tests Test 03/14/17 17:13 03/15/17 04:50 03/15/17 07:01 03/15/17 11:46 Glucose (Fingerstick) 104 mg/dL (70-99) 138 mg/dL (70-99) 134 mg/dL (70-99) White Blood Count 7.5 x10^3/uL (4.0-11.0) Red Blood Count 3.58 x10^6/uL (3.50-5.40) Hemoglobin 11.4 g/dL (12.0-15.5) Hematocrit 33.4 % (36.0-47.0) Mean Corpuscular Volume 93 fL (79-100) Mean Corpuscular Hemoglobin 32 pg (25-35) Mean Corpuscular Hemoglobin Concent 34 g/dL (31-37) Red Cell Distribution Width 15.1 % (11.5-14.5) Platelet Count 178 x10^3/uL (140-400) Neutrophils (%) (Auto) 66 % (31-73) Lymphocytes (%) (Auto) 27 % (24-48) Monocytes (%) (Auto) 5 % (0-9) Eosinophils (%) (Auto) 1 % (0-3) Basophils (%) (Auto) 0 % (0-3) Neutrophils # (Auto) 5.0 x10^3uL (1.8-7.7) Lymphocytes # (Auto) 2.0 x10^3/uL (1.0-4.8) Monocytes # (Auto) 0.4 x10^3/uL (0.0-1.1) Eosinophils # (Auto) 0.1 x10^3/uL (0.0-0.7) Basophils # (Auto) 0.0 x10^3/uL (0.0-0.2) Sodium Level 141 mmol/L (136-145) Potassium Level 3.8 mmol/L (3.5-5.1) Chloride Level 110 mmol/L (98-107) Carbon Dioxide Level 23 mmol/L (21-32) Anion Gap 8 (6-14) Blood Urea Nitrogen 17 mg/dL (7-20) Creatinine 1.2 mg/dL (0.6-1.0) Estimated GFR (Cockcroft-Gault) 53.4 BUN/Creatinine Ratio 14 (6-20) Glucose Level 127 mg/dL (70-99) Calcium Level 8.4 mg/dL (8.5-10.1) Total Bilirubin 0.4 mg/dL (0.2-1.0) Aspartate Amino Transf (AST/SGOT) 47 U/L (15-37) Alanine Aminotransferase (ALT/SGPT) 61 U/L (14-59) Alkaline Phosphatase 68 U/L (46-116) Total Protein 6.4 g/dL (6.4-8.2) Albumin 2.2 g/dL (3.4-5.0) Albumin/Globulin Ratio 0.5 (1.0-1.7) Micro Micro Microbiology 03/09/17 Blood Culture - Final, Complete NO GROWTH AFTER 5 DAYS 03/09/17 Urine Culture - Final, Complete 03/09/17 Urine Culture Result 1 (LINDSAY) - Final, Complete Review of Systems Constitutional: yes: unresponsive, other (UNABLE TO OBTAIN) Physical Exam General Appearance: no apparent distress Skin: warm Respiratory: bilateral CTA Heart: S1S2, RRR Abdomen: soft, bowel sounds present Genitourinary: bladder flat Extremities: pulses present Neurology: alert, oriented Musculoskeletal: Other Assessment Assessment IMP CONY-CR 1.2 NOW - PROB BASELINE HYPERNATREMIA DEMENTIA HYPOKALEMIA-BETTER LEUCOCYTOSIS HYPOTENSION - BETTER AFTER BOLUS S/P PEG PLAN WILL SIGN OFF ANDREEA MUELLER MD Mar 15, 2017 11:50
[2017-03-15] MEDS: NYSTATIN TOPICAL POWDER 15GM BOTTLE. TP SCH ×2 (12:57→21:07)
[2017-03-15 14:48] VITALS: BP 117/65
[2017-03-15 19:47] VITALS: BP 103/59
[2017-03-15] MEDS ORDERED: FAMOTIDINE 20 MG TABLET. PO SCH (21:00)
[2017-03-15] MEDS: DONEPEZIL HCL 10 MG TABLET. PO SCH (21:07)
[2017-03-15] MEDS: SIMVASTATIN 20 MG TABLET PO SCH (21:07)
[2017-03-15] MEDS: ACETAMINOPHEN 325 MG TABLET. PO PRN (21:13)
[2017-03-15 23:00] VITALS: BP 116/71
[2017-03-16] MEDS: IV NORMAL SALINE 1000ML BAG 1,000 ML IV SCH (02:56)
[2017-03-16 03:36] VITALS: BP 134/74
[2017-03-16 03:38] VITALS: BP 134/74
[2017-03-16 04:20] LABS: BASO # 0.1 x10^3/uL (0.0-0.2); BASO % 1 % (0-3); EOS % 1 % (0-3); HEMATOCRIT 31.8 % (36.0-47.0); HEMOGLOBIN 10.8 g/dL (12.0-15.5); LYMPH # 2.4 x10^3/uL (1.0-4.8); LYMPH % 28 % (24-48); MEAN CORPUSCULAR HEMOGLOBIN 32 pg (25-35); MEAN CORPUSCULAR HGB CONC 34 g/dL (31-37); MEAN CORPUSCULAR VOLUME 94 fL (79-100); MONO % 5 % (0-9); NEUT % 66 % (31-73); PLATELET COUNT 192 x10^3/uL (140-400); RED BLOOD COUNT 3.39 x10^6/uL (3.50-5.40); WHITE BLOOD COUNT 8.5 x10^3/uL (4.0-11.0)
[2017-03-16 05:04] LABS: ALBUMIN 2.3 g/dL (3.4-5.0); ALBUMIN/GLOBULIN RATIO 0.6 (1.0-1.7); CREATININE 1.2 mg/dL (0.6-1.0); GFR 53.4; POTASSIUM 3.7 mmol/L (3.5-5.1); TOTAL BILIRUBIN 0.4 mg/dL (0.2-1.0); TOTAL PROTEIN 6.2 g/dL (6.4-8.2)
[2017-03-16 07:00] VITALS: BP 128/74
[2017-03-16] MEDS: IPRATRPIUM/ALBUTEROL 0.5/2.5MG 3 ML NEBU. NEB SCH ×2 (07:41→11:37)
[2017-03-16] MEDS: INSULIN ASPART 300 UNITS/3 ML INSULN.PEN SQ SCH ×2 (08:00→11:55)
[2017-03-16] MEDS: NYSTATIN TOPICAL POWDER 15GM BOTTLE. TP SCH (08:47)
[2017-03-16] MEDS: POLYETHYLENE GLYCOL 3350 17 GM PACKET. PO SCH (08:47)
[2017-03-16] MEDS: CHOLECALCIFEROL (VITAMIN D3) 1,000 UNIT TABLET PO SCH (08:47)
[2017-03-16] MEDS: MULTIVITAMIN with MINERAL TABLET. PO SCH (08:48)
[2017-03-16] MEDS: SENNOSIDES/DOCUSATE 8.6/50MG TABLET. PO SCH (08:48)
--- NOTE | 2017-03-16 10:20 | PDOC ---
Objective: Vital Signs: Vital Signs Date Time Temp Pulse Resp B/P (MAP) Pulse Ox O2 Delivery O2 Flow Rate FiO2 03/16/17 07:43 95 Room Air 03/16/17 07:00 98.7 101 16 128/74 (92) 98.7 03/15/17 20:00 5.0 Labs: Laboratory Tests Test 03/15/17 11:46 03/15/17 16:57 03/16/17 04:00 03/16/17 06:15 Glucose (Fingerstick) 134 mg/dL 108 mg/dL 128 mg/dL White Blood Count 8.5 x10^3/uL Red Blood Count 3.39 x10^6/uL Hemoglobin 10.8 g/dL Hematocrit 31.8 % Mean Corpuscular Volume 94 fL Mean Corpuscular Hemoglobin 32 pg Mean Corpuscular Hemoglobin Concent 34 g/dL Red Cell Distribution Width 15.0 % Platelet Count 192 x10^3/uL Neutrophils (%) (Auto) 66 % Lymphocytes (%) (Auto) 28 % Monocytes (%) (Auto) 5 % Eosinophils (%) (Auto) 1 % Basophils (%) (Auto) 1 % Neutrophils # (Auto) 5.6 x10^3uL Lymphocytes # (Auto) 2.4 x10^3/uL Monocytes # (Auto) 0.4 x10^3/uL Eosinophils # (Auto) 0.1 x10^3/uL Basophils # (Auto) 0.1 x10^3/uL Sodium Level 142 mmol/L Potassium Level 3.7 mmol/L Chloride Level 111 mmol/L Carbon Dioxide Level 23 mmol/L Anion Gap 8 Blood Urea Nitrogen 14 mg/dL Creatinine 1.2 mg/dL Estimated GFR (Cockcroft-Gault) 53.4 BUN/Creatinine Ratio 12 Glucose Level 112 mg/dL Calcium Level 8.0 mg/dL Total Bilirubin 0.4 mg/dL Aspartate Amino Transf (AST/SGOT) 43 U/L Alanine Aminotransferase (ALT/SGPT) 54 U/L Alkaline Phosphatase 70 U/L Total Protein 6.2 g/dL Albumin 2.3 g/dL Albumin/Globulin Ratio 0.6 Test 03/16/17 07:54 Glucose (Fingerstick) 137 mg/dL PE: GEN: NAD LUNGS: clear HEART: RRR ABD: tender aroun PEG, binder off NEURO/PSYCH: awake, moans when PEG manipulated A/P: S/p PEG -- Attempted to loosen PEG a bit which was uncomfortable for her. Would use abd binder. DC plans noted. KAMI HASTINGS Mar 16, 2017 10:20
[2017-03-16 11:00] VITALS: BP 132/60
--- NOTE | 2017-03-16 11:53 | PDOC ---
Infectious Disease Note Subjective Subjective Sleeping, appears comfortable, did not awaken No fever ROS ROS unable to do Vital Sign Vital Signs Vital Signs Date Time Temp Pulse Resp B/P (MAP) Pulse Ox O2 Delivery O2 Flow Rate FiO2 03/16/17 11:41 Room Air 03/16/17 07:43 95 03/16/17 07:00 98.7 101 16 128/74 (92) 98.7 03/15/17 20:00 5.0 Physical Exam PHYSICAL EXAM GENERAL: NAD, Alert HEENT: PERRL, OC/OP NECK: Supple, no JVD, no LN LUNGS: Clear HEART: S1S2, no gallop, no murmur ABD: Soft, NT, no organomegaly, no rebound EXT: No edema, no cyanosis [employer]ISHING [employer]: Alert, non verbal SKIN: No rash IV: ok Labs Lab Laboratory Tests Test 03/15/17 16:57 03/16/17 04:00 03/16/17 06:15 03/16/17 07:54 Glucose (Fingerstick) 108 mg/dL (70-99) 128 mg/dL (70-99) 137 mg/dL (70-99) White Blood Count 8.5 x10^3/uL (4.0-11.0) Red Blood Count 3.39 x10^6/uL (3.50-5.40) Hemoglobin 10.8 g/dL (12.0-15.5) Hematocrit 31.8 % (36.0-47.0) Mean Corpuscular Volume 94 fL (79-100) Mean Corpuscular Hemoglobin 32 pg (25-35) Mean Corpuscular Hemoglobin Concent 34 g/dL (31-37) Red Cell Distribution Width 15.0 % (11.5-14.5) Platelet Count 192 x10^3/uL (140-400) Neutrophils (%) (Auto) 66 % (31-73) Lymphocytes (%) (Auto) 28 % (24-48) Monocytes (%) (Auto) 5 % (0-9) Eosinophils (%) (Auto) 1 % (0-3) Basophils (%) (Auto) 1 % (0-3) Neutrophils # (Auto) 5.6 x10^3uL (1.8-7.7) Lymphocytes # (Auto) 2.4 x10^3/uL (1.0-4.8) Monocytes # (Auto) 0.4 x10^3/uL (0.0-1.1) Eosinophils # (Auto) 0.1 x10^3/uL (0.0-0.7) Basophils # (Auto) 0.1 x10^3/uL (0.0-0.2) Sodium Level 142 mmol/L (136-145) Potassium Level 3.7 mmol/L (3.5-5.1) Chloride Level 111 mmol/L (98-107) Carbon Dioxide Level 23 mmol/L (21-32) Anion Gap 8 (6-14) Blood Urea Nitrogen 14 mg/dL (7-20) Creatinine 1.2 mg/dL (0.6-1.0) Estimated GFR (Cockcroft-Gault) 53.4 BUN/Creatinine Ratio 12 (6-20) Glucose Level 112 mg/dL (70-99) Calcium Level 8.0 mg/dL (8.5-10.1) Total Bilirubin 0.4 mg/dL (0.2-1.0) Aspartate Amino Transf (AST/SGOT) 43 U/L (15-37) Alanine Aminotransferase (ALT/SGPT) 54 U/L (14-59) Alkaline Phosphatase 70 U/L (46-116) Total Protein 6.2 g/dL (6.4-8.2) Albumin 2.3 g/dL (3.4-5.0) Albumin/Globulin Ratio 0.6 (1.0-1.7) Objective Assessment ? sepsis - fever/hypotension. improved Fever -better/WBC normal Mild transaminitis mild increase yesterday - better PCN allergy - tolerated Rocephin CONY - dehydration - improving H/o Proteus UTI - Res to Quinolones Thrombocytopenia ? med - better CALB in urine, 03/09 Plan Plan of Care off antibiotics ok to d/c to [facility] OLEG SILVA MD Mar 16, 2017 11:53
[2017-03-16 15:35] VITALS: BP 136/66
== END 2017-03-16 15:16 | disposition home or self-care (01) | DRG 871 ==
LOC: ER 11:08 → 1 WEST ICU 13:03 → 6 SOUTH 03-11 19:45
PROVIDERS: ADMIT Internal Medicine; ATTEND Internal Medicine
PROC: 0DH63UZ Insertion of Feeding Device into Stomach, Percutaneous Approach (ICD-10-PCS; principal; 2017-03-05)
DX: A41.9 Sepsis, unspecified organism (principal); G93.41 Metabolic encephalopathy; N17.9 Acute kidney failure, unspecified; E46 Unspecified protein-calorie malnutrition; E87.0 Hyperosmolality and hypernatremia; I95.9 Hypotension, unspecified; K31.84 Gastroparesis; E11.43 Type 2 diabetes mellitus with diabetic autonomic (poly)neuropathy; E11.22 Type 2 diabetes mellitus with diabetic chronic kidney disease; E11.51 Type 2 diabetes mellitus with diabetic peripheral angiopathy without gangrene; I69.351 Hemiplegia and hemiparesis following cerebral infarction affecting right dominant side; F01.51 Vascular dementia, unspecified severity, with behavioral disturbance; N39.0 Urinary tract infection, site not specified; D69.6 Thrombocytopenia, unspecified; G30.9 Alzheimer's disease, unspecified; R13.11 Dysphagia, oral phase; K21.0 Gastro-esophageal reflux disease with esophagitis; M21.371 Foot drop, right foot; M24.549 Contracture, unspecified hand; M24.574 Contracture, right foot; D64.9 Anemia, unspecified; E55.9 Vitamin D deficiency, unspecified; E66.9 Obesity, unspecified; E78.00 Pure hypercholesterolemia, unspecified; E78.5 Hyperlipidemia, unspecified; E86.0 Dehydration; E87.6 Hypokalemia; F02.80 Dementia in other diseases classified elsewhere, unspecified severity, without behavioral disturbance, psychotic disturbance, mood disturbance, and anxiety; F32.9 Major depressive disorder, single episode, unspecified; F41.9 Anxiety disorder, unspecified; G89.29 Other chronic pain; I12.9 Hypertensive chronic kidney disease with stage 1 through stage 4 chronic kidney disease, or unspecified chronic kidney disease; J45.909 Unspecified asthma, uncomplicated; K21.9 Gastro-esophageal reflux disease without esophagitis; N18.3 Chronic kidney disease, stage 3 (moderate); R09.02 Hypoxemia; Z88.0 Allergy status to penicillin; Z90.710 Acquired absence of both cervix and uterus
CPT/HCPCS: 36415; 70450; 71010; 74230; 80048; 80053; 80076; 81001; 82140; 82553; 82962; 83605; 83690; 83735; 83880; 83935; 84100; 84145; 84443; 84484; 85025; 85610; 87040; 87086; 87641; 90686; 93005; 94640; 94760; 96361; 96374; J0692; J0696; J0744; J1815; J2020; J2060; J2704; J3480; J3490; J7030; J7040; J7620; S0028; 92526; 92610; 92611; 99285-25; J2001

== ENCOUNTER 2017-03-24 00:50 | Emergency (ER) | payer MEDICARE, OTHER ==
[~2017-03-24 00:50] MED LIST changes: +ACET160S PO; +FAMO-63 PO; +IPRA3AMP NEB
--- NOTE | 2017-03-24 01:19 | PHYS DOC ---
Past Medical History Past Medical History: Anxiety, Asthma, Constipation, CVA, Dementia, Depression , Diabetes-Type II, GERD, High Cholesterol, Stroke, Other Additional Past Medical Histor: ALZHEIMERS, PVD, INSOMNIA, GASTROPARESIS, DYSPHAGIA, hemiplegia, MOOD D/O Past Surgical History: Hysterectomy Alcohol Use: None Drug Use: None Adult General Chief Complaint Chief Complaint: ALTERED MENTAL STATUS HPI HPI Patient is a 72 year old female who presents to the emergency department for reported altered mental status. Patient's brothers emergency department by EMS from her half-way. Staff stated that they went to check on the patient after they heard the patient suddenly breathing loudly. Staff reports that the patient was "staring off" and stated that she was not responding for approximately 15-20 minutes. Upon arrival to the emergency department, the patient is able to track and responds to voice. The patient has history of dementia and dysphagia and is unable to provide any history. EMS states that the patient is currently at her baseline mental status as reported by staff prior to the episode. Patient has had no reported fevers or other illnesses. Review of Systems Review of Systems Unable to obtain from patient due to history of dysphasia Allergies Allergies Allergies Coded Allergies Type Severity Reaction Last Updated Verified Penicillins Allergy Intermediate 03/14/17 Yes Physical Exam Physical Exam Constitutional: Alert, afebrile, vital signs stable. [] HENT: Normocephalic, atraumatic, bilateral external ears normal, oropharynx moist, no oral exudates, nose normal. [] Eyes: PERRLA, EOMI, conjunctiva normal, no discharge. [] Neck: Normal range of motion, no tenderness, supple, no stridor. [] Cardiovascular:Heart rate regular rhythm, no murmur [] Lungs & Thorax: Bilateral breath sounds clear to auscultation [] Abdomen: Bowel sounds normal, soft, no tenderness, no masses, no pulsatile masses. [] Skin: Warm, dry, no erythema, no rash. [] Back: No tenderness, no CVA tenderness. [] Extremities: No tenderness, no cyanosis, no clubbing, ROM intact, no edema. [] Neurologic: Alert, contracted extremities, groans when asked questions. [] Current Patient Data Vital Signs Vital Signs Date Time Temp Pulse Resp B/P (MAP) Pulse Ox O2 Delivery O2 Flow Rate FiO2 03/24/17 02:00 99 22 03/24/17 01:30 99 03/24/17 00:54 97.9 136/74 (94) Room Air 97.9 Lab Values Laboratory Tests Test 03/24/17 01:25 03/24/17 01:28 Urine Collection Type Unknown Urine Color Yellow Urine Clarity Cloudy Urine pH 6.5 Urine Specific [place] 1.010 Urine Protein Negative mg/dL (NEG-TRACE) Urine Glucose (UA) Negative mg/dL (NEG) Urine Ketones (Stick) Negative mg/dL (NEG) Urine Blood Moderate (NEG) Urine Nitrite Positive (NEG) Urine Bilirubin Negative (NEG) Urine Urobilinogen Dipstick 0.2 mg/dL (0.2 mg/dL) Urine Leukocyte Esterase Large (NEG) Urine RBC 11-20 /HPF (0-2) Urine WBC >40 /HPF (0-4) Urine Squamous Epithelial Cells Few /LPF Urine Bacteria Many /HPF (0-FEW) Urine Hyaline Casts Many /HPF Urine Yeast Present /HPF White Blood Count 6.7 x10^3/uL (4.0-11.0) Red Blood Count 4.01 x10^6/uL (3.50-5.40) Hemoglobin 12.8 g/dL (12.0-15.5) Hematocrit 39.1 % (36.0-47.0) Mean Corpuscular Volume 97 fL (79-100) Mean Corpuscular Hemoglobin 32 pg (25-35) Mean Corpuscular Hemoglobin Concent 33 g/dL (31-37) Red Cell Distribution Width 15.2 % (11.5-14.5) H Platelet Count 317 x10^3/uL (140-400) Neutrophils (%) (Auto) 46 % (31-73) Lymphocytes (%) (Auto) 46 % (24-48) Monocytes (%) (Auto) 6 % (0-9) Eosinophils (%) (Auto) 3 % (0-3) Basophils (%) (Auto) 1 % (0-3) Neutrophils # (Auto) 3.1 x10^3uL (1.8-7.7) Lymphocytes # (Auto) 3.0 x10^3/uL (1.0-4.8) Monocytes # (Auto) 0.4 x10^3/uL (0.0-1.1) Eosinophils # (Auto) 0.2 x10^3/uL (0.0-0.7) Basophils # (Auto) 0.0 x10^3/uL (0.0-0.2) Sodium Level 141 mmol/L (136-145) Potassium Level 3.9 mmol/L (3.5-5.1) Chloride Level 106 mmol/L (98-107) Carbon Dioxide Level 27 mmol/L (21-32) Anion Gap 8 (6-14) Blood Urea Nitrogen 13 mg/dL (7-20) Creatinine 1.4 mg/dL (0.6-1.0) H Estimated GFR (Cockcroft-Gault) 44.7 Glucose Level 133 mg/dL (70-99) H Calcium Level 8.6 mg/dL (8.5-10.1) Magnesium Level 1.8 mg/dL (1.8-2.4) Laboratory Tests 03/24/17 01:28 Laboratory Tests 03/24/17 01:28 EKG EKG Interpreted by me: Heart rate 100, sinus tachycardia, normal intervals, normal axis, no acute ST/T-wave abnormalities present[] Radiology/Procedures Radiology/Procedures One view AP chest x-ray interpreted by me: No infiltrates, no effusions, normal cardiac silhouette[] Course & Med Decision Making Course & Med Decision Making Pertinent Labs and Imaging studies reviewed. (See chart for details) Patient's blood work and x-ray showed no acute abnormalities, however patient does show an increase in white blood cells in her urine and shows positive nitrite and leukoesterase. Patient's vital signs have remained stable in the emergency Department patient currently in no acute distress. I spoke with Dr. Kirk who was on-call for Dr. Dahl. After discussion, he agreed with initiation of oral Vantin and transfer back to the patient's half-way. Patient will be transferred back by ground EMS with recommended follow-up in 2 days a primary doctor. [place] Disclaimer Dragon Disclaimer This electronic medical record was generated, in whole or in part, using a voice recognition dictation system. Departure Departure Impression: Primary Impression: Urinary tract infection Additional Impression: Dementia Disposition: 03 TRANSFER SNF Condition: STABLE Referrals: TEENA DAHL MD (PCP) Patient Instructions: Dementia, Urinary Tract Infection Additional Instructions: Follow-up he primary doctor in 2 days for reevaluation. Return to emergency department for any worsening symptoms. Scripts Cefpodoxime Proxetil (CEFPODOXIME PROXETIL) 200 Mg Tablet 1 TAB PO BID, #20 TAB Prov: RC BELL MD 03/24/17 Problem Qualifiers Primary Impression: Urinary tract infection Urinary tract infection type: catheter-associated UTI Indwelling urinary catheter type: indwelling urethral catheter Encounter type: initial encounter Qualified Codes: T83.511A - Infection and inflammatory reaction due to indwelling urethral catheter, initial encounter; N39.0 - Urinary tract infection, site not specified Additional Impression: Dementia Dementia type: unspecified type Dementia behavioral disturbance: without behavioral disturbance Qualified Codes: F03.90 - Unspecified dementia without behavioral disturbance RC BELL MD Mar 24, 2017 01:19
[2017-03-24 01:45] LABS: BILIRUBIN,URINE NEGATIVE (NEG); GLUCOSE,URINE NEGATIVE (NEG); NITRITE,URINE POSITIVE (NEG); PH,URINE 6.5; PROTEIN,URINE NEGATIVE (NEG-TRACE); UROBILINOGEN,URINE 0.2 mg/dL (0.2 mg/dL)
[2017-03-24 01:45] LABS: BASO % 1 % (0-3); EOS % 3 % (0-3); HEMATOCRIT 39.1 % (36.0-47.0); HEMOGLOBIN 12.8 g/dL (12.0-15.5); LYMPH % 46 % (24-48); MEAN CORPUSCULAR HEMOGLOBIN 32 pg (25-35); MEAN CORPUSCULAR HGB CONC 33 g/dL (31-37); MEAN CORPUSCULAR VOLUME 97 fL (79-100); MONO % 6 % (0-9); NEUT % 46 % (31-73); PLATELET COUNT 317 x10^3/uL (140-400); RED BLOOD COUNT 4.01 x10^6/uL (3.50-5.40); RED CELL DISTRIBUTION WIDTH 15.2 % (11.5-14.5); WHITE BLOOD COUNT 6.7 x10^3/uL (4.0-11.0)
[2017-03-24 01:48] LABS: CALCIUM 8.6 mg/dL (8.5-10.1); CREATININE 1.4 mg/dL (0.6-1.0); GFR 44.7; MAGNESIUM 1.8 mg/dL (1.8-2.4); POTASSIUM 3.9 mmol/L (3.5-5.1)
[2017-03-24 02:00] VITALS: BP 127/85
[2017-03-24 02:03] LABS: BACTERIA,URINE MANY /HPF (0-FEW); SQUAMOUS EPITHELIAL CELL,UR FEW /LPF; WBC,URINE >40 /HPF (0-4); YEAST,URINE PRESENT /HPF
[2017-03-24] MEDS ORDERED: CEFP200T PO (02:43)
--- NOTE | 2017-03-24 07:30 | RAD ---
Indication shortness of breath. A single view of the chest was obtained. Comparison is made to an exam 15 days earlier. The heart and pulmonary vessels appear normal. The lungs are clear. There is no pleural fluid or pneumothorax. IMPRESSION: No acute or focal process is seen in the chest.
--- NOTE | 2017-03-24 07:42 | EKG ---
[facility] [address] [place] [address] Test Date: 2017-03-24 Test Time: 00:58:22 Pat Name: KELSEY VARELA Department: Room: Gender: F Public Service Director: : 1945 Requested By: RC BELL Order Number: [id number] Reading MD: Measurements Intervals [place] Rate: 100 P: 57 VA: 144 QRS: 6 QRSD: 72 T: 14 QT: 356 QTc: 462 Interpretive Statements SINUS RHYTHM NORMAL ECG RI6.01 Unconfirmed report No previous ECG available for comparison
== END 2017-03-24 03:17 | disposition home or self-care (01) ==
LOC: ER 00:50
DX: F02.80 Dementia in other diseases classified elsewhere, unspecified severity, without behavioral disturbance, psychotic disturbance, mood disturbance, and anxiety (principal); N39.0 Urinary tract infection, site not specified; G30.9 Alzheimer's disease, unspecified; E78.00 Pure hypercholesterolemia, unspecified; K31.84 Gastroparesis; E11.43 Type 2 diabetes mellitus with diabetic autonomic (poly)neuropathy; K21.9 Gastro-esophageal reflux disease without esophagitis; J45.909 Unspecified asthma, uncomplicated; I73.9 Peripheral vascular disease, unspecified; F41.9 Anxiety disorder, unspecified; Z86.73 Personal history of transient ischemic attack (TIA), and cerebral infarction without residual deficits; Z90.710 Acquired absence of both cervix and uterus; Z88.0 Allergy status to penicillin
CPT/HCPCS: 36415; 71010; 80048; 81001; 83735; 85025; 87086; 87186; 93005; 99285-25

== ENCOUNTER 2017-07-09 19:14 | Inpatient (IN) | payer MEDICARE, OTHER ==
[2017-07-09 19:53] LABS: BILIRUBIN,URINE NEGATIVE (NEG); CLARITY,URINE TURBID; COLOR,URINE YELLOW; GLUCOSE,URINE NEGATIVE (NEG); NITRITE,URINE NEGATIVE (NEG); PH,URINE 8.5; PROTEIN,URINE 100 mg/dL (NEG-TRACE); UROBILINOGEN,URINE 0.2 mg/dL (0.2 mg/dL)
[2017-07-09 20:10] LABS: INFLUENZA A PATIENT NEGATIVE (NEGATIVE); INFLUENZA B PATIENT NEGATIVE (NEGATIVE); OBC FLU VALID
[2017-07-09 20:17] LABS: BACTERIA,URINE MANY /HPF (0-FEW); RBC,URINE 20-40 /HPF (0-2); WBC,URINE >40 /HPF (0-4)
[2017-07-09 20:18] LABS: SQUAMOUS EPITHELIAL CELL,UR MOD /LPF
[2017-07-09 20:21] LABS: ADD MAN DIFF? NO
[2017-07-09 20:24] LABS: BASO % 0 % (0-3); EOS % 0 % (0-3); HEMATOCRIT 35.8 % (36.0-47.0); HEMOGLOBIN 12.2 g/dL (12.0-15.5); LYMPH # 1.5 x10^3/uL (1.0-4.8); LYMPH % 11 % (24-48); MEAN CORPUSCULAR HEMOGLOBIN 31 pg (25-35); MEAN CORPUSCULAR HGB CONC 34 g/dL (31-37); MEAN CORPUSCULAR VOLUME 91 fL (79-100); MONO # 0.7 x10^3/uL (0.0-1.1); MONO % 5 % (0-9); NEUT # 10.8 x10^3uL (1.8-7.7); NEUT % 83 % (31-73); PLATELET COUNT 227 x10^3/uL (140-400); RED BLOOD COUNT 3.94 x10^6/uL (3.50-5.40); RED CELL DISTRIBUTION WIDTH 16.1 % (11.5-14.5)
[2017-07-09 20:41] LABS: ANION GAP 11 (6-14); BLOOD UREA NITROGEN 28 mg/dL (7-20); BUN/CREATININE RATIO 12 (6-20); CALCIUM 9.1 mg/dL (8.5-10.1); CARBON DIOXIDE 25 mmol/L (21-32); CHLORIDE 103 mmol/L (98-107); CREATININE 2.4 mg/dL (0.6-1.0); GLUCOSE 220 mg/dL (70-99); POTASSIUM 4.1 mmol/L (3.5-5.1); SODIUM 139 mmol/L (136-145)
[2017-07-09 20:46] LABS: ALBUMIN 2.5 g/dL (3.4-5.0); ALBUMIN/GLOBULIN RATIO 0.5 (1.0-1.7); ALK PHOS 86 U/L (46-116); ALT (SGPT) 20 U/L (14-59); AST (SGOT) 23 U/L (15-37); TOTAL BILIRUBIN 0.6 mg/dL (0.2-1.0); TOTAL PROTEIN 7.7 g/dL (6.4-8.2)
[2017-07-09 20:47] LABS: LACTIC ACID 1.8 mmol/L (0.4-2.0)
[2017-07-09] MEDS ORDERED: ONDANSETRON PF 4 MG/2 ML VIAL. IV (21:00)
[2017-07-09] MEDS: IV NORMAL SALINE 1000ML BAG 1,000 ML IV (21:14)
[2017-07-10] MEDS: ACETAMINOPHEN 325 MG TABLET. PO ×2 (04:12→22:40)
[2017-07-10] MEDS: IV NORMAL SALINE 1000ML BAG 1,000 ML IV ×2 (05:40→09:11)
[2017-07-10 05:41] LABS: BASO % 0 % (0-3); EOS # 0.1 x10^3/uL (0.0-0.7); EOS % 0 % (0-3); HEMATOCRIT 25.1 % (36.0-47.0); HEMOGLOBIN 8.5 g/dL (12.0-15.5); LYMPH # 1.6 x10^3/uL (1.0-4.8); LYMPH % 10 % (24-48); MEAN CORPUSCULAR HEMOGLOBIN 31 pg (25-35); MEAN CORPUSCULAR HGB CONC 34 g/dL (31-37); MEAN CORPUSCULAR VOLUME 92 fL (79-100); MONO # 1.2 x10^3/uL (0.0-1.1); MONO % 8 % (0-9); NEUT # 12.6 x10^3uL (1.8-7.7); NEUT % 82 % (31-73); PLATELET COUNT 243 x10^3/uL (140-400); RED BLOOD COUNT 2.73 x10^6/uL (3.50-5.40); WHITE BLOOD COUNT 15.4 x10^3/uL (4.0-11.0)
[2017-07-10 05:53] LABS: ADD MAN DIFF? YES
[2017-07-10 06:04] LABS: ALBUMIN 2.3 g/dL (3.4-5.0); ALBUMIN/GLOBULIN RATIO 0.5 (1.0-1.7); ALK PHOS 77 U/L (46-116); ALT (SGPT) 19 U/L (14-59); ANION GAP 10 (6-14); AST (SGOT) 26 U/L (15-37); BLOOD UREA NITROGEN 27 mg/dL (7-20); BUN/CREATININE RATIO 12 (6-20); CALCIUM 8.9 mg/dL (8.5-10.1); CARBON DIOXIDE 23 mmol/L (21-32); CHLORIDE 106 mmol/L (98-107); CREATININE 2.3 mg/dL (0.6-1.0); GFR 25.2; GLUCOSE 155 mg/dL (70-99); SODIUM 139 mmol/L (136-145); TOTAL BILIRUBIN 0.6 mg/dL (0.2-1.0); TOTAL PROTEIN 7.2 g/dL (6.4-8.2)
[2017-07-10 07:29] LABS: POC GLUCOSE 126 mg/dL (70-99)
[2017-07-10 08:11] LABS: % LYMPHS 8 % (24-48); % MONOS 3 % (0-10); % SEGS 89 % (35-66)
[2017-07-10 08:12] LABS: ANISOCYTOSIS SLIGHT; PLT ESTIMATE ADEQUATE (ADEQUATE)
[2017-07-10] MEDS: DICLOFENAC SODIUM 1% TOPICAL GEL 100GM TUBE. TP ×4 (09:15→21:00)
[2017-07-10] MEDS ORDERED: MAGNESIUM HYDROXIDE 2,400 MG/30 ML ORAL.SUSP. PO (09:15)
[2017-07-10] MEDS: IPRATRPIUM/ALBUTEROL 0.5/2.5MG 3 ML NEBU. NEB ×4 (09:15→19:51)
[2017-07-10] MEDS ORDERED: ACETAMINOPHEN PO (09:15)
[2017-07-10] MEDS ORDERED: ONDANSETRON ODT 4 MG TAB.RAPDIS. PO (09:15)
[2017-07-10] MEDS ORDERED: oxyCODONE IR 5 MG TABLET PO (09:30)
[2017-07-10] MEDS: CHOLECALCIFEROL (VITAMIN D3) 1,000 UNIT TABLET PO (10:26)
[2017-07-10] MEDS: CLOPIDOGREL BISULFATE 75 MG TABLET PO (10:26)
[2017-07-10] MEDS: NYSTATIN TOPICAL POWDER 15GM BOTTLE. TP ×2 (10:27→22:03)
[2017-07-10] MEDS: SENNOSIDES/DOCUSATE 8.6/50MG TABLET. PO (10:27)
[2017-07-10] MEDS: MULTIVITAMIN with MINERAL TABLET. PO (10:27)
[2017-07-10] MEDS: POLYETHYLENE GLYCOL 3350 17 GM PACKET. PO (10:27)
[2017-07-10] MEDS: MAGNESIUM OXIDE 400 MG TABLET PO ×2 (10:27→21:59)
[2017-07-10] MEDS: ASPIRIN ENTERIC COATED 81 MG TABLET.DR. PO (10:27)
[2017-07-10 11:04] LABS: POC GLUCOSE 86 mg/dL (70-99)
[2017-07-10] MEDS: HEPARIN PF for SUB-Q USE 5,000 UNIT/0.5 ML VIAL. SQ ×2 (11:59→22:04)
[2017-07-10] MEDS: MEROPENEM IV Push 500 MG VIAL. IVP ×2 (15:11→22:43)
[2017-07-10 17:00] LABS: POC GLUCOSE 99 mg/dL (70-99)
[2017-07-10 19:26] LABS: POC GLUCOSE 49 mg/dL (70-99)
[2017-07-10] MEDS ORDERED: cefTRIAXone IV Push 1 GM VIAL. IVP (21:00)
[2017-07-10] MEDS ORDERED: MEROPENEM 500 MG in IV NORMAL SALINE 50ML 50 ML IV (21:00)
[2017-07-10 21:33] LABS: POC GLUCOSE 131 mg/dL (70-99)
[2017-07-10] MEDS: LACTOBACILLUS RHAMNOSUS GG 1 CAPSULE. PO (21:58)
[2017-07-10] MEDS: DONEPEZIL HCL 10 MG TABLET. PO (21:58)
[2017-07-10] MEDS: FAMOTIDINE 20 MG TABLET. PO (21:59)
[2017-07-10] MEDS: SIMVASTATIN 20 MG TABLET PO (21:59)
[2017-07-10 23:08] LABS: MRSA BY PCR Positive (Negative)
[2017-07-11 04:41] LABS: ADD MAN DIFF? NO
[2017-07-11 04:55] LABS: BASO % 0 % (0-3); EOS # 0.1 x10^3/uL (0.0-0.7); EOS % 1 % (0-3); HEMATOCRIT 32.7 % (36.0-47.0); LYMPH # 1.9 x10^3/uL (1.0-4.8); LYMPH % 18 % (24-48); MEAN CORPUSCULAR HEMOGLOBIN 31 pg (25-35); MEAN CORPUSCULAR HGB CONC 34 g/dL (31-37); MEAN CORPUSCULAR VOLUME 92 fL (79-100); MONO # 0.8 x10^3/uL (0.0-1.1); MONO % 8 % (0-9); NEUT # 7.6 x10^3uL (1.8-7.7); NEUT % 73 % (31-73); PLATELET COUNT 209 x10^3/uL (140-400); RED BLOOD COUNT 3.56 x10^6/uL (3.50-5.40); WHITE BLOOD COUNT 10.4 x10^3/uL (4.0-11.0)
[2017-07-11 05:12] LABS: ALBUMIN 2.2 g/dL (3.4-5.0); ALBUMIN/GLOBULIN RATIO 0.4 (1.0-1.7); ALK PHOS 92 U/L (46-116); ALT (SGPT) 25 U/L (14-59); ANION GAP 10 (6-14); AST (SGOT) 31 U/L (15-37); BLOOD UREA NITROGEN 25 mg/dL (7-20); BUN/CREATININE RATIO 11 (6-20); CALCIUM 9.5 mg/dL (8.5-10.1); CARBON DIOXIDE 26 mmol/L (21-32); CHLORIDE 108 mmol/L (98-107); CREATININE 2.2 mg/dL (0.6-1.0); GFR 26.5; GLUCOSE 144 mg/dL (70-99); POTASSIUM 4.3 mmol/L (3.5-5.1); SODIUM 144 mmol/L (136-145); TOTAL BILIRUBIN 0.6 mg/dL (0.2-1.0); TOTAL PROTEIN 7.1 g/dL (6.4-8.2)
[2017-07-11] MEDS: HEPARIN PF for SUB-Q USE 5,000 UNIT/0.5 ML VIAL. SQ ×3 (05:45→21:38)
[2017-07-11] MEDS: IPRATRPIUM/ALBUTEROL 0.5/2.5MG 3 ML NEBU. NEB ×4 (07:23→18:35)
[2017-07-11 08:12] LABS: POC GLUCOSE 130 mg/dL (70-99)
[2017-07-11] MEDS: DICLOFENAC SODIUM 1% TOPICAL GEL 100GM TUBE. TP ×4 (09:00→21:00)
[2017-07-11] MEDS: CLOPIDOGREL BISULFATE 75 MG TABLET PO (09:32)
[2017-07-11] MEDS: POLYETHYLENE GLYCOL 3350 17 GM PACKET. PO (09:32)
[2017-07-11] MEDS: MEROPENEM IV Push 500 MG VIAL. IVP ×2 (09:32→21:42)
[2017-07-11] MEDS: CHOLECALCIFEROL (VITAMIN D3) 1,000 UNIT TABLET PO (09:32)
[2017-07-11] MEDS: NYSTATIN TOPICAL POWDER 15GM BOTTLE. TP ×2 (09:32→21:37)
[2017-07-11] MEDS: ASPIRIN ENTERIC COATED 81 MG TABLET.DR. PO (09:32)
[2017-07-11] MEDS: MAGNESIUM OXIDE 400 MG TABLET PO ×2 (09:33→21:35)
[2017-07-11] MEDS: MULTIVITAMIN with MINERAL TABLET. PO (09:33)
[2017-07-11] MEDS: LACTOBACILLUS RHAMNOSUS GG 1 CAPSULE. PO ×2 (09:33→21:35)
[2017-07-11] MEDS: SENNOSIDES/DOCUSATE 8.6/50MG TABLET. PO (09:33)
[2017-07-11 11:28] LABS: POC GLUCOSE 129 mg/dL (70-99)
[2017-07-11 16:38] LABS: POC GLUCOSE 129 mg/dL (70-99)
[2017-07-11 20:23] LABS: POC GLUCOSE 110 mg/dL (70-99)
[2017-07-11] MEDS: DONEPEZIL HCL 10 MG TABLET. PO (21:35)
[2017-07-11] MEDS: FAMOTIDINE 20 MG TABLET. PO (21:35)
[2017-07-11] MEDS: SIMVASTATIN 20 MG TABLET PO (21:35)
[2017-07-11] MEDS: ACETAMINOPHEN 325 MG TABLET. PO (21:46)
[2017-07-12 05:39] LABS: ADD MAN DIFF? NO
[2017-07-12 05:46] LABS: BASO % 0 % (0-3); EOS # 0.2 x10^3/uL (0.0-0.7); EOS % 3 % (0-3); HEMATOCRIT 34.6 % (36.0-47.0); HEMOGLOBIN 11.6 g/dL (12.0-15.5); LYMPH # 2.2 x10^3/uL (1.0-4.8); LYMPH % 25 % (24-48); MEAN CORPUSCULAR HEMOGLOBIN 30 pg (25-35); MEAN CORPUSCULAR HGB CONC 34 g/dL (31-37); MEAN CORPUSCULAR VOLUME 91 fL (79-100); MONO # 0.8 x10^3/uL (0.0-1.1); MONO % 9 % (0-9); NEUT # 5.5 x10^3uL (1.8-7.7); NEUT % 63 % (31-73); PLATELET COUNT 276 x10^3/uL (140-400); RED BLOOD COUNT 3.81 x10^6/uL (3.50-5.40); WHITE BLOOD COUNT 8.8 x10^3/uL (4.0-11.0)
[2017-07-12] MEDS: HEPARIN PF for SUB-Q USE 5,000 UNIT/0.5 ML VIAL. SQ ×3 (05:46→23:15)
[2017-07-12 06:14] LABS: ALBUMIN 2.5 g/dL (3.4-5.0); ALBUMIN/GLOBULIN RATIO 0.5 (1.0-1.7); ALK PHOS 101 U/L (46-116); ALT (SGPT) 29 U/L (14-59); ANION GAP 10 (6-14); AST (SGOT) 26 U/L (15-37); BLOOD UREA NITROGEN 24 mg/dL (7-20); BUN/CREATININE RATIO 12 (6-20); CALCIUM 9.3 mg/dL (8.5-10.1); CARBON DIOXIDE 28 mmol/L (21-32); CHLORIDE 104 mmol/L (98-107); GFR 29.6; GLUCOSE 104 mg/dL (70-99); POTASSIUM 4.4 mmol/L (3.5-5.1); SODIUM 142 mmol/L (136-145); TOTAL BILIRUBIN 0.5 mg/dL (0.2-1.0); TOTAL PROTEIN 7.9 g/dL (6.4-8.2)
[2017-07-12] MEDS: IPRATRPIUM/ALBUTEROL 0.5/2.5MG 3 ML NEBU. NEB ×4 (07:08→19:22)
[2017-07-12 07:28] LABS: POC GLUCOSE 89 mg/dL (70-99)
[2017-07-12] MEDS: DICLOFENAC SODIUM 1% TOPICAL GEL 100GM TUBE. TP ×4 (09:00→21:00)
[2017-07-12] MEDS: ASPIRIN ENTERIC COATED 81 MG TABLET.DR. PO (09:13)
[2017-07-12] MEDS: MAGNESIUM OXIDE 400 MG TABLET PO ×2 (09:13→22:07)
[2017-07-12] MEDS: SENNOSIDES/DOCUSATE 8.6/50MG TABLET. PO (09:13)
[2017-07-12] MEDS: POLYETHYLENE GLYCOL 3350 17 GM PACKET. PO (09:13)
[2017-07-12] MEDS: MULTIVITAMIN with MINERAL TABLET. PO (09:13)
[2017-07-12] MEDS: LACTOBACILLUS RHAMNOSUS GG 1 CAPSULE. PO ×2 (09:13→22:07)
[2017-07-12] MEDS: CHOLECALCIFEROL (VITAMIN D3) 1,000 UNIT TABLET PO (09:13)
[2017-07-12] MEDS: CLOPIDOGREL BISULFATE 75 MG TABLET PO (09:13)
[2017-07-12] MEDS: NYSTATIN TOPICAL POWDER 15GM BOTTLE. TP ×2 (09:14→22:09)
[2017-07-12] MEDS: MEROPENEM IV Push 500 MG VIAL. IVP ×2 (10:28→22:08)
[2017-07-12 11:15] LABS: POC GLUCOSE 126 mg/dL (70-99)
[2017-07-12 15:21] LABS: BILIRUBIN,URINE NEGATIVE (NEG); CLARITY,URINE CLOUDY; COLOR,URINE YELLOW; GLUCOSE,URINE NEGATIVE (NEG); NITRITE,URINE NEGATIVE (NEG); PH,URINE 7.5; PROTEIN,URINE NEGATIVE (NEG-TRACE); UROBILINOGEN,URINE 0.2 mg/dL (0.2 mg/dL)
[2017-07-12 15:31] LABS: RBC,URINE 0 /HPF (0-2); WBC,URINE TNTC /HPF (0-4)
[2017-07-12 15:32] LABS: BACTERIA,URINE FEW /HPF (0-FEW); SQUAMOUS EPITHELIAL CELL,UR MANY /LPF
[2017-07-12 20:32] LABS: POC GLUCOSE 119 mg/dL (70-99)
[2017-07-12] MEDS: SIMVASTATIN 20 MG TABLET PO (22:07)
[2017-07-12] MEDS: FAMOTIDINE 20 MG TABLET. PO (22:07)
[2017-07-12] MEDS: ACETAMINOPHEN 325 MG TABLET. PO (22:07)
[2017-07-12] MEDS: DONEPEZIL HCL 10 MG TABLET. PO (22:07)
[2017-07-13 05:25] LABS: ADD MAN DIFF? NO
[2017-07-13] MEDS: HEPARIN PF for SUB-Q USE 5,000 UNIT/0.5 ML VIAL. SQ ×3 (05:29→21:34)
[2017-07-13 06:02] LABS: BASO % 0 % (0-3); EOS # 0.4 x10^3/uL (0.0-0.7); EOS % 4 % (0-3); HEMATOCRIT 34.7 % (36.0-47.0); HEMOGLOBIN 11.5 g/dL (12.0-15.5); LYMPH # 2.8 x10^3/uL (1.0-4.8); LYMPH % 27 % (24-48); MEAN CORPUSCULAR HEMOGLOBIN 30 pg (25-35); MEAN CORPUSCULAR HGB CONC 33 g/dL (31-37); MEAN CORPUSCULAR VOLUME 91 fL (79-100); MONO # 0.7 x10^3/uL (0.0-1.1); MONO % 7 % (0-9); NEUT # 6.2 x10^3uL (1.8-7.7); NEUT % 61 % (31-73); PLATELET COUNT 259 x10^3/uL (140-400); RED BLOOD COUNT 3.81 x10^6/uL (3.50-5.40); RED CELL DISTRIBUTION WIDTH 16.3 % (11.5-14.5); WHITE BLOOD COUNT 10.1 x10^3/uL (4.0-11.0)
[2017-07-13 06:05] LABS: ALBUMIN 2.3 g/dL (3.4-5.0); ALBUMIN/GLOBULIN RATIO 0.4 (1.0-1.7); ALK PHOS 100 U/L (46-116); ALT (SGPT) 25 U/L (14-59); ANION GAP 10 (6-14); AST (SGOT) 29 U/L (15-37); BLOOD UREA NITROGEN 25 mg/dL (7-20); BUN/CREATININE RATIO 13 (6-20); CALCIUM 9.2 mg/dL (8.5-10.1); CARBON DIOXIDE 25 mmol/L (21-32); CHLORIDE 103 mmol/L (98-107); CREATININE 1.9 mg/dL (0.6-1.0); GFR 31.4; GLUCOSE 118 mg/dL (70-99); POTASSIUM 4.1 mmol/L (3.5-5.1); SODIUM 138 mmol/L (136-145); TOTAL BILIRUBIN 0.4 mg/dL (0.2-1.0); TOTAL PROTEIN 7.6 g/dL (6.4-8.2)
[2017-07-13] MEDS: IPRATRPIUM/ALBUTEROL 0.5/2.5MG 3 ML NEBU. NEB ×4 (07:24→19:26)
[2017-07-13 08:09] LABS: POC GLUCOSE 116 mg/dL (70-99)
[2017-07-13] MEDS: DICLOFENAC SODIUM 1% TOPICAL GEL 100GM TUBE. TP ×4 (09:00→21:00)
[2017-07-13] MEDS: POLYETHYLENE GLYCOL 3350 17 GM PACKET. PO (09:07)
[2017-07-13] MEDS: MEROPENEM IV Push 500 MG VIAL. IVP ×3 (09:07→21:33)
[2017-07-13] MEDS: CLOPIDOGREL BISULFATE 75 MG TABLET PO (09:07)
[2017-07-13] MEDS: LACTOBACILLUS RHAMNOSUS GG 1 CAPSULE. PO ×2 (09:07→21:30)
[2017-07-13] MEDS: CHOLECALCIFEROL (VITAMIN D3) 1,000 UNIT TABLET PO (09:07)
[2017-07-13] MEDS: MAGNESIUM OXIDE 400 MG TABLET PO ×2 (09:07→21:30)
[2017-07-13] MEDS: MULTIVITAMIN with MINERAL TABLET. PO (09:07)
[2017-07-13] MEDS: SENNOSIDES/DOCUSATE 8.6/50MG TABLET. PO (09:07)
[2017-07-13] MEDS: ASPIRIN ENTERIC COATED 81 MG TABLET.DR. PO (09:07)
[2017-07-13] MEDS: NYSTATIN TOPICAL POWDER 15GM BOTTLE. TP ×2 (09:08→21:32)
[2017-07-13 11:16] LABS: POC GLUCOSE 126 mg/dL (70-99)
[2017-07-13 17:10] LABS: POC GLUCOSE 117 mg/dL (70-99)
[2017-07-13] MEDS: ACETAMINOPHEN 325 MG TABLET. PO (21:30)
[2017-07-13] MEDS: DONEPEZIL HCL 10 MG TABLET. PO (21:30)
[2017-07-13] MEDS: SIMVASTATIN 20 MG TABLET PO (21:30)
[2017-07-13] MEDS: FAMOTIDINE 20 MG TABLET. PO (21:31)
[2017-07-13 21:52] LABS: POC GLUCOSE 103 mg/dL (70-99)
[2017-07-14] MEDS: HEPARIN PF for SUB-Q USE 5,000 UNIT/0.5 ML VIAL. SQ ×3 (06:06→21:10)
[2017-07-14 06:08] LABS: ADD MAN DIFF? NO
[2017-07-14 06:24] LABS: BASO # 0.1 x10^3/uL (0.0-0.2); BASO % 1 % (0-3); EOS # 0.3 x10^3/uL (0.0-0.7); EOS % 3 % (0-3); HEMATOCRIT 34.4 % (36.0-47.0); HEMOGLOBIN 11.4 g/dL (12.0-15.5); LYMPH # 2.4 x10^3/uL (1.0-4.8); LYMPH % 25 % (24-48); MEAN CORPUSCULAR HEMOGLOBIN 30 pg (25-35); MEAN CORPUSCULAR HGB CONC 33 g/dL (31-37); MEAN CORPUSCULAR VOLUME 90 fL (79-100); MONO # 0.7 x10^3/uL (0.0-1.1); MONO % 7 % (0-9); NEUT % 64 % (31-73); PLATELET COUNT 294 x10^3/uL (140-400); RED BLOOD COUNT 3.84 x10^6/uL (3.50-5.40); RED CELL DISTRIBUTION WIDTH 16.1 % (11.5-14.5); WHITE BLOOD COUNT 9.3 x10^3/uL (4.0-11.0)
[2017-07-14 06:45] LABS: ALBUMIN 2.4 g/dL (3.4-5.0); ALBUMIN/GLOBULIN RATIO 0.4 (1.0-1.7); ALK PHOS 96 U/L (46-116); ALT (SGPT) 29 U/L (14-59); ANION GAP 10 (6-14); AST (SGOT) 30 U/L (15-37); BLOOD UREA NITROGEN 25 mg/dL (7-20); BUN/CREATININE RATIO 13 (6-20); CALCIUM 9.4 mg/dL (8.5-10.1); CARBON DIOXIDE 26 mmol/L (21-32); CHLORIDE 103 mmol/L (98-107); CREATININE 1.9 mg/dL (0.6-1.0); GFR 31.4; GLUCOSE 120 mg/dL (70-99); POTASSIUM 3.7 mmol/L (3.5-5.1); SODIUM 139 mmol/L (136-145); TOTAL BILIRUBIN 0.4 mg/dL (0.2-1.0); TOTAL PROTEIN 7.9 g/dL (6.4-8.2)
[2017-07-14] MEDS: IPRATRPIUM/ALBUTEROL 0.5/2.5MG 3 ML NEBU. NEB ×4 (07:09→19:34)
[2017-07-14 07:50] LABS: POC GLUCOSE 122 mg/dL (70-99)
[2017-07-14] MEDS: DICLOFENAC SODIUM 1% TOPICAL GEL 100GM TUBE. TP ×4 (09:00→21:00)
[2017-07-14] MEDS: SENNOSIDES/DOCUSATE 8.6/50MG TABLET. PO (09:55)
[2017-07-14] MEDS: CHOLECALCIFEROL (VITAMIN D3) 1,000 UNIT TABLET PO (09:55)
[2017-07-14] MEDS: CLOPIDOGREL BISULFATE 75 MG TABLET PO (09:55)
[2017-07-14] MEDS: MULTIVITAMIN with MINERAL TABLET. PO (09:55)
[2017-07-14] MEDS: MEROPENEM IV Push 500 MG VIAL. IVP ×3 (09:55→21:00)
[2017-07-14] MEDS: POLYETHYLENE GLYCOL 3350 17 GM PACKET. PO (09:55)
[2017-07-14] MEDS: MAGNESIUM OXIDE 400 MG TABLET PO ×2 (09:55→21:00)
[2017-07-14] MEDS: LACTOBACILLUS RHAMNOSUS GG 1 CAPSULE. PO ×2 (09:55→21:00)
[2017-07-14] MEDS: ASPIRIN ENTERIC COATED 81 MG TABLET.DR. PO (09:55)
[2017-07-14] MEDS: NYSTATIN TOPICAL POWDER 15GM BOTTLE. TP ×2 (09:56→21:00)
[2017-07-14 11:44] LABS: POC GLUCOSE 144 mg/dL (70-99)
[2017-07-14 16:37] LABS: POC GLUCOSE 131 mg/dL (70-99)
[2017-07-14] MEDS: SIMVASTATIN 20 MG TABLET PO (21:00)
[2017-07-14] MEDS: DONEPEZIL HCL 10 MG TABLET. PO (21:00)
[2017-07-14] MEDS: FAMOTIDINE 20 MG TABLET. PO (21:00)
[2017-07-14 21:47] LABS: POC GLUCOSE 131 mg/dL (70-99)
[2017-07-14 21:47] LABS: POC GLUCOSE 112 mg/dL (70-99)
[2017-07-15] MEDS: HEPARIN PF for SUB-Q USE 5,000 UNIT/0.5 ML VIAL. SQ ×2 (05:57→14:16)
[2017-07-15 06:05] LABS: ADD MAN DIFF? NO; BASO # 0.1 x10^3/uL (0.0-0.2); BASO % 1 % (0-3); EOS # 0.2 x10^3/uL (0.0-0.7); EOS % 3 % (0-3); HEMOGLOBIN 11.9 g/dL (12.0-15.5); LYMPH # 2.2 x10^3/uL (1.0-4.8); LYMPH % 25 % (24-48); MEAN CORPUSCULAR HEMOGLOBIN 31 pg (25-35); MEAN CORPUSCULAR HGB CONC 34 g/dL (31-37); MEAN CORPUSCULAR VOLUME 90 fL (79-100); MONO # 0.8 x10^3/uL (0.0-1.1); MONO % 10 % (0-9); NEUT # 5.4 x10^3uL (1.8-7.7); NEUT % 62 % (31-73); PLATELET COUNT 321 x10^3/uL (140-400); RED BLOOD COUNT 3.88 x10^6/uL (3.50-5.40); RED CELL DISTRIBUTION WIDTH 16.2 % (11.5-14.5); WHITE BLOOD COUNT 8.7 x10^3/uL (4.0-11.0)
[2017-07-15 06:37] LABS: ALBUMIN 2.3 g/dL (3.4-5.0); ALBUMIN/GLOBULIN RATIO 0.4 (1.0-1.7); ALK PHOS 84 U/L (46-116); ALT (SGPT) 39 U/L (14-59); ANION GAP 8 (6-14); AST (SGOT) 37 U/L (15-37); BLOOD UREA NITROGEN 25 mg/dL (7-20); BUN/CREATININE RATIO 12 (6-20); CALCIUM 9.1 mg/dL (8.5-10.1); CARBON DIOXIDE 29 mmol/L (21-32); CHLORIDE 101 mmol/L (98-107); CREATININE 2.1 mg/dL (0.6-1.0); GLUCOSE 115 mg/dL (70-99); POTASSIUM 4.1 mmol/L (3.5-5.1); SODIUM 138 mmol/L (136-145); TOTAL BILIRUBIN 0.3 mg/dL (0.2-1.0); TOTAL PROTEIN 7.7 g/dL (6.4-8.2)
[2017-07-15 07:49] LABS: POC GLUCOSE 135 mg/dL (70-99)
[2017-07-15] MEDS: IPRATRPIUM/ALBUTEROL 0.5/2.5MG 3 ML NEBU. NEB ×3 (07:50→15:08)
[2017-07-15] MEDS: MAGNESIUM OXIDE 400 MG TABLET PO (09:41)
[2017-07-15] MEDS: MEROPENEM IV Push 500 MG VIAL. IVP (09:41)
[2017-07-15] MEDS: CLOPIDOGREL BISULFATE 75 MG TABLET PO (09:41)
[2017-07-15] MEDS: ASPIRIN ENTERIC COATED 81 MG TABLET.DR. PO (09:41)
[2017-07-15] MEDS: LACTOBACILLUS RHAMNOSUS GG 1 CAPSULE. PO (09:41)
[2017-07-15] MEDS: SENNOSIDES/DOCUSATE 8.6/50MG TABLET. PO (09:41)
[2017-07-15] MEDS: POLYETHYLENE GLYCOL 3350 17 GM PACKET. PO (09:41)
[2017-07-15] MEDS: NYSTATIN TOPICAL POWDER 15GM BOTTLE. TP (09:42)
[2017-07-15] MEDS: MULTIVITAMIN with MINERAL TABLET. PO (09:42)
[2017-07-15] MEDS: CHOLECALCIFEROL (VITAMIN D3) 1,000 UNIT TABLET PO (09:42)
[2017-07-15] MEDS: DICLOFENAC SODIUM 1% TOPICAL GEL 100GM TUBE. TP ×2 (09:42→12:23)
[2017-07-15 11:50] LABS: POC GLUCOSE 133 mg/dL (70-99)
[2017-07-15] MEDS: FLUCONAZOLE 100 MG TABLET. PEG (12:22)
== END 2017-07-15 16:51 | DRG 682 ==
LOC: ER 19:14 → 5 SOUTH 20:52
PROC: 5A09357 Assistance with Respiratory Ventilation, Less than 24 Consecutive Hours, Continuous Positive Airway Pressure (ICD-10-PCS; principal; 2017-07-10)
DX: N17.9 Acute kidney failure, unspecified (principal); G93.41 Metabolic encephalopathy; E44.0 Moderate protein-calorie malnutrition; E11.22 Type 2 diabetes mellitus with diabetic chronic kidney disease; K31.84 Gastroparesis; E11.43 Type 2 diabetes mellitus with diabetic autonomic (poly)neuropathy; E87.1 Hypo-osmolality and hyponatremia; E11.51 Type 2 diabetes mellitus with diabetic peripheral angiopathy without gangrene; N39.0 Urinary tract infection, site not specified; F01.51 Vascular dementia, unspecified severity, with behavioral disturbance; I69.351 Hemiplegia and hemiparesis following cerebral infarction affecting right dominant side; E78.5 Hyperlipidemia, unspecified; E86.0 Dehydration; F32.9 Major depressive disorder, single episode, unspecified; F41.9 Anxiety disorder, unspecified; G89.29 Other chronic pain; I12.9 Hypertensive chronic kidney disease with stage 1 through stage 4 chronic kidney disease, or unspecified chronic kidney disease; K21.9 Gastro-esophageal reflux disease without esophagitis; K59.00 Constipation, unspecified; M79.7 Fibromyalgia; N18.3 Chronic kidney disease, stage 3 (moderate); Z87.440 Personal history of urinary (tract) infections; Z87.891 Personal history of nicotine dependence; Z90.710 Acquired absence of both cervix and uterus; Z93.1 Gastrostomy status; M21.371 Foot drop, right foot; G30.9 Alzheimer's disease, unspecified; F02.80 Dementia in other diseases classified elsewhere, unspecified severity, without behavioral disturbance, psychotic disturbance, mood disturbance, and anxiety; Z68.29 Body mass index [BMI] 29.0-29.9, adult; R13.10 Dysphagia, unspecified
CPT/HCPCS: 36415; 71045; 80053; 81001; 82962; 83605; 85007; 85025; 87040; 87086; 87641; 87804; 87804-59; 94640; 94660; 94760; 96365; 99285; 99285-25; J0690; J2185; J7030; J7620

== ENCOUNTER 2017-07-19 19:39 | Inpatient (IN) | payer MEDICARE, OTHER ==
[2017-07-19] MEDS: IV NORMAL SALINE 1000ML BAG 1,000 ML IV ×2 (20:40→21:52)
[2017-07-19 20:44] LABS: BILIRUBIN,URINE NEGATIVE (NEG); CLARITY,URINE CLEAR; COLOR,URINE YELLOW; GLUCOSE,URINE NEGATIVE (NEG); NITRITE,URINE NEGATIVE (NEG); PROTEIN,URINE 100 mg/dL (NEG-TRACE)
[2017-07-19] MEDS: ACETAMINOPHEN 325 MG TABLET. PO (20:45)
[2017-07-19 20:54] LABS: BASO % 0 % (0-3); EOS # 0.1 x10^3/uL (0.0-0.7); EOS % 1 % (0-3); HEMATOCRIT 34.6 % (36.0-47.0); HEMOGLOBIN 11.7 g/dL (12.0-15.5); LYMPH # 0.7 x10^3/uL (1.0-4.8); LYMPH % 6 % (24-48); MEAN CORPUSCULAR HEMOGLOBIN 30 pg (25-35); MEAN CORPUSCULAR HGB CONC 34 g/dL (31-37); MEAN CORPUSCULAR VOLUME 89 fL (79-100); MONO # 0.5 x10^3/uL (0.0-1.1); MONO % 4 % (0-9); NEUT # 9.8 x10^3uL (1.8-7.7); NEUT % 89 % (31-73); PLATELET COUNT 426 x10^3/uL (140-400); RED BLOOD COUNT 3.88 x10^6/uL (3.50-5.40); RED CELL DISTRIBUTION WIDTH 16.4 % (11.5-14.5)
[2017-07-19 20:59] LABS: ANION GAP 11 (6-14); BLOOD UREA NITROGEN 21 mg/dL (7-20); BUN/CREATININE RATIO 10 (6-20); CALCIUM 9.2 mg/dL (8.5-10.1); CARBON DIOXIDE 28 mmol/L (21-32); CHLORIDE 100 mmol/L (98-107); CREATININE 2.1 mg/dL (0.6-1.0); GLUCOSE 175 mg/dL (70-99); POTASSIUM 4.3 mmol/L (3.5-5.1); SODIUM 139 mmol/L (136-145)
[2017-07-19 21:00] LABS: ADD MAN DIFF? YES; INR 1.3 (0.8-1.1); PARTIAL THROMBOPLASTIN TIME 35 SEC (24-38)
[2017-07-19 21:06] LABS: LACTIC ACID 1.4 mmol/L (0.4-2.0)
[2017-07-19 21:08] LABS: TROPONINI < 0.017 ng/mL (0.000-0.055)
[2017-07-19 21:10] LABS: NT-PRO BNP 731 pg/mL (0-124)
[2017-07-19 21:11] LABS: INFLUENZA A PATIENT NEGATIVE (NEGATIVE); INFLUENZA B PATIENT NEGATIVE (NEGATIVE); OBC FLU VALID
[2017-07-19 21:13] LABS: ALBUMIN 2.9 g/dL (3.4-5.0); ALBUMIN/GLOBULIN RATIO 0.5 (1.0-1.7); ALK PHOS 91 U/L (46-116); ALT (SGPT) 38 U/L (14-59); AST (SGOT) 32 U/L (15-37); BACTERIA,URINE MODERATE /HPF (0-FEW); LIPASE 142 U/L (73-393); MAGNESIUM 2.2 mg/dL (1.8-2.4); SQUAMOUS EPITHELIAL CELL,UR FEW /LPF; TOTAL BILIRUBIN 0.3 mg/dL (0.2-1.0); YEAST,URINE PRESENT /HPF
[2017-07-19] MEDS: ACETAMINOPHEN 325 MG SUPP.RECT. PR (21:15)
[2017-07-19] MEDS ORDERED: levOFLOXacin PER PHARMACY. MC (21:30)
[2017-07-19] MEDS: AZTREONAM 2 GM in IV DEXTROSE 5% 100 ML IV (21:54)
[2017-07-19] MEDS: VANCOMYCIN 2 GM in IV DEXTROSE 5 %-0.45 % NACL 500 ML IV (22:00)
[2017-07-19 22:06] LABS: % ATYL 1 % (0-0); % BANDS 9 % (0-9); % LYMPHS 8 % (24-48); % MONOS 6 % (0-10); % SEGS 76 % (35-66); ANISOCYTOSIS SLIGHT; PLT ESTIMATE INCREASED (ADEQUATE); STOMATOCYTES FEW
[2017-07-19] MEDS ORDERED: ONDANSETRON PF 4 MG/2 ML VIAL. IV (23:00)
[2017-07-19] MEDS ORDERED: MORPHINE SULFATE 2 MG/ML DISP.SYRIN. IV (23:00)
[2017-07-19] MEDS ORDERED: ACETAMINOPHEN 325 MG TABLET. PO (23:00)
[2017-07-19] MEDS ORDERED: ACETAMINOPHEN 650 MG SUPP.RECT. PR (23:45)
[2017-07-20] MEDS: VANCOMYCIN PER PHARMACY MC ×2 (00:07→00:09)
[2017-07-20] MEDS: ACETAMINOPHEN 325 MG SUPP.RECT. PR (00:56)
[2017-07-20] MEDS: IV NORMAL SALINE 1000ML BAG 1,000 ML IV ×3 (00:58→21:34)
[2017-07-20 05:38] LABS: ADD MAN DIFF? NO
[2017-07-20 06:03] LABS: BASO % 0 % (0-3); EOS % 0 % (0-3); HEMATOCRIT 32.7 % (36.0-47.0); LYMPH % 10 % (24-48); MEAN CORPUSCULAR HEMOGLOBIN 31 pg (25-35); MEAN CORPUSCULAR HGB CONC 34 g/dL (31-37); MEAN CORPUSCULAR VOLUME 90 fL (79-100); MONO # 0.7 x10^3/uL (0.0-1.1); MONO % 7 % (0-9); NEUT # 7.6 x10^3uL (1.8-7.7); NEUT % 82 % (31-73); PLATELET COUNT 341 x10^3/uL (140-400); RED BLOOD COUNT 3.62 x10^6/uL (3.50-5.40); RED CELL DISTRIBUTION WIDTH 16.5 % (11.5-14.5); WHITE BLOOD COUNT 9.3 x10^3/uL (4.0-11.0)
[2017-07-20 06:41] LABS: ANION GAP 12 (6-14); BLOOD UREA NITROGEN 20 mg/dL (7-20); CALCIUM 8.5 mg/dL (8.5-10.1); CARBON DIOXIDE 25 mmol/L (21-32); CHLORIDE 104 mmol/L (98-107); CREATININE 2.1 mg/dL (0.6-1.0); GLUCOSE 120 mg/dL (70-99); POTASSIUM 4.4 mmol/L (3.5-5.1); SODIUM 141 mmol/L (136-145)
[2017-07-20 07:02] LABS: POC GLUCOSE 119 mg/dL (70-99)
[2017-07-20] MEDS: IPRATRPIUM/ALBUTEROL 0.5/2.5MG 3 ML NEBU. NEB ×5 (08:00→20:23)
[2017-07-20] MEDS ORDERED: POLYETHYLENE GLYCOL 3350 17 GM PACKET. PO (08:45)
[2017-07-20] MEDS ORDERED: ONDANSETRON ODT 4 MG TAB.RAPDIS. PO (08:45)
[2017-07-20] MEDS ORDERED: oxyCODONE IR 5 MG TABLET PO ×2 (08:45)
[2017-07-20] MEDS ORDERED: MAGNESIUM HYDROXIDE 2,400 MG/30 ML ORAL.SUSP. PO (08:45)
[2017-07-20] MEDS: DICLOFENAC SODIUM 1% TOPICAL GEL 100GM TUBE. TP ×4 (09:00→21:41)
[2017-07-20] MEDS: C.DIFF MED SCREEN BY RX. MC (09:00)
[2017-07-20 10:03] LABS: NEGATIVE OBC STREP NEG; POSITIVE OBC STREP POS
[2017-07-20] MEDS: MULTIVITAMIN with MINERAL TABLET. PO (10:33)
[2017-07-20] MEDS: ASPIRIN ENTERIC COATED 81 MG TABLET.DR. PO (10:34)
[2017-07-20] MEDS: CHOLECALCIFEROL (VITAMIN D3) 1,000 UNIT TABLET PO (10:34)
[2017-07-20] MEDS: MUPIROCIN 2 % NASAL OINTMENT 22GM TUBE. NS ×2 (10:34→21:39)
[2017-07-20] MEDS: CLOPIDOGREL BISULFATE 75 MG TABLET PO (10:34)
[2017-07-20] MEDS: NYSTATIN TOPICAL POWDER 15GM BOTTLE. TP ×2 (10:34→21:39)
[2017-07-20] MEDS ORDERED: CEFEPIME HCL 1 GM in IV DEXTROSE 5% 50 ML IV (14:00)
[2017-07-20] MEDS: CEFEPIME HCL IV Push 1 GM VIAL. IVP ×2 (14:52→21:38)
[2017-07-20] MEDS ORDERED: VANCOMYCIN 1 GM in IV DEXTROSE 5% 250 ML IV (15:45)
[2017-07-20 19:03] LABS: BILIRUBIN,URINE NEGATIVE (NEG); CLARITY,URINE CLEAR; COLOR,URINE YELLOW; GLUCOSE,URINE NEGATIVE (NEG); NITRITE,URINE NEGATIVE (NEG); PROTEIN,URINE 30 mg/dL (NEG-TRACE)
[2017-07-20 19:35] LABS: BACTERIA,URINE 0 /HPF (0-FEW); SQUAMOUS EPITHELIAL CELL,UR FEW /LPF
[2017-07-20 20:48] LABS: POC GLUCOSE 91 mg/dL (70-99)
[2017-07-20] MEDS: ACETAMINOPHEN 650 MG/20.3 ML SOLUTION. PO (21:33)
[2017-07-20] MEDS: LACTOBACILLUS RHAMNOSUS GG 1 CAPSULE. PO (21:35)
[2017-07-20] MEDS: FAMOTIDINE 20 MG TABLET. PO (21:36)
[2017-07-20] MEDS: DONEPEZIL HCL 10 MG TABLET. PO (21:36)
[2017-07-20] MEDS: SIMVASTATIN 20 MG TABLET PO (21:36)
[2017-07-20] MEDS: VANCOMYCIN 1 GM in IV 1/2 NORMAL SALINE 250 ML IV (21:38)
[2017-07-20 22:14] LABS: MRSA BY PCR Positive (Negative)
[2017-07-21 05:31] LABS: ADD MAN DIFF? NO
[2017-07-21 05:37] LABS: BASO % 0 % (0-3); EOS % 0 % (0-3); HEMATOCRIT 30.1 % (36.0-47.0); HEMOGLOBIN 10.3 g/dL (12.0-15.5); LYMPH # 1.7 x10^3/uL (1.0-4.8); LYMPH % 21 % (24-48); MEAN CORPUSCULAR HEMOGLOBIN 31 pg (25-35); MEAN CORPUSCULAR HGB CONC 34 g/dL (31-37); MEAN CORPUSCULAR VOLUME 90 fL (79-100); MONO # 0.6 x10^3/uL (0.0-1.1); MONO % 8 % (0-9); NEUT # 5.6 x10^3uL (1.8-7.7); NEUT % 71 % (31-73); PLATELET COUNT 306 x10^3/uL (140-400); RED BLOOD COUNT 3.35 x10^6/uL (3.50-5.40); RED CELL DISTRIBUTION WIDTH 16.2 % (11.5-14.5); WHITE BLOOD COUNT 7.9 x10^3/uL (4.0-11.0)
[2017-07-21] MEDS: CEFEPIME HCL IV Push 1 GM VIAL. IVP ×3 (05:47→22:25)
[2017-07-21 06:12] LABS: ANION GAP 11 (6-14); BLOOD UREA NITROGEN 24 mg/dL (7-20); CALCIUM 8.6 mg/dL (8.5-10.1); CARBON DIOXIDE 22 mmol/L (21-32); CHLORIDE 105 mmol/L (98-107); GFR 29.6; GLUCOSE 106 mg/dL (70-99); POTASSIUM 3.9 mmol/L (3.5-5.1); SODIUM 138 mmol/L (136-145)
[2017-07-21] MEDS: IPRATRPIUM/ALBUTEROL 0.5/2.5MG 3 ML NEBU. NEB ×4 (07:14→19:56)
[2017-07-21] MEDS: LACTOBACILLUS RHAMNOSUS GG 1 CAPSULE. PO ×2 (09:15→21:06)
[2017-07-21] MEDS: CHOLECALCIFEROL (VITAMIN D3) 1,000 UNIT TABLET PO (09:15)
[2017-07-21] MEDS: ASPIRIN ENTERIC COATED 81 MG TABLET.DR. PO (09:16)
[2017-07-21] MEDS: MULTIVITAMIN with MINERAL TABLET. PO (09:16)
[2017-07-21] MEDS: CLOPIDOGREL BISULFATE 75 MG TABLET PO (09:16)
[2017-07-21] MEDS: DICLOFENAC SODIUM 1% TOPICAL GEL 100GM TUBE. TP ×4 (09:19→21:07)
[2017-07-21] MEDS: MUPIROCIN 2 % NASAL OINTMENT 22GM TUBE. NS ×2 (09:19→21:06)
[2017-07-21] MEDS: NYSTATIN TOPICAL POWDER 15GM BOTTLE. TP ×2 (09:19→21:06)
[2017-07-21 10:48] LABS: POC GLUCOSE 107 mg/dL (70-99)
[2017-07-21] MEDS: VANCOMYCIN PER PHARMACY MC ×2 (14:03→23:12)
[2017-07-21 17:14] LABS: POC GLUCOSE 95 mg/dL (70-99)
[2017-07-21] MEDS: FAMOTIDINE 20 MG TABLET. PO (21:06)
[2017-07-21] MEDS: DONEPEZIL HCL 10 MG TABLET. PO (21:06)
[2017-07-21] MEDS: SIMVASTATIN 20 MG TABLET PO (21:06)
[2017-07-21 21:14] LABS: POC GLUCOSE 114 mg/dL (70-99)
[2017-07-21 22:17] LABS: VANC TR 19.7 mcg/mL (10.0-20.0)
[2017-07-21] MEDS: VANCOMYCIN 750 MG in IV 1/2 NORMAL SALINE 250 ML IV (22:37)
[2017-07-22 05:53] LABS: ADD MAN DIFF? NO
[2017-07-22 06:06] LABS: BASO % 0 % (0-3); EOS % 1 % (0-3); HEMATOCRIT 31.5 % (36.0-47.0); HEMOGLOBIN 10.8 g/dL (12.0-15.5); LYMPH % 22 % (24-48); MEAN CORPUSCULAR HEMOGLOBIN 30 pg (25-35); MEAN CORPUSCULAR HGB CONC 34 g/dL (31-37); MEAN CORPUSCULAR VOLUME 87 fL (79-100); MONO # 0.5 x10^3/uL (0.0-1.1); MONO % 6 % (0-9); NEUT # 6.4 x10^3uL (1.8-7.7); NEUT % 71 % (31-73); PLATELET COUNT 330 x10^3/uL (140-400); RED CELL DISTRIBUTION WIDTH 16.3 % (11.5-14.5); WHITE BLOOD COUNT 9.1 x10^3/uL (4.0-11.0)
[2017-07-22] MEDS: CEFEPIME HCL IV Push 1 GM VIAL. IVP ×3 (06:07→22:01)
[2017-07-22 06:48] LABS: ANION GAP 10 (6-14); BLOOD UREA NITROGEN 22 mg/dL (7-20); CALCIUM 8.7 mg/dL (8.5-10.1); CARBON DIOXIDE 25 mmol/L (21-32); CHLORIDE 103 mmol/L (98-107); CREATININE 1.8 mg/dL (0.6-1.0); GFR 33.5; GLUCOSE 108 mg/dL (70-99); POTASSIUM 3.9 mmol/L (3.5-5.1); SODIUM 138 mmol/L (136-145)
[2017-07-22] MEDS: IPRATRPIUM/ALBUTEROL 0.5/2.5MG 3 ML NEBU. NEB ×4 (07:20→20:08)
[2017-07-22] MEDS: MUPIROCIN 2 % NASAL OINTMENT 22GM TUBE. NS ×2 (09:18→22:04)
[2017-07-22] MEDS: NYSTATIN TOPICAL POWDER 15GM BOTTLE. TP ×2 (09:18→22:04)
[2017-07-22] MEDS: DICLOFENAC SODIUM 1% TOPICAL GEL 100GM TUBE. TP ×4 (09:18→22:04)
[2017-07-22] MEDS: CLOPIDOGREL BISULFATE 75 MG TABLET PO (09:19)
[2017-07-22] MEDS: ASPIRIN ENTERIC COATED 81 MG TABLET.DR. PO (09:19)
[2017-07-22] MEDS: LACTOBACILLUS RHAMNOSUS GG 1 CAPSULE. PO ×2 (09:19→21:58)
[2017-07-22] MEDS: MULTIVITAMIN with MINERAL TABLET. PO (09:19)
[2017-07-22] MEDS: CHOLECALCIFEROL (VITAMIN D3) 1,000 UNIT TABLET PO (09:19)
[2017-07-22 11:27] LABS: POC GLUCOSE 104 mg/dL (70-99)
[2017-07-22] MEDS: VANCOMYCIN PER PHARMACY MC (14:38)
[2017-07-22 16:52] LABS: POC GLUCOSE 117 mg/dL (70-99)
[2017-07-22 21:13] LABS: POC GLUCOSE 121 mg/dL (70-99)
[2017-07-22] MEDS: ACETAMINOPHEN 650 MG/20.3 ML SOLUTION. PO (21:58)
[2017-07-22] MEDS: DONEPEZIL HCL 10 MG TABLET. PO (21:59)
[2017-07-22] MEDS: SIMVASTATIN 20 MG TABLET PO (21:59)
[2017-07-22] MEDS: FAMOTIDINE 20 MG TABLET. PO (21:59)
[2017-07-22] MEDS: VANCOMYCIN 750 MG in IV 1/2 NORMAL SALINE 250 ML IV (22:00)
[2017-07-22 22:48] LABS: C DIFF BY PCR Positive (Negative)
[2017-07-23] MEDS: VANCOMYCIN 125 MG/2.5 ML ORAL SOLUTION. PO ×5 (01:30→21:29)
[2017-07-23 04:14] LABS: ADD MAN DIFF? NO
[2017-07-23 04:18] LABS: BASO % 0 % (0-3); EOS # 0.1 x10^3/uL (0.0-0.7); EOS % 2 % (0-3); HEMATOCRIT 30.8 % (36.0-47.0); HEMOGLOBIN 10.5 g/dL (12.0-15.5); LYMPH # 1.7 x10^3/uL (1.0-4.8); LYMPH % 20 % (24-48); MEAN CORPUSCULAR HEMOGLOBIN 30 pg (25-35); MEAN CORPUSCULAR HGB CONC 34 g/dL (31-37); MEAN CORPUSCULAR VOLUME 89 fL (79-100); MONO # 0.6 x10^3/uL (0.0-1.1); MONO % 6 % (0-9); NEUT # 6.3 x10^3uL (1.8-7.7); NEUT % 72 % (31-73); PLATELET COUNT 359 x10^3/uL (140-400); RED BLOOD COUNT 3.45 x10^6/uL (3.50-5.40); WHITE BLOOD COUNT 8.8 x10^3/uL (4.0-11.0)
[2017-07-23 04:37] LABS: ANION GAP 9 (6-14); BLOOD UREA NITROGEN 24 mg/dL (7-20); CALCIUM 8.7 mg/dL (8.5-10.1); CARBON DIOXIDE 26 mmol/L (21-32); CHLORIDE 104 mmol/L (98-107); CREATININE 1.9 mg/dL (0.6-1.0); GFR 31.4; GLUCOSE 125 mg/dL (70-99); POTASSIUM 3.6 mmol/L (3.5-5.1); SODIUM 139 mmol/L (136-145)
[2017-07-23] MEDS: CEFEPIME HCL IV Push 1 GM VIAL. IVP (05:15)
[2017-07-23 07:42] LABS: POC GLUCOSE 99 mg/dL (70-99)
[2017-07-23] MEDS: IPRATRPIUM/ALBUTEROL 0.5/2.5MG 3 ML NEBU. NEB ×4 (08:30→18:59)
[2017-07-23] MEDS: CHOLECALCIFEROL (VITAMIN D3) 1,000 UNIT TABLET PO (09:05)
[2017-07-23] MEDS: MULTIVITAMIN with MINERAL TABLET. PO (09:05)
[2017-07-23] MEDS: LACTOBACILLUS RHAMNOSUS GG 1 CAPSULE. PO ×2 (09:05→21:31)
[2017-07-23] MEDS: MUPIROCIN 2 % NASAL OINTMENT 22GM TUBE. NS ×2 (09:05→21:29)
[2017-07-23] MEDS: ASPIRIN ENTERIC COATED 81 MG TABLET.DR. PO (09:05)
[2017-07-23] MEDS: NYSTATIN TOPICAL POWDER 15GM BOTTLE. TP ×2 (09:05→21:29)
[2017-07-23] MEDS: CLOPIDOGREL BISULFATE 75 MG TABLET PO (09:05)
[2017-07-23] MEDS: DICLOFENAC SODIUM 1% TOPICAL GEL 100GM TUBE. TP ×4 (09:06→21:29)
[2017-07-23 11:45] LABS: POC GLUCOSE 112 mg/dL (70-99)
[2017-07-23] MEDS: POTASSIUM CHLORIDE 20 MEQ/15 ML ORAL LIQUID. PEG (13:10)
[2017-07-23] MEDS: CEFEPIME HCL 1 GM in IV NORMAL SALINE 50ML 50 ML IV ×2 (15:20→21:31)
[2017-07-23 16:39] LABS: POC GLUCOSE 105 mg/dL (70-99)
[2017-07-23 20:20] LABS: POC GLUCOSE 116 mg/dL (70-99)
[2017-07-23] MEDS: DONEPEZIL HCL 10 MG TABLET. PO (21:31)
[2017-07-23] MEDS: SIMVASTATIN 20 MG TABLET PO (21:31)
[2017-07-23] MEDS: FAMOTIDINE 20 MG TABLET. PO (21:31)
[2017-07-23] MEDS: ACETAMINOPHEN 650 MG/20.3 ML SOLUTION. PO (21:31)
[2017-07-24 05:14] LABS: ADD MAN DIFF? NO
[2017-07-24 05:19] LABS: BASO % 1 % (0-3); EOS # 0.4 x10^3/uL (0.0-0.7); EOS % 5 % (0-3); HEMATOCRIT 31.6 % (36.0-47.0); HEMOGLOBIN 10.6 g/dL (12.0-15.5); LYMPH % 25 % (24-48); MEAN CORPUSCULAR HEMOGLOBIN 30 pg (25-35); MEAN CORPUSCULAR HGB CONC 34 g/dL (31-37); MEAN CORPUSCULAR VOLUME 89 fL (79-100); MONO # 0.7 x10^3/uL (0.0-1.1); MONO % 8 % (0-9); NEUT # 4.8 x10^3uL (1.8-7.7); NEUT % 61 % (31-73); PLATELET COUNT 360 x10^3/uL (140-400); RED BLOOD COUNT 3.54 x10^6/uL (3.50-5.40); RED CELL DISTRIBUTION WIDTH 16.5 % (11.5-14.5); WHITE BLOOD COUNT 7.9 x10^3/uL (4.0-11.0)
[2017-07-24 05:50] LABS: ANION GAP 10 (6-14); BLOOD UREA NITROGEN 25 mg/dL (7-20); CALCIUM 9.1 mg/dL (8.5-10.1); CARBON DIOXIDE 25 mmol/L (21-32); CHLORIDE 103 mmol/L (98-107); CREATININE 1.8 mg/dL (0.6-1.0); GFR 33.5; GLUCOSE 111 mg/dL (70-99); POTASSIUM 3.8 mmol/L (3.5-5.1); SODIUM 138 mmol/L (136-145)
[2017-07-24] MEDS: CEFEPIME HCL 1 GM in IV NORMAL SALINE 50ML 50 ML IV ×3 (05:56→21:20)
[2017-07-24] MEDS: IPRATRPIUM/ALBUTEROL 0.5/2.5MG 3 ML NEBU. NEB ×4 (07:58→19:30)
[2017-07-24 08:08] LABS: POC GLUCOSE 107 mg/dL (70-99)
[2017-07-24] MEDS: CHOLECALCIFEROL (VITAMIN D3) 1,000 UNIT TABLET PO (09:18)
[2017-07-24] MEDS: LACTOBACILLUS RHAMNOSUS GG 1 CAPSULE. PO ×2 (09:18→21:18)
[2017-07-24] MEDS: DICLOFENAC SODIUM 1% TOPICAL GEL 100GM TUBE. TP ×4 (09:19→21:17)
[2017-07-24] MEDS: ASPIRIN ENTERIC COATED 81 MG TABLET.DR. PO (09:19)
[2017-07-24] MEDS: CLOPIDOGREL BISULFATE 75 MG TABLET PO (09:19)
[2017-07-24] MEDS: NYSTATIN TOPICAL POWDER 15GM BOTTLE. TP ×2 (09:19→21:17)
[2017-07-24] MEDS: MULTIVITAMIN with MINERAL TABLET. PO (09:19)
[2017-07-24] MEDS: MUPIROCIN 2 % NASAL OINTMENT 22GM TUBE. NS ×2 (09:19→21:17)
[2017-07-24] MEDS: POTASSIUM CHLORIDE 20 MEQ/15 ML ORAL LIQUID. PEG (09:19)
[2017-07-24] MEDS: VANCOMYCIN 125 MG/2.5 ML ORAL SOLUTION. PO ×4 (09:22→21:20)
[2017-07-24 11:45] LABS: POC GLUCOSE 124 mg/dL (70-99)
[2017-07-24 16:21] LABS: POC GLUCOSE 105 mg/dL (70-99)
[2017-07-24] MEDS: ACETAMINOPHEN 650 MG/20.3 ML SOLUTION. PO (21:18)
[2017-07-24] MEDS: FAMOTIDINE 20 MG TABLET. PO (21:18)
[2017-07-24] MEDS: DONEPEZIL HCL 10 MG TABLET. PO (21:18)
[2017-07-24] MEDS: SIMVASTATIN 20 MG TABLET PO (21:18)
[2017-07-24 21:27] LABS: POC GLUCOSE 132 mg/dL (70-99)
[2017-07-25 04:57] LABS: ANION GAP 9 (6-14); BLOOD UREA NITROGEN 28 mg/dL (7-20); CALCIUM 9.4 mg/dL (8.5-10.1); CARBON DIOXIDE 26 mmol/L (21-32); CHLORIDE 102 mmol/L (98-107); CREATININE 1.9 mg/dL (0.6-1.0); GFR 31.4; GLUCOSE 117 mg/dL (70-99); POTASSIUM 4.2 mmol/L (3.5-5.1); SODIUM 137 mmol/L (136-145)
[2017-07-25] MEDS: CEFEPIME HCL 1 GM in IV NORMAL SALINE 50ML 50 ML IV (05:50)
[2017-07-25] MEDS: IPRATRPIUM/ALBUTEROL 0.5/2.5MG 3 ML NEBU. NEB ×2 (06:23→11:43)
[2017-07-25 08:01] LABS: POC GLUCOSE 125 mg/dL (70-99)
[2017-07-25] MEDS: VANCOMYCIN 125 MG/2.5 ML ORAL SOLUTION. PO (08:40)
[2017-07-25] MEDS: ASPIRIN ENTERIC COATED 81 MG TABLET.DR. PO (08:40)
[2017-07-25] MEDS: MUPIROCIN 2 % NASAL OINTMENT 22GM TUBE. NS (08:40)
[2017-07-25] MEDS: MULTIVITAMIN with MINERAL TABLET. PO (08:40)
[2017-07-25] MEDS: CLOPIDOGREL BISULFATE 75 MG TABLET PO (08:40)
[2017-07-25] MEDS: CHOLECALCIFEROL (VITAMIN D3) 1,000 UNIT TABLET PO (08:40)
[2017-07-25] MEDS: LACTOBACILLUS RHAMNOSUS GG 1 CAPSULE. PO (08:40)
[2017-07-25] MEDS: POTASSIUM CHLORIDE 20 MEQ/15 ML ORAL LIQUID. PEG (08:40)
[2017-07-25] MEDS: NYSTATIN TOPICAL POWDER 15GM BOTTLE. TP (08:41)
[2017-07-25] MEDS: DICLOFENAC SODIUM 1% TOPICAL GEL 100GM TUBE. TP (08:41)
[2017-07-25 11:05] LABS: POC GLUCOSE 114 mg/dL (70-99)
== END 2017-07-25 14:40 | disposition home or self-care (01) | DRG 371 ==
LOC: ER 19:39 → 5 SOUTH 22:12
DX: A04.72 Enterocolitis due to Clostridium difficile, not specified as recurrent (principal); G93.41 Metabolic encephalopathy; E44.0 Moderate protein-calorie malnutrition; E11.22 Type 2 diabetes mellitus with diabetic chronic kidney disease; N39.0 Urinary tract infection, site not specified; F01.51 Vascular dementia, unspecified severity, with behavioral disturbance; I69.351 Hemiplegia and hemiparesis following cerebral infarction affecting right dominant side; E11.43 Type 2 diabetes mellitus with diabetic autonomic (poly)neuropathy; E11.51 Type 2 diabetes mellitus with diabetic peripheral angiopathy without gangrene; E66.9 Obesity, unspecified; E78.00 Pure hypercholesterolemia, unspecified; E78.5 Hyperlipidemia, unspecified; E86.0 Dehydration; E87.5 Hyperkalemia; F02.80 Dementia in other diseases classified elsewhere, unspecified severity, without behavioral disturbance, psychotic disturbance, mood disturbance, and anxiety; F32.9 Major depressive disorder, single episode, unspecified; F41.9 Anxiety disorder, unspecified; Z88.0 Allergy status to penicillin; G30.9 Alzheimer's disease, unspecified; G89.29 Other chronic pain; I12.9 Hypertensive chronic kidney disease with stage 1 through stage 4 chronic kidney disease, or unspecified chronic kidney disease; J42 Unspecified chronic bronchitis; E87.6 Hypokalemia; J45.909 Unspecified asthma, uncomplicated; M21.371 Foot drop, right foot; G47.00 Insomnia, unspecified; B95.62 Methicillin resistant Staphylococcus aureus infection as the cause of diseases classified elsewhere; K21.9 Gastro-esophageal reflux disease without esophagitis; K59.00 Constipation, unspecified; N18.3 Chronic kidney disease, stage 3 (moderate); R09.02 Hypoxemia; Y95 Nosocomial condition; Z90.49 Acquired absence of other specified parts of digestive tract; Z90.710 Acquired absence of both cervix and uterus; Z93.1 Gastrostomy status
CPT/HCPCS: 36415; 71045; 71250; 80048; 80053; 80202; 81001; 82962; 83605; 83690; 83735; 83880; 84484; 85007; 85025; 85610; 85730; 87040; 87070; 87086; 87205; 87324; 87641; 87804; 87804-59; 87880; 92526-GN; 92610-GN; 93005; 94640; 94760; 96361; 96365; 96366; 96375; 99285; 99285-25; J0692; J1956; J3370; J3490; J7030; J7620

== ENCOUNTER 2017-09-01 15:28 | Inpatient (IN) | payer MEDICARE, OTHER ==
[2017-09-01 16:13] LABS: BILIRUBIN,URINE NEGATIVE (NEG); CLARITY,URINE CLOUDY; COLOR,URINE YELLOW; GLUCOSE,URINE NEGATIVE (NEG); NITRITE,URINE NEGATIVE (NEG); PROTEIN,URINE 30 mg/dL (NEG-TRACE); UROBILINOGEN,URINE 0.2 mg/dL (0.2 mg/dL)
[2017-09-01] MEDS: ACETAMINOPHEN 650 MG SUPP.RECT. PR (16:15)
[2017-09-01 16:21] LABS: BARBITURATES NEG (NEG); BENZODIAZEPINES NEG (NEG); CANNABINOIDS NEG (NEG); COCAINE NEG (NEG); METHADONE NEG (NEG); OPIATES NEG (NEG); PHENCYCLIDINE NEG (NEG)
[2017-09-01 16:25] LABS: BACTERIA,URINE MANY /HPF (0-FEW); RBC,URINE OCC /HPF (0-2); SQUAMOUS EPITHELIAL CELL,UR MANY /LPF; WBC,URINE 20-40 /HPF (0-4)
[2017-09-01 16:26] LABS: AMPHETAMINE/METHAMPHETAMINE NEG (NEG); ETHANOL, URINE NEG (NEG)
[2017-09-01] MEDS: MEROPENEM 500 MG in IV NORMAL SALINE 50ML 50 ML IV (16:45)
[2017-09-01] MEDS: IV NORMAL SALINE 1000ML BAG 1,000 ML IV ×3 (16:46→18:15)
[2017-09-01 17:20] LABS: ADD MAN DIFF? NO
[2017-09-01 17:22] LABS: BASO % 0 % (0-3); EOS % 0 % (0-3); HEMATOCRIT 31.7 % (36.0-47.0); HEMOGLOBIN 10.5 g/dL (12.0-15.5); LYMPH # 1.1 x10^3/uL (1.0-4.8); LYMPH % 8 % (24-48); MEAN CORPUSCULAR HEMOGLOBIN 30 pg (25-35); MEAN CORPUSCULAR HGB CONC 33 g/dL (31-37); MEAN CORPUSCULAR VOLUME 89 fL (79-100); MONO # 0.9 x10^3/uL (0.0-1.1); MONO % 7 % (0-9); NEUT # 10.8 x10^3uL (1.8-7.7); NEUT % 84 % (31-73); PLATELET COUNT 209 x10^3/uL (140-400); RED BLOOD COUNT 3.55 x10^6/uL (3.50-5.40); RED CELL DISTRIBUTION WIDTH 18.5 % (11.5-14.5); WHITE BLOOD COUNT 12.9 x10^3/uL (4.0-11.0)
[2017-09-01 17:30] LABS: ANION GAP 11 (6-14); BLOOD UREA NITROGEN 68 mg/dL (7-20); CALCIUM 9.4 mg/dL (8.5-10.1); CARBON DIOXIDE 25 mmol/L (21-32); CHLORIDE 106 mmol/L (98-107); CREATININE 2.8 mg/dL (0.6-1.0); GFR 20.1; GLUCOSE 236 mg/dL (70-99); POTASSIUM 4.6 mmol/L (3.5-5.1); SODIUM 142 mmol/L (136-145)
[2017-09-01 17:38] LABS: ALBUMIN 2.7 g/dL (3.4-5.0); ALK PHOS 85 U/L (46-116); ALT (SGPT) 31 U/L (14-59); AST (SGOT) 24 U/L (15-37); DIRECT BILIRUBIN 0.1 mg/dL (0.0-0.2); LIPASE 168 U/L (73-393); MAGNESIUM 2.3 mg/dL (1.8-2.4); TOTAL BILIRUBIN 0.8 mg/dL (0.2-1.0); TOTAL PROTEIN 8.1 g/dL (6.4-8.2)
[2017-09-01 17:38] LABS: TROPONINI < 0.017 ng/mL (0.000-0.055)
[2017-09-01 17:47] LABS: CKMB INDEX 0.4 % (0-4); CKMB MASS 1.6 ng/mL (0.0-3.6); CREATINE KINASE 359 U/L (26-192)
[2017-09-01 17:47] LABS: NT-PRO BNP 561 pg/mL (0-124)
[2017-09-01] MEDS ORDERED: ONDANSETRON PF 4 MG/2 ML VIAL. IV (18:15)
[2017-09-01] MEDS: VANCOMYCIN 2 GM in IV DEXTROSE 5 %-0.2 % NACL 500 ML IV (18:15)
[2017-09-01] MEDS: VANCOMYCIN PER PHARMACY MC (19:24)
[2017-09-01 20:09] LABS: LACTIC ACID 1.5 mmol/L (0.4-2.0)
[2017-09-01] MEDS: METOPROLOL TARTRATE 5 MG/5 ML VIAL. IVP (23:12)
[2017-09-02 00:13] LABS: TROPONINI < 0.017 ng/mL (0.000-0.055)
[2017-09-02] MEDS: MEROPENEM 500 MG in IV NORMAL SALINE 50ML 50 ML IV ×3 (01:11→17:14)
[2017-09-02] MEDS ORDERED: MAGNESIUM HYDROXIDE 2,400 MG/30 ML ORAL.SUSP. PO (02:15)
[2017-09-02] MEDS ORDERED: ONDANSETRON ODT 4 MG TAB.RAPDIS. PO (02:15)
[2017-09-02] MEDS ORDERED: POLYETHYLENE GLYCOL 3350 17 GM PACKET. PO (02:15)
[2017-09-02] MEDS ORDERED: ACETAMINOPHEN 160 MG/5 ML ORAL.SUSP. PO (02:45)
[2017-09-02 03:20] LABS: ADD MAN DIFF? NO
[2017-09-02 03:25] LABS: BASO % 0 % (0-3); EOS # 0.1 x10^3/uL (0.0-0.7); EOS % 1 % (0-3); HEMATOCRIT 27.3 % (36.0-47.0); HEMOGLOBIN 9.1 g/dL (12.0-15.5); LYMPH # 1.2 x10^3/uL (1.0-4.8); LYMPH % 8 % (24-48); MEAN CORPUSCULAR HEMOGLOBIN 30 pg (25-35); MEAN CORPUSCULAR HGB CONC 33 g/dL (31-37); MEAN CORPUSCULAR VOLUME 90 fL (79-100); MONO # 1.2 x10^3/uL (0.0-1.1); MONO % 9 % (0-9); NEUT # 11.5 x10^3uL (1.8-7.7); NEUT % 82 % (31-73); PLATELET COUNT 171 x10^3/uL (140-400); RED BLOOD COUNT 3.04 x10^6/uL (3.50-5.40); RED CELL DISTRIBUTION WIDTH 18.6 % (11.5-14.5); WHITE BLOOD COUNT 14.1 x10^3/uL (4.0-11.0)
[2017-09-02 03:34] LABS: ANION GAP 12 (6-14); BLOOD UREA NITROGEN 59 mg/dL (7-20); CALCIUM 8.7 mg/dL (8.5-10.1); CARBON DIOXIDE 22 mmol/L (21-32); CHLORIDE 113 mmol/L (98-107); CREATININE 2.4 mg/dL (0.6-1.0); GLUCOSE 147 mg/dL (70-99); POTASSIUM 4.2 mmol/L (3.5-5.1); SODIUM 147 mmol/L (136-145)
[2017-09-02] MEDS: IV NORMAL SALINE 1000ML BAG 1,000 ML IV ×3 (05:57→20:59)
[2017-09-02 06:30] LABS: TROPONINI < 0.017 ng/mL (0.000-0.055)
[2017-09-02] MEDS ORDERED: ACETAMINOPHEN 160 MG/5 ML ORAL.SUSP. FT (07:30)
[2017-09-02] MEDS ORDERED: POLYETHYLENE GLYCOL 3350 17 GM PACKET. GT (07:30)
[2017-09-02] MEDS: INSULIN ASPART 300 UNITS/3 ML INSULN.PEN SQ ×3 (07:30→16:30)
[2017-09-02] MEDS ORDERED: INSULIN ASPART 300 UNITS/3 ML INSULN.PEN SQ (07:30)
[2017-09-02] MEDS ORDERED: ONDANSETRON ODT 4 MG TAB.RAPDIS. GT (07:30)
[2017-09-02 08:34] LABS: POC GLUCOSE 68 mg/dL (70-99)
[2017-09-02] MEDS ORDERED: CLOPIDOGREL BISULFATE 75 MG TABLET PO (09:00)
[2017-09-02] MEDS ORDERED: CHOLECALCIFEROL (VITAMIN D3) 1,000 UNIT TABLET PO (09:00)
[2017-09-02] MEDS: ASPIRIN ENTERIC COATED 81 MG TABLET.DR. PO (09:00)
[2017-09-02] MEDS: CHOLECALCIFEROL (VITAMIN D3) 1,000 UNIT TABLET GT (09:03)
[2017-09-02] MEDS: SENNOSIDES/DOCUSATE 8.6/50MG TABLET. PO (09:03)
[2017-09-02] MEDS: CLOPIDOGREL BISULFATE 75 MG TABLET GT (09:03)
[2017-09-02] MEDS: MULTIVITAMIN with MINERAL TABLET. PO (09:03)
[2017-09-02] MEDS: VANCOMYCIN 125 MG/2.5 ML ORAL SOLUTION. PEG ×4 (09:04→21:01)
[2017-09-02] MEDS: ASPIRIN CHEWABLE 81 MG TABLET. PO (09:12)
[2017-09-02] MEDS: ZINC OXIDE 20% TOPICAL OINTMENT 28GM TUBE. TP ×2 (09:20→21:01)
[2017-09-02] MEDS: DICLOFENAC SODIUM 1% TOPICAL GEL 100GM TUBE. TP ×4 (09:20→21:02)
[2017-09-02] MEDS: NYSTATIN TOPICAL POWDER 15GM BOTTLE. TP ×2 (09:20→21:02)
[2017-09-02] MEDS: VANCOMYCIN PER PHARMACY MC (11:09)
[2017-09-02 12:54] LABS: POC GLUCOSE 93 mg/dL (70-99)
[2017-09-02 16:43] LABS: POC GLUCOSE 79 mg/dL (70-99)
[2017-09-02] MEDS: ACETAMINOPHEN 650 MG/20.3 ML SOLUTION. PEG ×2 (18:11→21:31)
[2017-09-02] MEDS ORDERED: SIMVASTATIN 20 MG TABLET PO (21:00)
[2017-09-02] MEDS ORDERED: FAMOTIDINE 20 MG TABLET. PO (21:00)
[2017-09-02 21:01] LABS: POC GLUCOSE 145 mg/dL (70-99)
[2017-09-02] MEDS: FAMOTIDINE 20 MG TABLET. GT (21:01)
[2017-09-02] MEDS: SIMVASTATIN 20 MG TABLET GT (21:01)
[2017-09-02 21:11] LABS: MRSA BY PCR Negative (Negative)
[2017-09-02] MEDS ORDERED: METOPROLOL TARTRATE 5 MG/5 ML VIAL. IVP ×2 (23:00)
[2017-09-03] MEDS: MEROPENEM 500 MG in IV NORMAL SALINE 50ML 50 ML IV ×3 (01:04→17:19)
[2017-09-03] MEDS: ACETAMINOPHEN 650 MG/20.3 ML SOLUTION. PEG (01:05)
[2017-09-03] MEDS: IV NORMAL SALINE 1000ML BAG 1,000 ML IV ×3 (01:14→21:07)
[2017-09-03 04:58] LABS: ADD MAN DIFF? NO
[2017-09-03 05:04] LABS: BASO % 0 % (0-3); EOS # 0.1 x10^3/uL (0.0-0.7); EOS % 1 % (0-3); HEMATOCRIT 27.7 % (36.0-47.0); LYMPH # 1.3 x10^3/uL (1.0-4.8); LYMPH % 11 % (24-48); MEAN CORPUSCULAR HEMOGLOBIN 30 pg (25-35); MEAN CORPUSCULAR HGB CONC 33 g/dL (31-37); MEAN CORPUSCULAR VOLUME 91 fL (79-100); MONO # 0.8 x10^3/uL (0.0-1.1); MONO % 6 % (0-9); NEUT # 10.5 x10^3uL (1.8-7.7); NEUT % 82 % (31-73); PLATELET COUNT 190 x10^3/uL (140-400); RED BLOOD COUNT 3.06 x10^6/uL (3.50-5.40); RED CELL DISTRIBUTION WIDTH 18.8 % (11.5-14.5); WHITE BLOOD COUNT 12.9 x10^3/uL (4.0-11.0)
[2017-09-03 06:02] LABS: ALBUMIN 2.3 g/dL (3.4-5.0); ALBUMIN/GLOBULIN RATIO 0.5 (1.0-1.7); ALK PHOS 88 U/L (46-116); ALT (SGPT) 42 U/L (14-59); ANION GAP 14 (6-14); AST (SGOT) 38 U/L (15-37); BLOOD UREA NITROGEN 54 mg/dL (7-20); BUN/CREATININE RATIO 23 (6-20); CARBON DIOXIDE 20 mmol/L (21-32); CHLORIDE 112 mmol/L (98-107); CREATININE 2.3 mg/dL (0.6-1.0); GFR 25.2; GLUCOSE 92 mg/dL (70-99); POTASSIUM 4.6 mmol/L (3.5-5.1); SODIUM 146 mmol/L (136-145); TOTAL BILIRUBIN 0.6 mg/dL (0.2-1.0); TOTAL PROTEIN 7.4 g/dL (6.4-8.2)
[2017-09-03] MEDS: INSULIN ASPART 300 UNITS/3 ML INSULN.PEN SQ ×3 (07:30→16:30)
[2017-09-03] MEDS ORDERED: ASPIRIN CHEWABLE 81 MG TABLET. PO (08:00)
[2017-09-03 08:21] LABS: POC GLUCOSE 140 mg/dL (70-99)
[2017-09-03] MEDS: MULTIVITAMIN with MINERAL TABLET. PO (08:38)
[2017-09-03] MEDS: CHOLECALCIFEROL (VITAMIN D3) 1,000 UNIT TABLET GT (08:39)
[2017-09-03] MEDS: SENNOSIDES/DOCUSATE 8.6/50MG TABLET. PO (08:39)
[2017-09-03] MEDS: ASPIRIN CHEWABLE 81 MG TABLET. PO (08:39)
[2017-09-03] MEDS: CLOPIDOGREL BISULFATE 75 MG TABLET GT (08:39)
[2017-09-03] MEDS: NYSTATIN TOPICAL POWDER 15GM BOTTLE. TP ×2 (08:42→21:08)
[2017-09-03] MEDS: VANCOMYCIN 125 MG/2.5 ML ORAL SOLUTION. PEG ×4 (08:45→21:08)
[2017-09-03] MEDS: DICLOFENAC SODIUM 1% TOPICAL GEL 100GM TUBE. TP ×4 (08:45→21:09)
[2017-09-03] MEDS: ZINC OXIDE 20% TOPICAL OINTMENT 28GM TUBE. TP ×2 (09:00→21:10)
[2017-09-03 11:26] LABS: POC GLUCOSE 84 mg/dL (70-99)
[2017-09-03] MEDS: DEXTROSE 50% 25 GM / 50ML DISP.SYRIN. IV (17:39)
[2017-09-03 17:54] LABS: POC GLUCOSE 62 mg/dL (70-99)
[2017-09-03 17:54] LABS: POC GLUCOSE 125 mg/dL (70-99)
[2017-09-03] MEDS ORDERED: VANCOMYCIN 1 GM in IV 1/2 NORMAL SALINE 250 ML IV (18:15)
[2017-09-03] MEDS: FAMOTIDINE 20 MG TABLET. GT (21:07)
[2017-09-03] MEDS: SIMVASTATIN 20 MG TABLET GT (21:08)
[2017-09-03] MEDS: LACTOBACILLUS RHAMNOSUS GG 1 CAPSULE. PO (21:08)
[2017-09-03 21:29] LABS: POC GLUCOSE 91 mg/dL (70-99)
[2017-09-04] MEDS: MEROPENEM 500 MG in IV NORMAL SALINE 50ML 50 ML IV ×3 (00:29→17:16)
[2017-09-04] MEDS: IV NORMAL SALINE 1000ML BAG 1,000 ML IV ×2 (02:57→08:05)
[2017-09-04 04:20] LABS: ADD MAN DIFF? NO
[2017-09-04 04:27] LABS: BASO % 0 % (0-3); EOS # 0.3 x10^3/uL (0.0-0.7); EOS % 3 % (0-3); HEMATOCRIT 27.9 % (36.0-47.0); HEMOGLOBIN 9.4 g/dL (12.0-15.5); LYMPH # 1.8 x10^3/uL (1.0-4.8); LYMPH % 17 % (24-48); MEAN CORPUSCULAR HEMOGLOBIN 30 pg (25-35); MEAN CORPUSCULAR HGB CONC 34 g/dL (31-37); MEAN CORPUSCULAR VOLUME 90 fL (79-100); MONO # 0.9 x10^3/uL (0.0-1.1); MONO % 9 % (0-9); NEUT # 7.3 x10^3uL (1.8-7.7); NEUT % 71 % (31-73); PLATELET COUNT 211 x10^3/uL (140-400); RED BLOOD COUNT 3.12 x10^6/uL (3.50-5.40); RED CELL DISTRIBUTION WIDTH 18.6 % (11.5-14.5); WHITE BLOOD COUNT 10.3 x10^3/uL (4.0-11.0)
[2017-09-04 04:59] LABS: ALBUMIN 2.2 g/dL (3.4-5.0); ALBUMIN/GLOBULIN RATIO 0.4 (1.0-1.7); ALK PHOS 89 U/L (46-116); ALT (SGPT) 47 U/L (14-59); ANION GAP 11 (6-14); AST (SGOT) 38 U/L (15-37); BLOOD UREA NITROGEN 44 mg/dL (7-20); BUN/CREATININE RATIO 21 (6-20); CARBON DIOXIDE 23 mmol/L (21-32); CHLORIDE 113 mmol/L (98-107); CREATININE 2.1 mg/dL (0.6-1.0); GLUCOSE 145 mg/dL (70-99); POTASSIUM 4.2 mmol/L (3.5-5.1); SODIUM 147 mmol/L (136-145); TOTAL BILIRUBIN 0.6 mg/dL (0.2-1.0); TOTAL PROTEIN 7.4 g/dL (6.4-8.2)
[2017-09-04] MEDS: INSULIN ASPART 300 UNITS/3 ML INSULN.PEN SQ ×3 (07:30→16:30)
[2017-09-04 08:07] LABS: POC GLUCOSE 119 mg/dL (70-99)
[2017-09-04] MEDS: MULTIVITAMIN with MINERAL TABLET. PO (08:47)
[2017-09-04] MEDS: LACTOBACILLUS RHAMNOSUS GG 1 CAPSULE. PO ×2 (08:47→20:32)
[2017-09-04] MEDS: CLOPIDOGREL BISULFATE 75 MG TABLET GT (08:47)
[2017-09-04] MEDS: SENNOSIDES/DOCUSATE 8.6/50MG TABLET. PO (08:48)
[2017-09-04] MEDS: ASPIRIN CHEWABLE 81 MG TABLET. PO (08:48)
[2017-09-04] MEDS: ZINC OXIDE 20% TOPICAL OINTMENT 28GM TUBE. TP ×2 (09:00→20:33)
[2017-09-04] MEDS: CHOLECALCIFEROL (VITAMIN D3) 1,000 UNIT TABLET GT (09:00)
[2017-09-04] MEDS: VANCOMYCIN 125 MG/2.5 ML ORAL SOLUTION. PEG ×4 (09:05→20:32)
[2017-09-04] MEDS: DICLOFENAC SODIUM 1% TOPICAL GEL 100GM TUBE. TP ×4 (09:06→20:33)
[2017-09-04] MEDS: NYSTATIN TOPICAL POWDER 15GM BOTTLE. TP ×2 (09:06→20:33)
[2017-09-04 10:51] LABS: POC GLUCOSE 104 mg/dL (70-99)
[2017-09-04 16:19] LABS: POC GLUCOSE 119 mg/dL (70-99)
[2017-09-04] MEDS: SIMVASTATIN 20 MG TABLET GT (20:32)
[2017-09-04] MEDS: FAMOTIDINE 20 MG TABLET. GT (20:32)
[2017-09-04 20:43] LABS: POC GLUCOSE 142 mg/dL (70-99)
[2017-09-05] MEDS: MEROPENEM 500 MG in IV NORMAL SALINE 50ML 50 ML IV ×2 (00:25→09:36)
[2017-09-05 06:53] LABS: ADD MAN DIFF? NO
[2017-09-05 07:03] LABS: BASO % 1 % (0-3); EOS # 0.3 x10^3/uL (0.0-0.7); EOS % 3 % (0-3); HEMATOCRIT 26.9 % (36.0-47.0); HEMOGLOBIN 9.1 g/dL (12.0-15.5); LYMPH # 1.8 x10^3/uL (1.0-4.8); LYMPH % 19 % (24-48); MEAN CORPUSCULAR HEMOGLOBIN 30 pg (25-35); MEAN CORPUSCULAR HGB CONC 34 g/dL (31-37); MEAN CORPUSCULAR VOLUME 89 fL (79-100); MONO # 0.7 x10^3/uL (0.0-1.1); MONO % 7 % (0-9); NEUT # 6.6 x10^3uL (1.8-7.7); NEUT % 70 % (31-73); PLATELET COUNT 211 x10^3/uL (140-400); RED BLOOD COUNT 3.04 x10^6/uL (3.50-5.40); RED CELL DISTRIBUTION WIDTH 18.5 % (11.5-14.5); WHITE BLOOD COUNT 9.5 x10^3/uL (4.0-11.0)
[2017-09-05 07:19] LABS: ALBUMIN/GLOBULIN RATIO 0.4 (1.0-1.7); ALK PHOS 82 U/L (46-116); ALT (SGPT) 53 U/L (14-59); ANION GAP 6 (6-14); AST (SGOT) 36 U/L (15-37); BLOOD UREA NITROGEN 41 mg/dL (7-20); BUN/CREATININE RATIO 21 (6-20); CALCIUM 8.9 mg/dL (8.5-10.1); CARBON DIOXIDE 26 mmol/L (21-32); CHLORIDE 113 mmol/L (98-107); GFR 29.6; GLUCOSE 156 mg/dL (70-99); POTASSIUM 4.1 mmol/L (3.5-5.1); SODIUM 145 mmol/L (136-145); TOTAL BILIRUBIN 0.5 mg/dL (0.2-1.0); TOTAL PROTEIN 7.3 g/dL (6.4-8.2)
[2017-09-05] MEDS: INSULIN ASPART 300 UNITS/3 ML INSULN.PEN SQ ×3 (07:30→16:30)
[2017-09-05 08:41] LABS: POC GLUCOSE 140 mg/dL (70-99)
[2017-09-05] MEDS: LACTOBACILLUS RHAMNOSUS GG 1 CAPSULE. PO ×2 (09:00→21:09)
[2017-09-05] MEDS: CLOPIDOGREL BISULFATE 75 MG TABLET GT (09:45)
[2017-09-05] MEDS: MULTIVITAMIN with MINERAL TABLET. PO (09:45)
[2017-09-05] MEDS: CHOLECALCIFEROL (VITAMIN D3) 1,000 UNIT TABLET GT (09:45)
[2017-09-05] MEDS: ASPIRIN CHEWABLE 81 MG TABLET. PO (09:46)
[2017-09-05] MEDS: SENNOSIDES/DOCUSATE 8.6/50MG TABLET. PO (09:46)
[2017-09-05] MEDS: NYSTATIN TOPICAL POWDER 15GM BOTTLE. TP ×2 (10:50→21:08)
[2017-09-05] MEDS: DICLOFENAC SODIUM 1% TOPICAL GEL 100GM TUBE. TP ×4 (10:51→21:07)
[2017-09-05] MEDS: CEFPODOXIME PROXETIL 100 MG TABLET. PO ×2 (10:53→21:09)
[2017-09-05] MEDS: ZINC OXIDE 20% TOPICAL OINTMENT 28GM TUBE. TP ×2 (10:53→21:08)
[2017-09-05 11:48] LABS: POC GLUCOSE 101 mg/dL (70-99)
[2017-09-05 16:46] LABS: POC GLUCOSE 113 mg/dL (70-99)
[2017-09-05] MEDS: FAMOTIDINE 20 MG TABLET. GT (21:09)
[2017-09-05] MEDS: SIMVASTATIN 20 MG TABLET GT (21:09)
[2017-09-05] MEDS: VANCOMYCIN 125 MG/2.5 ML ORAL SOLUTION. PO (21:10)
[2017-09-05 22:00] LABS: POC GLUCOSE 113 mg/dL (70-99)
[2017-09-06] MEDS: CLOPIDOGREL BISULFATE 75 MG TABLET GT (08:52)
[2017-09-06] MEDS: ASPIRIN CHEWABLE 81 MG TABLET. PO (08:52)
[2017-09-06] MEDS: MULTIVITAMIN with MINERAL TABLET. PO (08:53)
[2017-09-06] MEDS: LACTOBACILLUS RHAMNOSUS GG 1 CAPSULE. PO (08:53)
[2017-09-06] MEDS: CHOLECALCIFEROL (VITAMIN D3) 1,000 UNIT TABLET GT (08:53)
[2017-09-06] MEDS: SENNOSIDES/DOCUSATE 8.6/50MG TABLET. PO (08:54)
[2017-09-06] MEDS: VANCOMYCIN 125 MG/2.5 ML ORAL SOLUTION. PO (08:54)
[2017-09-06] MEDS: CEFPODOXIME PROXETIL 100 MG TABLET. PO (08:54)
[2017-09-06] MEDS: ZINC OXIDE 20% TOPICAL OINTMENT 28GM TUBE. TP (08:55)
[2017-09-06] MEDS: NYSTATIN TOPICAL POWDER 15GM BOTTLE. TP (08:55)
[2017-09-06] MEDS: DICLOFENAC SODIUM 1% TOPICAL GEL 100GM TUBE. TP ×2 (08:56→13:00)
[2017-09-06] MEDS: INSULIN ASPART 300 UNITS/3 ML INSULN.PEN SQ ×2 (08:58→11:23)
[2017-09-06 09:05] LABS: POC GLUCOSE 139 mg/dL (70-99)
[2017-09-06 11:45] LABS: POC GLUCOSE 126 mg/dL (70-99)
== END 2017-09-06 13:55 | disposition home or self-care (01) | DRG 871 ==
LOC: 5 NORTH 09-02 16:05 → ER 15:28 → 1 WEST ICU 16:45
DX: A41.50 Gram-negative sepsis, unspecified (principal); G93.41 Metabolic encephalopathy; N17.9 Acute kidney failure, unspecified; E44.0 Moderate protein-calorie malnutrition; E87.0 Hyperosmolality and hypernatremia; N18.4 Chronic kidney disease, stage 4 (severe); R13.11 Dysphagia, oral phase; F02.81 Dementia in other diseases classified elsewhere, unspecified severity, with behavioral disturbance; N39.0 Urinary tract infection, site not specified; I69.351 Hemiplegia and hemiparesis following cerebral infarction affecting right dominant side; F01.51 Vascular dementia, unspecified severity, with behavioral disturbance; G30.9 Alzheimer's disease, unspecified; E11.51 Type 2 diabetes mellitus with diabetic peripheral angiopathy without gangrene; F41.9 Anxiety disorder, unspecified; J45.909 Unspecified asthma, uncomplicated; F32.9 Major depressive disorder, single episode, unspecified; K21.9 Gastro-esophageal reflux disease without esophagitis; E78.00 Pure hypercholesterolemia, unspecified; G47.00 Insomnia, unspecified; E11.22 Type 2 diabetes mellitus with diabetic chronic kidney disease; E78.5 Hyperlipidemia, unspecified; I69.391 Dysphagia following cerebral infarction; I12.9 Hypertensive chronic kidney disease with stage 1 through stage 4 chronic kidney disease, or unspecified chronic kidney disease; E86.0 Dehydration; K59.00 Constipation, unspecified; G89.29 Other chronic pain; M21.371 Foot drop, right foot; B96.4 Proteus (mirabilis) (morganii) as the cause of diseases classified elsewhere; Z90.710 Acquired absence of both cervix and uterus; Z93.1 Gastrostomy status; Z88.0 Allergy status to penicillin; Z90.49 Acquired absence of other specified parts of digestive tract; Z68.30 Body mass index [BMI] 30.0-30.9, adult; Z87.891 Personal history of nicotine dependence; Z86.14 Personal history of Methicillin resistant Staphylococcus aureus infection
CPT/HCPCS: 36415; 51702; 70450; 71045; 80048; 80053; 80076; 80307; 81001; 82553; 82962; 83605; 83690; 83735; 83880; 84484; 85025; 87040; 87086; 87205; 87641; 96361; 96365; 99291-25; J1815; J2185; J3370; J3490; J7030; J7042

== ENCOUNTER → 2018-11-13 | Outpatient (CLI) | payer MEDICARE, OTHER ==
[2018-05-24 11:00] VITALS: BP 135/66
[~2018-11-13] MED LIST changes: +CEFD250S PEG; +CEFP100T PO; +CEFP200T PO; -HYDR-2758 PO; +HYDR-2761 PO; -IPRA3AMP IH; -IPRA3AMP NEB; +IPRA3AMP29 IH; +IPRA3AMP29 NEB; +LACT1CAP19 PO; +LOSA100T14 PO; -LOSA100T6 PO; +OMEP20CA10 PO; -OMEP20CA9 PO; -OXYC-328 PO; +OXYC1TAB22 PO; +SENN-161 PO; -SENN1TAB7 PO; +TRAZ-118 PO; -TRAZ50TA15 PO; +VANC500V PO; +ZINC56.7 TP
--- NOTE | 2018-11-13 13:46 | RAD ---
MR of the left elbow HISTORY: Possible osteomyelitis of the left olecranon. TECHNIQUE: Routine multiplanar sequences are obtained FINDINGS: Exam is a very suboptimal quality due to lack of patient mobility. The elbow is in fixed flexion and the arm is draped over the abdomen. In addition, there is moderate motion degradation. Enthesophytes at the olecranon attachment to the triceps. Mild marrow edema within the olecranon with subtle loss of T1 signal. No aggressive cortical destruction. No evidence of acute fracture. Trace elbow joint effusion. Triceps tendon appears intact with mild hypointense thickening or tendinosis. Difficult to document the biceps and brachialis tendon insertions due to the motion but no evidence of acute rupture. No definite acute medial or lateral collateral ligament or tendon disruption. IMPRESSION: 1. Very suboptimal exam. 2. Mild marrow edema and loss of T1 signal at the olecranon process. This may just be reactive or degenerative, and there is adjacent insertional triceps tendinosis with enthesophyte. However, mild or early osteomyelitis is not possible to exclude, particularly given that there is clinical concern in this location. Electronically signed by: Sebastien Garnica MD (11/13/2018 1:43 PM) [id number]
== END | disposition home or self-care (01) ==
LOC: MRI 07:52
PROVIDERS: ATTEND Family Medicine Geriatric Medicine
DX: M77.8 Other enthesopathies, not elsewhere classified (principal); R60.0 Localized edema
CPT/HCPCS: 73221